=== PATIENT | female | born 1965 | race Caucasian/White ===

== ENCOUNTER 2019-12-04 10:39 | Outpatient (CLI) | payer MEDICARE, SELFPAY ==
--- NOTE | 2019-12-04 11:06 | CT_ITS ---
WS: [id number] CT CHEST WITHOUT INTRAVENOUS CONTRAST HISTORY: FOLLOW UP FOR PULMONARY NODULE TECHNIQUE: Contiguous 5 mm axial imaging performed on the thorax. Coronal and sagittal reformats are submitted. All CT scans at [facility] use at least one of these dose optimization techniq ues: automated exposure control; mA and/or kV adjustment per patient size (includes targeted exams wh ere dose is matched to clinical indication); or iterative reconstruction. CONTRAST: None DLP: 692.07 mGy.cm COMPARISON: 09/14/2017, 04/19/2009 Lungs and central airway: Stable 6.6 mm nodule with a pleural tag at the RIGHT apex. 3 mm noncalcifie d rounded nodule on image 20 degrees series 3 is stable. Fibrotic changes in the periphery of the LEF T upper lobe with bronchiectasis. There is an area of pleural thickening along the RIGHT major fissur e which is also stable. No new or suspicious pulmonary nodules. Pleura: Normal. No pleural effusion. Heart and pericardium: Normal size heart. No pericardial effusion. Mediastinum and olaf: Well-circumscribed low-attenuation mass in the anterior mediastinum measures 1. 7 cm in diameter. Very slight increase in size since 09/14/2017. Small mediastinal lymph nodes. Vessels: Mild coronary artery atherosclerosis. Aorta is normal size. Chest wall and lower neck: LEFT axillary christy dissection. Upper abdomen: Stable 12 mm cyst in the superior RIGHT lobe of the liver. Mild hyperplasia LEFT adren al gland. No nodules. Osseous structures: Mild thoracolumbar scoliosis. Dorsal column stimulator electrodes are present ove r the mid thoracic spine. CT/CT chest wo con [id number] IMPRESSION: 1. Stable pulmonary nodules and pleural thickening since 05/14/2017. 2. Coronary artery atherosclerosis. 3. Prior LEFT axillary christy dissection. 4. Stable anterior mediastinal mass since 09/14/2017.
== END 2019-12-04 10:40 | disposition home or self-care (01) ==
PROVIDERS: Family Provider Family Medicine; Visit Provider Internal Medicine Medical Oncology
DX: R91.1 Solitary pulmonary nodule (principal); I25.10 Atherosclerotic heart disease of native coronary artery without angina pectoris
CPT/HCPCS: 71250

== ENCOUNTER 2019-12-09 12:10 | Outpatient (CLI) | payer MEDICARE, SELFPAY ==
[2019-12-09 13:06] LABS: Basophils # 0.1 10^3/uL (0.0-0.1); Basophils % 0.3 %; Eosinophils % 0.2 %; Hematocrit 43.9 % (37.0-47.0); Hemoglobin 13.9 g/dL (11.5-15.3); Lymphocytes # 5.4 10^3/uL (0.8-4.8); Lymphocytes % 31.6 %; Mean Corpuscular HGB Conc 31.7 g/dL (30.0-36.0); Mean Corpuscular Hemoglobin 29.1 pg (28.0-34.0); Mean Platelet Volume 9.3 fL (7.4-10.4); Monocytes % 5.8 %; Neutrophils # 10.4 10^3/uL (1.8-7.7); Neutrophils % 61.7 %; Nucleated Red Blood Cells % 0 %; Platelet Count 317 10^3/cmm (130-400); Red Blood Count 4.77 10^6/uL (4.1-5.3); Red Cell Distribution Width 12.6 % (12.1-15.1); White Blood Count 16.9 10^3/uL (4.0-10.0)
[2019-12-09 13:39] LABS: Alanine Aminotransferase 16 U/L (0-33); Alkaline Phosphatase 77 IU/L (35-105); Anion Gap 20.2 (5-19); Aspartate Amino Transferase 23 U/L (0-32); Blood Urea Nitrogen 9 mg/dL (6-20); Calcium 10.1 mg/dL (8.5-10.5); Carbon Dioxide 27 mmol/L (22-29); Chloride 97 mmol/L (98-107); Globulin 3.7 g/dL (1.3-4.6); Glomerular Filtration Rate 127.6 mL/min (90-130); Glucose 181 mg/dL (65-115); Potassium 4.2 mmol/L (3.5-5.1); Sodium 140 mmol/L (136-145); Total Protein 7.7 g/dL (6.6-8.7)
--- NOTE | 2019-12-10 09:03 | ONC FU_ITS ---
Dr. Garner Patient Follow-Up Note Patient: Olya Mccormick Unit #: [id number]: [id number] Dicatated By: Jamil Garner M.D.Date of Visit:Dec 09, 2019 Onc Med Follow-up/Prog Note Chief Complaint: Breast cancer/metastatic squamous cell cancer. History of Present Illness: This is a 54 year-old woman with a history of grade 2 infiltrating ductal carcinoma of the left breast, stage IIA (T1c, N1, M0), ER/AL positive and HER-2/marely negative. 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 She had presented in 2005 with an abnormal mammogram which showed an isodense lesion in the left breast at 12 o'clock. Her treatment included lumpectomy and sentinel axillary lymph node biopsy followed by adjuvant chemotherapy with 3 cycles of FEC followed by 3 cycles of Taxotere. She completed chemotherapy in May of 2006. She was then given radiation to the left breast, which she completed in October 2006. She then started hormonal therapy with Arimidex, but it was stopped in October 2007 due to musculoskeletal pain and other side effects. She had a brief trial of therapy with Aromasin, which she also tolerated poorly. She then started tamoxifen in December 2008 and continued it until sometime in the summer, having completed a little more than 4 years of treatment. Thus far there has been no evidence of recurrence of her breast cancer. She had chronic pain following completion of her chemotherapy. At least some component was felt to be due to chemotherapy-induced peripheral neuropathy. She also developed significant degenerative disease of the spine, and she underwent cervical laminectomy as well as placement of a spinal cord stimulator. Her other medical illnesses include type 2 diabetes, dyslipidemia, and coronary artery disease. She has had previous angioplasty/stent placement. She has a history of irritable bowel syndrome. She underwent upper GI endoscopy in June 2011. At that time she had evidence of esophagitis, esophageal candidiasis, and gastritis. She was H. pylori positive. She did complete treatment for both the Sylvia and the H. pylori. She was then confirmed on a subsequent gastric emptying study to have gastroparesis. In January 2015 she had presented with some new pain in the right groin area and right leg. I had initially suspected that it was from the right hip joint. X-rays and subsequent bone scan, though, were unremarkable. Ultimately I did suspect that the pain was radicular, as there were significant degenerative changes in the spine noted on a previous CT abdomen/pelvis. She was referred to Dr. Maloney for further evaluation. She was not a candidate for MRI due to the presence of a TENS unit. Ultimately she did have evaluation with myelogram in April 2015. There was no severe stenosis noted. She continued with conservative management. In the meantime she had presented to Dr. Saleh with a knot in her left groin area. She had been noted on a CT abdomen/pelvis in December 2014 to have a slight increase in left inguinal lymph nodes, the largest measuring up to 17 mm. Further evaluation with ultrasound on 07/23/2015 showed further progression of the left inguinal adenopathy, measuring 2.5 x 3.0 cm. An adjacent smaller node measured 10 x 14 mm. She was referred to Dr. Fiore. She underwent left inguinal lymph node biopsy on 08/19/2015. Pathology showed 2 separate lymph nodes, the larger measuring 3.5 x 3.0 x 2.5 cm and the smaller measuring 2.4 x 2.0 x 1.3 cm. Both showed metastatic squamous cell carcinoma. I had seen her for a followup visit in August 2015. She had negative vaginal and anorectal exam at that time. In reviewing her other history, she had undergone hysterectomy and unilateral oophorectomy sometime prior to my initial visit with her, which was in April 2006. She did have a previous colonoscopy, but she didn't recall when it was done, and I could not find a record of it. In June 2013 she had been sent to [place] for removal of a skin lesion from her right cheek. At that time a lesion was also removed from the lower left leg. Pathology showed basal cell carcinoma on the right cheek and crateriform squamous cell carcinoma on the left lower leg. There was squamous cell carcinoma extending to the deep biopsy margins. She had no further treatment. She had restaging PET/CT on 09/10/2015. That study showed findings the left groin which are felt to most likely represent postbiopsy inflammatory changes. There was a tiny right upper lobe subpleural pulmonary nodule with SUV 0.7, felt to be consistent with early metastatic involvement versus granulomatous disease. Follow-up chest CT was recommended. There were no other suspicious findings. She was then seen by Dr. Hernandez for consideration of left inguinal lymph node dissection. At that time there was concern of possible right inguinal adenopathy, and he had recommended evaluation with ultrasound. That study was done here on 11/26/2015. It showed evidence of 2 lymph nodes in the right groin, the largest measuring 1.6 x 1.3 cm. The appearance was consistent with benign lymph nodes. Several adjacent lymph nodes also were present. There was no suspicious lymphadenopathy identified. At that time, she also had a contrast-enhanced head CT scan. It showed no evidence of metastatic disease to the brain. There was an indeterminate lytic lesion noted in the left frontal bone. She subsequently had a repeat bone scan, and it was unremarkable. Follow-up CT abdomen/pelvis on 03/28/2016 showed a low density region in the posterior aspect of the right lobe of the liver which was present on studies, and follow-up was recommended. The lymph nodes in the left inguinal region were no longer present. There were no other changes noted. Surveillance CT scans of the chest, abdomen, and pelvis on 09/14/2017 showed no evidence of metastatic disease. A 6 mm nodule in the right lung apex was noted to be slightly more prominent compared to prior study from 2009 and there was an additional new noncalcified pulmonary nodule in the right upper lobe laterally measuring 3.7 mm. Follow-up was recommended. A cyst in the hepatic dome was felt to be probably stable. She continued on observation/expectant management. Her repeat chest CT on 12/04/2019 showed stable nodule at the right lung apex measuring 6.6 mm and stable 3 mm rounded nodule in the right upper lobe. Fibrotic changes in the periphery of the left upper lobe and pleural thickening along the right major fissure also appeared stable. A well-circumscribed low attenuation mass in the anterior mediastinum measuring 1.7 cm was noted to have increased slightly compared to the 2017 study. A 12 mm cyst in the right lobe of the liver also appeared stable. She is seen for a followup visit. She complains that she has been feeling tired. She is still able to do light work. Her ECOG score is 1. She continues to have difficulty eating. She has postprandial vomiting almost every day. Her weight, though, is stable. She has had low-grade fever intermittently up to 101 degrees. She says she has bad hot flashes and sweating. She has had cough productive of green sputum, and she has been having pain in the left rib cage with coughing, significant enough that she thinks she may have a broken rib. Her breathing, though, has been okay. In addition to the vomiting she has been having really bad heartburn. Bowel and bladder function have been okay. She continues to have neck pain, which is chronic. She complains that her back is sore. She has neuropathy in her legs and feet. Medications: Atorvastatin Calcium 1 (20 mg) Tablet Oral at bedtime, Atorvastatin Calcium 1 Tablet (of 20 mg) Oral daily, Cetirizine HCl 1 Tablet (of 10 mg) Oral daily, Cholestyramine 1 (4 g/dose) Powder Oral b.i.d., Clobetasol Propionate 1 (0.05 %) Cream Topical b.i.d., Cyclobenzaprine HCl 1 Tablet (of 10 mg) Oral t.i.d. PRN, diphenhydrAMINE HCl 1 Capsule (of 25 mg) Oral at bedtime PRN, DULoxetine HCl 1 Capsule (of 30 mg) Capsule Delayed Release Particles Oral b.i.d., Erythromycin 5 mL (of 200-5 mg/mL) Solution q 6 hours PRN, Famotidine 1 (20 mg) Tablet Oral b.i.d., Flonase 1 spray(s) (of 50 mcg/act) Suspension Nasal b.i.d., Glimepiride 1 Tablet (of 2 mg) Oral b.i.d., glipiZIDE ER 1 Tablet (of 5 mg) Tablet SR 24 HR Oral daily, Lisinopril 1 (5 mg) Tablet Oral daily, Meclizine HCl 1 Tablet (of 25 mg) Oral t.i.d. PRN, Montelukast Sodium 1 Tablet (of 10 mg) Oral daily, Multivitamin Adult 1 Tablet Oral daily, Nitroglycerin (0.4 mg) Tablet, sublingual Sublingual Take as Directed, Pantoprazole Sodium 1 Tablet (of 40 mg) Tablet, enteric coated Oral daily, Plavix 1 Tablet (of 75 mg) Oral daily, Zofran 1 Tablet (of 4 mg) Oral q 8 hours PRN Allergies: adhesives, ASPIRIN, codeine, compazine, IV contrast, and septra. Review of Systems: Constitutional - Her energy is low and she is tired. She walks a lot and she does some light work at home. Her appetite is not good, but her weight is up slightly. She has had fever, up to about 101. She has hot flashes and night sweats. ECOG score is 1, ENMT - She has sinus congestion/drainage with a cough that produces green phlegm. No mouth sores. She has a sore throat. No difficulty swallowing, Hematologic/Lymphatic - No abnormal bruising or bleeding, Respiratory - No shortness of breath. No pleuritic pain or hemoptysis. She continues to smoke daily, Cardiovascular - No angina pain. No palpitations, Gastrointestinal - She has nausea and vomiting. She has heartburn. No diarrhea or constipation. No blood in the stool or black stools, Genitourinary (F) - No dysuria or hematuria. No urinary frequency. No urgency or incontinence, Musculoskeletal - She has pain in her ribs and back. She has neuropathy pain in her feet, Integumentary - No skin complications, Neurologic - She has headaches. She gets dizzy. She has tingling in her fingers and feet, Psychiatric - She has anxiety. She does not sleep well at night. Vital Signs: Performed on Dec 09, 2019 12:54 Height - 61.00 in Weight - 170.6 lbs (HIGH) BSA - 1.77 sq.m BMI - 32.23 (HIGH) Temperature - 98.0 F (LOW) Pulse - 95 /min Respiration - 24 /min BP - 116/77 mm(hg) O2 Sat - 97 % Pain - 6 Physical Examination: Constitutional - She does not appear acutely ill, Eyes - Sclerae nonicteric. Conjunctivae clear, ENMT - No lesions noted in the oral cavity, Hematologic/Lymphatic - No cervical, clavicular, or axillary adenopathy, Respiratory - Lungs sound clear with diminished air movement bilaterally, Cardiovascular - Heart rhythm is regular. There is a II/ systolic murmur. There is no gallop or rub noted, Abdomen - Soft. Liver and spleen are not enlarged. There is no abdominal mass or ascites noted. There is no inguinal adenopathy noted, Extremities - No edema, Neurologic - There are no other focal neurologic deficits. Lab/Imaging: Test performed on Dec 09, 2019 12:46 Sodium 140 mmol/L Potassium 4.2 mmol/L Chloride 97 mmol/L CO2 27 mmol/L Anion Gap 20.2 BUN 9 mg/dL Creatinine 0.5 mg/dL Cr Clearance (Est) 153.4800 mL/min eGFR 127.6 mL/min Glucose 181 mg/dL Calcium 10.1 mg/dL Protein, Total 7.7 g/dL Albumin 4.0 g/dL Globulin 3.7 g/dL Bilirubin, Total 1.0 mg/dL ALT (SGPT) 16 U/L AST (SGOT) 23 U/L Alkaline Phosphatase 77 IU/L WBC 16.9 10 3/uL RBC 4.77 10 6/uL HGB 13.9 g/dL HCT 43.9 % MCV 92.0 fL MCH 29.1 pg MCHC 31.7 g/dL RDW 12.6 % Platelet Count 317 10 3/cmm MPV 9.3 fL Neutrophils 10.4 10 3/uL Lymphocytes 5.4 10 3/uL Monocytes 1.0 10 3/uL Eosinophils 0.0 10 3/uL Basophils 0.1 10 3/uL Neutrophil % 61.7 % Lymphocyte % 31.6 % Monocyte % 5.8 % Eosinophil % 0.2 % Basophils % 0.3 % Impression: 1. Patient with stage IIA infiltrating ductal carcinoma of the left breast, ER/AL positive and HER-2/marely negative. Her treatment included lumpectomy/sentinel axillary lymph node biopsy followed by adjuvant chemotherapy with 3 cycles of FEC and 3 cycles of Taxotere, completed in May 2006. Radiation to the left breast was completed in October 2006. She also completed adjuvant hormonal therapy. 2. In July 2015 she was found to have metastatic squamous cell carcinoma involving left inguinal lymph nodes. This was probably metastatic squamous cell carcinoma from a primary skin cancer which had been removed from the left leg in June 2013. Restaging PET/CT in August 2015 showed no other sites of involvement. She was then referred to Dr. Hernandez for possible left inguinal node dissection. At that time there was concern of possible right inguinal lymphadenopathy, but ultrasound of that area showed benign-appearing lymph nodes, the largest measuring 1.6 x 1.3 cm. She had no further treatment. She has multiple other medical illnesses includin. Type II diabetes with neuropathy. 4. Dyslipidemia. 5. Coronary artery disease. She underwent coronary angiogram with angioplasty/stent placement to the right coronary artery in December 2011. 6. 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 7. Osteoporosis. 8. She has had recurrent postprandial vomiting. This is presumed to be due to gastroparesis. 9. She also has chronic diarrhea. During follow-up she has had multiple problems, including chronic pain and fatigue. She has neuropathy in the lower extremities. She also has gastroparesis with recurrent vomiting, and she has had chronic diarrhea. She also has had long-standing, mild leukocytosis. She was found to be negative for BCR/abl by FISH. At this point she continues to have similar complaints. Her overall clinical status appears stable, thus far with no evidence of recurrence of the breast cancer and no further progression of the squamous cell cancer. Plan: She remains on observation/expectant management for the breast cancer and the metastatic squamous cell carcinoma. I will see her again in 3 months, or sooner as needed. Signed By: Jamil Garner M.D. <<Signature on File>>
== END 2019-12-09 12:11 | disposition home or self-care (01) ==
LOC: ONCMED 12:10
PROVIDERS: Family Provider Family Medicine; PCP Family Medicine; Visit Provider Internal Medicine Medical Oncology
DX: Z08 Encounter for follow-up examination after completed treatment for malignant neoplasm (principal); Z85.3 Personal history of malignant neoplasm of breast; Z85.828 Personal history of other malignant neoplasm of skin; D72.829 Elevated white blood cell count, unspecified; G89.29 Other chronic pain; G62.0 Drug-induced polyneuropathy; T45.1X5S Adverse effect of antineoplastic and immunosuppressive drugs, sequela; E78.5 Hyperlipidemia, unspecified; I25.10 Atherosclerotic heart disease of native coronary artery without angina pectoris; K58.9 Irritable bowel syndrome, unspecified; E11.42 Type 2 diabetes mellitus with diabetic polyneuropathy; M81.0 Age-related osteoporosis without current pathological fracture; M47.819 Spondylosis without myelopathy or radiculopathy, site unspecified; R53.83 Other fatigue; Z79.02 Long term (current) use of antithrombotics/antiplatelets; Z79.84 Long term (current) use of oral hypoglycemic drugs; Z92.21 Personal history of antineoplastic chemotherapy; Z92.3 Personal history of irradiation; Z92.23 Personal history of estrogen therapy; Z95.5 Presence of coronary angioplasty implant and graft
CPT/HCPCS: 80053; 85025; G0463

== ENCOUNTER 2020-03-17 13:32 | Outpatient (CLI) | payer MEDICARE, SELFPAY ==
--- NOTE | 2020-03-21 10:40 | ONC FU_ITS ---
Dr. Garner Patient Follow-Up Note Patient: Olya Mccormikc Unit #: [id number]: [id number] Dicatated By: Jamil Garner M.D.Date of Visit:March 17, 2020 Onc Med Follow-up/Prog Note Chief Complaint: Breast cancer/metastatic squamous cell cancer. History of Present Illness: This is a 55 year-old woman with a history of grade 2 infiltrating ductal carcinoma of the left breast, stage IIA (T1c, N1, M0), ER/DC positive and HER-2/marely negative. 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 She had presented in 2005 with an abnormal mammogram which showed an isodense lesion in the left breast at 12 o'clock. Her treatment included lumpectomy and sentinel axillary lymph node biopsy followed by adjuvant chemotherapy with 3 cycles of FEC followed by 3 cycles of Taxotere. She completed chemotherapy in May of 2006. She was then given radiation to the left breast, which she completed in October 2006. She then started hormonal therapy with Arimidex, but it was stopped in October 2007 due to musculoskeletal pain and other side effects. She had a brief trial of therapy with Aromasin, which she also tolerated poorly. She then started tamoxifen in December 2008 and continued it until sometime in the summer, having completed a little more than 4 years of treatment. Thus far there has been no evidence of recurrence of her breast cancer. She had chronic pain following completion of her chemotherapy. At least some component was felt to be due to chemotherapy-induced peripheral neuropathy. She also developed significant degenerative disease of the spine, and she underwent cervical laminectomy as well as placement of a spinal cord stimulator. Her other medical illnesses include type 2 diabetes, dyslipidemia, and coronary artery disease. She has had previous angioplasty/stent placement. She has a history of irritable bowel syndrome. She underwent upper GI endoscopy in June 2011. At that time she had evidence of esophagitis, esophageal candidiasis, and gastritis. She was H. pylori positive. She did complete treatment for both the Sylvia and the H. pylori. She was then confirmed on a subsequent gastric emptying study to have gastroparesis. In January 2015 she had presented with some new pain in the right groin area and right leg. I had initially suspected that it was from the right hip joint. X-rays and subsequent bone scan, though, were unremarkable. Ultimately I did suspect that the pain was radicular, as there were significant degenerative changes in the spine noted on a previous CT abdomen/pelvis. She was referred to Dr. Maloney for further evaluation. She was not a candidate for MRI due to the presence of a TENS unit. Ultimately she did have evaluation with myelogram in April 2015. There was no severe stenosis noted. She continued with conservative management. In the meantime she had presented to Dr. Saleh with a knot in her left groin area. She had been noted on a CT abdomen/pelvis in December 2014 to have a slight increase in left inguinal lymph nodes, the largest measuring up to 17 mm. Further evaluation with ultrasound on 07/23/2015 showed further progression of the left inguinal adenopathy, measuring 2.5 x 3.0 cm. An adjacent smaller node measured 10 x 14 mm. She was referred to Dr. Fiore. She underwent left inguinal lymph node biopsy on 08/19/2015. Pathology showed 2 separate lymph nodes, the larger measuring 3.5 x 3.0 x 2.5 cm and the smaller measuring 2.4 x 2.0 x 1.3 cm. Both showed metastatic squamous cell carcinoma. I had seen her for a followup visit in August 2015. She had negative vaginal and anorectal exam at that time. In reviewing her other history, she had undergone hysterectomy and unilateral oophorectomy sometime prior to my initial visit with her, which was in April 2006. She did have a previous colonoscopy, but she didn't recall when it was done, and I could not find a record of it. In June 2013 she had been sent to [facility] for removal of a skin lesion from her right cheek. At that time a lesion was also removed from the lower left leg. Pathology showed basal cell carcinoma on the right cheek and crateriform squamous cell carcinoma on the left lower leg. There was squamous cell carcinoma extending to the deep biopsy margins. She had no further treatment. She had restaging PET/CT on 09/10/2015. That study showed findings the left groin which are felt to most likely represent postbiopsy inflammatory changes. There was a tiny right upper lobe subpleural pulmonary nodule with SUV 0.7, felt to be consistent with early metastatic involvement versus granulomatous disease. Follow-up chest CT was recommended. There were no other suspicious findings. She was then seen by Dr. Hernandez for consideration of left inguinal lymph node dissection. At that time there was concern of possible right inguinal adenopathy, and he had recommended evaluation with ultrasound. That study was done here on 11/26/2015. It showed evidence of 2 lymph nodes in the right groin, the largest measuring 1.6 x 1.3 cm. The appearance was consistent with benign lymph nodes. Several adjacent lymph nodes also were present. There was no suspicious lymphadenopathy identified. At that time, she also had a contrast-enhanced head CT scan. It showed no evidence of metastatic disease to the brain. There was an indeterminate lytic lesion noted in the left frontal bone. She subsequently had a repeat bone scan, and it was unremarkable. Follow-up CT abdomen/pelvis on 03/28/2016 showed a low density region in the posterior aspect of the right lobe of the liver which was present on studies, and follow-up was recommended. The lymph nodes in the left inguinal region were no longer present. There were no other changes noted. Surveillance CT scans of the chest, abdomen, and pelvis on 09/14/2017 showed no evidence of metastatic disease. A 6 mm nodule in the right lung apex was noted to be slightly more prominent compared to prior study from 2009 and there was an additional new noncalcified pulmonary nodule in the right upper lobe laterally measuring 3.7 mm. Follow-up was recommended. A cyst in the hepatic dome was felt to be probably stable. She continued on observation/expectant management. Her repeat chest CT on 12/04/2019 showed stable nodule at the right lung apex measuring 6.6 mm and stable 3 mm rounded nodule in the right upper lobe. Fibrotic changes in the periphery of the left upper lobe and pleural thickening along the right major fissure also appeared stable. A well-circumscribed low attenuation mass in the anterior mediastinum measuring 1.7 cm was noted to have increased slightly compared to the 2017 study. A 12 mm cyst in the right lobe of the liver also appeared stable. She is seen for a followup visit. She has not been feeling good generally. She has limited activity tolerance, but she is able to clean house and she also swims. Her ECOG score is 1. Appetite is variable. Her weight is stable. She has not had fever. She does have hot flashes and sweating. Since her last visit she has had eye surgery for glaucoma. She continues to have pain in her stomach and nausea, she says she still has vomiting just about every day. She thinks this may be related to sinus drainage. She does not complain of shortness of breath. She does have cough which is productive of a little bit of yellow sputum. She occasionally has chest pain. She is still smoking 1 pack of cigarettes daily. She has chronic diarrhea. She has no complaints. She has generalized body pain. She has neuropathy in her legs and feet. She also complains that she has headache almost every night. She describes it as a pounding headache and it is mainly in the frontal and occipital area. Medications: Atorvastatin Calcium 1 (20 mg) Tablet Oral at bedtime, Atorvastatin Calcium 1 Tablet (of 20 mg) Oral daily, Cetirizine HCl 1 Tablet (of 10 mg) Oral daily, Cholestyramine 1 (4 g/dose) Powder Oral b.i.d., Clobetasol Propionate 1 (0.05 %) Cream Topical b.i.d., Cyclobenzaprine HCl 1 Tablet (of 10 mg) Oral t.i.d. PRN, diphenhydrAMINE HCl 1 Capsule (of 25 mg) Oral at bedtime PRN, DULoxetine HCl 1 Capsule (of 30 mg) Capsule Delayed Release Particles Oral b.i.d., Erythromycin 5 mL (of 200-5 mg/mL) Solution q 6 hours PRN, Famotidine 1 (20 mg) Tablet Oral b.i.d., Flonase 1 spray(s) (of 50 mcg/act) Suspension Nasal b.i.d., Glimepiride 1 Tablet (of 2 mg) Oral b.i.d., glipiZIDE ER 1 Tablet (of 5 mg) Tablet SR 24 HR Oral daily, Meclizine HCl 1 Tablet (of 25 mg) Oral t.i.d. PRN, Montelukast Sodium 1 Tablet (of 10 mg) Oral daily, Multivitamin Adult 1 Tablet Oral daily, Nitroglycerin (0.4 mg) Tablet, sublingual Sublingual Take as Directed, oxyCODONE HCl 1 Tablet (of 30 mg) Oral q 4 hours PRN, Pantoprazole Sodium 1 Tablet (of 40 mg) Tablet, enteric coated Oral daily, Plavix 1 Tablet (of 75 mg) Oral daily, Zofran 1 Tablet (of 4 mg) Oral q 8 hours PRN Allergies: adhesives, ASPIRIN, codeine, compazine, IV contrast, and septra. Review of Systems: Constitutional - Her energy not good, but she does housework and she swims. Her appetite is variable. Her weight is stable. She has not had fever. She has hot flashes and night sweats. ECOG score is 1, Eyes - She has had eye surgery for glaucoma, ENMT - She has sinus drainage. No mouth sores. She has a sore throat. No difficulty swallowing, Hematologic/Lymphatic - No abnormal bruising or bleeding, Respiratory - No shortness of breath. She has cough productive of yellow sputum. No pleuritic pain or hemoptysis. She continues to smoke 1 pack of cigarettes daily, Cardiovascular - She occasionally has chest pain. No palpitations, Gastrointestinal - She has pain in her stomach. She has nausea and she still has vomiting about every day. She has bad heartburn. She has chronic diarrhea. No blood in the stool or black stools, Genitourinary (F) - No dysuria or hematuria. No urinary frequency. No urgency or incontinence, Musculoskeletal - She has chronic pain, Integumentary - No skin complications, Neurologic - She has headaches almost every night. She has dizziness. She has neuropathy in her legs and feet, Psychiatric - She has anxiety. She does not sleep well at night. Vital Signs: Performed on March 17, 2020 13:52 Height - 61.00 in Weight - 170.8 lbs (HIGH) BSA - 1.77 sq.m BMI - 32.27 (HIGH) Temperature - 98.3 F (LOW) Pulse - 78 /min Respiration - 26 /min BP - 133/57 mm(hg) O2 Sat - 93 % (LOW) Pain - 8 Physical Examination: Constitutional - She does not appear acutely ill, Eyes - Sclerae nonicteric. Conjunctivae clear, ENMT - No lesions noted in the oral cavity, Hematologic/Lymphatic - No cervical or clavicular adenopathy, Respiratory - Lungs sound clear with diminished air movement bilaterally, Cardiovascular - Heart rhythm is regular. There is a II/ systolic murmur. There is no gallop or rub noted, Breasts - The right breast shows no mass. There is induration in the left breast, but with no palpable mass. There is no axillary adenopathy, Abdomen - Mildly distended. Liver and spleen are not enlarged. There is no abdominal mass or ascites noted. There is no inguinal adenopathy noted, Extremities - No edema, Neurologic - There are no other focal neurologic deficits. Lab/Imaging: Test performed on Dec 09, 2019 12:46 Sodium 140 mmol/L Potassium 4.2 mmol/L Chloride 97 mmol/L CO2 27 mmol/L Anion Gap 20.2 BUN 9 mg/dL Creatinine 0.5 mg/dL Cr Clearance (Est) 153.4800 mL/min eGFR 127.6 mL/min Glucose 181 mg/dL Calcium 10.1 mg/dL Protein, Total 7.7 g/dL Albumin 4.0 g/dL Globulin 3.7 g/dL Bilirubin, Total 1.0 mg/dL ALT (SGPT) 16 U/L AST (SGOT) 23 U/L Alkaline Phosphatase 77 IU/L WBC 16.9 10 3/uL RBC 4.77 10 6/uL HGB 13.9 g/dL HCT 43.9 % MCV 92.0 fL MCH 29.1 pg MCHC 31.7 g/dL RDW 12.6 % Platelet Count 317 10 3/cmm MPV 9.3 fL Neutrophils 10.4 10 3/uL Lymphocytes 5.4 10 3/uL Monocytes 1.0 10 3/uL Eosinophils 0.0 10 3/uL Basophils 0.1 10 3/uL Neutrophil % 61.7 % Lymphocyte % 31.6 % Monocyte % 5.8 % Eosinophil % 0.2 % Basophils % 0.3 % Impression: 1. Patient with stage IIA infiltrating ductal carcinoma of the left breast, ER/DC positive and HER-2/marely negative. Her treatment included lumpectomy/sentinel axillary lymph node biopsy followed by adjuvant chemotherapy with 3 cycles of FEC and 3 cycles of Taxotere, completed in May 2006. Radiation to the left breast was completed in October 2006. She also completed adjuvant hormonal therapy. 2. In July 2015 she was found to have metastatic squamous cell carcinoma involving left inguinal lymph nodes. This was probably metastatic squamous cell carcinoma from a primary skin cancer which had been removed from the left leg in June 2013. Restaging PET/CT in August 2015 showed no other sites of involvement. She was then referred to Dr. Hernandez for possible left inguinal node dissection. At that time there was concern of possible right inguinal lymphadenopathy, but ultrasound of that area showed benign-appearing lymph nodes, the largest measuring 1.6 x 1.3 cm. She had no further treatment. She has multiple other medical illnesses includin. Type II diabetes with neuropathy. 4. Dyslipidemia. 5. Coronary artery disease. She underwent coronary angiogram with angioplasty/stent placement to the right coronary artery in December 2011. 6. 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 7. Osteoporosis. 8. She has had recurrent postprandial vomiting. This is presumed to be due to gastroparesis. 9. She also has chronic diarrhea. During follow-up she has had multiple problems, including chronic pain and fatigue. She has neuropathy in the lower extremities. She also has gastroparesis with recurrent vomiting, and she has had chronic diarrhea. She also has had long-standing, mild leukocytosis. She was found to be negative for BCR/abl by FISH. She has continued to have multiple complaints including fatigue, generalized pain, and neuropathy in the lower extremities. She also has ongoing GI symptoms, which are presumably due to the gastroparesis. Her overall clinical status, though, appears stable. Thus far there has been no evidence of recurrence of the breast cancer and no further progression of the squamous cell cancer. Plan: She remains on observation/expectant management for the breast cancer and for the metastatic squamous cell carcinoma. I will see her again in 3 months. In the meantime, with her blood pressure relatively low, she will stop the lisinopril. In addition, I will have her try increasing the duloxetine dosage to 60 mg daily. Her other medications remain the same. Signed By: Jamil Garner M.D. <<Signature on File>>
== END 2020-03-17 13:33 | disposition home or self-care (01) ==
LOC: ONCMED 13:36
PROVIDERS: Visit Provider Internal Medicine Medical Oncology
DX: Z08 Encounter for follow-up examination after completed treatment for malignant neoplasm (principal); Z85.3 Personal history of malignant neoplasm of breast; K59.00 Constipation, unspecified; E11.40 Type 2 diabetes mellitus with diabetic neuropathy, unspecified; I10 Essential (primary) hypertension; M19.90 Unspecified osteoarthritis, unspecified site; M81.0 Age-related osteoporosis without current pathological fracture; Z79.891 Long term (current) use of opiate analgesic; Z79.4 Long term (current) use of insulin
CPT/HCPCS: 99214

== ENCOUNTER → 2020-03-19 11:23 | Outpatient (BNVA) | payer MEDICARE, SELFPAY | PROVIDERS: Visit Provider Family Medicine | DX: E78.5 Hyperlipidemia, unspecified (principal); E11.9 Type 2 diabetes mellitus without complications; J43.1 Panlobular emphysema | CPT/HCPCS: 80061; 83036 ==

== ENCOUNTER → 2020-08-24 11:46 | Outpatient (BNVA) | payer MEDICARE, SELFPAY | PROVIDERS: PCP Family Medicine; Visit Provider Family Medicine | DX: E11.69 Type 2 diabetes mellitus with other specified complication (principal); Z79.4 Long term (current) use of insulin; J43.1 Panlobular emphysema; B00.9 Herpesviral infection, unspecified | CPT/HCPCS: 80053; 80061; 82043; 83036 ==

== ENCOUNTER 2020-09-28 13:13 | Outpatient (CLI) | payer MEDICARE, SELFPAY ==
--- NOTE | 2020-10-02 10:57 | ONC FU_ITS ---
Dr. Garner Patient Follow-Up Note Patient: Olya Mccormick Unit #: [id number]: [id number] Dicatated By: Jamil Garner M.D.Date of Visit:Sep 28, 2020 Onc Med Follow-up/Prog Note Chief Complaint: Breast cancer/metastatic squamous cell cancer. History of Present Illness: This is a 55 year-old woman with a history of grade 2 infiltrating ductal carcinoma of the left breast, stage IIA (T1c, N1, M0), ER/MN positive and HER-2/marely negative. 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 She had presented in 2005 with an abnormal mammogram which showed an isodense lesion in the left breast at 12 o'clock. Her treatment included lumpectomy and sentinel axillary lymph node biopsy followed by adjuvant chemotherapy with 3 cycles of FEC followed by 3 cycles of Taxotere. She completed chemotherapy in May of 2006. She was then given radiation to the left breast, which she completed in October 2006. She then started hormonal therapy with Arimidex, but it was stopped in October 2007 due to musculoskeletal pain and other side effects. She had a brief trial of therapy with Aromasin, which she also tolerated poorly. She then started tamoxifen in December 2008 and continued it until sometime in the summer, having completed a little more than 4 years of treatment. Thus far there has been no evidence of recurrence of her breast cancer. She had chronic pain following completion of her chemotherapy. At least some component was felt to be due to chemotherapy-induced peripheral neuropathy. She also developed significant degenerative disease of the spine, and she underwent cervical laminectomy as well as placement of a spinal cord stimulator. Her other medical illnesses include type 2 diabetes, dyslipidemia, and coronary artery disease. She has had previous angioplasty/stent placement. She has a history of irritable bowel syndrome. She underwent upper GI endoscopy in June 2011. At that time she had evidence of esophagitis, esophageal candidiasis, and gastritis. She was H. pylori positive. She did complete treatment for both the Sylvia and the H. pylori. She was then confirmed on a subsequent gastric emptying study to have gastroparesis. In January 2015 she had presented with some new pain in the right groin area and right leg. I had initially suspected that it was from the right hip joint. X-rays and subsequent bone scan, though, were unremarkable. Ultimately I did suspect that the pain was radicular, as there were significant degenerative changes in the spine noted on a previous CT abdomen/pelvis. She was referred to Dr. Maloney for further evaluation. She was not a candidate for MRI due to the presence of a TENS unit. Ultimately she did have evaluation with myelogram in April 2015. There was no severe stenosis noted. She continued with conservative management. In the meantime she had presented to Dr. Saleh with a knot in her left groin area. She had been noted on a CT abdomen/pelvis in December 2014 to have a slight increase in left inguinal lymph nodes, the largest measuring up to 17 mm. Further evaluation with ultrasound on 07/23/2015 showed further progression of the left inguinal adenopathy, measuring 2.5 x 3.0 cm. An adjacent smaller node measured 10 x 14 mm. She was referred to Dr. Fiore. She underwent left inguinal lymph node biopsy on 08/19/2015. Pathology showed 2 separate lymph nodes, the larger measuring 3.5 x 3.0 x 2.5 cm and the smaller measuring 2.4 x 2.0 x 1.3 cm. Both showed metastatic squamous cell carcinoma. I had seen her for a followup visit in August 2015. She had negative vaginal and anorectal exam at that time. In reviewing her other history, she had undergone hysterectomy and unilateral oophorectomy sometime prior to my initial visit with her, which was in April 2006. She did have a previous colonoscopy, but she didn't recall when it was done, and I could not find a record of it. In June 2013 she had been sent to [facility] for removal of a skin lesion from her right cheek. At that time a lesion was also removed from the lower left leg. Pathology showed basal cell carcinoma on the right cheek and crateriform squamous cell carcinoma on the left lower leg. There was squamous cell carcinoma extending to the deep biopsy margins. She had no further treatment. She had restaging PET/CT on 09/10/2015. That study showed findings the left groin which are felt to most likely represent postbiopsy inflammatory changes. There was a tiny right upper lobe subpleural pulmonary nodule with SUV 0.7, felt to be consistent with early metastatic involvement versus granulomatous disease. Follow-up chest CT was recommended. There were no other suspicious findings. She was then seen by Dr. Hernandez for consideration of left inguinal lymph node dissection. At that time there was concern of possible right inguinal adenopathy, and he had recommended evaluation with ultrasound. That study was done here on 11/26/2015. It showed evidence of 2 lymph nodes in the right groin, the largest measuring 1.6 x 1.3 cm. The appearance was consistent with benign lymph nodes. Several adjacent lymph nodes also were present. There was no suspicious lymphadenopathy identified. At that time, she also had a contrast-enhanced head CT scan. It showed no evidence of metastatic disease to the brain. There was an indeterminate lytic lesion noted in the left frontal bone. She subsequently had a repeat bone scan, and it was unremarkable. Follow-up CT abdomen/pelvis on 03/28/2016 showed a low density region in the posterior aspect of the right lobe of the liver which was present on studies, and follow-up was recommended. The lymph nodes in the left inguinal region were no longer present. There were no other changes noted. Surveillance CT scans of the chest, abdomen, and pelvis on 09/14/2017 showed no evidence of metastatic disease. A 6 mm nodule in the right lung apex was noted to be slightly more prominent compared to prior study from 2009 and there was an additional new noncalcified pulmonary nodule in the right upper lobe laterally measuring 3.7 mm. Follow-up was recommended. A cyst in the hepatic dome was felt to be probably stable. Her repeat chest CT on 12/04/2019 showed stable nodule at the right lung apex measuring 6.6 mm and stable 3 mm rounded nodule in the right upper lobe. Fibrotic changes in the periphery of the left upper lobe and pleural thickening along the right major fissure also appeared stable. A well-circumscribed low attenuation mass in the anterior mediastinum measuring 1.7 cm was noted to have increased slightly compared to the 2017 study. A 12 mm cyst in the right lobe of the liver also appeared stable. She continued observation/expectant management. She is seen for a followup visit. She says she is doing fine. She still has limited activity, but she is able to do light work. Her ECOG score is 1. Her appetite comes and goes. She has gained weight. She has not had fever. She still has hot flashes and night sweating. She has sinus drainage and she sometimes has cough. She does not complain of shortness of breath or chest pain. Lately she has had just a little bit of nausea. She does complain of having heartburn and acid reflux all the time. She has loose stools. She has urinary frequency and urgency and she has mild stress incontinence. She has constant pain, most significantly in her fingers and feet. She also has numbness/tingling in her hands and feet. Medications: Atorvastatin Calcium 1 (20 mg) Tablet Oral at bedtime, Atorvastatin Calcium 1 Tablet (of 20 mg) Oral daily, Cetirizine HCl 1 Tablet (of 10 mg) Oral daily, Cholestyramine 1 (4 g/dose) Powder Oral b.i.d., Clobetasol Propionate 1 (0.05 %) Cream Topical b.i.d., Cyclobenzaprine HCl 1 Tablet (of 10 mg) Oral t.i.d. PRN, diphenhydrAMINE HCl 1 Capsule (of 25 mg) Oral at bedtime PRN, DULoxetine HCl 1 Capsule (of 30 mg) Capsule Delayed Release Particles Oral b.i.d., Erythromycin 5 mL (of 200-5 mg/mL) Solution q 6 hours PRN, Famotidine 1 (20 mg) Tablet Oral b.i.d., Flonase 1 spray(s) (of 50 mcg/act) Suspension Nasal b.i.d., Glimepiride 1 Tablet (of 2 mg) Oral b.i.d., glipiZIDE ER 1 Tablet (of 5 mg) Tablet SR 24 HR Oral daily, Meclizine HCl 1 Tablet (of 25 mg) Oral t.i.d. PRN, Montelukast Sodium 1 Tablet (of 10 mg) Oral daily, Multivitamin Adult 1 Tablet Oral daily, Nitroglycerin (0.4 mg) Tablet, sublingual Sublingual Take as Directed, oxyCODONE HCl 1 Tablet (of 30 mg) Oral q 4 hours PRN, Pantoprazole Sodium 1 Tablet (of 40 mg) Tablet, enteric coated Oral daily, Plavix 1 Tablet (of 75 mg) Oral daily, Zofran 1 Tablet (of 4 mg) Oral q 8 hours PRN Allergies: adhesives, ASPIRIN, codeine, compazine, IV contrast, and septra. Review of Systems: Constitutional - She says she is doing fine. She does have limited activity, but she is able to do light work. Her appetite comes and goes. She has gained weight. She has not had fever. She still has hot flashes and night sweating. ECOG score is 1, ENMT - She has sinus drainage. No mouth sores. She has a little bit of sore throat. No difficulty swallowing, Hematologic/Lymphatic - No abnormal bruising or bleeding, Respiratory - No shortness of breath. She sometimes has cough. No pleuritic pain or hemoptysis, Cardiovascular - No angina pain. No palpitations, Gastrointestinal - She has just a little bit of nausea. She complained that she has heartburn all the time. She has loose stools. No blood in the stool or black stools, Genitourinary (F) - No dysuria or hematuria. She has urinary frequency and urgency. She has mild stress incontinence, Musculoskeletal - She has chronic pain. The worst is in her hands and feet, Integumentary - No skin rash, Neurologic - She has headaches and she has dizziness. She has numbness/tingling in her hands and feet, Psychiatric - No anxiety or depression. No insomnia. Vital Signs: Performed on Sep 28, 2020 15:04 Height - 61.00 in Weight - 178.6 lbs (HIGH) BSA - 1.80 sq.m BMI - 33.75 (HIGH) Temperature - 99.3 F (HIGH) Pulse - 82 /min Respiration - 22 /min BP - 111/71 mm(hg) O2 Sat - 97 % Pain - 0 Physical Examination: Constitutional - She looks pretty good generally, Eyes - Sclerae nonicteric. Conjunctivae clear, ENMT - No lesions noted in the oral cavity, Hematologic/Lymphatic - No cervical or clavicular adenopathy, Respiratory - Lungs sound clear with diminished air movement bilaterally, Cardiovascular - Heart rhythm is regular. There is no murmur, gallop, or rub noted, Abdomen - Soft. Liver and spleen are not enlarged. There is no abdominal mass or ascites noted. There is no inguinal adenopathy noted, Extremities - No edema, Neurologic - No focal neurologic deficits noted. Impression: 1. Patient with stage IIA infiltrating ductal carcinoma of the left breast, ER/MN positive and HER-2/marely negative. Her treatment included lumpectomy/sentinel axillary lymph node biopsy followed by adjuvant chemotherapy with 3 cycles of FEC and 3 cycles of Taxotere, completed in May 2006. Radiation to the left breast was completed in October 2006. She also completed adjuvant hormonal therapy. 2. In July 2015 she was found to have metastatic squamous cell carcinoma involving left inguinal lymph nodes. This was probably metastatic squamous cell carcinoma from a primary skin cancer which had been removed from the left leg in June 2013. Restaging PET/CT in August 2015 showed no other sites of involvement. She was then referred to Dr. Hernandez for possible left inguinal node dissection. At that time there was concern of possible right inguinal lymphadenopathy, but ultrasound of that area showed benign-appearing lymph nodes, the largest measuring 1.6 x 1.3 cm. She had no further treatment. She has multiple other medical illnesses includin. Type II diabetes with neuropathy. 4. Dyslipidemia. 5. Coronary artery disease. She underwent coronary angiogram with angioplasty/stent placement to the right coronary artery in December 2011. 6. 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 7. Osteoporosis. 8. She has had recurrent postprandial vomiting. This is presumed to be due to gastroparesis. 9. She also has chronic diarrhea. During follow-up she has had multiple chronic complaints including generalized pain and fatigue. She has neuropathy in the lower extremities. She also has gastroparesis with recurrent vomiting, and she has had chronic diarrhea. She has had long-standing, mild leukocytosis. She was tested and found to be negative for BCR/abl by FISH. Her overall clinical status at this point appears stable. Thus far there has been no evidence of recurrence of the breast cancer and no further recurrence/progression of the squamous cell skin cancer. Plan: She remains on observation/expectant management for the breast cancer and for the metastatic squamous cell carcinoma. I will see her again in 3 months. Signed By: Jamil Garner M.D. <<Signature on File>>
== END 2020-09-28 13:14 | disposition home or self-care (01) ==
LOC: ONCMED 13:17
PROVIDERS: PCP Family Medicine; Visit Provider Internal Medicine Medical Oncology
DX: Z08 Encounter for follow-up examination after completed treatment for malignant neoplasm (principal); Z85.3 Personal history of malignant neoplasm of breast; E11.42 Type 2 diabetes mellitus with diabetic polyneuropathy; E78.5 Hyperlipidemia, unspecified; I25.10 Atherosclerotic heart disease of native coronary artery without angina pectoris; M47.9 Spondylosis, unspecified; M81.0 Age-related osteoporosis without current pathological fracture; R11.10 Vomiting, unspecified; K52.9 Noninfective gastroenteritis and colitis, unspecified; Z95.5 Presence of coronary angioplasty implant and graft; Z95.1 Presence of aortocoronary bypass graft; Z85.828 Personal history of other malignant neoplasm of skin; Z92.23 Personal history of estrogen therapy; Z92.21 Personal history of antineoplastic chemotherapy; Z92.3 Personal history of irradiation; Z79.84 Long term (current) use of oral hypoglycemic drugs
CPT/HCPCS: G0463

== ENCOUNTER 2020-11-04 12:54 | Outpatient (CLI) | payer MEDICARE, SELFPAY ==
--- NOTE | 2020-11-04 13:02 | MM_ITS ---
WS: [id number] Bilateral diagnostic digital mammogram, 11/04/2020 Clinical Data: HX OF BREAST CA Comparison: 07/07/2019, 07/02/2018, 06/26/2017, 04/11/2017, 06/22/2016, 03/15/2015, 03/09/2014, 03/03/2013, 05/15, 02/09/2011, 05/05/2010, 04/25/2010, 01/28/2009, 04/08/2008. Findings: The breast parenchymal pattern shows fibroglandular tissue. The left breast is smaller because of rad iation therapy with skin thickening. No spiculated masses or clustered calcifications are seen in eit her breast. MM/[id number] Impression: 1. Negative right breast unchanged. 2. Negative left breast with post therapeutic changes the same. 3. Recommend bilateral yearly mammograms. BIRADS: 2-Benign FOLLOW UP: 1 Year Follow-up The [facility] checker was used.
== END 2020-11-04 12:55 | disposition home or self-care (01) ==
LOC: ONCMED 12:57
PROVIDERS: PCP Family Medicine; Visit Provider Internal Medicine Medical Oncology
DX: Z85.3 Personal history of malignant neoplasm of breast (principal); Z92.3 Personal history of irradiation
CPT/HCPCS: 77066

== ENCOUNTER → 2020-11-17 13:34 | Outpatient (BNVA) | payer MEDICARE, SELFPAY | PROVIDERS: PCP Family Medicine; Visit Provider Family Medicine | DX: E11.9 Type 2 diabetes mellitus without complications (principal); Z79.4 Long term (current) use of insulin; M31.6 Other giant cell arteritis; G44.209 Tension-type headache, unspecified, not intractable | CPT/HCPCS: 80053; 83036; 85651 ==

== ENCOUNTER 2020-12-28 11:45 | Outpatient (CLI) | payer MEDICARE, SELFPAY ==
[2020-12-28 12:37] LABS: Basophils # 0.1 10^3/uL (0.0-0.1); Basophils % 0.5 %; Eosinophils # 0.1 10^3/uL (0.0-0.8); Eosinophils % 0.3 %; Hematocrit 46.3 % (37.0-47.0); Hemoglobin 15.2 g/dL (11.5-15.3); Lymphocytes # 3.9 10^3/uL (0.8-4.8); Lymphocytes % 24.7 %; Mean Corpuscular HGB Conc 32.8 g/dL (30.0-36.0); Mean Corpuscular Hemoglobin 29.2 pg (28.0-34.0); Mean Platelet Volume 9.1 fL (7.4-10.4); Monocytes % 6.2 %; Neutrophils # 10.68 10^3/uL (1.8-7.7); Neutrophils % 67.9 %; Nucleated Red Blood Cells % 0 %; Platelet Count 393 10^3/cmm (130-400); White Blood Count 15.7 10^3/uL (4.0-10.0)
[2020-12-28 13:01] LABS: Alanine Aminotransferase 13 U/L (0-33); Albumin Level 4.2 g/dL (3.5-5.2); Alkaline Phosphatase 80 IU/L (35-105); Anion Gap 16.9 (5-19); Aspartate Amino Transferase 14 U/L (0-32); Blood Urea Nitrogen 7 mg/dL (6-20); Calcium 9.4 mg/dL (8.5-10.5); Carbon Dioxide 23 mmol/L (22-29); Chloride 101 mmol/L (98-107); Globulin 3.3 g/dL (1.3-4.6); Glomerular Filtration Rate 127.2 mL/min (90-130); Glucose 166 mg/dL (65-115); Osmolality Calculated 286 mOsm/kg (285-295); Potassium 3.9 mmol/L (3.5-5.1); Sodium 137 mmol/L (136-145); Total Bilirubin 0.6 mg/dL (0.15-1.2); Total Protein 7.5 g/dL (6.6-8.7)
--- NOTE | 2020-12-30 07:29 | ONC FU_ITS ---
Dr. Garner Patient Follow-Up Note Patient: Olya Mccormick Unit #: [id number]: [id number] Dicatated By: Jamil Garner M.D.Date of Visit:Dec 28, 2020 Onc Med Follow-up/Prog Note Chief Complaint: Breast cancer/metastatic squamous cell cancer. History of Present Illness: This is a 55 year-old woman with a history of grade 2 infiltrating ductal carcinoma of the left breast, stage IA (T1c, pN1a, M0), ER/SD positive and HER-2/marely negative. 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 She had presented in 2005 with an abnormal mammogram which showed an isodense lesion in the left breast at 12 o'clock. Her treatment included lumpectomy and sentinel axillary lymph node biopsy followed by adjuvant chemotherapy with 3 cycles of FEC followed by 3 cycles of Taxotere. She completed chemotherapy in May of 2006. She was then given radiation to the left breast, which she completed in October 2006. She then started hormonal therapy with Arimidex, but it was stopped in October 2007 due to musculoskeletal pain and other side effects. She had a brief trial of therapy with Aromasin, which she also tolerated poorly. She then started tamoxifen in December 2008 and continued it until sometime in the summer, having completed a little more than 4 years of treatment. Thus far there has been no evidence of recurrence of her breast cancer. She had chronic pain following completion of her chemotherapy. At least some component was felt to be due to chemotherapy-induced peripheral neuropathy. She also developed significant degenerative disease of the spine, and she underwent cervical laminectomy as well as placement of a spinal cord stimulator. Her other medical illnesses include type 2 diabetes, dyslipidemia, and coronary artery disease. She has had previous angioplasty/stent placement. She has a history of irritable bowel syndrome. She underwent upper GI endoscopy in June 2011. At that time she had evidence of esophagitis, esophageal candidiasis, and gastritis. She was H. pylori positive. She did complete treatment for both the Sylvia and the H. pylori. She was then confirmed on a subsequent gastric emptying study to have gastroparesis. In January 2015 she had presented with some new pain in the right groin area and right leg. I had initially suspected that it was from the right hip joint. X-rays and subsequent bone scan, though, were unremarkable. Ultimately I did suspect that the pain was radicular, as there were significant degenerative changes in the spine noted on a previous CT abdomen/pelvis. She was referred to Dr. Maloney for further evaluation. She was not a candidate for MRI due to the presence of a TENS unit. Ultimately she did have evaluation with myelogram in April 2015. There was no severe stenosis noted. She continued with conservative management. In the meantime she had presented to Dr. Saleh with a knot in her left groin area. She had been noted on a CT abdomen/pelvis in December 2014 to have a slight increase in left inguinal lymph nodes, the largest measuring up to 17 mm. Further evaluation with ultrasound on 07/23/2015 showed further progression of the left inguinal adenopathy, measuring 2.5 x 3.0 cm. An adjacent smaller node measured 10 x 14 mm. She was referred to Dr. Fiore. She underwent left inguinal lymph node biopsy on 08/19/2015. Pathology showed 2 separate lymph nodes, the larger measuring 3.5 x 3.0 x 2.5 cm and the smaller measuring 2.4 x 2.0 x 1.3 cm. Both showed metastatic squamous cell carcinoma. I had seen her for a followup visit in August 2015. She had negative vaginal and anorectal exam at that time. In reviewing her other history, she had undergone hysterectomy and unilateral oophorectomy sometime prior to my initial visit with her, which was in April 2006. She did have a previous colonoscopy, but she didn't recall when it was done, and I could not find a record of it. In June 2013 she had been sent to [place] for removal of a skin lesion from her right cheek. At that time a lesion was also removed from the lower left leg. Pathology showed basal cell carcinoma on the right cheek and crateriform squamous cell carcinoma on the left lower leg. There was squamous cell carcinoma extending to the deep biopsy margins. She had no further treatment. She had restaging PET/CT on 09/10/2015. That study showed findings the left groin which are felt to most likely represent postbiopsy inflammatory changes. There was a tiny right upper lobe subpleural pulmonary nodule with SUV 0.7, felt to be consistent with early metastatic involvement versus granulomatous disease. Follow-up chest CT was recommended. There were no other suspicious findings. She was then seen by Dr. Hernandez for consideration of left inguinal lymph node dissection. At that time there was concern of possible right inguinal adenopathy, and he had recommended evaluation with ultrasound. That study was done here on 11/26/2015. It showed evidence of 2 lymph nodes in the right groin, the largest measuring 1.6 x 1.3 cm. The appearance was consistent with benign lymph nodes. Several adjacent lymph nodes also were present. There was no suspicious lymphadenopathy identified. At that time, she also had a contrast-enhanced head CT scan. It showed no evidence of metastatic disease to the brain. There was an indeterminate lytic lesion noted in the left frontal bone. She subsequently had a repeat bone scan, and it was unremarkable. Follow-up CT abdomen/pelvis on 03/28/2016 showed a low density region in the posterior aspect of the right lobe of the liver which was present on studies, and follow-up was recommended. The lymph nodes in the left inguinal region were no longer present. There were no other changes noted. Surveillance CT scans of the chest, abdomen, and pelvis on 09/14/2017 showed no evidence of metastatic disease. A 6 mm nodule in the right lung apex was noted to be slightly more prominent compared to prior study from 2009 and there was an additional new noncalcified pulmonary nodule in the right upper lobe laterally measuring 3.7 mm. Follow-up was recommended. A cyst in the hepatic dome was felt to be probably stable. Her repeat chest CT on 12/04/2019 showed stable nodule at the right lung apex measuring 6.6 mm and stable 3 mm rounded nodule in the right upper lobe. Fibrotic changes in the periphery of the left upper lobe and pleural thickening along the right major fissure also appeared stable. A well-circumscribed low attenuation mass in the anterior mediastinum measuring 1.7 cm was noted to have increased slightly compared to the 2017 study. A 12 mm cyst in the right lobe of the liver also appeared stable. She continued observation/expectant management. She is seen for a followup visit. She has not been feeling good generally. Activity has been very limited. ECOG score is 2. She says her appetite has gone downhill. Her weight is down just a couple of pounds. She has not had fever or night sweats. She still has some hot flashes. She recently has had sore throat. She has just occasional cough. She does not complain of shortness of breath she is still smoking 1/2 pack of cigarettes daily. She sometimes has chest pain. She also continues to have occasional episodes of nausea/vomiting. She has been having some abdominal pain. Her bowels fluctuate between diarrhea and constipation. She has frequent urination, which is chronic. She has chronic pain in her hands and feet and recently she has had a painful knot in her left groin. She reports having real bad headaches. She has associated tearing. She complains that she has been dizzy and lightheaded. She has numbness/tingling in her hands and feet. Medications: Atorvastatin Calcium 1 (20 mg) Tablet Oral at bedtime, Cetirizine HCl 1 Tablet (of 10 mg) Oral daily, Cholestyramine 1 (4 g/dose) Powder Oral b.i.d., Clobetasol Propionate 1 (0.05 %) Cream Topical b.i.d., Cyclobenzaprine HCl 1 Tablet (of 10 mg) Oral t.i.d. PRN, diphenhydrAMINE HCl 1 Capsule (of 25 mg) Oral at bedtime PRN, DULoxetine HCl 1 Capsule (of 30 mg) Capsule Delayed Release Particles Oral b.i.d., Erythromycin 5 mL (of 200-5 mg/mL) Solution q 6 hours PRN, Famotidine 1 (20 mg) Tablet Oral b.i.d., Flonase 1 spray(s) (of 50 mcg/act) Suspension Nasal b.i.d., Glimepiride 1 Tablet (of 2 mg) Oral b.i.d., glipiZIDE ER 1 Tablet (of 5 mg) Tablet SR 24 HR Oral daily, Meclizine HCl 1 Tablet (of 25 mg) Oral t.i.d. PRN, Montelukast Sodium 1 Tablet (of 10 mg) Oral daily, Multivitamin Adult 1 Tablet Oral daily, Nitroglycerin (0.4 mg) Tablet, sublingual Sublingual Take as Directed, oxyCODONE HCl 1 Tablet (of 30 mg) Oral q 4 hours PRN, Pantoprazole Sodium 1 Tablet (of 40 mg) Tablet, enteric coated Oral daily, Plavix 1 Tablet (of 75 mg) Oral daily, Zofran 1 Tablet (of 4 mg) Oral q 8 hours PRN Allergies: adhesives, ASPIRIN, codeine, compazine, IV contrast, and septra. Vital Signs: Performed on Dec 28, 2020 14:43 Height - 61.00 in Weight - 176.4 lbs (LOW) BSA - 1.79 sq.m BMI - 33.33 (HIGH) Temperature - 98.5 F Pulse - 92 /min Respiration - 18 /min BP - 121/79 mm(hg) O2 Sat - 97 % Pain - 8 Physical Examination: Constitutional - She looks pretty good generally, Eyes - Sclerae nonicteric. Conjunctivae clear, ENMT - No lesions noted in the oral cavity, Hematologic/Lymphatic - No cervical or clavicular adenopathy, Respiratory - Lungs sound clear with diminished air movement bilaterally, Cardiovascular - Heart rhythm is regular. There is no murmur, gallop, or rub noted, Breasts - The left breast remains chronically indurated. There are no breast masses noted. There is no axillary adenopathy, Abdomen - Moderately distended but soft. Liver and spleen are not enlarged. There is no abdominal mass or ascites noted. There is a small nodule palpable in the left groin. It measures a centimeter or less in diameter, Extremities - No edema, Neurologic - No focal neurologic deficits noted. Lab/Imaging: Test performed on Dec 28, 2020 12:26 Sodium 137 mmol/L Potassium 3.9 mmol/L Chloride 101 mmol/L CO2 23 mmol/L Anion Gap 16.9 BUN 7 mg/dL Creatinine 0.5 mg/dL Cr Clearance (Est) 156.81 mL/min eGFR 127.2 mL/min Glucose 166 mg/dL Osmolality - Calculated 286 mOsm/kg Calcium 9.4 mg/dL Protein, Total 7.5 g/dL Albumin 4.2 g/dL Globulin 3.3 g/dL Bilirubin, Total 0.6 mg/dL ALT (SGPT) 13 U/L AST (SGOT) 14 U/L Alkaline Phosphatase 80 IU/L WBC 15.7 10 3/uL RBC 5.20 10 6/uL HGB 15.2 g/dL HCT 46.3 % MCV 89.0 fL MCH 29.2 pg MCHC 32.8 g/dL RDW 13.0 % Platelet Count 393 10 3/cmm MPV 9.1 fL Neutrophils 10.68 10 3/uL Lymphocytes 3.9 10 3/uL Monocytes 1.0 10 3/uL Eosinophils 0.1 10 3/uL Basophils 0.1 10 3/uL Neutrophil % 67.9 % Lymphocyte % 24.7 % Monocyte % 6.2 % Eosinophil % 0.3 % Basophils % 0.5 % NRBC % 0 % Problem List: 1. Grade 2 infiltrating ductal carcinoma of the left breast, stage IA (T1c, pN1a, M0), ER/SD positive and HER-2/marely negative. Her treatment included lumpectomy/sentinel axillary lymph node biopsy followed by adjuvant chemotherapy with 3 cycles of FEC and 3 cycles of Taxotere, completed in May 2006. Radiation to the left breast was completed in October 2006. She also completed adjuvant hormonal therapy. 2. In July 2015 she was found to have metastatic squamous cell carcinoma involving left inguinal lymph nodes. This was probably metastatic squamous cell carcinoma from a primary skin cancer which had been removed from the left leg in June 2013. Restaging PET/CT in August 2015 showed no other sites of involvement. She was then referred to Dr. Hernandez for possible left inguinal node dissection. At that time there was concern of possible right inguinal lymphadenopathy, but ultrasound of that area showed benign-appearing lymph nodes, the largest measuring 1.6 x 1.3 cm. She had no further treatment. 3. Peripheral neuropathy. 4. Type II diabetes. 5. Dyslipidemia. 6. Coronary artery disease. She underwent coronary angiogram with angioplasty/stent placement to the right coronary artery in December 2011. 7. 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 8. Osteoporosis. 9. She has had recurrent postprandial vomiting. This is presumed to be due to gastroparesis. 10. She also has chronic diarrhea. Problems Addressed with this Encounter and Plan: 1. Patient with grade 2 infiltrating ductal carcinoma of the left breast, stage IA (T1c, pN1a, M0), ER/SD positive and HER-2/marely negative. Her treatment included lumpectomy/sentinel axillary lymph node biopsy followed by adjuvant chemotherapy with 3 cycles of FEC and 3 cycles of Taxotere, completed in May 2006. Radiation to the left breast was completed in October 2006. She then began adjuvant hormonal therapy with anastrozole. She had poor tolerance for aromatase inhibitors and beginning in December 2008 her treatment was transitioned to tamoxifen, which she continued for an additional 4 years of treatment. During follow-up she has had ongoing problems with neuropathy from her chemotherapy, but there has been no evidence of recurrence of the breast cancer. She remains on observation/expectant management for the breast cancer. I will see her again in 3 months. 2. In July 2015 she was found to have metastatic squamous cell carcinoma involving left inguinal lymph nodes. This was probably metastatic from a primary skin cancer which had been removed from the left leg in June 2013. Restaging PET/CT in August 2015 showed no other sites of involvement. She was then referred to Dr. Hernandez for possible left inguinal node dissection. At that time there was concern of possible right inguinal lymphadenopathy, but ultrasound of that area showed benign-appearing lymph nodes, the largest measuring 1.6 x 1.3 cm. She had no further treatment. She has since then been followed expectantly. She comes in now with pain in her left groin and a palpable nodule in the left inguinal area. She will be scheduled for restaging CT of the abdomen/pelvis. She will have further evaluation as indicated. 3. She has chronic pain which is multifactorial, including degenerative disease of the spine and painful neuropathy. She continues symptomatic management. Signed By: Jamil Garner M.D. <<Signature on File>>
== END 2020-12-28 11:46 | disposition home or self-care (01) ==
PROVIDERS: PCP Family Medicine; Visit Provider Internal Medicine Medical Oncology
DX: Z08 Encounter for follow-up examination after completed treatment for malignant neoplasm (principal); Z85.3 Personal history of malignant neoplasm of breast; Z85.828 Personal history of other malignant neoplasm of skin; R19.09 Other intra-abdominal and pelvic swelling, mass and lump; R10.32 Left lower quadrant pain; M47.9 Spondylosis, unspecified; G62.0 Drug-induced polyneuropathy; T45.1X5D Adverse effect of antineoplastic and immunosuppressive drugs, subsequent encounter; Z92.21 Personal history of antineoplastic chemotherapy; Z92.3 Personal history of irradiation; Z92.23 Personal history of estrogen therapy
CPT/HCPCS: 36415; 80053; 85025; 99214

== ENCOUNTER 2021-01-13 11:57 | Outpatient (CLI) | payer MEDICARE, SELFPAY ==
--- NOTE | 2021-01-13 12:06 | CT_ITS ---
WS: [id number] CT ABDOMEN PELVIS TECHNIQUE: Noncontrast CT of the abdomen and pelvis with coronal and sagittal reformatted images. CLINICAL INFORMATION: LEFT GROIN KNOT, BREAST CANCER COMPARISON: CT August 2017 DLP: 1505.[address] scans at [facility] use at least one of these dose optimization techniques: automat ed exposure control; mA and/or kV adjustment per patient size (includes targeted exams where dose is matched to clinical indication); or iterative reconstruction. FINDINGS: No evidence of pathologic mass or lesion in the left inguinal canal or left groin. A few normal sized lymph nodes. No inguinal lymphadenopathy. Noncontrast liver is normal. Hepatomegaly with enlargement of the right hepatic lobe. Stable small he patic cyst in the dome the liver measuring 15 mm. Normal GE junction. Lung bases are well aerated. Do rsal column stimulator. Noncontrast spleen is normal. Fatty atrophy of the pancreas. Splenic artery c alcification. Adrenal glands are normal. No hydronephrosis in either kidney. No obstructing renal or ureteral calculi. Mild aortic calcification. Normal caliber abdominal aorta. No abdominal or pelvic lymphadenopathy. No rmal sigmoid colon. No evidence of high-grade small or large bowel obstruction. Tiny fat-containing u mbilical hernia. No free fluid in the abdomen or pelvis. Disc space narrowing worse L4-L5 and L5-S1. Small disc osteophyte protrusion L4-5 with mild central canal stenosis. CT/CT abdomen pelvis wo con [id number] IMPRESSION: 1. No evidence of left inguinal mass or pathologic lymphadenopathy. A few norm al sized lymph nodes in the left groin. 2. No adenopathy in the abdomen or pelvis. 3. Hepatomegaly with stable right hepatic cyst. 4. Normal caliber abdominal aorta. 5. Dorsal column stimulator. 6. Small disc osteophyte protrusion L4-5 with mild central canal stenosis.
[2021-01-13] MEDS: iohexol 300 mg/mL 50 mL Btl PO (13:37)
== END 2021-01-13 11:58 | disposition home or self-care (01) ==
PROVIDERS: PCP Family Medicine; Visit Provider Internal Medicine Medical Oncology
DX: R19.04 Left lower quadrant abdominal swelling, mass and lump (principal); C50.812 Malignant neoplasm of overlapping sites of left female breast; M25.78 Osteophyte, vertebrae; M48.061 Spinal stenosis, lumbar region without neurogenic claudication; R16.0 Hepatomegaly, not elsewhere classified; K76.89 Other specified diseases of liver
CPT/HCPCS: 74176

== ENCOUNTER → 2021-01-19 15:59 | Outpatient (BNVA) | payer MEDICARE, SELFPAY | PROVIDERS: PCP Family Medicine; Visit Provider Thoracic Surgery (Cardiothoracic Vascular Surgery) | DX: Z20.828 Contact with and (suspected) exposure to other viral communicable diseases (principal); M31.6 Other giant cell arteritis | CPT/HCPCS: 87635 ==

== ENCOUNTER 2021-01-24 05:50 | Day surgery (SDC) | payer MEDICARE, SELFPAY ==
[2021-01-21 12:25] LABS: Basophils # 0.1 10^3/uL (0.0-0.1); Basophils % 0.4 %; Eosinophils # 0.1 10^3/uL (0.0-0.8); Eosinophils % 0.5 %; Hematocrit 46.5 % (37.0-47.0); Hemoglobin 15.2 g/dL (11.5-15.3); Lymphocytes # 4.5 10^3/uL (0.8-4.8); Lymphocytes % 25.9 %; Mean Corpuscular HGB Conc 32.7 g/dL (30.0-36.0); Mean Corpuscular Hemoglobin 29.3 pg (28.0-34.0); Mean Corpuscular Volume 89.6 fL (81-99); Mean Platelet Volume 9.1 fL (7.4-10.4); Monocytes % 5.9 %; Neutrophils # 11.74 10^3/uL (1.8-7.7); Neutrophils % 66.8 %; Nucleated Red Blood Cells % 0 %; Platelet Count 392 10^3/cmm (130-400); Red Blood Count 5.19 10^6/uL (4.1-5.3); Red Cell Distribution Width 13.1 % (12.1-15.1); White Blood Count 17.6 10^3/uL (4.0-10.0)
[2021-01-21 12:34] VITALS: BMI 32.3
[2021-01-21 13:08] LABS: Anion Gap 15.7 (5-19); Blood Urea Nitrogen 8 mg/dL (6-20); Carbon Dioxide 27 mmol/L (22-29); Chloride 99 mmol/L (98-107); Glucose 170 mg/dL (65-115); Osmolality Calculated 288 mOsm/kg (285-295); Potassium 3.7 mmol/L (3.5-5.1); Sodium 138 mmol/L (136-145)
[2021-01-24] VITALS (7 sets, daily range): BP systolic 115–154; BP diastolic 67–92; PULSE 78–88; RESP 16–18; TEMP 36.1–36.8; O2SAT 94–98
--- NOTE | 2021-01-24 06:25 | PM.HP ---
Providers/Chief Complaint Primary Care Provider: Violet Falcon DO Chief Complaint: temporal artery biopsy History of Present Illness Olya Mccormick is a 55 year old female whom I originally saw in consultation back on December [address] Falcon to consider temporal artery biopsy for possible giant cell arteritis. Patient is a history of headaches initially beginning the right temporal region and ultimately involving vision of the right eye. She has somewhat similar though less intense symptoms on the left side as well. She has a history of glaucoma and she is on no particular medications. She is follow-up by an acls specialist in [place]. She does have photos sensitivity. Prior history of coronary artery disease includes RCA stenting. 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 She is undergone chemotherapy and radiotherapy for her breast lesions and is followed carefully by Dr. Garner with no evidence for recurrence. She is followed by Dr. Mills from our heart care services. At the time of her original clinic visit back on December 24, I performed hand-held Doppler interrogation identified there is signal of the right temporal region without localized tenderness or exacerbation of symptoms. Review of Systems Const: Denies: fever(s), chills, change in appetite, change in weight, fatigue or night sweats Eyes: Denies: change in vision or blurry vision ENMT: Denies: odynophagia or hoarseness Card: Reports: palpitations, swelling of feet/ankles, lightheadedness and dyspnea on exertion; Denies: chest pain, irregular heart rhythm or edema Resp: Reports: non-productive cough; Denies: dyspnea or productive cough GI: Reports: nausea, vomiting and heartburn; Denies: abdominal pain, dysphagia or change in bowel habits : Denies: dysuria, urinary frequency, urinary urgency or urinary hesitancy Musc: Reports: neck pain, back pain, extremity pain, joint swelling and joint stiffness; Denies: extremity swelling Skin/Breast: Denies: rash Neuro: Reports: headache(s); Denies: numbness in extremities, weakness in extremities or sensory changes Psych: Denies: anxiety, depression or change in appetite Endo: Denies: polyuria, polydipsia or cold intolerance Dwayne/Lymph: Denies: easy bruising, easy bleeding, petechiae or enlarged lymph nodes Medications/Allergies Home Medications Medication Instructions Recorded Confirmed Last Taken Type cetirizine 10 mg tablet 10 mg PO DAILY 12/29/19 01/21/21 Unknown History docusate sodium 100 mg capsule 100 mg PO DAILY 12/29/19 01/21/21 Unknown History dronabinol 5 mg capsule 5 mg PO BID 12/29/19 01/21/21 Unknown History meclizine 12.5 mg tablet 12.5 mg PO BID PRN 12/29/19 01/21/21 Unknown History nitroglycerin 400 mcg/spray 1 spray SUBLINGUAL Q5M PRN 12/29/19 01/21/21 Unknown History translingual oxycodone 30 mg tablet 15 mg PO Q4H PRN tab 12/29/19 01/21/21 Unknown History pantoprazole 40 mg tablet,delayed 40 mg PO DAILY 12/29/19 01/21/21 Unknown History release blood sugar diagnostic #100 each 03/19/20 01/21/21 Unknown Rx blood-glucose meter #1 each 03/19/20 01/21/21 Unknown Rx cholestyramine-aspartame 4 gram 4 gm PO BID 03/19/20 01/21/21 Unknown History oral powder clobetasol 0.05 % topical cream 1 applic TOPICAL BID 03/19/20 01/21/21 Unknown History cyclobenzaprine 10 mg tablet 10 mg PO TID PRN 03/19/20 01/21/21 Unknown History famotidine 20 mg tablet 20 mg PO BID 03/19/20 01/21/21 Unknown History glimepiride 2 mg tablet 2 mg PO DAILY 03/19/20 01/21/21 Unknown History montelukast 10 mg tablet 10 mg PO DAILY 03/19/20 01/21/21 Unknown History metoprolol tartrate 25 mg tablet 12.5 mg PO BID #90 tab 05/17/20 01/21/21 Unknown Rx pen needle, diabetic 32 gauge x #100 each 08/19/20 01/21/21 Unknown Rx albuterol sulfate 90 mcg/actuation 2 puff INHALATION Q6H PRN #8.5 gm 08/24/20 01/21/21 Unknown Rx aerosol inhaler budesonide-formoterol HFA 160 2 puff INHALATION Q12H #10.2 gm 08/24/20 01/21/21 Unknown Rx mcg-4.5 mcg/actuation aerosol inhaler nystatin 100,000 unit/gram topical 1 applic TOPICAL TID #60 gm 08/24/20 01/21/21 Unknown Rx powder valacyclovir 1 gram tablet 1,000 mg PO TID #21 tab 08/24/20 01/21/21 Unknown Rx clopidogrel 75 mg tablet 75 mg PO DAILY #90 tab 09/06/20 01/21/21 Unknown Rx duloxetine 30 mg capsule,delayed 30 mg PO BID #20 cap 11/05/20 01/21/21 Unknown Rx release empagliflozin 10 mg tablet 10 mg PO DAILY #30 tab 11/17/20 01/21/21 Unknown Rx ibuprofen 600 mg tablet 600 mg PO BID PRN #30 tab 11/17/20 01/21/21 Unknown Rx insulin glargine 100 unit/mL (3 15 unit SUBCUT DAILY #15 ml 11/17/20 01/21/21 Unknown Rx mL) subcutaneous pen atorvastatin 40 mg PO DAILY 01/21/21 01/21/21 Unknown History fluticasone propionate 50 1 spray INTRANASAL BID #16 gm 01/21/21 Unknown Rx mcg/actuation nasal spray,suspension Allergies Allergy/AdvReac Type Severity Reaction Status Date / Time adhesive tape Allergy Intermediate ALGY-Hives Verified 01/21/21 12:19 morphine Allergy Intermediate unknown Verified 01/21/21 12:19 aspirin Allergy Mild ALGY-Hives Verified 01/21/21 12:19 ciprofloxacin [From Cipro] Allergy Unknown Verified 12/24/20 11:12 dapagliflozin [From Farxiga] Allergy unk Verified 12/24/20 11:12 iodine Allergy unknown Verified 12/24/20 11:12 metformin Allergy Unknown Verified 12/24/20 11:12 prochlorperazine Allergy unknown Verified 11/26/20 09:09 [From Compazine] Sulfa (Sulfonamide Allergy unknown Verified 11/26/20 09:09 Antibiotics) PFSH Acute PFSH: Medical History ASHD (arteriosclerotic heart disease) Breast cancer COPD (chronic obstructive pulmonary disease) Diabetes Diabetic gastroparesis Dyslipidemia Glaucoma HTN (hypertension) Myocardial infarction Obesity Tobacco abuse Type 2 diabetes mellitus, with long-term current use of insulin Surgical History H/O neck surgery History of mastectomy, subtotal Previous back surgery S/P cholecystectomy S/P hysterectomy S/P PTCA (percutaneous transluminal coronary angioplasty) Status post insertion of spinal cord stimulator Family History Other CAD (coronary artery disease) Hypertension Social History Smoking and tobacco status: current every day smoker cigarettes Packs smoked per day: 0.50 Alcohol intake: never Vitals/I&O/Wt Last Vital Signs Temp 97 F L 01/24/21 06:04 Pulse 84 01/24/21 06:04 Resp 18 01/24/21 06:04 BP 116/67 01/24/21 06:04 Pulse Ox 98 01/24/21 06:04 Physical Exam Const: COMMON NORMALS: patient oriented x3 and alert ORIENTATION/CONSCIOUSNESS: Yes oriented to person, Yes oriented to place and Yes oriented to time HENMT: COMMON NORMALS: normocephalic and atraumatic HEAD & SCALP: normal to inspection and normocephalic; no cranial bruits, no scalp tenderness and no Temporal artery tenderness present (Easily palpable temporal artery pulse) Neck/C-Spine: COMMON NORMALS: full ROM, supple, no JVD and No carotid bruits GENERAL: Yes trachea midline CERVICAL SPINE: Yes cervical ROM normal Chest: COMMONS NORMALS: normal inspection of the chest and normal palpation of entire chest wall Resp: COMMON NORMALS: normal respiratory effort, No use of accessory muscles, clear to auscultation bilaterally and percussion normal EFFORT & INSPECTION: Yes able to speak in complete sentences and Yes symmetric chest movement AUSCULTATION: clear to auscultation bilaterally PERCUSSION: percussion normal Cardio: COMMON NORMALS: no JVD, regular rate, regular rhythm, S1 normal heart sound present, S2 normal heart sound present, No gallops present (Cardio), No murmurs present (Cardio), No rub (Cardio) and Peripheral pulses 2+ throughout JUGULAR VENOUS DISTENTION: no JVD RATE: regular rate RHYTHM: regular rhythm HEART SOUNDS: S1 normal heart sound present and S2 normal heart sound present PERIPHERAL PULSES: radial pulses present positive bilateral 2+ Neuro: COMMON NORMALS: patient oriented x3, no focal motor deficits and no sensory deficits noted SENSORIUM/ORIENTATION: Yes alert, Yes oriented to person, Yes oriented to place and Yes oriented to time GAIT: Yes Normal gait present Skin: NARRATIVE SKIN EXAM: Actinic changes to solar exposed areas. Data : 01/21/21 12:12 01/21/21 12:12 A&P Assessment and plan (1) Giant cell arteritis syndrome: Will plan for temporal artery biopsy as part of continued evaluation for possible giant cell arteritis. Rationale for the procedure was carefully discussed. Details reviewed. I did discuss I would need to remove some hair from her right temporal region to allow for adequate biopsy length. Risk of this procedure including bleeding, infection, pain, inability to obtain diagnosis, and need for further procedures were frankly discussed. Appropriate consents have been reviewed and signed. Status: Acute Attestations Medical Necessity Statement*: 5-year-old female with recurrent temporal headaches with concerns for giant cell arteritis. Time Spent in Patient Care: Greater than 35 minutes Coding Level of Care Code Acute Staff Cytotechnologist for Jackie Mera Diagnoses Giant cell arteritis syndrome M31.6
--- NOTE | 2021-01-24 06:30 | ANES.PREANE2 ---
Pre-Anesthetic Assessment Pre-Anesthetic Assessment: Height/Weight: Height 1.55 m Weight 77.564 kg Temp Pulse Resp BP Pulse Ox 97 F L 84 18 116/67 98 01/24/21 06:04 01/24/21 06:04 01/24/21 06:04 01/24/21 06:04 01/24/21 06:04 Preop Diagnosis: Temporal artery biopsy Proposed Procedure: Operation Date: 01/24/21 07:00 Proposed Procedures p Temporal Artery Biopsy(Right) - Fernie Webster MD Familial anesthetic complications: none Last intake: > 8 HRS Social: Social History: No alcohol and No tobacco Exam: Pre-Anes Outpt Exam: alert, oriented x 3, clear to auscultation bilaterally and regular rate & rhythm Airway: MP: 3 Dentition: Full Pulmonary: Pulmonary: Asthma and COPD CV/HEM: CV/HEM: CAD (STENTS), HTN and LA Metabolic: Metabolic: DM Anesthetic Plan: ASA status: 3 Anesthesia: General Risk of > 500 ml blood loss (7ml/kg in children): No PFSH Anesthesia PFSH: Medical History ASHD (arteriosclerotic heart disease) Breast cancer COPD (chronic obstructive pulmonary disease) Diabetes Diabetic gastroparesis Dyslipidemia Glaucoma HTN (hypertension) Myocardial infarction Obesity Tobacco abuse Type 2 diabetes mellitus, with long-term current use of insulin Surgical History H/O neck surgery History of mastectomy, subtotal Previous back surgery S/P cholecystectomy S/P hysterectomy S/P PTCA (percutaneous transluminal coronary angioplasty) Status post insertion of spinal cord stimulator Family History Other CAD (coronary artery disease) Hypertension Social History Smoking and tobacco status: current every day smoker cigarettes Packs smoked per day: 0.50 Alcohol intake: never Data Anesthesia CBC & Chem 7: 01/21/21 12:12 01/21/21 12:12 Cardiac Studies: No Data to Display
[2021-01-24 06:45] LABS: Glucose Point of Care 122 mg/dL (70-110)
[2021-01-24] MEDS: sodium chloride 0.9% 1,000 ML 30 ML IV (07:02)
[2021-01-24] MEDS: lidocaine 1% INJ 20 mL INJECTION (07:39)
--- NOTE | 2021-01-24 09:08 | P.OP_ITS ---
Operative Report Date of procedure: January 24, 2021 Pre-op Diagnosis: Temporal artery biopsy Post-op diagnosis: same Procedure Done: Right temporal artery biopsy Specimens removed/disposition: Sections from right temporal artery Anesthesia: MAC and Local Complications: None Findings: Temporal artery had extensive branching network requiring peripheral dissection Condition: stable Disposition: same day Brief History: 55-year-old female with frequent recurrence of right-sided headaches associated with occasional right eye photophobia. Concern for giant cell arteritis has been entertained. Biopsy was requested. Details of risk procedure were discussed. Proper consents have been reviewed and signed. Procedure: Ms. Mccormick was taken to the operating room theater Position the OR table. Her originally established IV was felt to be an adequate therefore this was changed from the left hand to the right hand. Once confirmed appropriate patency, she underwent IV conscious sedation with anesthesia monitoring. Her entire right temporal region was sterilely prepped and draped after small area of hair have been removed. Hand-held Doppler was utilized to identify the temporal artery highest signal though this was somewhat diffuse. Dissection was then carried out after opening with a #15 scalpel blade. After extending down to the subtendinous layer, indeed, we found that the temporal artery essentially was a network of branching vessels. We attempted to collect as much into 1 specimen as possible and then secured the specimen which ends with 3-0 silk ligature. I did find slightly more prominent signal rather ~low lateral to the right eye. Counterincision was made over this region down to a more prominent branch which was then dissected free, isolated proximally distally and then collected as a specimen as well. Wounds were irrigated. Hemostasis confirmed. Deep layer was closed with 3-0 Vicryl suture. Skin was reapproximated in a subcuticular manner with 4-0 Monocryl suture. Sterile dressings were applied. She tolerated procedure well. Was awakened from conscious sedation and taken to outpatient surgery in stable condition. We did adult school counselor her family both before, during, and after surgery.
--- NOTE | 2021-01-24 09:30 | SUR.PHASEI ---
192 PT AWAKE ALERT TALKATIVE PT TO OPS HANDOFF AT BEDSIDE RT FOREHEAD INCISION SITE D/I DERMABOND D/I
[2021-01-24] MEDS: cetylpyridinium Lozenge 1 EACH MUCOUS MEM (09:58)
[2021-01-24] MEDS: oxyCODONE IR 30 mg Tablet PO (09:58)
[2021-01-24] MEDS: ondansetron 2 mg/ML SDV 2 mL 4 MG IVP (10:10)
--- NOTE | 2021-01-24 14:46 | ANE.PACU2 ---
Inpatient post-anesthesia follow up: Airway intact: Yes Vital signs: Temperature 98.2 F Pulse Rate 80 Respiratory Rate 18 Blood Pressure 115/68 Pulse Oximetry 94 Oxygen Delivery Me thod Room Air Oxygen Flow Rate 8 Fraction of Inspir ed Oxygen Hydration adequate: Yes Nausea and vomiting: No Pain level: 2 Mental status: Baseline
== END 2021-01-24 10:30 | disposition home or self-care (01) ==
PROVIDERS: PCP Family Medicine; Visit Provider Thoracic Surgery (Cardiothoracic Vascular Surgery)
PROC: (CPT 37609; principal; 2021-01-24 07:00)
DX: M31.6 Other giant cell arteritis (principal); J44.9 Chronic obstructive pulmonary disease, unspecified; I25.10 Atherosclerotic heart disease of native coronary artery without angina pectoris; Z95.5 Presence of coronary angioplasty implant and graft; I10 Essential (primary) hypertension; I25.2 Old myocardial infarction; E11.9 Type 2 diabetes mellitus without complications; Z85.3 Personal history of malignant neoplasm of breast; E78.5 Hyperlipidemia, unspecified; F17.210 Nicotine dependence, cigarettes, uncomplicated
CPT/HCPCS: 37609; 36416; 80048; 82962; 85025; 96374; J0690; J2250; J2405; J2704; J3010; J7030

== ENCOUNTER → 2021-01-31 14:24 | Outpatient (BNVA) | payer MEDICARE, SELFPAY | PROVIDERS: PCP Family Medicine; Visit Provider Internal Medicine Rheumatology | DX: M31.6 Other giant cell arteritis (principal); Z79.899 Other long term (current) drug therapy; Z11.59 Encounter for screening for other viral diseases; Z11.1 Encounter for screening for respiratory tuberculosis; M19.90 Unspecified osteoarthritis, unspecified site; E11.8 Type 2 diabetes mellitus with unspecified complications; Z79.4 Long term (current) use of insulin; F17.210 Nicotine dependence, cigarettes, uncomplicated | CPT/HCPCS: 99205 ==

== ENCOUNTER 2021-02-22 12:34 | Outpatient (CLI) | payer MEDICARE, SELFPAY ==
--- NOTE | 2021-02-22 12:45 | US_ITS ---
WS: [id number] ULTRASOUND SOFT TISSUES RIGHT shoulder HISTORY: M25.511 - Pain in right shoulder COMPARISON: None available. TECHNIQUE: 2-D and color Doppler imaging is submitted. Mild distortion of the soft tissues in the area of palpable abnormality over the anterior RIGHT shoul tami. Cannot exclude a complex mass arising from the AC joint or glenohumeral joint. Complex cysts can be associated with AC joint arthritis or glenohumeral joint arthritis. No definite lipoma. US/US soft tissue/extremity [id number] IMPRESSION: 1. No definite soft tissue mass identified. There is some mild distortion of s oft tissues extending towards the shoulder. Consider additional evaluation by Jasper CANCINO, noncontrast, if symptoms persist. 2. No cystic collection.
== END 2021-02-22 12:35 ==
LOC: US 12:37
PROVIDERS: PCP Family Medicine; Visit Provider Internal Medicine Rheumatology
DX: M25.511 Pain in right shoulder (principal)
CPT/HCPCS: 76882

== ENCOUNTER 2021-02-25 12:11 | Inpatient (IN) | payer MEDICARE, SELFPAY ==
[2021-02-25] VITALS (7 sets, daily range): BP systolic 113–156; BP diastolic 65–84; PULSE 94–126; RESP 16–18; TEMP 36.9–37.2; O2SAT 95–100; BMI 31.8
--- NOTE | 2021-02-25 12:37 | XR_ITS ---
WS: [id number] Exam: XR chest 1V portable [id number] Date/Time of Exam: 02/25/2021 12:38 PM Reason For Exam: cough/dyspnea Comparison 02/28/2016. The lungs are fully expanded. No infiltrates identified. Normal cardiomediastinal structures. Neurost imulator electrodes are seen in the thoracic spinal canal. Signs of previous left axillary node disse ction. Plate and screw fixation of the lower C-spine. XR/XR chest 1V portable [id number] IMPRESSION: 1. No acute cardiopulmonary finding.
--- NOTE | 2021-02-25 12:37 | CT_ITS ---
WS: [id number] CT CHEST, ABDOMEN AND PELVIS WITHOUT CONTRAST. HISTORY: chest pain/dyspnea TECHNIQUE: Contiguous 5 mm axial imaging performed through the chest, abdomen and pelvis without IV c ontrast, oral contrast has not been provided. Coronal and sagittal reformats chest. Coronal and sagit jag reformats through the abdomen and pelvis. All CT scans at [facility] use at least one of these dose optimization techniques: automated exposure control; mA and/or kV adjustment per patie nt size (includes targeted exams where dose is matched to clinical indication); or iterative reconstr uction. CONTRAST: None DLP: 1266.8 mGy.cm COMPARISON: 01/13/2021 and 12/04/[address]: Stable anterior mediastinal mass 17 mm. 6 mm pulmonary nodule at the RIGHT apex is stable. Additional stable interstitial thickening and micronodules throughout both lungs. No pneumothorax or pneumonia. Heart size is normal mild coronary artery atherosclerosis. No adenopathy. Normal size aort a and pulmonary artery. Small hiatal hernia. Abdomen CT: Normal size liver. 15 mm cyst at the superior RIGHT lobe of the liver. Changes of mild he patic steatosis. Prior cholecystectomy. Normal spleen. Mild pancreatic atrophy. Normal adrenal glands . [place] kidneys. No obstruction or perinephric inflammation. Mild atherosclerosis aorta. No ascites or adenopathy. No GI tract obstruction. No evidence for appendicitis. There are a few scattered sigmoid diverticula without acute diverticulitis. Pelvic CT: No adenopathy or free fluid. Normal urinary bladder. Dorsal column stimulator electrodes over the lower thoracic spine. Degenerative disc disease and vacu um disc phenomenon at L4-5 and L5-S1. CT/CT chest abd pel wo con IMPRESSION: 1. No acute chest, abdominal or pelvic abnormalities are identified. 2. Stable anterior mediastinal mass and RIGHT upper lobe nodule. 3. Prior cholecystectomy. 4. No ascites or free air in the abdomen or pelvis. 5. Normal appendix.
--- NOTE | 2021-02-25 12:37 | CT_ITS ---
WS: [id number] CT HEAD NONCONTRAST HISTORY: altered/hallucinating TECHNIQUE: Contiguous axial imaging performed through the brain in 2.5 mm imaging. Bone and soft tiss ue windows. Sagittal and coronal reformats reviewed. All CT scans at [facility] use at ast one of these dose optimization techniques: automated exposure control; mA and/or kV adjustment pe r patient size (includes targeted exams where dose is matched to clinical indication); or iterative r econstruction. DLP: 729.5 mGy.cm COMPARISON: 11/26/2015 No acute intracranial hemorrhage, midline shift or mass effect. Moderate chronic microvascular ischemic type changes in the white matter. Tiny lacunar infarct in the anterior limb LEFT internal capsule. Ventricles: Normal size with no hydrocephalus. Paranasal sinuses: As visualized are clear. Mastoid air cells: Well pneumatized. Calvarium and scalp: Skull is intact with no soft tissue edema or swelling. CT/CT head wo con* [id number] IMPRESSION: 1. No acute intracranial hemorrhage or edema. 2. Moderate chronic microvascular ischemic type changes. No acute change since 2015.
--- NOTE | 2021-02-25 12:41 | ECG_ITS ---
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 Measurements Intervals [place] Rate: 118 P: 56 [place]: 135 QRS: 20 QRSD: 85 T: 17 QT: 340 QTc: 478 Interpretive Statements SINUS TACHYCARDIA POSSIBLE LEFT ATRIAL ENLARGEMENT [-0.1mV P WAVE IN V1/V2] SEPTAL MYOCARDIAL INFARCTION , PROBABLY OLD [40+ ms Q WAVE IN V1/V2] Compared to ECG 05/29/2018 08:12:33 Myocardial infarct finding now present Sinus rhythm no longer present T-wave abnormality no longer present Electronically Signed On 02-25-2021 19:14:03 CDT by Shaquille Dunn M.D. [email or web address].[email or web address]/store/[id number]
--- NOTE | 2021-02-25 12:50 | PC.NURSE ---
In addition to assessment comment note, pt c/o gross hematuria and dysuria.
[2021-02-25 13:42] LABS: Alanine Aminotransferase 33 U/L (0-33); Albumin Level 4.9 g/dL (3.5-5.2); Alkaline Phosphatase 65 IU/L (35-105); Blood Urea Nitrogen 14 mg/dL (6-20); Calcium 9.8 mg/dL (8.5-10.5); Carbon Dioxide 29 mmol/L (22-29); Chloride 97 mmol/L (98-107); Glomerular Filtration Rate 127.2 mL/min (90-130); Glucose 188 mg/dL (65-115); Osmolality Calculated 297 mOsm/kg (285-295); Sodium 141 mmol/L (136-145); Total Protein 7.9 g/dL (6.6-8.7)
[2021-02-25 13:46] LABS: Alcohol Level < 10 mg/dL (0-10)
[2021-02-25 13:47] LABS: Anion Gap 18.9 (5-19); Aspartate Amino Transferase 20 U/L (0-32); Potassium 3.9 mmol/L (3.5-5.1)
[2021-02-25] MEDS: sodium chloride 0.9% 1,000 ML 999 ML IV (14:01)
[2021-02-25 14:08] LABS: Troponin(5th) Baseline 34 ng/L (0-10)
[2021-02-25 14:13] LABS: Lactate (Lactic Acid level) 2.8 mmol/L (0.5-2.2)
--- NOTE | 2021-02-25 14:28 | PC.PHAR ---
PT WAS VERY AGITATED BUT HER SURVEY STATISTICIAN STEPPED IN TO CONFIRM MEDICATIONS. I CALLED ALL THE PHARMACIES SHE HAD LISTED, BUT [facility]ITTLE HAD BEEN FILLED IN THE LAST FEW MONTHS. ALL 4 PHARMACIES STATES THERE WAS NOTHING ON HOLD FOR THE PATIENT.
--- NOTE | 2021-02-25 14:41 | ECG_ITS ---
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 Measurements Intervals [place] Rate: 102 P: 71 [place]: 135 QRS: 60 QRSD: 89 T: 27 QT: 338 QTc: 441 Interpretive Statements SINUS TACHYCARDIA SEPTAL MYOCARDIAL INFARCTION [40+ ms Q WAVE IN V1/V2], OF INDETERMINATE AGE Compared to ECG 02/25/2021 13:37:56 No significant changes Electronically Signed On 02-25-2021 19:16:19 CDT by Shaquille Dunn M.D. [email or web address]/store/[id number]
[2021-02-25] MEDS: diphenhydrAMINE 50 mg/mL SDV 1mL IM (14:44)
[2021-02-25] MEDS: LORazepam 2 mg/mL INJ 1 mL 1 MG IVP (15:26)
[2021-02-25 15:31] LABS: Basophils # 0.1 10^3/uL (0.0-0.1); Basophils % 0.2 %; Eosinophils % 0.1 %; Hematocrit 45.5 % (37.0-47.0); Hemoglobin 14.8 g/dL (11.5-15.3); Lymphocytes # 6.3 10^3/uL (0.8-4.8); Lymphocytes % 21.8 %; Mean Corpuscular HGB Conc 32.5 g/dL (30.0-36.0); Mean Corpuscular Hemoglobin 29.2 pg (28.0-34.0); Mean Corpuscular Volume 89.7 fL (81-99); Mean Platelet Volume 9.4 fL (7.4-10.4); Monocytes # 1.8 10^3/uL (0.2-0.9); Monocytes % 6.3 %; Neutrophils % 70.9 %; Nucleated Red Blood Cells % 0 %; Platelet Count 294 10^3/cmm (130-400); Red Blood Count 5.07 10^6/uL (4.1-5.3); Red Cell Distribution Width 13.7 % (12.1-15.1)
[2021-02-25 16:19] LABS: D Dimer <= 0.27 ug/mIFEU (0-0.59)
[2021-02-25] MEDS: cefepime 2,000 MG in sodium chloride 0.9% (plus) 50 ML 100 MG IV (16:24)
[2021-02-25] MEDS: lidocaine 2% viscous 15 mL UDC 30 ML TOPICAL (16:24)
--- NOTE | 2021-02-25 16:29 | PC.NURSE ---
Delays in vitals measurements related to patient previously having erratic behavior and refusing to let this RN take vital signs. Pt now is resting quietly, awakening only for patient care activities. She is now compliant with care and care activities and appears calm and in no distress. Pt and family updated on plan of care, no other immediate needs identified, will continue to monitor.
[2021-02-25 16:41] LABS: Lactate (Lactic Acid level) 2.3 mmol/L (0.5-2.2); Troponin 5 2HR 30.48 ng/L (0-10)
[2021-02-25 16:54] LABS: Troponin 5 2HR Delta -3.52 ABS# (0-10)
--- NOTE | 2021-02-25 17:35 | W.ED.AMS ---
HPI - Altered Mental Status General: Chief Complaint: Altered Mental Status Stated Complaint: COMBATIVE BEHAVIOR Time Seen by Provider: 02/25/21 12:28 History of Present Illness: HPI narrative: The patient is a 55-year-old female with past medical history of temporal arteritis and started on prednisone a couple weeks ago. She is brought to the ER for agitation and hallucinations and paranoia. She says she feels like people are out to get her and the police are following her to arrest her. She complains of a headache, cough, abdominal pain and she says since she woke up from the anesthesia couple weeks ago she has had thrush in her mouth which is severe and causing her significant pain. Heart rate 130 on arrival and she is agitated. MD complaint: confusion Severity: severe Associated symptoms: Reports no associated symptoms Review of Systems General: Reports: 10 or more systems reviewed and unremarkable except in HPI and below Const: Reports: fatigue Eyes: Denies: change in vision, blurry vision or eye redness ENMT: Reports: other (Thrush); Denies: throat pain, swelling of lips/tongue, ear or mastoid pain or nasal congestion Card: Denies: chest pain, palpitations, irregular heart rhythm, edema, dyspnea on exertion or orthopnea Resp: Reports: non-productive cough; Denies: dyspnea or productive cough GI: Reports: abdominal pain; Denies: diarrhea or GI cramping : Denies: flank pain, difficulty voiding, urinary frequency or urinary urgency Musc: Denies: neck pain, back pain, extremity pain, joint pain, joint redness, limited range of motion or muscle weakness Skin/Breast: Denies: rash, pruritus, erythema, skin pain or skin tenderness Neuro: Denies: headache(s), numbness in extremities, weakness in extremities, sensory changes, difficulty walking, dizziness, confusion or Slurred speech present Endo: Denies: polyuria All/Imm: Denies: urticaria, throat swelling or tongue swelling PFSH ED PFSH: Medical History ASHD (arteriosclerotic heart disease) Breast cancer COPD (chronic obstructive pulmonary disease) Diabetes Diabetic gastroparesis Dyslipidemia Glaucoma High risk medication use HTN (hypertension) Immunization counseling Inflammatory arthritis Myocardial infarction Need for pneumocystis prophylaxis Obesity Tobacco abuse Type 2 diabetes mellitus, with long-term current use of insulin Surgical History H/O neck surgery History of mastectomy, subtotal Previous back surgery S/P cholecystectomy S/P hysterectomy S/P PTCA (percutaneous transluminal coronary angioplasty) Status post insertion of spinal cord stimulator Family History Other CAD (coronary artery disease) Cancer Chronic kidney disease (CKD) Diabetes Family history of premature coronary artery disease Hyperlipidemia Hypertension Lung disease Lupus Rheumatoid arthritis Stroke Social History Smoking and tobacco status: current every day smoker cigarettes Packs smoked per day: 0.50 Alcohol intake: never History of recent travel: No (01/31/2021) Physical Exam Const: COMMON NORMALS: patient oriented x3 and alert GENERAL APPEARANCE: anxious, combative and disheveled NUTRITIONAL APPEARANCE: obese ORIENTATION/CONSCIOUSNESS: Yes oriented to person, Yes oriented to place and Yes oriented to time HENMT: COMMON NORMALS: normocephalic, external ears normal and Normal external nose present HEAD & SCALP: normal to inspection and normocephalic NOSE: Normal external nose present EXTERNAL EAR: Yes external ears normal MOUTH: Normal oral and palatal mucosa present THROAT: posterior oropharynx normal Eye: COMMON NORMALS: Equal, round and reactive pupils present and EOMs intact bilaterally GENERAL EYE: appearance normal, both eyes and all related structures PUPIL: Yes Equal, round and reactive pupils present Neck/C-Spine: COMMON NORMALS: full ROM, no lymphadenopathy, no meningeal signs and no JVD GENERAL: Yes normal visual inspection Lymph: LYMPHATIC: no lymphadenopathy noted Chest: COMMONS NORMALS: normal inspection of the chest and normal palpation of entire chest wall Resp: COMMON NORMALS: normal respiratory effort, No retractions, No use of accessory muscles, clear to auscultation bilaterally and percussion normal EFFORT & INSPECTION: Yes able to speak in complete sentences AUSCULTATION: clear to auscultation bilaterally PERCUSSION: percussion normal Cardio: COMMON NORMALS: no JVD, regular rate, regular rhythm, S1 normal heart sound present, S2 normal heart sound present and Peripheral pulses 2+ throughout RATE: regular rate RHYTHM: regular rhythm HEART SOUNDS: S1 normal heart sound present and S2 normal heart sound present PERIPHERAL PULSES: Peripheral pulses 2+ throughout GI: COMMON NORMALS: Normal to inspection, nondistended, normoactive bowel sounds present, Soft to palpation, non-tender and no masses INSPECTION: Yes normal to inspection PALPATION: Yes Soft to palpation : COMMON NORMALS: Yes no CVA tenderness BLADDER/KIDNEY EXAM: Yes no CVA tenderness Back/Pelvis: COMMON NORMALS: no CVA tenderness, thoracic and lumbar spine normal to inspection, no thoracic nor lumbar tenderness and thoraco-lumbar ROM normal Extremity: COMMON NORMALS: normal to inspection, full ROM, capillary refill normal, no joint enlargement and no pedal edema GENERAL: Yes normal exam except as noted Neuro: COMMON NORMALS: patient oriented x3, CN's II-XII intact bilaterally, moves all extremities, no focal motor deficits, no sensory deficits noted and gait normal SENSORIUM/ORIENTATION: Yes alert, Yes oriented to person, Yes oriented to place and Yes oriented to time MENINGEAL SIGNS: Yes no meningeal signs Psych: COMMON NORMALS: speech normal APPEARANCE: Yes unkempt and Yes disheveled ATTITUDE: Yes paranoid and Yes agitated ACTIVITY/MOTOR BEHAVIOR: Yes fidgeting and Yes restless SPEECH: Yes normal speech MOOD & AFFECT: Yes depressed mood, Yes anxious, Yes Labile affect present and Yes hostile affect THOUGHT PROCESS: confused THOUGHT CONTENT: No Suicidality present and No Homicidality present ATTENTION/CONCENTRATION: Yes concentration grossly intact and Yes concentration grossly impaired Skin: COMMON NORMALS: no rashes or lesions noted NARRATIVE SKIN EXAM: Thrush to tongue, and gums. Crusting and pain to angles of mouth likely thrush infection as well. GENERAL SKIN EXAM: no rashes or lesions noted Course Vital Signs: Vital signs: Vital Signs Temperature 98.7 F 02/25/21 12:20 Pulse Rate 94 02/25/21 17:44 Respiratory Rate 16 02/25/21 16:27 Blood Pressure 113/74 02/25/21 17:44 Pulse Oximetry 100 02/25/21 17:44 MDM - Altered Mental Status MDM Narrative: Medical decision making narrative: This patient's initial presentation was a little confusing however she does have an obvious thrush infection in her mouth. She was started on steroids 3 or 4 weeks ago and has a severely elevated white count, elevated lactic acid, tachycardia. She is septic possibly from that infection. She is also a diabetic and on steroid for her temporal arteritis which possibly could be immunosuppressant as well. Discussed with Dr. Biswas and started cefepime and will admit her for further treatment. Lab Data: Labs: Lab Results 02/25/21 02/25/21 02/25/21 Range/Units 13:15 13:15 13:15 WBC Cancelled Corrected WBC Cancelled RBC Cancelled Hgb Cancelled Hct Cancelled MCV Cancelled MCH Cancelled MCHC Cancelled RDW Cancelled Plt Count Cancelled MPV Cancelled Gran % Cancelled Neut % (Auto) Cancelled Lymph % (Auto) Cancelled Andrews % (Auto) Cancelled Eos % (Auto) Cancelled Baso % (Auto) Cancelled Neut # (Auto) Cancelled Lymph # (Auto) Cancelled Andrews # (Auto) Cancelled Eos # (Auto) Cancelled Baso # (Auto) Cancelled Absolute Gran (aut o) Cancelled Nucleated RBC % (a uto) Cancelled Nucleated RBCs # Cancelled D-Dimer (0-0.59) ug/mIFE U Sodium 141 (136-145) mmol/L Potassium 3.9 (3.5-5.1) mmol/L Chloride 97 L (98-107) mmol/L Carbon Dioxide 29 (22-29) mmol/L Anion Gap 18.9 (5-19) BUN 14 (6-20) mg/dL Creatinine 0.5 (0.5-0.9) mg/dL GFR Calculation 127.2 (90-130) mL/min Glucose 188 H (65-115) mg/dL Calculated Osmolal ity 297 H (285-295) mOsm/k g Lactate (0.5-2.2) mmol/L Calcium 9.8 (8.5-10.5) mg/dL Total Bilirubin 2.0 H (0.15-1.2) mg/dL AST 20 (0-32) U/L ALT 33 (0-33) U/L Alkaline Phosphata se 65 (35-105) IU/L Troponin T Baselin e 34 H (0-10) ng/L Troponin T 120 Min [place] (0-10) ng/L Delta Troponin T (0-10) ABS# Total Protein 7.9 (6.6-8.7) g/dL Albumin 4.9 (3.5-5.2) g/dL Globulin 3.0 (1.3-4.6) g/dL Ethyl Alcohol < 10 (0-10) mg/dL 02/25/21 02/25/21 02/25/21 Range/Units 13:50 15:20 15:55 WBC 29.0 H Corrected WBC RBC 5.07 Hgb 14.8 Hct 45.5 MCV 89.7 MCH 29.2 MCHC 32.5 RDW 13.7 Plt Count 294 MPV 9.4 Gran % Neut % (Auto) 70.9 Lymph % (Auto) 21.8 Andrews % (Auto) 6.3 Eos % (Auto) 0.1 Baso % (Auto) 0.2 Neut # (Auto) 20.60 H Lymph # (Auto) 6.3 H Andrews # (Auto) 1.8 H Eos # (Auto) 0.0 Baso # (Auto) 0.1 Absolute Gran (aut o) Nucleated RBC % (a uto) 0 Nucleated RBCs # 0.0 D-Dimer <= 0.27 (0-0.59) ug/mIFE U Sodium (136-145) mmol/L Potassium (3.5-5.1) mmol/L Chloride (98-107) mmol/L Carbon Dioxide (22-29) mmol/L Anion Gap (5-19) BUN (6-20) mg/dL Creatinine (0.5-0.9) mg/dL GFR Calculation (90-130) mL/min Glucose (65-115) mg/dL Calculated Osmolal ity (285-295) mOsm/k g Lactate 2.8 H (0.5-2.2) mmol/L Calcium (8.5-10.5) mg/dL Total Bilirubin (0.15-1.2) mg/dL AST (0-32) U/L ALT (0-33) U/L Alkaline Phosphata se (35-105) IU/L Troponin T Baselin e (0-10) ng/L Troponin T 120 Min [place] (0-10) ng/L Delta Troponin T (0-10) ABS# Total Protein (6.6-8.7) g/dL Albumin (3.5-5.2) g/dL Globulin (1.3-4.6) g/dL Ethyl Alcohol (0-10) mg/dL 02/25/21 02/25/21 Range/Units 15:55 15:55 WBC Corrected WBC RBC Hgb Hct MCV MCH MCHC RDW Plt Count MPV Gran % Neut % (Auto) Lymph % (Auto) Andrews % (Auto) Eos % (Auto) Baso % (Auto) Neut # (Auto) Lymph # (Auto) Andrews # (Auto) Eos # (Auto) Baso # (Auto) Absolute Gran (aut o) Nucleated RBC % (a uto) Nucleated RBCs # D-Dimer (0-0.59) ug/mIFE U Sodium (136-145) mmol/L Potassium (3.5-5.1) mmol/L Chloride (98-107) mmol/L Carbon Dioxide (22-29) mmol/L Anion Gap (5-19) BUN (6-20) mg/dL Creatinine (0.5-0.9) mg/dL GFR Calculation (90-130) mL/min Glucose (65-115) mg/dL Calculated Osmolal ity (285-295) mOsm/k g Lactate 2.3 H (0.5-2.2) mmol/L Calcium (8.5-10.5) mg/dL Total Bilirubin (0.15-1.2) mg/dL AST (0-32) U/L ALT (0-33) U/L Alkaline Phosphata se (35-105) IU/L Troponin T Baselin e (0-10) ng/L Troponin T 120 Min [place] 30.48 H (0-10) ng/L Delta Troponin T -3.52 L (0-10) ABS# Total Protein (6.6-8.7) g/dL Albumin (3.5-5.2) g/dL Globulin (1.3-4.6) g/dL Ethyl Alcohol (0-10) mg/dL Discharge Plan Discharge Patient Disposition: Admitted As Inpatient Admit Provider: Marium Biswas Clinical Impression: Candidiasis of mouth, Sepsis Condition: Stable Coding Level of Care Code ED Cavalry Scout for g Fwd Exam Comprehensive
--- NOTE | 2021-02-25 19:42 | PM.HP ---
Providers/Chief Complaint Admitting Physician: Marium Biswas MD Primary Care Provider: Violet Falcon DO Chief Complaint: COMBATIVE BEHAVIOR History of Present Illness Olya Mccormick is a 55 year old female recently diagnosed with GCA on treatment with Prednisone 60 mg a day since 1 month and recently also started on Actemra, brought to the ER with c/o new onset behavior disturbances. This started yesterday. History is obtained by talking to the patient's son. He reports that yesterday evening patient started having bizarre thoughts, making paranoid statements such as the police is coming after her for a murder that she read about in a paper recently, stating that she is being assaulted when there was no one in the house, talking about people in her life from 20 years ago as if they are still around etc. throughout this time, and being redirected she did acknowledge the correct person date and time, however went back to delusional and paranoid statements. Her son was concerned and brought her to the ER due to acute psychosis. Upon presentation she was found to have an elevated white blood cell count of 29, grossly dehydrated, chapped lips, oral thrush +. Ativan needed to be given as patient was agitated upon admission. CT chest abdomen and pelvis did not identify any gross source of infection. CT head without any acute intracranial events. Review of systems Per son negative for fever, diarrhea, abdominal pain, cough, chest pain, headache. Review positive for poor p.o. intake, nausea, odynophagia, recent outbreak of cold sores over the lips. Also positive for frequency of micturition. Review of Systems General: Reports: ROS unobtainable due to medical condition Medications/Allergies Home Medications Medication Instructions Recorded Confirmed Last Taken Type cetirizine 10 mg tablet 10 mg PO DAILY 12/29/19 02/25/21 02/24/21 History docusate sodium 100 mg capsule 100 mg PO DAILY 12/29/19 02/25/21 01/23/21 History dronabinol 5 mg capsule 5 mg PO BID 12/29/19 02/25/21 01/23/21 History meclizine 12.5 mg tablet 12.5 mg PO BID PRN 12/29/19 02/25/21 01/23/21 History nitroglycerin 400 mcg/spray 1 spray SUBLINGUAL Q5M PRN 12/29/19 02/25/21 Unknown History translingual oxycodone 30 mg tablet 15 mg PO Q4H PRN tab 12/29/19 02/25/21 02/24/21 History blood sugar diagnostic #100 each 03/19/20 02/25/21 Unknown Rx blood-glucose meter #1 each 03/19/20 02/25/21 Unknown Rx cholestyramine-aspartame 4 gram 4 gm PO BID 03/19/20 02/25/21 01/23/21 History oral powder clobetasol 0.05 % topical cream 1 applic TOPICAL BID 03/19/20 02/25/21 Unknown History cyclobenzaprine 10 mg tablet 10 mg PO TID PRN 03/19/20 02/25/21 01/23/21 History famotidine 20 mg tablet 20 mg PO BID 03/19/20 02/25/21 02/24/21 History glimepiride 2 mg tablet 2 mg PO DAILY 03/19/20 02/25/21 02/24/21 History montelukast 10 mg tablet 10 mg PO DAILY 03/19/20 02/25/21 02/24/21 History metoprolol tartrate 25 mg tablet 12.5 mg PO BID #90 tab 05/17/20 02/25/21 02/24/21 Rx pen needle, diabetic 32 gauge x #100 each 08/19/20 02/25/21 Unknown Rx albuterol sulfate 90 mcg/actuation 2 puff INHALATION Q6H PRN #8.5 gm 08/24/20 02/25/21 02/24/21 Rx aerosol inhaler nystatin 100,000 unit/gram topical 1 applic TOPICAL TID #60 gm 08/24/20 02/25/21 01/23/21 Rx powder valacyclovir 1 gram tablet 1,000 mg PO TID #21 tab 08/24/20 02/25/21 Unknown Rx clopidogrel 75 mg tablet 75 mg PO DAILY #90 tab 09/06/20 02/25/21 02/24/21 Rx empagliflozin 10 mg tablet 10 mg PO DAILY #30 tab 11/17/20 02/25/21 02/24/21 Rx ibuprofen 600 mg tablet 600 mg PO BID PRN #30 tab 11/17/20 02/25/21 01/22/21 Rx fluticasone propionate 50 1 spray INTRANASAL BID #16 gm 01/21/21 02/25/21 02/24/21 Rx mcg/actuation nasal spray,suspension duloxetine [Cymbalta] 30 mg PO BID 01/24/21 02/25/21 02/24/21 History atovaquone 750 mg/5 mL oral 1,500 mg PO DAILY #210 ml 01/31/21 02/25/21 Unknown Rx suspension pantoprazole 40 mg tablet,delayed 40 mg PO DAILY #30 tab 01/31/21 02/25/21 02/24/21 Rx release tocilizumab 162 mg/0.9 mL 162 mg SUBCUT .Q7days #4 ml 01/31/21 02/25/21 02/18/21 Rx subcutaneous syringe prednisone 20 mg tablet 60 mg PO DAILY #90 tab 02/01/21 02/25/21 02/24/21 Rx atorvastatin 40 mg tablet 40 mg PO DAILY #30 tab 02/08/21 02/25/21 02/24/21 Rx Lantus Solostar U-100 Insulin 14 unit SUBCUT DAILY 02/25/21 02/25/21 02/24/21 History 14 UNITS Allergies Allergy/AdvReac Type Severity Reaction Status Date / Time adhesive tape Allergy Intermediate ALGY-Hives Verified 02/10/21 11:31 morphine Allergy Intermediate unknown Verified 02/10/21 11:31 aspirin Allergy Mild ALGY-Hives Verified 02/10/21 11:31 ciprofloxacin [From Cipro] Allergy Unknown Verified 02/10/21 11:31 dapagliflozin [From Farxiga] Allergy unk Verified 02/10/21 11:31 iodine Allergy unknown Verified 02/10/21 11:31 metformin Allergy Unknown Verified 02/10/21 11:31 prochlorperazine Allergy unknown Verified 01/31/21 15:01 [From Compazine] Sulfa (Sulfonamide Allergy unknown Verified 01/31/21 15:01 Antibiotics) PFSH Acute PFSH: Medical History ASHD (arteriosclerotic heart disease) Breast cancer COPD (chronic obstructive pulmonary disease) Diabetes Diabetic gastroparesis Dyslipidemia Glaucoma High risk medication use HTN (hypertension) Immunization counseling Inflammatory arthritis Myocardial infarction Need for pneumocystis prophylaxis Obesity Tobacco abuse Type 2 diabetes mellitus, with long-term current use of insulin Surgical History H/O neck surgery History of mastectomy, subtotal Previous back surgery S/P cholecystectomy S/P hysterectomy S/P PTCA (percutaneous transluminal coronary angioplasty) Status post insertion of spinal cord stimulator Family History Other CAD (coronary artery disease) Cancer Chronic kidney disease (CKD) Diabetes Family history of premature coronary artery disease Hyperlipidemia Hypertension Lung disease Lupus Rheumatoid arthritis Stroke Social History Smoking and tobacco status: current every day smoker cigarettes Packs smoked per day: 0.50 Alcohol intake: never History of recent travel: No (01/31/2021) Vitals/I&O/Wt Last Vital Signs Temp 99.0 F 02/25/21 19:08 Pulse 98 02/25/21 19:08 Resp 18 02/25/21 19:08 BP 132/84 02/25/21 19:08 Pulse Ox 97 02/25/21 19:08 02/25/21 02/25/21 02/25/21 06:59 14:59 22:59 Intake Total 1050 / 1050 Balance 1050 / 1050 Weight last 48 hrs Weight 81.647 kg Physical Exam Narrative: EXAM NARRATIVE: General: lethargic, ill appearing, somolent but wakes up to calling name, answers yes or no, oriented x 3 , dehydrated grossly , cushingoid HEENT: PERRLA, pupils bilaterally equal and reactive, pallors not present, conjunctiva red, dry scaly lips with crusting on top Chest: Normal vesicular breath sounds, no added sounds, equal good air entry bilaterally CVS: S1-S2 regular, no murmurs, no tachycardia, no gallops, no rubs Abdomen: Soft, nontender, no organomegaly, bowel sounds present Neuro: No focal motor deficits grossly, no facial deformity, AO x3, power 5/5 in all limbs Extremities: no cyanosis, clubbing, edema Data : 02/26/21 06:20 02/26/21 06:20 A&P Assessment and plan (1) Sepsis: Meet sepsis criteria by way of leukocytosis up to 29, tachycardia up to heart rate of 126, elevated lactate Possible sources of infection include meningoencephalitis, possibly bacterial versus viral etiology. 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 It seems this was prescribed in July 2020, unlikely that she would be on such high dose of Valtrex for over 6 months. Unable to get lumbar puncture today as fluoroscopic LP not available, critical care physicians not available this weekend. Will aim for lumbar puncture on Sunday. In the interim start empiric antibiotic coverage with cefepime, vancomycin and add antiviral coverage with acyclovir 10 mg/kg IV every 8 hours. Check serum cryptococcal antigen Alternate explanation for diffuse oropharyngeal involvement, possibly esophageal involvement given his odynophagia, altered mental status may be CMV reactivation in the presence of high-dose steroid. Check CMV PCR from the blood. Once able to obtain lumbar puncture, will obtain cell count, bacterial and fungal cultures, cryptococcal antigen and viral panel including HSV 1 and 2 PCR. Hold Actemra for now, will discuss with rheumatology regarding dosage of steroids that need to be resumed. Continue her home prophylaxis for PJP with atovaquone. check blood cx, UA , urine cx IVF @ 75cc/hr Status: Acute Qualifiers: Sepsis type: sepsis due to unspecified organism Sepsis acute organ dysfunction status: unspecified Qualified Code(s): A41.9 - Sepsis, unspecified organism (2) High risk medication use: High dose steroids an actemra use Status: Acute (3) Oropharyngeal candidiasis: Possibly also esophageal candidiasis given odynophagia Fluconazole 200mg iv daily Status: Acute (4) Delirium due to another medical condition, acute, hyperactive: likely as result of sepsis vs steroid induced psychosis Monitor for imprvement over the next 24-48 hrs with initiation of abx and antivirals will need to resume steroids to avoid acute adrenal insufficiency Status: Acute Additional A&P Information # Diabetes mellitus : insulin sliding scale # metaststaic squamous cell ca: not known to be currently active, follow up with oncology as outapatient # Lung mass, stable since 2019 # Giant cell aretritis: Follows with rheumatology. On high dose steroids and Tocilizumab DVT ppx: lovenox Full code Attestations Medical Necessity Statement*: >2midnight admission for evaluation and management of sepsis, IV abx and antivirals, IV fluids, high risk medication management Coding Level of Care Code Acute Data Warehouse Developer for g Fwd Diagnoses Sepsis A41.9 Sepsis type: sepsis due to unspecified organism Sepsis acute organ dysfunction status: unspecified High risk medication use Z79.899 Oropharyngeal candidiasis B37.0 Delirium due to another medical condition, acute, hyperactive F05
--- NOTE | 2021-02-25 20:28 | PC.PHAR ---
Vancomycin is dosed at 1500mg IVPB every 12 hours to produce a predicted trough level of 14.05 (population based pharmacokinetic analysis). A trough level has been ordered from the lab to be obtained before the fourth dose to confirm and adjust if needed.
[2021-02-25 20:50] LABS: Add Urine Microscopic? NO; Charge for UA Resulting for Rev
[2021-02-25 20:52] LABS: Glucose Point of Care 124 mg/dL (70-110)
[2021-02-25 20:53] LABS: Bilirubin Urine Neg (Negative); Blood Urine Neg (Negative); Glucose Urine UA 4+ (Normal); Ketones Urine 1+ (Negative); Leukocyte Esterase Urine Negative (Negative); Nitrate Urine Negative (Negative); Protein Urine Neg (Negative); Urine Appearance Clear (CLEAR); Urine Color Yellow (Yellow); Urobilinogen Urine Norm (Negative); pH Urine 5 (5-7)
[2021-02-25] MEDS: sodium chloride 0.9% 1,000 ML 75 ML IV (21:09)
[2021-02-25] MEDS: vancomycin 1,500 MG/300 ML PIGGYBACK 150 MG IV (21:19)
[2021-02-25] MEDS: fluconazole premix 200 MG/100 ML PREMIX 100 MG IV (23:23)
[2021-02-25] MEDS: acyclovir 800 MG in sodium chloride 0.9% (100 ml) 100 ML 120 MG IV (23:23)
[2021-02-26] VITALS (10 sets, daily range): BP systolic 108–138; BP diastolic 70–91; PULSE 81–110; RESP 17–19; TEMP 36.1–37.1; O2SAT 89–100
--- NOTE | 2021-02-26 01:51 | XRR_ITS ---
PROCEDURE INFORMATION: Exam: XR Chest Exam date and time: 02/26/2021 1:54 AM Age: 55 years old Clinical indication: Shortness of breath; Prior surgery; Surgery type: Stimulator. Cervical fusion. ; Patient HX: Decreased lung sounds. History of breast cancer. ; Additional info: Worsening lung sounds TECHNIQUE: Imaging protocol: XR of the chest. Views: 1 view. COMPARISON: CT chest abd pel wo con 02/25/2021 2:42 PM FINDINGS: Lungs: Unremarkable. No consolidation. Pleural spaces: Unremarkable. No pleural effusion. No pneumothorax. Heart/Mediastinum: Unremarkable. No cardiomegaly. Bones/joints: Unremarkable. XR/XR chest 1V portable [id number] IMPRESSION: No acute findings.
--- NOTE | 2021-02-26 01:55 | PC.NURSE ---
Patient change of status Patient oxygen saturations dropped to 89%. RT placed patient on 2L NC with sats at 94%. This nurses assessed patient finding lungs to sound wet with crackles. Physician notified with new orders to stop fluids and Portable Chest XR STAT.
[2021-02-26] MEDS: cefepime 2,000 MG in sodium chloride 0.9% (plus) 50 ML 100 MG IV ×2 (05:10→20:31)
[2021-02-26 06:31] LABS: Glucose Point of Care 82 mg/dL (70-110)
[2021-02-26 06:32] LABS: Basophils # 0.1 10^3/uL (0.0-0.1); Basophils % 0.2 %; Eosinophils # 0.1 10^3/uL (0.0-0.8); Eosinophils % 0.6 %; Hematocrit 42.5 % (37.0-47.0); Hemoglobin 13.4 g/dL (11.5-15.3); Lymphocytes # 6.4 10^3/uL (0.8-4.8); Lymphocytes % 29.5 %; Mean Corpuscular HGB Conc 31.5 g/dL (30.0-36.0); Mean Corpuscular Hemoglobin 29.6 pg (28.0-34.0); Mean Corpuscular Volume 93.8 fL (81-99); Mean Platelet Volume 10.4 fL (7.4-10.4); Monocytes # 1.2 10^3/uL (0.2-0.9); Monocytes % 5.4 %; Neutrophils % 63.8 %; Nucleated Red Blood Cells % 0 %; Platelet Count 183 10^3/cmm (130-400); Red Blood Count 4.53 10^6/uL (4.1-5.3); Red Cell Distribution Width 13.9 % (12.1-15.1); White Blood Count 21.8 10^3/uL (4.0-10.0)
[2021-02-26] MEDS: acyclovir 800 MG in sodium chloride 0.9% (100 ml) 100 ML 120 MG IV ×2 (06:39→18:25)
[2021-02-26 06:49] LABS: Alanine Aminotransferase 31 U/L (0-33); Albumin Level 3.5 g/dL (3.5-5.2); Alkaline Phosphatase 49 IU/L (35-105); Aspartate Amino Transferase 25 U/L (0-32); Blood Urea Nitrogen 9 mg/dL (6-20); Calcium 7.9 mg/dL (8.5-10.5); Carbon Dioxide 26 mmol/L (22-29); Chloride 105 mmol/L (98-107); Globulin 2.4 g/dL (1.3-4.6); Glomerular Filtration Rate 127.2 mL/min (90-130); Glucose 85 mg/dL (65-115); Lactate (Lactic Acid level) 0.6 mmol/L (0.5-2.2); Osmolality Calculated 288 mOsm/kg (285-295); Sodium 140 mmol/L (136-145); Total Protein 5.9 g/dL (6.6-8.7)
[2021-02-26 06:54] LABS: Anion Gap 12.7 (5-19); Potassium 3.7 mmol/L (3.5-5.1)
[2021-02-26 07:24] LABS: Procalcitonin 0.04 ng/mL (0-0.5)
[2021-02-26] MEDS: dronabinol 2.5 mg Capsule 5 MG PO ×2 (10:08→17:27)
[2021-02-26] MEDS: duloxetine 30 mg Capsule PO ×2 (10:09→17:28)
[2021-02-26] MEDS: atorvastatin 40 mg Tablet PO (10:09)
[2021-02-26] MEDS: pantoprazole DR 40 mg Tablet PO (10:09)
[2021-02-26] MEDS: metoprolol tartrate 25 mg Tablet 12.5 MG PO ×2 (10:09→17:28)
[2021-02-26] MEDS: docusate sodium 100 mg Capsule PO (10:09)
[2021-02-26] MEDS: vancomycin 1,500 MG/300 ML PIGGYBACK 150 MG IV ×2 (10:10→21:55)
[2021-02-26 11:01] LABS: Glucose Point of Care 125 mg/dL (70-110)
[2021-02-26] MEDS: lanolin oint 7 gm 1 APPLIC TOPICAL (12:49)
--- NOTE | 2021-02-26 15:24 | P.PN_ITS ---
Subjective Subjective: Interval history: Patient with significant improvement today. Alert awake oriented, no further episodes of hallucinations or paranoia.ambulating in the room without assistance. Lactate has normalized, white blood cell count trending down to 21. Medications: Reviewed: Yes Vitals/I&O/Wt Last Vital Signs Temp 98.7 F 02/26/21 11:21 Pulse 93 02/26/21 11:21 Resp 18 02/26/21 11:21 BP 108/70 02/26/21 11:21 Pulse Ox 97 02/26/21 11:21 02/26/21 02/26/21 02/26/21 06:59 14:59 22:59 Intake Total 566 / 1616 2015 Output Total 750 / 750 500 / 500 Balance -184 / 866 1516 / 1516 Weight last 48 hrs Weight 81.647 kg Physical Exam Narrative: EXAM NARRATIVE: General: awake, alert and oriented x 3 , no acute distress, hydration much better. HEENT: PERRLA, pupils bilaterally equal and reactive, pallors not present, conjunctiva red, dry scaly lips with crusting on top. Chest: Normal vesicular breath sounds, no added sounds, equal good air entry bilaterally CVS: S1-S2 regular, no murmurs, no tachycardia, no gallops, no rubs Abdomen: Soft, nontender, no organomegaly, bowel sounds present Neuro: No focal motor deficits grossly, no facial deformity, AO x3, power 5/5 in all limbs Extremities: no cyanosis, clubbing, edema Urinary Catheter Management^: Ponce: Cath Placed During This Visit: yes Reason for Continuing Indwelling Catheter: Other Urinary Catheter Date of Insertion: 02/25/21 Urinary Catheter Time of Insertion: 18:30 Data : 02/26/21 06:20 02/26/21 06:20 Micro: Microbiology 02/25/21 23:58 Blood Culture - Preliminary Blood SPECIMEN COLLECTED 02/25/21 23:52 Blood Culture - Preliminary Blood SPECIMEN COLLECTED A&P Assessment and plan (1) Sepsis: Present on admission, now improving Possible sources of infection include meningoencephalitis, possibly bacterial versus viral etiology. Given quick recovery, less likely to be bacterial mening itis. Cannot exclude viral encephalitis at this time. 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 Continue empiric antibiotic coverage with cefepime, vancomycin and acyclovir 10 mg/kg IV every 8 hours until cx data available for at least 48 hrs Check serum cryptococcal antigen Alternate explanation for diffuse oropharyngeal involvement, possibly esophageal involvement given his odynophagia, altered mental status may be CMV reactivation in the presence of high-dose steroid. Check CMV PCR from the blood. Once able to obtain lumbar puncture, will obtain cell count, bacterial and fungal cultures, cryptococcal antigen and viral panel including HSV 1 and 2 PCR. Hold Actemra for now, resume streoids at 55mg daily, discussed with her outpatient copy operator, start taper in 5 mg increments until steroids can be brought down to 40mg per day. Continue her home prophylaxis for PJP, however reports nausea and vomiting with atovaquone due to unpalatibility. Confirmed with patient;s son and her mother that patient does NOT have a known allergy to Bactrim. It was listed as a possible allergy as patients' mother is suspected to be allergic to it. Patient has herself taken few doses of bactrim in the past without adverse santi ctions. Change PJP ppx to Bactrim DS three times a week. Latter regimen may be better for patient compliance. pending blood cx UA negative IVF reduce to 50 cc/hr, continued to maintain hydration given high dose acyclovir Status: Acute Qualifiers: Sepsis acute organ dysfunction status: unspecified Sepsis type: sepsis due to unspecified organism Qualified Code(s): A41.9 - Sepsis, unspecified organism (2) High risk medication use: High dose steroids an actemra use Status: Acute (3) Oropharyngeal candidiasis: Possibly also esophageal candidiasis given odynophagia Fluconazole 200mg iv daily Status: Acute (4) Delirium due to another medical condition, acute, hyperactive: likely as result of sepsis vs steroid induced psychosis Given quick recovery, lower suspicion for steroid psychosis as steroids interrupted only for ~ 24 hrs Monitor for imprvement over the next 24-48 hrs with initiation of abx and antivirals Resumed steroids with Prednisone 55mg po daily Status: Acute Additional A&P Information # Diabetes mellitus : insulin sliding scale # metaststaic squamous cell ca: not known to be currently active, follow up with oncology as outapatient # Lung mass, stable since 2019 # Giant cell aretritis: Follows with rheumatology. On high dose steroids and Tocilizumab DVT ppx: lovenox Full code Attestations Medical Necessity Statement*: ongoing need for iv abx, iv fluids, high risk medication management Coding Level of Care Code Acute Background Check Coordinator for [employer] Fwd Diagnoses Sepsis A41.9 Sepsis acute organ dysfunction status: unspecified Sepsis type: sepsis due to unspecified organism High risk medication use Z79.899 Oropharyngeal candidiasis B37.0 Delirium due to another medical condition, acute, hyperactive F05
[2021-02-26 17:04] LABS: Glucose Point of Care 154 mg/dL (70-110)
[2021-02-26 20:12] LABS: SARS Covid-2 Antigen Negative (Negative)
[2021-02-26 20:31] LABS: Glucose Point of Care 215 mg/dL (70-110)
[2021-02-26 21:54] LABS: Glucose Urine UA 4+ (Normal); Protein Urine Neg (Negative); Specific Gravity, Urine 1.005 (1.005-1.030); Urine Appearance Clear (CLEAR); Urine Color Straw (Yellow); pH Urine 5 (5-7)
[2021-02-26 21:55] LABS: Add Urine Microscopic? YES; Bilirubin Urine Neg (Negative); Blood Urine 2+ (Negative); Ketones Urine Negative (Negative); Leukocyte Esterase Urine Negative (Negative); Nitrate Urine Negative (Negative); Urobilinogen Urine Norm (Negative)
[2021-02-26 22:00] LABS: Add Urine Culture? No; Amphetamines Screen Urine Negative (Negative); Bacteria Urine TRACE /hpf; Barbiturates Screen Urine Negative (Negative); Benzodiazepines Screen Urine Negative (Negative); Cocaine Screen Urine Negative (Negative); Opiate Screen Urine Negative (Negative); PCP Screen Urine Negative (Negative); RBC Urine 0-4 /hpf (0-2); Squamous Epithelial Cell Urine 0-4 /hpf (0-5); THC Screen Urine Positive (Negative); WBC Urine 0-4 /hpf (0-5)
[2021-02-27] VITALS (7 sets, daily range): BP systolic 121–152; BP diastolic 72–91; PULSE 70–102; RESP 16–18; TEMP 36.1–37; O2SAT 94–99
[2021-02-27] MEDS: fluconazole premix 200 MG/100 ML PREMIX 100 MG IV (00:29)
[2021-02-27] MEDS: acyclovir 800 MG in sodium chloride 0.9% (100 ml) 100 ML 120 MG IV ×3 (02:43→17:57)
[2021-02-27 06:09] LABS: Glucose Point of Care 230 mg/dL (70-110)
[2021-02-27 06:18] LABS: Basophils % 0.2 %; Hematocrit 48.8 % (37.0-47.0); Hemoglobin 14.6 g/dL (11.5-15.3); Lymphocytes # 1.6 10^3/uL (0.8-4.8); Lymphocytes % 7.7 %; Mean Corpuscular HGB Conc 29.9 g/dL (30.0-36.0); Mean Corpuscular Hemoglobin 28.7 pg (28.0-34.0); Mean Corpuscular Volume 96.1 fL (81-99); Monocytes # 0.7 10^3/uL (0.2-0.9); Monocytes % 3.3 %; Neutrophils % 88.3 %; Nucleated Red Blood Cells % 0 %; Platelet Count 220 10^3/cmm (130-400); Red Blood Count 5.08 10^6/uL (4.1-5.3); Red Cell Distribution Width 13.5 % (12.1-15.1); White Blood Count 20.6 10^3/uL (4.0-10.0)
--- NOTE | 2021-02-27 08:04 | PC.NURSE ---
Patient sitting up for breakfast, denies pain or needs, reports feeling I am a lot better. patient does report 2 BM last night and starting to have softer BM formation, discussed plan of care, verbalized understanding, patient awake alert and oriented.
[2021-02-27] MEDS: metoprolol tartrate 25 mg Tablet 12.5 MG PO ×2 (09:15→17:09)
[2021-02-27] MEDS: pantoprazole DR 40 mg Tablet PO (09:15)
[2021-02-27] MEDS: duloxetine 30 mg Capsule PO ×2 (09:15→17:09)
[2021-02-27] MEDS: atorvastatin 40 mg Tablet PO (09:16)
[2021-02-27] MEDS: docusate sodium 100 mg Capsule PO (09:16)
[2021-02-27] MEDS: cefepime 2,000 MG in sodium chloride 0.9% (plus) 50 ML 100 MG IV (09:17)
[2021-02-27] MEDS: sodium chloride 0.9% 1,000 ML 50 ML IV (09:17)
[2021-02-27] MEDS: dronabinol 2.5 mg Capsule 5 MG PO ×2 (09:54→17:10)
[2021-02-27] MEDS: vancomycin 1,500 MG/300 ML PIGGYBACK 150 MG IV (10:02)
--- NOTE | 2021-02-27 10:02 | PC.NURSE ---
Patients IV antibiotics are behind schedule due to attempting to get blood draw for vanc trough, unsuccessful Dr. Biswas notified and pharmacy, new orders received to continue IV vanc dose as scheduled, retimed vanc trough.
[2021-02-27 11:29] LABS: Glucose Point of Care 276 mg/dL (70-110)
[2021-02-27 17:10] LABS: Glucose Point of Care 293 mg/dL (70-110)
--- NOTE | 2021-02-27 18:55 | PM.PN ---
Subjective Subjective: Interval history: feels improving today, mental status remains stable after restarting high dose steroids, no current signs of psychosis, cx remains negative so far, afberile and hemodynamically stable Medications: Reviewed: Yes Vitals/I&O/Wt Last Vital Signs Temp 98.6 F 02/27/21 16:00 Pulse 96 02/27/21 16:00 Resp 18 02/27/21 16:00 BP 150/91 02/27/21 16:00 Pulse Ox 99 02/27/21 16:00 02/27/21 02/27/21 02/27/21 06:59 14:59 22:59 Intake Total 516 / 3198 1182.667 / 1182.667 240 / 1422.667 Output Total 1800 / 4150 1400 / 1400 600 / 2000 Balance -1284 / -952 -217.333 / -217.333 -360 / -577.333 Physical Exam Narrative: EXAM NARRATIVE: General: awake, alert and oriented x 3 , no acute distress, hydration much better. HEENT: PERRLA, pupils bilaterally equal and reactive, pallors not present, conjunctiva red, dry scaly lips with crusting on top. Chest: Normal vesicular breath sounds, no added sounds, equal good air entry bilaterally CVS: S1-S2 regular, no murmurs, no tachycardia, no gallops, no rubs Abdomen: Soft, nontender, no organomegaly, bowel sounds present Neuro: No focal motor deficits grossly, no facial deformity, AO x3, power 5/5 in all limbs Extremities: no cyanosis, clubbing, edema Urinary Catheter Management^: Ponce: Cath Placed During This Visit: yes, but has since been removed by the nurse Reason for Continuing Indwelling Catheter: Decision to DC Catheter Urinary Catheter Date of Insertion: 02/25/21 Urinary Catheter Time of Insertion: 18:30 Date Urinary Catheter Removed: 02/27/21 Time Urinary Catheter Discontinued: 10:53 Data : 02/27/21 05:35 02/26/21 06:20 Micro: Microbiology 02/26/21 19:39 MRSA Culture - Final Nose 02/25/21 23:52 Blood Culture - Preliminary Blood 02/25/21 23:58 Blood Culture - Preliminary Blood NEGATIVE TO DATE A&P Assessment and plan (1) Sepsis: Present on admission, now improving Possible sources of infection include meningoencephalitis, possibly bacterial versus viral etiology. Given quick recovery, less likely to be bacterial meningitis. Cannot exclude viral encephalitis at this time. 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 Continue acyclovir 10 mg/kg IV every 8 hours, renal function stable Narrow abx coverage- D/c vancomycin, d/c cefepime, change to ceftraixone 1g iv q12h Change iv to po fluconazole 200mg po daily Pending serum cryptococcal antigen Alternate explanation for diffuse oropharyngeal involvement, possibly esophageal involvement given his odynophagia, altered mental status may be CMV reactivation in the presence of high-dose steroid. Pending CMV PCR from the blood. Once able to obtain lumbar puncture, will obtain cell count, bacterial and fungal cultures, cryptococcal antigen and viral panel including HSV 1 and 2 PCR. Hold Actemra for now, resumed streoids at 55mg daily, discussed with her outpatient steam fitter supervisor, start taper in 5 mg increments every 3 days until steroids can be brought down to 40mg per day. blood cx negative thus far UA negative D/c IV hydration now that taking adequate po intake Status: Acute Qualifiers: Sepsis acute organ dysfunction status: unspecified Sepsis type: sepsis due to unspecified organism Qualified Code(s): A41.9 - Sepsis, unspecified organism (2) High risk medication use: High dose steroids an actemra use Status: Acute (3) Oropharyngeal candidiasis: Possibly also esophageal candidiasis given odynophagia Fluconazole 200mg po daily Status: Acute (4) Delirium due to another medical condition, acute, hyperactive: likely as result of sepsis vs steroid induced psychosis Given quick recovery, lower suspicion for steroid psychosis as steroids interrupted only for ~ 24 hrs Resumed steroids with Prednisone 55mg po daily, tolerating thus far Status: Acute Additional A&P Information # Diabetes mellitus : insulin sliding scale # metaststaic squamous cell ca: not known to be currently active, follow up with oncology as outpatient # Lung mass, stable since 2019 # Giant cell aretritis: Follows with rheumatology. On high dose steroids and Tocilizumab DVT ppx: lovenox Full code Attestations Medical Necessity Statement*: ongoing need for iv antivirals, monitor closely while narrowing antibiotics for empiric coverage, planned lumbar puncture Coding Level of Care Code Acute Customer Support Assistant for [facility] Diagnoses Sepsis A41.9 Sepsis acute organ dysfunction status: unspecified Sepsis type: sepsis due to unspecified organism High risk medication use Z79.899 Oropharyngeal candidiasis B37.0 Delirium due to another medical condition, acute, hyperactive F05
[2021-02-27] MEDS: cefTRIAXone 1,000 MG in sodium chloride 0.9% (plus) 50 ML 100 MG IV (19:36)
[2021-02-27 21:00] LABS: Vancomycin Trough 16.5 ug/mL (10-15)
[2021-02-27 21:06] LABS: Glucose Point of Care 303 mg/dL (70-110)
[2021-02-28] VITALS: BP 154/85; PULSE 79; RESP 20; TEMP 36.8; O2SAT 100
[2021-02-28] MEDS: acyclovir 800 MG in sodium chloride 0.9% (100 ml) 100 ML 120 MG IV ×3 (01:24→17:42)
[2021-02-28 03:37] VITALS: BP 128/71; PULSE 79; RESP 22; TEMP 36.3; O2SAT 97
[2021-02-28] MEDS: cefTRIAXone 1,000 MG in sodium chloride 0.9% (plus) 50 ML 100 MG IV ×2 (06:03→18:17)
[2021-02-28 07:06] LABS: Glucose Point of Care 183 mg/dL (70-110)
[2021-02-28 07:15] VITALS: BP 135/80; PULSE 79; RESP 18; TEMP 36.8; O2SAT 98
[2021-02-28 07:28] LABS: Alanine Aminotransferase 23 U/L (0-33); Albumin Level 3.9 g/dL (3.5-5.2); Alkaline Phosphatase 51 IU/L (35-105); Anion Gap 14.4 (5-19); Aspartate Amino Transferase 12 U/L (0-32); Blood Urea Nitrogen 13 mg/dL (6-20); Calcium 8.8 mg/dL (8.5-10.5); Carbon Dioxide 24 mmol/L (22-29); Chloride 103 mmol/L (98-107); Globulin 2.3 g/dL (1.3-4.6); Glomerular Filtration Rate 127.2 mL/min (90-130); Glucose 202 mg/dL (65-115); Osmolality Calculated 292 mOsm/kg (285-295); Potassium 3.4 mmol/L (3.5-5.1); Sodium 138 mmol/L (136-145); Total Bilirubin 0.6 mg/dL (0.15-1.2); Total Protein 6.2 g/dL (6.6-8.7)
[2021-02-28 07:32] LABS: Estmated Average Glucose 192; Hemoglobin A1C 8.3 % (4.0-6.0)
[2021-02-28 07:47] LABS: HIV 1 & 2 Antibody Non-Reactive (Non-Reactiv); HIV 1 & 2 Antigen Non-Reactive (Non-Reactiv)
--- NOTE | 2021-02-28 08:00 | FL_ITS ---
WS: [id number] LUMBAR PUNCTURE CLINICAL INFORMATION: altered mental status COMPARISON: None. TECHNIQUE: Informed consent: The procedure and its potential risk and complications were discussed with the eduardo ent. Verbal and written consent was obtained. Timeout: A timeout was performed to confirm correct patient, procedure, and site. Patient was prepped and draped in the usual sterile fashion. Lidocaine 1% was used for local anesthes ia. Utilizing fluoroscopic guidance, a 3.5 inch 22-gauge spinal needle was advanced into the subarach noid space at L3-L4 via right oblique sublaminar approach. Free flow of clear CSF was obtained. 10 cc of CSF was collected and sent to the lab for further analysis. FLUOROSCOPIC TIME: 0.5 minutes. FL/FL guided lumbarpunc dx* [id number] IMPRESSION: Fluoroscopically guided lumbar puncture. No immediate complications
[2021-02-28 08:06] LABS: Hepatitis A Antibody IgM Non-Reactive (Nonreactive); Hepatitis B Core AB, Total Non-Reactive (Nonreactive); Hepatitis B Surface AB 3.5 (11.5-1000); Hepatitis B Surface Antigen Non-Reactive (Nonreactive); Hepatitis C Virus Antibody Non-Reactive (Nonreactive)
[2021-02-28] MEDS: pantoprazole DR 40 mg Tablet PO (09:01)
[2021-02-28] MEDS: docusate sodium 100 mg Capsule PO (09:01)
[2021-02-28] MEDS: atorvastatin 40 mg Tablet PO (09:01)
[2021-02-28] MEDS: metoprolol tartrate 25 mg Tablet 12.5 MG PO ×2 (09:02→17:40)
[2021-02-28] MEDS: duloxetine 30 mg Capsule PO ×2 (09:02→17:42)
--- NOTE | 2021-02-28 09:47 | PC.NURSE ---
patient said her mother is her guardian. grant writer called patient's mother Savana Mccormick and got consent for ultrasound guided lumbar puncture. vd phone consent with JESSICA Rucker and myself.
--- NOTE | 2021-02-28 10:24 | PC.NURSE ---
patient's son Roldan called and repairer typewriter gave update on patient. patient's son said patient's mother Maria Antonia is patient's legal guardian.
[2021-02-28] MEDS: dronabinol 2.5 mg Capsule 5 MG PO ×2 (10:31→17:40)
[2021-02-28] MEDS: fluconazole 100 mg Tablet 200 MG PO (10:31)
[2021-02-28 11:24] LABS: Glucose Point of Care 285 mg/dL (70-110)
[2021-02-28 11:38] LABS: INR 0.91 (0.8-1.2)
[2021-02-28 12:00] VITALS: BP 118/68; PULSE 85; RESP 18; TEMP 36.4; O2SAT 96
[2021-02-28 15:56] LABS: CSF Mononuclear # 0.001 10^3/uL (50-90); Mononuclear WBC CSF % 100 % (50-90); Polynuclear WBC CSF % 0 % (0-10); Red Blood Cell CSF 0 10^3/uL (0-0); White Blood Cell CSF 1 /uL (0-5)
--- NOTE | 2021-02-28 16:04 | P.PN_ITS ---
Subjective Subjective: Interval history: Afebrile, hemodynamically stable, no new complaints, plan for LP today Medications: Reviewed: Yes Vitals/I&O/Wt Last Vital Signs Temp 97.6 F 02/28/21 12:00 Pulse 85 02/28/21 12:00 Resp 18 02/28/21 12:00 BP 118/68 02/28/21 12:00 Pulse Ox 96 02/28/21 12:00 02/28/21 02/28/21 02/28/21 06:59 14:59 22:59 Intake Total 1000 / 2588.667 646 / 646 116 / 762 Output Total 3000 / 5600 Balance -2000 / -3011.333 646 / 646 116 / 762 Physical Exam Narrative: EXAM NARRATIVE: General: awake, alert and oriented x 3 , no acute distress, hydration much better. HEENT: PERRLA, pupils bilaterally equal and reactive, pallors not present, conjunctiva red, dry scaly lips with crusting on top. Chest: Normal vesicular breath sounds, no added sounds, equal good air entry bilaterally CVS: S1-S2 regular, no murmurs, no tachycardia, no gallops, no rubs Abdomen: Soft, nontender, no organomegaly, bowel sounds present Neuro: No focal motor deficits grossly, no facial deformity, AO x3, power 5/5 in all limbs Extremities: no cyanosis, clubbing, edema Urinary Catheter Management^: Ponce: Cath Placed During This Visit: yes, but has since been removed by the nurse Reason for Continuing Indwelling Catheter: Decision to DC Catheter Urinary Catheter Date of Insertion: 02/25/21 Urinary Catheter Time of Insertion: 18:30 Date Urinary Catheter Removed: 02/27/21 Time Urinary Catheter Discontinued: 10:53 Data : 02/27/21 05:35 02/28/21 06:51 Micro: Microbiology 02/25/21 23:52 Blood Culture - Preliminary Blood Staphylococcus sp coag neg 02/26/21 19:39 MRSA Culture - Final Nose A&P Assessment and plan (1) Sepsis: Present on admission, now resolved Possible sources of infection include meningoencephalitis, possibly bacterial versus viral etiology. Given quick recovery, less likely to be bacterial meningitis. Cannot exclude viral encephalitis at this time. 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 Continue acyclovir 10 mg/kg IV every 8 hours, renal function stable Stable with narrowing abx spectrum yesterday Continue po fluconazole 200mg po daily Pending serum cryptococcal antigen Alternate explanation for diffuse oropharyngeal involvement, possibly esophageal involvement given his odynophagia, altered mental status may be CMV reactivation in the presence of high-dose steroid. Pending CMV PCR from the blood. From lumbar puncture, will obtain cell count, bacterial and fungal cultures, cryptococcal antigen and viral panel including HSV 1 and 2 PCR. Hold Actemra for now, resumed streoids at 55mg daily, discussed with her outpatient bilingual spanish inbound sales, start taper in 5 mg increments every 3 days until s teroids can be brought down to 40mg per day. blood cx negative thus far UA negative Status: Acute Qualifiers: Sepsis acute organ dysfunction status: unspecified Sepsis type: sepsis due to unspecified organism Qualified Code(s): A41.9 - Sepsis, unspecified organism (2) High risk medication use: High dose steroids an actemra use Status: Acute (3) Oropharyngeal candidiasis: Possibly also esophageal candidiasis given odynophagia Fluconazole 200mg po daily Status: Acute (4) Delirium due to another medical condition, acute, hyperactive: likely as result of sepsis vs steroid induced psychosis Given quick recovery, lower suspicion for steroid psychosis as steroids interrupted only for ~ 24 hrs Resumed steroids with Prednisone 55mg po daily, tolerating thus far Status: Acute Additional A&P Information # Diabetes mellitus : insulin sliding scale # metaststaic squamous cell ca: not known to be currently active, follow up with oncology as outpatient # Lung mass, stable since 2019 # Giant cell aretritis: Follows with rheumatology. On high dose steroids and Tocilizumab DVT ppx: lovenox Full code Attestations Medical Necessity Statement*: Lumbar puncture today Coding Level of Care Code Acute Adjunct Instructor for [facility] Fwd Diagnoses Sepsis A41.9 Sepsis acute organ dysfunction status: unspecified Sepsis type: sepsis due to unspecified organism High risk medication use Z79.899 Oropharyngeal candidiasis B37.0 Delirium due to another medical condition, acute, hyperactive F05
[2021-02-28] MEDS: oxyCODONE IR 30 mg Tablet 15 MG PO (16:28)
[2021-02-28] MEDS: sulfamethoxazole-trimeth DS 160-800 mg Tablet 1 TAB PO (16:28)
--- NOTE | 2021-02-28 16:53 | PC.SOCIAL ---
*IMM UPDATE* Gave patient IMM update, provided copy of page 2 of IMM. Called pt's mother and gave verbal IMM update. Initialed, dated, timed and placed in chart.
[2021-02-28 17:49] LABS: Glucose Point of Care 269 mg/dL (70-110)
[2021-02-28 19:01] LABS: Appearance CSF CLEAR (CLEAR)
[2021-02-28 19:02] LABS: Color CSF COLORLESS (COLORLESS)
--- NOTE | 2021-02-28 19:10 | PC.RESP ---
SMOKING CESSATION AND PULMONARY REHAB INFORMATION SENT TO PATIENT.
[2021-02-28 19:58] VITALS: BP 117/69; PULSE 87; RESP 17; TEMP 36.4; O2SAT 94
[2021-02-28 20:24] VITALS: PULSE 92; RESP 15; O2SAT 96
[2021-02-28 20:28] LABS: Glucose Point of Care 306 mg/dL (70-110)
[2021-03-01] VITALS: BP 126/82; PULSE 71; RESP 16; TEMP 36.6; O2SAT 94
[2021-03-01] MEDS: acyclovir 800 MG in sodium chloride 0.9% (100 ml) 100 ML 120 MG IV ×2 (02:39→10:07)
[2021-03-01 04:00] VITALS: BP 137/80; PULSE 76; RESP 16; TEMP 36.5; O2SAT 97
[2021-03-01] MEDS: cefTRIAXone 1,000 MG in sodium chloride 0.9% (plus) 50 ML 100 MG IV (06:11)
[2021-03-01 06:33] LABS: Glucose Point of Care 160 mg/dL (70-110)
[2021-03-01 08:00] VITALS: BP 121/71; PULSE 83; RESP 18; TEMP 36.4; O2SAT 98
[2021-03-01 08:32] VITALS: PULSE 83; RESP 18; O2SAT 98
[2021-03-01] MEDS: dronabinol 2.5 mg Capsule 5 MG PO (09:23)
[2021-03-01] MEDS: docusate sodium 100 mg Capsule PO (09:23)
[2021-03-01] MEDS: predniSONE 10 MG, predniSONE 40 MG 50 MG PO (09:23)
[2021-03-01] MEDS: fluconazole 100 mg Tablet 200 MG PO (09:23)
[2021-03-01] MEDS: atorvastatin 40 mg Tablet PO (09:23)
[2021-03-01] MEDS: pantoprazole DR 40 mg Tablet PO (09:23)
[2021-03-01] MEDS: duloxetine 30 mg Capsule PO (09:23)
[2021-03-01] MEDS: metoprolol tartrate 25 mg Tablet 12.5 MG PO (09:24)
[2021-03-01 12:00] VITALS: BP 133/76; PULSE 80; RESP 18; TEMP 36.9; O2SAT 98
[2021-03-01 12:21] LABS: Glucose Point of Care 346 mg/dL (70-110)
[2021-03-01 13:40] LABS: Basophils # 0.1 10^3/uL (0.0-0.1); Basophils % 0.3 %; Eosinophils % 0.2 %; Hematocrit 40.8 % (37.0-47.0); Hemoglobin 13.3 g/dL (11.5-15.3); Lymphocytes # 4.6 10^3/uL (0.8-4.8); Lymphocytes % 23.1 %; Mean Corpuscular HGB Conc 32.6 g/dL (30.0-36.0); Mean Corpuscular Hemoglobin 29.2 pg (28.0-34.0); Mean Corpuscular Volume 89.5 fL (81-99); Mean Platelet Volume 10.3 fL (7.4-10.4); Monocytes # 1.3 10^3/uL (0.2-0.9); Monocytes % 6.4 %; Neutrophils # 13.97 10^3/uL (1.8-7.7); Neutrophils % 69.5 %; Nucleated Red Blood Cells % 0 %; Platelet Count 274 10^3/cmm (130-400); Red Blood Count 4.56 10^6/uL (4.1-5.3); Red Cell Distribution Width 13.2 % (12.1-15.1); White Blood Count 20.1 10^3/uL (4.0-10.0)
--- NOTE | 2021-03-01 13:45 | PC.NURSE ---
called employee pharmacy for meds to beds.
[2021-03-01 13:48] LABS: CMV DNA By PCR <200 IU/mL; CMV DNA, QN PCR <2.30 Log IU/mL; SOURCE WHOLE BLOOD
--- NOTE | 2021-03-01 14:11 | PC.NURSE ---
patient given discharge instructions and verbalized understanding of instructions. patient waiting on meds to beds.
--- NOTE | 2021-03-01 15:10 | PC.NURSE ---
patient ambulated to private vehicle with staff at side. patient's meds delivered to patient.
[2021-03-01 15:11] VITALS: BP 133/76; PULSE 80; RESP 18; TEMP 36.9; O2SAT 98
--- NOTE | 2021-03-01 17:10 | P.DS_ITS ---
Discharge Providers Date of Admission: 02/25/21 16:03 Date of Discharge: March 01, 2021 Attending Provider at Admission: Marium Biswas MD Attending Provider at Discharge: Marium Biswas MD Primary Care Provider: Violet Falcon DO Diagnoses at Discharge Discharge Diagnosis (1) Sepsis: Status: Acute Qualifiers: Sepsis acute organ dysfunction status: unspecified Sepsis type: sepsis due to unspecified organism Qualified Code(s): A41.9 - Sepsis, unspecified or ganism (2) High risk medication use: Status: Acute (3) Oropharyngeal candidiasis: Status: Acute (4) Delirium due to another medical condition, acute, hyperactive: Status: Acute Reason for Visit Reason for Visit: COMBATIVE BEHAVIOR Hospital Course Hospital Course Olya Mccormick is a 55 year old female recently diagnosed with GCA on treatment with Prednisone 60 mg a day since 1 month and recently also started on Actemra, brought to the ER with c/o new onset behavior disturbances starting one day prior to admission. patient started having bizarre thoughts, making paranoid statements such as the police is coming after her for a murder that she read about in a paper recently, stating that she is being assaulted when there was no one in the house, talking about people in her life from 20 years ago as if they are still around etc. Upon presentation she was found to have an elevated white blood cell count of 29, grossly dehydrated, chapped lips, oral thrush +. She was admitted in view of sepsis and acute delirium. Hospital course as below: (1) Sepsis: Met sepsis criteria by way of leukocytosis up to 29, tachycardia up to heart rate of 126, elevated lactate No clear source of bacterial infection identified on w/up, blood culture 1 out of 4 coag negative staph, likely to be a contaminant, UA not consistent with UTI , CT of the abdomen pelvis did not identify any overt source of infection, chest x-ray without any consolidative process. Possible sources of infection include meningoencephalitis, possibly. viral et iology. Given quick recovery, less likely to be bacterial meningitis. 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 She underwent lumbar puncture on February 28, 2021 once fluoroscopic procedure was able to be performed. Cell count, protein and glucose are consistent with bacterial infection. Gram stain without any organisms, culture remains pending at time of discharge, thus far no growth to date. Of note lumbar puncture was performed after 3 days on antibiotics. HSV PCR and VZV PCR remains pending at the time of discharge. She received empiric antibiotic course initially with cefepime vancomycin and acyclovir, this was narrowed down to ceftriaxone and acyclovir changed to Valtrex 1 g 3 times daily at the time of discharge, letter to be continued for 7 days. It may be discontinued sooner if HSV and VZV PCR returned negative sooner than 7 days. CSF cryptococcal antigen negative. Alternate explanation for diffuse oropharyngeal involvement, possibly esophageal involvement given odynophagia, altered mental status may be CMV reactivation in the presence of high-dose steroid. Pending CMV PCR from the blood. However lower suspicion for this given quick recovery in about 24 hours. (2) High risk medication use: High dose steroids an actemra use Patient reported on palatability with atovaquone, not able to take PCP prophylaxis effectively. Nature of allergies confirmed with patient and her mother. Patient is not known to be allergic to Bactrim, this has been removed from her allergy list. Patient started on Bactrim DS prophylaxis 3 times a week (3) Oropharyngeal candidiasis: Possibly also esophageal candidiasis given odynophagia Received Fluconazole 200mg iv daily--> changed to fluconazole 200mg daily for another 5 days (4) Delirium due to another medical condition, acute, hyperactive: likely as result of sepsis initially also concern for steroid induced psychosis, however given impprvement with minimal time interruption of steroids, this seems less likely. Prednisone resumed streoids at 55mg daily, discussed with her outpatient billet bed operator, start taper in 5 mg increments every 3 days until steroids can be brought down to 40mg per day. 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 On high dose steroids and Tocilizumab Physical Exam Narrative: EXAM NARRATIVE: GEN: Awake, alert and oriented, no acute distress CVS: S1S2 N RS: CTA B/L Abd: Soft, nt/nd , bs+ FINISHER CARD TENDER: no focal neuro deficits Urinary Catheter Management^: [place]: Cath Placed During This Visit: yes, but has since been removed by the nurse Reason for Continuing Indwelling Catheter: Decision to DC Catheter Urinary Catheter Date of Insertion: 02/25/21 Urinary Catheter Time of Insertion: 18:30 Date Urinary Catheter Removed: 02/27/21 Time Urinary Catheter Discontinued: 10:53 Discharge Data Data Completed and Pending: Completed Studies During Hospitalization Category Date Time Status CT chest abd pel wo con Urgent Cat Scan 02/25/21 12:[address] head wo con* 7 0450 Urgent Cat Scan 02/25/21 12:37 Completed FL guided lumbarp [facility] dx* [id number] Rout ine Exams 02/28/21 08:00 Completed XR chest 1V desiree ble [id number] Stat Exams 02/26/21 01:51 Completed XR chest 1V desiree ble [id number] Urgent Exams 02/25/21 12:37 Completed Pending at discharge Category Date Time Status Blood Culture Sta t Lab 02/25/21 23:58 Results Herpes Simplex Vi maliha DNA Routine Lab 02/27/21 19:10 Received Miscellaneous Shelley t Routine Lab 02/28/21 14:28 Received Labs from last 24 hours 03/01/21 03/01/21 02/28/21 12:11 06:26 20:17 WBC RBC Hgb Hct MCV MCH MCHC RDW Plt Count MPV Neut % (Auto) Lymph % (Auto) [place] % (Auto) Eos % (Auto) Baso % (Auto) Neut # (Auto) Lymph # (Auto) [place] # (Auto) Eos # (Auto) Baso # (Auto) Nucleated RBC % (a uto) Nucleated RBCs # POC Glucose 346 H 160 H 306 H CSF Appearance CSF Color CSF WBC CSF RBC CSF Mononuclear # Auto CSF Mononuclear WB Cs % CSF Polynuclear WB Cs # CSF Polynuclear WB Cs % CMV Culture Source CMV DNA Quant PCR CMV Qnt PCR Interp 02/28/21 02/28/21 02/28/21 17:48 14:28 06:51 WBC 20.1 H RBC 4.56 Hgb 13.3 Hct 40.8 MCV 89.5 MCH 29.2 MCHC 32.6 RDW 13.2 Plt Count 274 MPV 10.3 Neut % (Auto) 69.5 Lymph % (Auto) 23.1 [place] % (Auto) 6.4 Eos % (Auto) 0.2 Baso % (Auto) 0.3 Neut # (Auto) 13.97 H Lymph # (Auto) 4.6 [place] # (Auto) 1.3 H Eos # (Auto) 0.0 Baso # (Auto) 0.1 Nucleated RBC % (a uto) 0 Nucleated RBCs # 0.0 POC Glucose 269 H CSF Appearance Clear CSF Color Colorless CSF WBC 1 CSF RBC 0 CSF Mononuclear # Auto 0.001 L CSF Mononuclear WB Cs % 100 H CSF Polynuclear WB Cs # 0.000 CSF Polynuclear WB Cs % 0 CMV Culture Source CMV DNA Quant PCR CMV Qnt PCR Interp 02/26/21 06:20 WBC RBC Hgb Hct MCV MCH MCHC RDW Plt Count MPV Neut % (Auto) Lymph % (Auto) [place] % (Auto) Eos % (Auto) Baso % (Auto) Neut # (Auto) Lymph # (Auto) [place] # (Auto) Eos # (Auto) Baso # (Auto) Nucleated RBC % (a uto) Nucleated RBCs # POC Glucose CSF Appearance CSF Color CSF WBC CSF RBC CSF Mononuclear # Auto CSF Mononuclear WB Cs % CSF Polynuclear WB Cs # CSF Polynuclear WB Cs % CMV Culture Source Whole blood CMV DNA Quant PCR <200 CMV Qnt PCR Interp <2.30 Vitals: Last Vital Signs Temp 98.4 F 03/01/21 15:11 Pulse 80 03/01/21 15:11 Resp 18 03/01/21 15:11 BP 133/76 03/01/21 15:11 Pulse Ox 98 03/01/21 15:11 Discharge Plan Discharge Patient Disposition: Home Condition: Stable Prescriptions: New sulfamethoxazole-trimethoprim 800-160 mg Tablet 1 tab PO MOWEFR 30 Days Qty: 13 RF: 3 fluconazole 100 mg Tablet 200 mg PO DAILY 5 Days Qty: 5 RF: 0 Continued docusate sodium [Colace] 100 mg capsule 100 mg PO DAILY RF: 0 meclizine 12.5 mg tablet 12.5 mg PO BID PRN (Reason: dizziness) RF: 0 cetirizine 10 mg tablet 10 mg PO DAILY RF: 0 nitroglycerin 400 mcg/spray spray,non-aerosol 1 spray SUBLINGUAL Q5M PRN (Reason: Chest Pain) RF: 0 dronabinol 5 mg capsule 5 mg PO BID RF: 0 oxycodone 30 mg tablet 15 mg PO Q4H PRN (Reason: Pain) RF: 0 Cholestyramine Light 4 gram powder 4 gm PO BID RF: 0 clobetasol 0.05 % cream 1 applic TOPICAL BID RF: 0 cyclobenzaprine 10 mg tablet 10 mg PO TID PRN (Reason: Spasms) RF: 0 famotidine 20 mg tablet 20 mg PO BID RF: 0 glimepiride 2 mg tablet 2 mg PO DAILY RF: 0 montelukast [Singulair] 10 mg tablet 10 mg PO DAILY RF: 0 (DME) blood-glucose meter [Accu-Chek Pretty Plus Meter] Misc See Rx Instructions .ROUTE .MEDSUPPLY Qty: 1 RF: 0 (DME) blood sugar diagnostic [Accu-Chek Pretty Plus test strp] Strip See Rx Instructions .ROUTE .MEDSUPPLY Qty: 100 RF: 0 Jardiance 10 mg tablet 10 mg PO DAILY Qty: 30 RF: 5 ibuprofen 600 mg tablet 600 mg PO BID PRN (Reason: pain) Qty: 30 RF: 0 Actemra 162 mg/0.9 mL syringe 162 mg SUBCUT .Q7days Qty: 4 RF: 3 pantoprazole [Protonix] 40 mg tablet,delayed release (DR/EC) 40 mg PO DAILY Qty: 30 RF: 3 albuterol sulfate [ProAir HFA] 90 mcg/actuation HFA aerosol inhaler 2 puff INHALATION Q6H PRN (Reason: shortness of breath or wheezing) Qty: 8.5 RF: 5 nystatin 100,000 unit/gram powder 1 applic TOPICAL TID Qty: 60 RF: 0 metoprolol tartrate 25 mg tablet 12.5 mg PO BID Qty: 90 RF: 3 (DME) pen needle, diabetic [1st Tier Unifine Pentips] 32 gauge x 5/32 needle See Rx Instructions .ROUTE .MEDSUPPLY Qty: 100 RF: 2 clopidogrel 75 mg tablet 75 mg PO DAILY Qty: 90 RF: 3 fluticasone propionate [Allergy Relief (fluticasone)] 50 mcg/actuation spray,suspension 1 spray INTRANASAL BID Qty: 16 RF: 2 atorvastatin 40 mg tablet 40 mg PO DAILY Qty: 30 RF: 2 duloxetine [Cymbalta] 30 mg capsule,delayed release(DR/EC) 30 mg PO BID RF: 0 Lantus Solostar U-100 Insulin 100 unit/mL (3 mL) insulin pen 14 unit SUBCUT DAILY RF: 0 Valtrex 1 gram tablet 1,000 mg PO TID 7 Days Qty: 21 RF: 0 Changed prednisone 20 mg tablet 50 mg PO DAILY Qty: 90 RF: 2 Discontinued atovaquone 750 mg/5 mL suspension 1,500 mg PO DAILY Qty: 210 RF: 5 Discharge Orders: Discharge Order (Routine); Ordered 03/01/21 Ordered By: Marium Biswas Referrals: Violet Falcon DO [Primary Care Provider] - 03/11/21 2:15 pm Discharge Diet: Advance as tolerated Discharge Activity: Resume usual activity Patient Instructions: Sulfamethoxazole/Trimethoprim (By mouth), Fluconazole (By mouth), Acute Delirium (DC), Opioid Safety, Thrush - Adult Discharge Attestations Time Spent in Discharge Care*: greater than 30 min Specific Discharge Activities: educating patient, educating and/or supporting family/caregiver, discussing with pcp/other providers, documenting/other paperwork and evaluating patient/reviewing data Status at Discharge: Cognitive status at discharge: cognitively intact , Behavioral status at discharge: cooperative , Functional status at discharge: independent ambulation Overall status at discharge: patient is back to baseline Quality Metrics Clinical Quality Measures During this hospital stay, did patient experience: None Coding Level of Care Code Acute Chg FW DC note Diagnoses Sepsis A41.9 Sepsis acute organ dysfunction status: unspecified Sepsis type: sepsis due to unspecified organism High risk medication use Z79.899 Oropharyngeal candidiasis B37.0 Delirium due to another medical condition, acute, hyperactive F05
[2021-03-01 18:06] LABS: Glucose CSF 158 mg/dL (40-70); Total Protein CSF 75 mg/dL (15-45)
[2021-03-04 08:28] LABS: HSV 1 DNA NOT DETECTED; HSV 2 DNA NOT DETECTED; HSV Source CEREBROSPINAL FLUID
== END 2021-03-01 15:11 | disposition home or self-care (01) | DRG 872 ==
LOC: ER 13:00 → MEDSURG 16:46
PROVIDERS: Admitting Provider Student in an Organized Health Care Education/Training Program; Emergency Provider Family Medicine; PCP Family Medicine; Visit Provider Student in an Organized Health Care Education/Training Program
DX: A41.9 Sepsis, unspecified organism (principal); B37.0 Candidal stomatitis; F05 Delirium due to known physiological condition; A86 Unspecified viral encephalitis; E87.2 Acidosis; M31.6 Other giant cell arteritis; Z79.52 Long term (current) use of systemic steroids; I25.10 Atherosclerotic heart disease of native coronary artery without angina pectoris; Z98.61 Coronary angioplasty status; Z85.3 Personal history of malignant neoplasm of breast; J44.9 Chronic obstructive pulmonary disease, unspecified; E11.9 Type 2 diabetes mellitus without complications; E78.5 Hyperlipidemia, unspecified; H40.9 Unspecified glaucoma; I10 Essential (primary) hypertension; I25.2 Old myocardial infarction; E66.9 Obesity, unspecified; Z68.31 Body mass index [BMI] 31.0-31.9, adult; F17.210 Nicotine dependence, cigarettes, uncomplicated; Z90.10 Acquired absence of unspecified breast and nipple; Z96.82 Presence of neurostimulator; E86.0 Dehydration; R91.8 Other nonspecific abnormal finding of lung field; Z79.4 Long term (current) use of insulin; Z79.891 Long term (current) use of opiate analgesic
CPT/HCPCS: 36415; 36416; 51702; 62328; 70450; 71045; 71250; 74176; 76882; 80053; 80202; 80306; 80307; 80500; 81001; 81003; 82945; 82962; 83036; 83605; 84145; 84157; 84484; 85025; 85378; 85610; 86705; 86706; 86709; 86803; 87040; 87070; 87075; 87205; 87327; 87340; 87426; 87496; 87530; 87641; 87798; 87806; 89050; 93005; 94640; 96365; 96372; 96375; 99285; J0133; J0692; J0696; J1200; J1450; J1815; J2060; J3370; J7030; J7512; J7611; Q0167

== ENCOUNTER 2021-04-11 11:27 | Outpatient (CLI) | payer MEDICARE, SELFPAY ==
[2021-04-11 12:01] LABS: Basophils # 0.1 10^3/uL (0.0-0.1); Basophils % 0.6 %; Eosinophils # 0.1 10^3/uL (0.0-0.8); Eosinophils % 0.9 %; Hematocrit 46.7 % (37.0-47.0); Hemoglobin 15.3 g/dL (11.5-15.3); Lymphocytes # 4.8 10^3/uL (0.8-4.8); Lymphocytes % 30.5 %; Mean Corpuscular HGB Conc 32.8 g/dL (30.0-36.0); Mean Corpuscular Hemoglobin 29.9 pg (28.0-34.0); Mean Corpuscular Volume 91.4 fL (81-99); Monocytes # 0.9 10^3/uL (0.2-0.9); Monocytes % 5.4 %; Neutrophils # 9.84 10^3/uL (1.8-7.7); Neutrophils % 62.2 %; Nucleated Red Blood Cells % 0 %; Platelet Count 385 10^3/cmm (130-400); Red Blood Count 5.11 10^6/uL (4.1-5.3); Red Cell Distribution Width 15.2 % (12.1-15.1); White Blood Count 15.8 10^3/uL (4.0-10.0)
[2021-04-11 12:32] LABS: Alanine Aminotransferase 23 U/L (0-33); Albumin Level 4.3 g/dL (3.5-5.2); Alkaline Phosphatase 71 IU/L (35-105); Anion Gap 16.5 (5-19); Aspartate Amino Transferase 23 U/L (0-32); Blood Urea Nitrogen 8 mg/dL (6-20); Carbon Dioxide 26 mmol/L (22-29); Chloride 101 mmol/L (98-107); Globulin 2.4 g/dL (1.3-4.6); Glomerular Filtration Rate 102.7 mL/min (90-130); Glucose 179 mg/dL (65-115); Osmolality Calculated 293 mOsm/kg (285-295); Potassium 3.5 mmol/L (3.5-5.1); Sodium 140 mmol/L (136-145); Total Bilirubin 0.7 mg/dL (0.15-1.2); Total Protein 6.7 g/dL (6.6-8.7)
--- NOTE | 2021-04-12 20:09 | ONC FU_ITS ---
Dr. Garner Patient Follow-Up Note Patient: Olya Mccormick Unit #: [id number]: 1965 Dicatated By: Jamil Garner M.D.Date of Visit:Apr 11, 2021 Onc Med Follow-up/Prog Note Chief Complaint: Breast cancer/metastatic squamous cell cancer. History of Present Illness: This is a 56 year-old woman with a history of grade 2 infiltrating ductal carcinoma of the left breast, stage IA (T1c, pN1a, M0), ER/NH positive and HER-2/marely negative. 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 She had presented in 2005 with an abnormal mammogram which showed an isodense lesion in the left breast at 12 o'clock. Her treatment included lumpectomy and sentinel axillary lymph node biopsy followed by adjuvant chemotherapy with 3 cycles of FEC followed by 3 cycles of Taxotere. She completed chemotherapy in May of 2006. She was then given radiation to the left breast, which she completed in October 2006. She then started hormonal therapy with Arimidex, but it was stopped in October 2007 due to musculoskeletal pain and other side effects. She had a brief trial of therapy with Aromasin, which she also tolerated poorly. She then started tamoxifen in December 2008 and continued it until sometime in the summer, having completed a little more than 4 years of treatment. She was then followed expectantly for the breast cancer. In January 2015 she had presented with some new pain in the right groin area and right leg. I had initially suspected that it was from the right hip joint. X-rays and subsequent bone scan, though, were unremarkable. Ultimately I did suspect that the pain was radicular, as there were significant degenerative changes in the spine noted on a previous CT abdomen/pelvis. She was referred to Dr. Maloney for further evaluation. She was not a candidate for MRI due to the presence of a TENS unit. Ultimately she did have evaluation with myelogram in April 2015. There was no severe stenosis noted. She continued with conservative management. In the meantime she had presented to Dr. Saleh with a knot in her left groin area. She had been noted on a CT abdomen/pelvis in December 2014 to have a slight increase in left inguinal lymph nodes, the largest measuring up to 17 mm. Further evaluation with ultrasound on 07/23/2015 showed further progression of the left inguinal adenopathy, measuring 2.5 x 3.0 cm. An adjacent smaller node measured 10 x 14 mm. She was referred to Dr. Fiore. She underwent left inguinal lymph node biopsy on 08/19/2015. Pathology showed 2 separate lymph nodes, the larger measuring 3.5 x 3.0 x 2.5 cm and the smaller measuring 2.4 x 2.0 x 1.3 cm. Both showed metastatic squamous cell carcinoma. I had seen her for a followup visit in August 2015. She had negative vaginal and anorectal exam at that time. In reviewing her other history, she had undergone hysterectomy and unilateral oophorectomy sometime prior to my initial visit with her, which was in April 2006. She did have a previous colonoscopy, but she didn't recall when it was done, and I could not find a record of it. In June 2013 she had been sent to [facility] for removal of a skin lesion from her right cheek. At that time a lesion was also removed from the lower left leg. Pathology showed basal cell carcinoma on the right cheek and crateriform squamous cell carcinoma on the left lower leg. There was squamous cell carcinoma extending to the deep biopsy margins. She had no further treatment. She had restaging PET/CT on 09/10/2015. That study showed findings the left groin which are felt to most likely represent postbiopsy inflammatory changes. There was a tiny right upper lobe subpleural pulmonary nodule with SUV 0.7, felt to be consistent with early metastatic involvement versus granulomatous disease. Follow-up chest CT was recommended. There were no other suspicious findings. She was then seen by Dr. Hernandez for consideration of left inguinal lymph node dissection. At that time there was concern of possible right inguinal adenopathy, and he had recommended evaluation with ultrasound. That study was done here on 11/26/2015. It showed evidence of 2 lymph nodes in the right groin, the largest measuring 1.6 x 1.3 cm. The appearance was consistent with benign lymph nodes. Several adjacent lymph nodes also were present. There was no suspicious lymphadenopathy identified. At that time, she also had a contrast-enhanced head CT scan. It showed no evidence of metastatic disease to the brain. There was an indeterminate lytic lesion noted in the left frontal bone. She subsequently had a repeat bone scan, and it was unremarkable. Follow-up CT abdomen/pelvis on 03/28/2016 showed a low density region in the posterior aspect of the right lobe of the liver which was present on studies, and follow-up was recommended. The lymph nodes in the left inguinal region were no longer present. There were no other changes noted. Surveillance CT scans of the chest, abdomen, and pelvis on 09/14/2017 showed no evidence of metastatic disease. A 6 mm nodule in the right lung apex was noted to be slightly more prominent compared to prior study from 2008 and there was an additional new noncalcified pulmonary nodule in the right upper lobe laterally measuring 3.7 mm. Follow-up was recommended. A cyst in the hepatic dome was felt to be probably stable. Her repeat chest CT on 12/04/2019 showed stable nodule at the right lung apex measuring 6.6 mm and stable 3 mm rounded nodule in the right upper lobe. Fibrotic changes in the periphery of the left upper lobe and pleural thickening along the right major fissure also appeared stable. A well-circumscribed low attenuation mass in the anterior mediastinum measuring 1.7 cm was noted to have increased slightly compared to the 2017 study. A 12 mm cyst in the right lobe of the liver also appeared stable. She continued observation/expectant management. Her other medical illnesses include type 2 diabetes, dyslipidemia, and coronary artery disease. She has had previous angioplasty/stent placement. She has a history of irritable bowel syndrome. She underwent upper GI endoscopy in June 2011. At that time she had evidence of esophagitis, esophageal candidiasis, and gastritis. She was H. pylori positive. She completed treatment for both the Sylvia and the H. pylori. She was then confirmed on a subsequent gastric emptying study to have gastroparesis. She developed chronic pain following completion of her chemotherapy. At least some component was felt to be due to chemotherapy-induced peripheral neuropathy. She also developed significant degenerative disease of the spine, and she underwent cervical laminectomy as well as placement of a spinal cord stimulator. She smokes 1/2 pack of cigarettes daily. INTERIM HISTORY: At her follow-up visit in December 2020 she had developed a small nodule in the left groin. Restaging CT of the abdomen/pelvis on 01/13/2021 showed no evidence of left inguinal mass or pathologic lymphadenopathy. She is seen for a followup visit. She has not been feeling very good. She complains of having hot flashes and headaches and she says she gets sick a lot. She has limited activity, but she is doing housework. ECOG score is 1. Appetite is variable. She is smoking marijuana to help with that. She has not had fever or night sweats. She has sinus drainage and cough and she also complains of sore throat and hoarseness. She does not complain of shortness of breath. She sometimes has pain on the left side of her chest. She is nauseated quite a bit, sometimes with vomiting and she also complains that she has bad gas. She is still prone to having diarrhea, but she sometimes has constipation. She has frequent urination. She has chronic pain, particularly in her neck and in both legs. She has numbness/tingling in her hands and feet. Medications: Atorvastatin Calcium 1 (20 mg) Tablet Oral at bedtime, Cetirizine HCl 1 Tablet (of 10 mg) Oral daily, Cholestyramine 1 (4 g/dose) Powder Oral b.i.d., Clobetasol Propionate 1 (0.05 %) Cream Topical b.i.d., Cyclobenzaprine HCl 1 Tablet (of 10 mg) Oral t.i.d. PRN, diphenhydrAMINE HCl 1 Capsule (of 25 mg) Oral at bedtime PRN, DULoxetine HCl 1 Capsule (of 30 mg) Capsule Delayed Release Particles Oral b.i.d., Erythromycin 5 mL (of 200-5 mg/mL) Solution q 6 hours PRN, Famotidine 1 (20 mg) Tablet Oral b.i.d., Flonase 1 spray(s) (of 50 mcg/act) Suspension Nasal b.i.d., Glimepiride 1 Tablet (of 2 mg) Oral b.i.d., glipiZIDE ER 1 Tablet (of 5 mg) Tablet SR 24 HR Oral daily, Meclizine HCl 1 Tablet (of 25 mg) Oral t.i.d. PRN, Montelukast Sodium 1 Tablet (of 10 mg) Oral daily, Multivitamin Adult 1 Tablet Oral daily, Nitroglycerin (0.4 mg) Tablet, sublingual Sublingual Take as Directed, oxyCODONE HCl 1 Tablet (of 30 mg) Oral q 4 hours PRN, Pantoprazole Sodium 1 Tablet (of 40 mg) Tablet, enteric coated Oral daily, Plavix 1 Tablet (of 75 mg) Oral daily, Zofran 1 Tablet (of 4 mg) Oral q 8 hours PRN Allergies: adhesives, ASPIRIN, codeine, compazine, IV contrast, and septra. Vital Signs: Performed on Apr 11, 2021 13:32 Height - 61.00 in Weight - 161.6 lbs (LOW) BSA - 1.73 sq.m BMI - 30.53 (HIGH) Temperature - 97.4 F (LOW) Pulse - 98 /min Respiration - 18 /min BP - 99/66 mm(hg) O2 Sat - 94 % (LOW) Pain - 9 Fatigue - 7 Physical Examination: Constitutional - She looks pretty good generally, Eyes - Sclerae nonicteric. Conjunctivae clear, ENMT - No lesions noted in the oral cavity, Hematologic/Lymphatic - No cervical or clavicular adenopathy, Respiratory - Lungs show diminished air movement and slightly coarse breath sounds bilaterally, Cardiovascular - Heart rhythm is regular. There is no murmur, gallop, or rub noted, Abdomen - Moderately distended. Liver and spleen are not enlarged. There is no abdominal mass or ascites noted and there is no inguinal adenopathy, Extremities - No edema, Neurologic - No focal neurologic deficits noted. Lab/Imaging: Test performed on Apr 11, 2021 11:45 Sodium 140 mmol/L Potassium 3.5 mmol/L Chloride 101 mmol/L CO2 26 mmol/L Anion Gap 16.5 BUN 8 mg/dL Creatinine 0.6 mg/dL Cr Clearance (Est) 118.27 mL/min eGFR 102.7 mL/min Glucose 179 mg/dL Osmolality - Calculated 293 mOsm/kg Calcium 9.0 mg/dL Protein, Total 6.7 g/dL Albumin 4.3 g/dL Globulin 2.4 g/dL Bilirubin, Total 0.7 mg/dL ALT (SGPT) 23 U/L AST (SGOT) 23 U/L Alkaline Phosphatase 71 IU/L WBC 15.8 10 3/uL RBC 5.11 10 6/uL HGB 15.3 g/dL HCT 46.7 % MCV 91.4 fL MCH 29.9 pg MCHC 32.8 g/dL RDW 15.2 % Platelet Count 385 10 3/cmm MPV 9.0 fL Neutrophils 9.84 10 3/uL Lymphocytes 4.8 10 3/uL Monocytes 0.9 10 3/uL Eosinophils 0.1 10 3/uL Basophils 0.1 10 3/uL Neutrophil % 62.2 % Lymphocyte % 30.5 % Monocyte % 5.4 % Eosinophil % 0.9 % Basophils % 0.6 % NRBC % 0 % Problem List: 1. Grade 2 infiltrating ductal carcinoma of the left breast, stage IA (T1c, pN1a, M0), ER/NH positive and HER-2/marely negative. Her treatment included lumpectomy/sentinel axillary lymph node biopsy followed by adjuvant chemotherapy with 3 cycles of FEC and 3 cycles of Taxotere, completed in May 2006. Radiation to the left breast was completed in October 2006. She also completed adjuvant hormonal therapy. 2. In July 2015 she was found to have metastatic squamous cell carcinoma involving left inguinal lymph nodes. This was probably metastatic squamous cell carcinoma from a primary skin cancer which had been removed from the left leg in June 2013. Restaging PET/CT in August 2015 showed no other sites of involvement. She was then referred to Dr. Hernandez for possible left inguinal node dissection. At that time there was concern of possible right inguinal lymphadenopathy, but ultrasound of that area showed benign-appearing lymph nodes, the largest measuring 1.6 x 1.3 cm. She had no further treatment. 3. Peripheral neuropathy. 4. Type II diabetes. 5. Dyslipidemia. 6. Coronary artery disease. She underwent coronary angiogram with angioplasty/stent placement to the right coronary artery in December 2011. 7. 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 8. Osteoporosis. 9. She has had recurrent postprandial vomiting. This is presumed to be due to gastroparesis. 10. She also has chronic diarrhea. Problems Addressed with this Encounter and Plan: 1. Patient with grade 2 infiltrating ductal carcinoma of the left breast, stage IA (T1c, pN1a, M0), ER/NH positive and HER-2/marely negative. Her treatment included lumpectomy/sentinel axillary lymph node biopsy followed by adjuvant chemotherapy with 3 cycles of FEC and 3 cycles of Taxotere, completed in May 2006. Radiation to the left breast was completed in October 2006. She then began adjuvant hormonal therapy with anastrozole. She had poor tolerance for aromatase inhibitors and beginning in December 2008 her treatment was transitioned to tamoxifen, which she continued for an additional 4 years of treatment. During follow-up she has had ongoing problems with neuropathy from her chemotherapy, but there has been no evidence of recurrence of the breast cancer. She remains on observation/expectant management for the breast cancer. I will see her again in 3 months. 2. In July 2015 she was found to have metastatic squamous cell carcinoma involving left inguinal lymph nodes. This was probably metastatic from a primary skin cancer which had been removed from the left leg in June 2013. Restaging PET/CT in August 2015 showed no other sites of involvement. She was then referred to Dr. Hernandez for possible left inguinal node dissection. At that time there was concern of possible right inguinal lymphadenopathy, but ultrasound of that area showed benign-appearing lymph nodes, the largest measuring 1.6 x 1.3 cm. She had no further treatment. She was then followed expectantly. At her follow-up visit in December 2020 she had a small palpable nodule in the left groin. Restaging CT of the abdomen/pelvis on 01/13/2021 showed no evidence of left inguinal mass or lymphadenopathy. She continued expectant management. 3. She has chronic pain which is multifactorial, including degenerative disease of the spine and painful neuropathy. She continues symptomatic management. Signed By: Jamil Garner M.D. <<Signature on File>>
== END 2021-04-11 11:28 | disposition home or self-care (01) ==
LOC: ONCMED 11:28
PROVIDERS: PCP Family Medicine; Visit Provider Internal Medicine Medical Oncology
DX: Z08 Encounter for follow-up examination after completed treatment for malignant neoplasm (principal); Z85.828 Personal history of other malignant neoplasm of skin; Z85.3 Personal history of malignant neoplasm of breast; Z17.0 Estrogen receptor positive status [ER+]; E11.42 Type 2 diabetes mellitus with diabetic polyneuropathy; E78.5 Hyperlipidemia, unspecified; I25.10 Atherosclerotic heart disease of native coronary artery without angina pectoris; Z95.5 Presence of coronary angioplasty implant and graft; M47.9 Spondylosis, unspecified; M19.90 Unspecified osteoarthritis, unspecified site; G89.29 Other chronic pain; K52.9 Noninfective gastroenteritis and colitis, unspecified; Z92.21 Personal history of antineoplastic chemotherapy; Z92.3 Personal history of irradiation; Z79.899 Other long term (current) drug therapy
CPT/HCPCS: 36415; 80053; 85025; 99214

== ENCOUNTER → 2021-04-12 14:48 | Outpatient (BNVA) | payer MEDICARE, SELFPAY | PROVIDERS: PCP Family Medicine; Visit Provider Internal Medicine Rheumatology | DX: M31.6 Other giant cell arteritis (principal); Z79.899 Other long term (current) drug therapy; M19.90 Unspecified osteoarthritis, unspecified site; F17.210 Nicotine dependence, cigarettes, uncomplicated | CPT/HCPCS: 99214 ==

== ENCOUNTER 2021-05-04 13:17 | Outpatient (CLI) | payer MEDICARE, SELFPAY ==
--- NOTE | 2021-05-04 13:32 | CT_ITS ---
WS: [id number] NONCONTRAST CT RIGHT SHOULDER TECHNIQUE: Noncontrast CT right shoulder with coronal and sagittal reformatted images. CLINICAL INFORMATION: R93.89 - Abnormal findings on diagnostic imaging of other... COMPARISON: CT chest abdomen pelvis February 25, 2021 DLP: 493.[address] scans at [facility] use at least one of these dose optimization techniques: automat ed exposure control; mA and/or kV adjustment per patient size (includes targeted exams where dose is matched to clinical indication); or iterative reconstruction. FINDINGS: Moderate degenerative arthritis at the AC joint. Narrowing of the subacromial space. Moderate degener ative arthritis at the glenohumeral joint with a small amount of subchondral cystic change involving the glenoid. Prominent subchondral cystic change involving the humeral head. No acute fractures. Norm al visualized scapula. Chronic thinning of the distal supraspinatus. Postoperative changes cervical fusion partially visuali zed in the lower cervical spine. Noncalcified spiculated nodule in the right upper lobe measuring 7.7 mm. Additional noncalcified nodu les in the right lower lobe measuring 4.3 mm. These are stable since the recent chest CT. CT/CT shoulder RT wo con* [id number] IMPRESSION: 1. 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 2. Narrowing glenohumeral joint with subchondral cystic change involving the g lenoid and humeral head. No acute fractures. 3. Normal visualized scapula. 4. Chronic thinning of the supraspinatus distally. 5. Partially visualized spiculated nodule in the right upper lobe measuring 7. 7 mm. Additional noncalcified nodule right upper lobe measuring 4.3 mm. Right l elkin is partially visualized. This is stable since the recent chest CT February 25, 2021
== END 2021-05-04 13:18 | disposition home or self-care (01) ==
PROVIDERS: PCP Family Medicine; Visit Provider Internal Medicine Rheumatology
DX: M19.90 Unspecified osteoarthritis, unspecified site (principal); R93.89 Abnormal findings on diagnostic imaging of other specified body structures
CPT/HCPCS: 73200

== ENCOUNTER → 2021-06-01 13:41 | Outpatient (BNVA) | payer MEDICARE, SELFPAY | PROVIDERS: PCP Family Medicine; Visit Provider Nurse Practitioner Family | DX: Z20.822 Contact with and (suspected) exposure to COVID-19 (principal); J06.9 Acute upper respiratory infection, unspecified | CPT/HCPCS: 87635 ==

== ENCOUNTER → 2021-06-23 16:02 | Outpatient (BNVA) | payer MEDICARE, SELFPAY | PROVIDERS: PCP Family Medicine; Visit Provider Family Medicine | DX: E11.9 Type 2 diabetes mellitus without complications (principal); M31.6 Other giant cell arteritis; G44.209 Tension-type headache, unspecified, not intractable; E11.69 Type 2 diabetes mellitus with other specified complication; J43.1 Panlobular emphysema; R10.13 Epigastric pain; Z12.11 Encounter for screening for malignant neoplasm of colon; Z86.010 Personal history of colon polyps; Z79.4 Long term (current) use of insulin | CPT/HCPCS: 82043 ==

== ENCOUNTER 2021-06-24 14:27 | Outpatient (CLI) | payer MEDICARE, SELFPAY ==
[2021-06-24 15:25] LABS: Alanine Aminotransferase 20 U/L (0-33); Albumin Level 4.1 g/dL (3.5-5.2); Alkaline Phosphatase 73 IU/L (35-105); Anion Gap 14.6 (5-19); Aspartate Amino Transferase 17 U/L (0-32); Blood Urea Nitrogen 10 mg/dL (6-20); Calcium 9.1 mg/dL (8.5-10.5); Carbon Dioxide 28 mmol/L (22-29); Chloride 100 mmol/L (98-107); Globulin 2.7 g/dL (1.3-4.6); Glomerular Filtration Rate 163.9 mL/min (90-130); Glucose 130 mg/dL (65-115); Osmolality Calculated 289 mOsm/kg (285-295); Potassium 3.6 mmol/L (3.5-5.1); Sodium 139 mmol/L (136-145); Total Bilirubin 0.9 mg/dL (0.15-1.2); Total Protein 6.8 g/dL (6.6-8.7)
[2021-06-24 15:27] LABS: Estmated Average Glucose 160; Hemoglobin A1C 7.2 % (4.0-6.0)
== END 2021-06-24 14:28 | disposition home or self-care (01) ==
LOC: LAB 14:35
PROVIDERS: PCP Family Medicine; Visit Provider Family Medicine
DX: E11.69 Type 2 diabetes mellitus with other specified complication (principal); Z79.4 Long term (current) use of insulin
CPT/HCPCS: 36415; 80053; 83036

== ENCOUNTER → 2021-07-06 10:03 | Outpatient (BNVA) | payer MEDICARE, SELFPAY | PROVIDERS: PCP Family Medicine; Visit Provider Nurse Practitioner Family | DX: Z20.822 Contact with and (suspected) exposure to COVID-19 (principal); J43.1 Panlobular emphysema | CPT/HCPCS: 87635 ==

== ENCOUNTER 2021-07-11 20:27 | Emergency (ER) | payer MEDICARE, SELFPAY ==
[2021-07-11 20:36] VITALS: BP 125/75; PULSE 108; RESP 16; TEMP 36.8; O2SAT 94
[2021-07-11 22:53] VITALS: BP 104/69; PULSE 83; RESP 18; O2SAT 96
--- NOTE | 2021-07-11 23:57 | W.ED.COVID ---
HPI - COVID General: Chief Complaint: COVID symptoms Stated Complaint: Possible Covid Time Seen by Provider: 07/11/21 23:53 History of Present Illness: HPI Narrative: Ms. Mccormick is a 56-year-old lady with complex past medical history including hypertension, hyperlipidemia, diabetes, COPD, tobaccoism, history of asthma, and a diagnosis of Covid who presents emergency department due to worsening Covid symptoms. Symptom onset was subacute approximately 2 days ago. She endorses nausea, vomiting, generalized malaise, subjective fevers chills, cough, aches, pains. Overall the intensity of symptoms is moderate to severe. The course is worsening. Her symptoms are worse with exertion but do not go with rest. She has tried lmoe-ozs-qrhossu medications at home medications without significant relief. No other specific exacerbating or alleviating factors reported. COVID Results: SARS-CoV-2 Antigen (Rapid) Negative (Negative) 02/26/21 19:39 02/26/21 SARS-CoV-2 RNA (RT-PCR) Detected (NOT DETECTED) A 07/06/21 10:03 07/06/21 Nasal/Oral Coronavirus 2019 PCR Not detected 06/01/21 13:41 06/01/21 Review of Systems General: Reports: 10 or more systems reviewed and unremarkable except in HPI and below Narrative: CONSTITUTIONAL: See HPI EYES - denies pain, denies loss of vision NOSE -positive for congestion or rhinorrhea. THROAT - denies difficulty swallowing. CARDIOVASCULAR - denies chest pain and palpitations RESPIRATORY -see HPI GASTROINTESTINAL -see HPI GENITOURINARY - denies dysuria or urinary frequency MUSCULOSKELETAL- denies deformity or pain SKIN - denies rashes or new changed skin lesions NEUROLOGIC - denies focal weakness or sensory changes HEMATOLOGIC/LYMPHATIC - denies easy bruising or lymphadenopathy. [facility] ED PFSH: Medical History (Updated 07/12/21 @ 04:43 by Oc Rowley MD) ASHD (arteriosclerotic heart disease) Breast cancer COPD (chronic obstructive pulmonary disease) Diabetes Diabetic gastroparesis Dyslipidemia Giant cell arteritis Glaucoma HTN (hypertension) Inflammatory arthritis Myocardial infarction Oropharyngeal candidiasis Type 2 diabetes mellitus, with long-term current use of insulin Surgical History H/O neck surgery History of mastectomy, subtotal Previous back surgery S/P cholecystectomy S/P hysterectomy S/P PTCA (percutaneous transluminal coronary angioplasty) Status post insertion of spinal cord stimulator Family History Other CAD (coronary artery disease) Cancer Chronic kidney disease (CKD) Diabetes Family history of premature coronary artery disease Hyperlipidemia Hypertension Lung disease Lupus Rheumatoid arthritis Stroke Social History Alcohol intake: never History of recent travel: No (01/31/2021) Physical Exam Narrative: EXAM NARRATIVE: GENERAL/CONSTITUTIONAL -chronically ill-appearing. Mild increased work of breathing with supplemental oxygen in place at baseline liters per minute Eyes - PERRL, no conjunctival injection ENMT - Atraumatic external nose and ears. Moist mucous membranes NECK - supple. trachea midline CARDIOVASCULAR - regular rate and rhythm. Peripheral pulses 2+ and equal RESPIRATORY -diminished to auscultation bilaterally. No significant retractions or accessory muscle use. ABDOMEN/GI - Nontender, Nondistended. No tenderness to percussion or evidence of peritonitis MSK - Extremities without obvious deformity or tenderness to palpation SKIN - Warm, Dry NEURO - alert and appropriately oriented. strength and sensation intact. Moves all extremities equally. PSYCH - Appropriate mood and affect Course ED course: - Patient was seen and evaluated by me at bedside - Patient placed on cardiac monitors, IV access obtained - Initial evaluation notable for chronically ill appearance, no acute distress. -Symptom treatment ordered - Labs notable for mild leukocytosis, mild dehydration. Delta troponin negative. Procalcitonin negative. - Imaging notable for no lobar consolidation - Upon serial reexamination after treatment the patient was mildly improved - Based on patient history, evaluation, labs, and imaging as interpreted the most likely cause of the patient's condition is related to COVID-19 - The results of ED evaluation were discussed with the patient. Based on complex history including chronic hypoxic respiratory failure as well as overall clinical appearance I recommended admission which after discussion of risks and benefits the patient declined. I discussed followup plan, and return precautions. The patient verbalized understanding and felt safe for discharge. - Patient discharged in satisfactory condition. Vital Signs: Vital signs: Vital Signs Temperature 98.3 F 07/11/21 20:36 Pulse Rate 95 07/12/21 05:14 Respiratory Rate 21 H 07/12/21 05:14 Blood Pressure 102/73 07/12/21 05:14 Pulse Oximetry 93 07/12/21 05:14 [facility] Medical Records: Attestation: I reviewed the patient's medical records. Lab Data: Attestation: I reviewed the patient's lab results. Labs: Lab Results 07/12/21 07/12/21 07/12/21 Range/Units 02:15 02:15 02:15 WBC 12.9 H (4.0-10.0) 10^3/ uL RBC 5.07 (4.1-5.3) 10^6/u L Hgb 15.4 H (11.5-15.3) g/dL Hct 45.9 (37.0-47.0) % MCV 90.5 (81-99) fl MCH 30.4 (28.0-34.0) pg MCHC 33.6 (30.0-36.0) g/dL RDW 13.7 (12.1-15.1) % Plt Count 253 (130-400) 10^3/c mm MPV 9.2 (7.4-10.4) fL Neut % (Auto) 44.8 % Lymph % (Auto) 45.6 % Gilchrist % (Auto) 8.2 % Eos % (Auto) 0.7 % Baso % (Auto) 0.3 % Neut # (Auto) 5.77 (1.8-7.7) 10^3/u L Lymph # (Auto) 5.9 H (0.8-4.8) 10^3/u L Gilchrist # (Auto) 1.1 H (0.2-0.9) 10^3/u L Eos # (Auto) 0.1 (0.0-0.8) 10^3/u L Baso # (Auto) 0.0 (0.0-0.1) 10^3/u L Nucleated RBC % (a uto) 0 % Nucleated RBCs # 0.0 /100WBC Sodium 134 L (136-145) mmol/L Potassium 3.8 (3.5-5.1) mmol/L Chloride 95 L (98-107) mmol/L Carbon Dioxide 23 (22-29) mmol/L Anion Gap 19.8 H (5-19) BUN 11 (6-20) mg/dL Creatinine 0.4 L (0.5-0.9) mg/dL GFR Calculation 163.9 H (90-130) mL/min Glucose 118 H (65-115) mg/dL Calculated Osmolal ity 278 L (285-295) mOsm/k g Lactic Acid 1.7 (0.5-2.2) mmol/L Calcium 9.1 (8.5-10.5) mg/dL Total Bilirubin 1.5 H (0.15-1.2) mg/dL AST 26 (0-32) U/L ALT 25 (0-33) U/L Alkaline Phosphata se 72 (35-105) IU/L Troponin T Baselin e (0-10) ng/L Troponin T 120 Min [place] (0-10) ng/L Delta Troponin T (0-10) ABS# C-Reactive Protein 0.9 (0.0-4.9) mg/L NT-Pro-B Natriuret Pep 87 (0-125) pg/mL Total Protein 6.5 L (6.6-8.7) g/dL Albumin 4.4 (3.5-5.2) g/dL Globulin 2.1 (1.3-4.6) g/dL Procalcitonin 0.03 (0-0.5) ng/mL 07/12/21 07/12/21 Range/Units 02:15 04:06 WBC (4.0-10.0) 10^3/ uL RBC (4.1-5.3) 10^6/u L Hgb (11.5-15.3) g/dL Hct (37.0-47.0) % MCV (81-99) fl MCH (28.0-34.0) pg MCHC (30.0-36.0) g/dL RDW (12.1-15.1) % Plt Count (130-400) 10^3/c mm MPV (7.4-10.4) fL Neut % (Auto) % Lymph % (Auto) % Gilchrist % (Auto) % Eos % (Auto) % Baso % (Auto) % Neut # (Auto) (1.8-7.7) 10^3/u L Lymph # (Auto) (0.8-4.8) 10^3/u L Gilchrist # (Auto) (0.2-0.9) 10^3/u L Eos # (Auto) (0.0-0.8) 10^3/u L Baso # (Auto) (0.0-0.1) 10^3/u L Nucleated RBC % (a uto) % Nucleated RBCs # /100WBC Sodium (136-145) mmol/L Potassium (3.5-5.1) mmol/L Chloride (98-107) mmol/L Carbon Dioxide (22-29) mmol/L Anion Gap (5-19) BUN (6-20) mg/dL Creatinine (0.5-0.9) mg/dL GFR Calculation (90-130) mL/min Glucose (65-115) mg/dL Calculated Osmolal ity (285-295) mOsm/k g Lactic Acid (0.5-2.2) mmol/L Calcium (8.5-10.5) mg/dL Total Bilirubin (0.15-1.2) mg/dL AST (0-32) U/L ALT (0-33) U/L Alkaline Phosphata se (35-105) IU/L Troponin T Baselin e 12 H (0-10) ng/L Troponin T 120 Min [place] 11.19 H (0-10) ng/L Delta Troponin T -0.81 L (0-10) ABS# C-Reactive Protein (0.0-4.9) mg/L NT-Pro-B Natriuret Pep (0-125) pg/mL Total Protein (6.6-8.7) g/dL Albumin (3.5-5.2) g/dL Globulin (1.3-4.6) g/dL Procalcitonin (0-0.5) ng/mL EKG Data: EKG 1: Attestation: I personally reviewed and interpreted this EKG as follows: EKG interpretation date: 07/12/21 EKG interpretation time: 00:57 Interpretation: Twelve-lead EKG shows regular sinus rhythm at a rate of 90. DE interval 131, QRS duration 94, QTc 414. Normal axis. Interpretation: Sinus rhythm, nonspecific ST segment abnormalities. COVID Results: SARS-CoV-2 Antigen (Rapid) Negative (Negative) 02/26/21 19:39 02/26/21 SARS-CoV-2 RNA (RT-PCR) Detected (NOT DETECTED) A 07/06/21 10:03 07/06/21 Nasal/Oral Coronavirus 2019 PCR Not detected 06/01/21 13:41 06/01/21 Discharge Plan Discharge Patient Disposition: Home Clinical Impression: COVID-19 Condition: Stable Prescriptions: New Zofran 4 mg tablet 4 mg PO TID PRN (Reason: nausea and vomiting) Qty: 14 RF: 0 No Action docusate sodium [Colace] 100 mg capsule 100 mg PO DAILY RF: 0 meclizine 12.5 mg tablet 12.5 mg PO BID PRN (Reason: dizziness) RF: 0 cetirizine 10 mg tablet 10 mg PO DAILY RF: 0 nitroglycerin 400 mcg/spray spray,non-aerosol 1 spray SUBLINGUAL Q5M PRN (Reason: Chest Pain) RF: 0 dronabinol 5 mg capsule 5 mg PO BID RF: 0 oxycodone 30 mg tablet 15 mg PO Q4H PRN (Reason: Pain) RF: 0 Cholestyramine Light 4 gram powder 4 gm PO BID RF: 0 clobetasol 0.05 % cream 1 applic TOPICAL BID RF: 0 cyclobenzaprine 10 mg tablet 10 mg PO TID PRN (Reason: Spasms) RF: 0 famotidine 20 mg tablet 20 mg PO BID RF: 0 glimepiride 2 mg tablet 2 mg PO DAILY RF: 0 montelukast [Singulair] 10 mg tablet 10 mg PO DAILY RF: 0 (DME) blood-glucose meter [Accu-Chek Pretty Plus Meter] Misc See Rx Instructions .ROUTE .MEDSUPPLY Qty: 1 RF: 0 (DME) blood sugar diagnostic [Accu-Chek Pretty Plus test strp] Strip See Rx Instructions .ROUTE .MEDSUPPLY Qty: 100 RF: 0 ibuprofen 600 mg tablet 600 mg PO BID PRN (Reason: pain) Qty: 30 RF: 0 atovaquone 750 mg/5 mL suspension 1,500 mg PO DAILY Qty: 210 RF: 5 methotrexate sodium 2.5 mg tablet 15 mg PO .Q7days Qty: 90 RF: 0 folic acid 1 mg tablet 1 mg PO DAILY Qty: 90 RF: 3 pantoprazole [Protonix] 40 mg tablet,delayed release (DR/EC) 40 mg PO DAILY Qty: 90 RF: 1 prednisone 20 mg tablet 40 mg PO DAILY RF: 0 nystatin 100,000 unit/gram powder 1 applic TOPICAL TID Qty: 60 RF: 0 budesonide-formoterol [Symbicort] 160-4.5 mcg/actuation HFA aerosol inhaler 2 puff INHALATION Q12H Qty: 10.2 RF: 5 albuterol sulfate [ProAir HFA] 90 mcg/actuation HFA aerosol inhaler 2 puff INHALATION Q6H PRN (Reason: shortness of breath or wheezing) Qty: 8.5 RF: 5 (DME) pen needle, diabetic [1st Tier Unifine Pentips] 32 gauge x 5/32 needle See Rx Instructions .ROUTE .MEDSUPPLY Qty: 100 RF: 2 clopidogrel 75 mg tablet 75 mg PO DAILY Qty: 90 RF: 3 atorvastatin 40 mg tablet 40 mg PO DAILY Qty: 30 RF: 2 fluticasone propionate [Allergy Relief (fluticasone)] 50 mcg/actuation spray,suspension 1 spray INTRANASAL BID Qty: 16 RF: 2 metoprolol tartrate 25 mg tablet 12.5 mg PO BID Qty: 90 RF: 3 Actemra 162 mg/0.9 mL syringe 162 mg SUBCUT .Q7days Qty: 4 RF: 3 Jardiance 10 mg tablet 10 mg PO DAILY 90 Days Qty: 90 RF: 1 doxycycline hyclate 100 mg tablet 100 mg PO BID Qty: 20 RF: 0 duloxetine [Cymbalta] 30 mg capsule,delayed release(DR/EC) 30 mg PO BID RF: 0 Lantus Solostar U-100 Insulin 100 unit/mL (3 mL) insulin pen 14 unit SUBCUT DAILY RF: 0 Valtrex 1 gram tablet 1,000 mg PO TID 7 Days Qty: 21 RF: 0 Discharge Orders: Discharge ED (Routine); Ordered 07/12/21 Ordered By: Oc Rowley Other Ambulatory Orders: Request for MCA (Routine) Timeframe: 1 Day Facility: [facility] - Location: Outpatient Surgical Services Ordered By: Oc Rowley Referrals: Violet Falcon DO [Primary Care Provider] - Discharge Diet: Usual diet Discharge Activity: Resume usual activity Patient Instructions: Viral Pneumonia (ED), Dyspnea (ED), Acute Cough (ED) Activity Restrictions/Additional Instructions: Thank you for visiting the emergency department. You were seen and evaluated for symptoms which are likely related to COVID-19. Please ensure that you are staying hydrated. You may use [id number] medications for your symptoms however please do not exceed the daily recommended dosages and please keep in mind that many namebrand medications contain the same active ingredients. Please follow-up with your primary care provider. Please return to the emergency department for anything that you are concerned about and feel needs emergency department evaluation. Coding Level of Care Code ED Merchandise Presentation Manager for Jackie Mera
--- NOTE | 2021-07-12 00:07 | XRR_ITS ---
PROCEDURE INFORMATION: Exam: XR Chest Exam date and time: 07/12/2021 12:07 AM Age: 56 years old Clinical indication: Cough and shortness of breath; Prior surgery; Surgery type: Left mastectomy; Patient HX: HX of breast cancer; Additional info: Covid TECHNIQUE: Imaging protocol: XR of the chest. Views: 1 view. COMPARISON: CR XR chest 1V portable [id number] 02/26/2021 1:58 AM FINDINGS: Tubes, catheters and devices: Spinal stimulator. Lungs: Emphysematous changes. Pleural spaces: Unremarkable. No pleural effusion. No pneumothorax. Heart/Mediastinum: Unremarkable. No cardiomegaly. Bones/joints: Unremarkable. XR/XR chest 1V portable [id number] IMPRESSION: 1. Negative for airspace infiltrate 2. Spinal stimulator. 3. Emphysematous changes.
--- NOTE | 2021-07-12 00:08 | ECG_ITS ---
[facility] Test Date: 2021-07-12 Pat Name: Oyla Mccormick Department: Room: Gender: Female Heel Seat Laster: : 1965 Requested By: Oc Rowley Order Number: [id number] Jelly MD: German Kent M.D. Measurements Intervals [place] Rate: 90 P: 77 AR: 131 QRS: 54 QRSD: 94 T: 59 QT: 338 QTc: 414 Interpretive Statements SINUS RHYTHM POSSIBLE LEFT ATRIAL ENLARGEMENT [-0.1mV P-WAVE IN V1/V2] SEPTAL MYOCARDIAL INFARCTION , OF INDETERMINATE AGE [40+ ms Q WAVE IN V1/V2] Compared to ECG 02/25/2021 16:58:27 Sinus tachycardia no longer present Myocardial infarct finding still present Electronically Signed On 07-12-2021 23:10:42 CDT by German Kent M.D. [id number]
[2021-07-12] MEDS: albuterol 8 gm MDI 4 PUFF INHALATION (00:30)
[2021-07-12 00:31] VITALS: PULSE 90; RESP 20; O2SAT 98
[2021-07-12] MEDS: acetaminophen 325 mg Tablet 650 MG PO (01:00)
[2021-07-12 01:01] VITALS: BP 137/80; PULSE 100; RESP 20; O2SAT 95
[2021-07-12 01:06] VITALS: O2SAT 94
[2021-07-12 02:23] VITALS: BP 140/79; O2SAT 93
[2021-07-12 02:25] LABS: Basophils % 0.3 %; Eosinophils # 0.1 10^3/uL (0.0-0.8); Eosinophils % 0.7 %; Hematocrit 45.9 % (37.0-47.0); Hemoglobin 15.4 g/dL (11.5-15.3); Lymphocytes # 5.9 10^3/uL (0.8-4.8); Lymphocytes % 45.6 %; Mean Corpuscular HGB Conc 33.6 g/dL (30.0-36.0); Mean Corpuscular Hemoglobin 30.4 pg (28.0-34.0); Mean Corpuscular Volume 90.5 fl (81-99); Mean Platelet Volume 9.2 fL (7.4-10.4); Monocytes # 1.1 10^3/uL (0.2-0.9); Monocytes % 8.2 %; Neutrophils # 5.77 10^3/uL (1.8-7.7); Neutrophils % 44.8 %; Nucleated Red Blood Cells % 0 %; Platelet Count 253 10^3/cmm (130-400); Red Blood Count 5.07 10^6/uL (4.1-5.3); Red Cell Distribution Width 13.7 % (12.1-15.1); White Blood Count 12.9 10^3/uL (4.0-10.0)
[2021-07-12] MEDS: ondansetron 2 mg/ML SDV 2 mL 4 MG IV (02:27)
[2021-07-12] MEDS: sodium chloride 0.9% 500 ML 999 ML IV (02:27)
[2021-07-12 02:47] LABS: Lactic Sepsis W/Reflex 1.7 mmol/L (0.5-2.2)
[2021-07-12 02:50] LABS: Troponin(5th) Baseline 12 ng/L (0-10)
[2021-07-12 02:57] LABS: NT Pro B Type Natriuretic Pept 87 pg/mL (0-125); Procalcitonin 0.03 ng/mL (0-0.5)
[2021-07-12 03:09] LABS: Alanine Aminotransferase 25 U/L (0-33); Albumin Level 4.4 g/dL (3.5-5.2); Alkaline Phosphatase 72 IU/L (35-105); Aspartate Amino Transferase 26 U/L (0-32); Blood Urea Nitrogen 11 mg/dL (6-20); C Reactive Protein 0.9 mg/L (0.0-4.9); Calcium 9.1 mg/dL (8.5-10.5); Carbon Dioxide 23 mmol/L (22-29); Chloride 95 mmol/L (98-107); Globulin 2.1 g/dL (1.3-4.6); Glomerular Filtration Rate 163.9 mL/min (90-130); Glucose 118 mg/dL (65-115); Osmolality Calculated 278 mOsm/kg (285-295); Sodium 134 mmol/L (136-145); Total Bilirubin 1.5 mg/dL (0.15-1.2); Total Protein 6.5 g/dL (6.6-8.7)
[2021-07-12 03:16] LABS: Anion Gap 19.8 (5-19); Potassium 3.8 mmol/L (3.5-5.1)
[2021-07-12 04:32] LABS: Troponin 5 2HR 11.19 ng/L (0-10)
[2021-07-12 04:43] LABS: Troponin 5 2HR Delta -0.81 ABS# (0-10)
[2021-07-12 05:14] VITALS: BP 102/73; PULSE 95; RESP 21; O2SAT 93
== END 2021-07-12 05:10 | disposition home or self-care (01) ==
PROVIDERS: Emergency Provider Emergency Medicine; PCP Family Medicine
DX: U07.1 COVID-19 (principal); Z79.02 Long term (current) use of antithrombotics/antiplatelets; Z79.4 Long term (current) use of insulin; Z85.3 Personal history of malignant neoplasm of breast; J44.9 Chronic obstructive pulmonary disease, unspecified; E11.9 Type 2 diabetes mellitus without complications; E78.5 Hyperlipidemia, unspecified; I10 Essential (primary) hypertension; I25.2 Old myocardial infarction
CPT/HCPCS: 36415; 71045; 80053; 83605; 83880; 84145; 84484; 85025; 86140; 93005; 94640; 96374; 99284; J2405; J3535; J7040

== ENCOUNTER → 2021-08-09 14:34 | Outpatient (BNVA) | payer MEDICARE, SELFPAY | PROVIDERS: PCP Family Medicine; Visit Provider Surgery | DX: Z01.812 Encounter for preprocedural laboratory examination (principal); Z20.822 Contact with and (suspected) exposure to COVID-19 | CPT/HCPCS: 87635 ==

== ENCOUNTER 2021-08-12 07:57 | Day surgery (SDC) | payer MEDICARE, SELFPAY ==
[2021-08-08 15:32] VITALS: BMI 30.2
--- NOTE | 2021-08-12 08:13 | ANES.PREANE2 ---
Pre-Anesthetic Assessment Pre-Anesthetic Assessment: Height/Weight: Height 1.55 m Weight 72.575 kg Preop Diagnosis: panendoscopy Proposed Procedure: Operation Date: 08/12/21 09:00 Proposed Procedures p EGD/colon 01176 85772 R10.13(Not Applicable) - Vern Parks MD s Colonoscopy(Not Applicable) - Vern Parks MD Familial anesthetic complications: NOne Was Beta Duncan taken within 24 hours: Yes Was Clonidine taken within 24 hours: N/A Last intake: > 8 hrs Social: Social History: Tobacco and No alcohol Exam: Pre-Anes Outpt Exam: alert, oriented x 3, clear to auscultation bilaterally and regular rate & rhythm Airway: Cervical ROM: WNL MP: 2 Dentition: False Pulmonary: Pulmonary: COPD CV/HEM: CV/HEM: CAD (Stent > 1 year ago), HTN and PA Comments: 2019 LEXISCAN IMPRESSIONS Myocardial perfusion imaging is normal and low probability for obstructive coronary disease. EKG segment will be documented separately. CONCLUSION: 1. Unremarkable Lexiscan infusion. 2. Nuclear imaging to follow. GI: GI: GERD Comments: DM gastroparesis - feels stomach is empty at the moment Metabolic: Metabolic: DM and Hyperlipidemia Neuropsych: Comments: giant cell arteritis - does affect vision, on steroids Anesthetic Plan: ASA status: 4 Anesthesia: MAC Risk of > 500 ml blood loss (7ml/kg in children): No PFSH Anesthesia PFSH: Medical History ASHD (arteriosclerotic heart disease) Breast cancer COPD (chronic obstructive pulmonary disease) Diabetes Diabetic gastroparesis Dyslipidemia Giant cell arteritis Glaucoma HTN (hypertension) Inflammatory arthritis Myocardial infarction Oropharyngeal candidiasis Type 2 diabetes mellitus, with long-term current use of insulin Surgical History H/O neck surgery History of mastectomy, subtotal Previous back surgery S/P cholecystectomy S/P hysterectomy S/P PTCA (percutaneous transluminal coronary angioplasty) Status post insertion of spinal cord stimulator Family History Other CAD (coronary artery disease) Cancer Chronic kidney disease (CKD) Diabetes Family history of premature coronary artery disease Hyperlipidemia Hypertension Lung disease Lupus Rheumatoid arthritis Stroke Social History Smoking and tobacco status: current every day smoker cigarettes Packs smoked per day: 0.5 Years cigarettes smoked: 42 Alcohol intake: never History of recent travel: No (01/31/2021) Data Anesthesia Cardiac Studies: No Data to Display
[2021-08-12 08:42] VITALS: BP 102/78; PULSE 97; RESP 18; TEMP 36.1; O2SAT 97
[2021-08-12 09:02] LABS: Glucose Point of Care 118 mg/dL (70-110)
[2021-08-12] MEDS: sodium chloride 0.9% 1,000 ML 30 ML IV (09:50)
--- NOTE | 2021-08-12 10:36 | P.HP_ITS ---
Same Day Surgery H&P Indication for Procedure/HPI DATE OF PROCEDURE: August 12, 2021 CHIEF COMPLAINT/INDICATIONFOR SURGICAL PROCEDURE: Panendoscopy PREOP DIAGNOSIS: panendoscopy PLANNED PROCEDRUE: Operation Date: 08/12/21 09:00 Proposed Procedures p EGD/colon 08963 [id number] R10.13(Not Applicable) - Vern Parks MD s Colonoscopy(Not Applicable) - Vern Parks MD Medications/Allergies* Home Medications Medication Instructions Recorded Confirmed Type cetirizine 10 mg tablet 10 mg PO DAILY 12/29/19 08/11/21 History docusate sodium 100 mg capsule 100 mg PO DAILY 12/29/19 08/11/21 History dronabinol 5 mg capsule 5 mg PO BID 12/29/19 08/11/21 History meclizine 12.5 mg tablet 12.5 mg PO BID PRN 12/29/19 08/11/21 History nitroglycerin 400 mcg/spray 1 spray SUBLINGUAL Q5M PRN 12/29/19 08/11/21 History translingual oxycodone 30 mg tablet 15 mg PO Q4H PRN tab 12/29/19 08/11/21 History cholestyramine-aspartame 4 gram 4 gm PO BID 03/19/20 08/11/21 History oral powder clobetasol 0.05 % topical cream 1 applic TOPICAL BID 03/19/20 08/11/21 History cyclobenzaprine 10 mg tablet 10 mg PO TID PRN 03/19/20 08/11/21 History famotidine 20 mg tablet 20 mg PO BID 03/19/20 08/11/21 History glimepiride 2 mg tablet 2 mg PO DAILY 03/19/20 08/11/21 History montelukast 10 mg tablet 10 mg PO DAILY 03/19/20 08/11/21 History duloxetine [Cymbalta] 30 mg PO BID 01/24/21 08/11/21 History Lantus Solostar U-100 Insulin 14 unit SUBCUT DAILY 02/25/21 08/11/21 History prednisone 20 mg tablet 40 mg PO DAILY tab 03/18/21 08/11/21 History atovaquone [Mepron] 1,500 mg PO DAILY 08/08/21 08/11/21 History Allergies/Adverse Reactions Allergy/AdvReac Type Severity Reaction Status Date / Time adhesive tape Allergy Intermediate ALGY-Hives Verified 08/11/21 11:14 morphine Allergy Intermediate unknown Verified 08/11/21 11:14 aspirin Allergy Mild ALGY-Hives Verified 08/11/21 11:14 ciprofloxacin [From Cipro] Allergy Unknown Verified 08/11/21 11:14 dapagliflozin [From Farxiga] Allergy unk Verified 08/11/21 11:14 iodine Allergy unknown Verified 08/11/21 11:14 metformin Allergy Unknown Verified 08/11/21 11:14 prochlorperazine Allergy unknown Verified 08/11/21 11:14 [From Compazine] codeine AdvReac Mild UNKNOWN Verified 08/11/21 11:14 Opioids - Morphine Analogues AdvReac Mild UNKNOWN Verified 08/11/21 11:14 Penicillins AdvReac Mild UNKNOWN Verified 08/11/21 11:14 Phenothiazines AdvReac Mild UNKNOWN Verified 08/11/21 11:14 salicylates AdvReac Mild UNKNOWN Verified 08/11/21 11:14 Sulfa (Sulfonamide AdvReac Mild UNKNOWN Verified 08/11/21 11:14 Antibiotics) Current Medications: Generic Name Dose Route Start Last Admin Trade Name Freq PRN Reason Stop Dose Admin Sodium Chloride 1,000 mls @ 30 mls/hr 08/12/21 08:15 08/12/21 09:50 Sodium Chloride 0.9% IV 08/13/21 08:14 30 mls/hr .Q24H EVY Administration Pertinent History/Comorbid Conditions* Medical History (Updated 07/12/21 @ 04:43 by Oc Rowley MD) ASHD (arteriosclerotic heart disease) Breast cancer COPD (chronic obstructive pulmonary disease) Diabetes Diabetic gastroparesis Dyslipidemia Giant cell arteritis Glaucoma HTN (hypertension) Inflammatory arthritis Myocardial infarction Oropharyngeal candidiasis Type 2 diabetes mellitus, with long-term current use of insulin Surgical History (Updated 03/19/20 @ 11:09 by Violet Falcon DO) H/O neck surgery History of mastectomy, subtotal Previous back surgery S/P cholecystectomy S/P hysterectomy S/P PTCA (percutaneous transluminal coronary angioplasty) Status post insertion of spinal cord stimulator Family History (Updated 01/31/21 @ 15:04 by Tracy Ovalle LPN) Rheumatoid arthritis Diabetes Lupus CAD (coronary artery disease) Hyperlipidemia Chronic kidney disease (CKD) Family history of premature coronary artery disease Lung disease Cancer Hypertension Stroke Social History Smoking and tobacco status: current every day smoker cigarettes Packs smoked per day: 0.5 Years cigarettes smoked: 42 Alcohol intake: never History of recent travel: No (01/31/2021) Pertinent Exam Findings alert, oriented x 3 and regular rate & rhythm Recommendations Surgery/Procedure today Coding Level of Care Code Acute Leader Writer for Jackie Mera
[2021-08-12 11:00] VITALS: BP 109/62; PULSE 90; RESP 16; TEMP 36.4; O2SAT 94
[2021-08-12 11:15] VITALS: BP 111/66; PULSE 80; RESP 14; TEMP 36.3; O2SAT 97
--- NOTE | 2021-08-12 14:26 | ANE.PACU2 ---
Inpatient post-anesthesia follow up: Airway intact: Yes Vital signs: Temperature 97.3 F Pulse Rate 80 Respiratory Rate 14 Blood Pressure 111/66 Pulse Oximetry 97 Oxygen Delivery Me thod Room Air Oxygen Flow Rate 2 Fraction of Inspir ed Oxygen Hydration adequate: Yes Nausea and vomiting: No Pain level: 2 Mental status: Baseline
== END 2021-08-12 11:45 | disposition home or self-care (01) ==
PROVIDERS: PCP Family Medicine; Visit Provider Surgery
PROC: 0DJ08ZZ Inspection of Upper Intestinal Tract, Via Natural or Artificial Opening Endoscopic (ICD-10-PCS; CPT 43235; principal; 2021-08-12 09:00)
PROC: 0DJD8ZZ Inspection of Lower Intestinal Tract, Via Natural or Artificial Opening Endoscopic (ICD-10-PCS; CPT 45378; 2021-08-12 09:00)
DX: Z12.11 Encounter for screening for malignant neoplasm of colon (principal); Z86.010 Personal history of colon polyps; R10.13 Epigastric pain; D12.4 Benign neoplasm of descending colon; D12.5 Benign neoplasm of sigmoid colon; K29.50 Unspecified chronic gastritis without bleeding; J44.9 Chronic obstructive pulmonary disease, unspecified; I25.10 Atherosclerotic heart disease of native coronary artery without angina pectoris; Z95.5 Presence of coronary angioplasty implant and graft; I10 Essential (primary) hypertension; I25.2 Old myocardial infarction; E11.9 Type 2 diabetes mellitus without complications; E78.5 Hyperlipidemia, unspecified; Z85.3 Personal history of malignant neoplasm of breast; Z79.4 Long term (current) use of insulin; F17.210 Nicotine dependence, cigarettes, uncomplicated
CPT/HCPCS: 36416; 43239; 45385; 82962; 88305; 96360; 96361; J2704; J7030

== ENCOUNTER → 2021-08-17 10:12 | Outpatient (BNVA) | payer MEDICARE, SELFPAY | PROVIDERS: PCP Family Medicine; Visit Provider Internal Medicine Rheumatology | DX: M31.6 Other giant cell arteritis (principal); M25.50 Pain in unspecified joint; Z79.899 Other long term (current) drug therapy; Z79.52 Long term (current) use of systemic steroids; Z71.89 Other specified counseling; F17.210 Nicotine dependence, cigarettes, uncomplicated | CPT/HCPCS: 99214 ==

== ENCOUNTER 2021-09-12 12:44 | Outpatient (CLI) | payer MEDICARE, SELFPAY ==
--- NOTE | 2021-09-12 13:00 | CT_ITS ---
WS: [id number] Exam: CT chest wo con [id number] Date/Time of Exam: 09/12/2021 1:02 PM Reason For Exam: Lung Nodule DLP: 1022.[address] scans at [facility] use at least one of these dose optimization techniques: automated e xposure control; mA and/or kV adjustment per patient size (includes targeted exams where dose is matc hed to clinical indication); or iterative reconstruction. Comparison 02/25/2021. The chest is evaluated in the axial plane with sagittal and coronal reformatted images. Stable-appearing 6 mm nodular density seen in the apex of the right lung. No new nodules are identifi ed. Stable appearing area of fibrosis and honeycombing in the left upper lobe. 17 mm anterior mediast inal soft tissue mass is unchanged in appearance. The thoracic aorta is normal in caliber. The airway is patent. Coronary artery calcifications noted. No pleural or pericardial effusion. No mediastinal or hilar lymphadenopathy. No destructive bone lesions. No chest wall defects. Neurostimulator leads a re seen in the lower thoracic spinal canal. 14 mm cyst in the dome of the right hepatic lobe. Hardwar e in the lower cervical spine. CT/CT chest wo con [id number] IMPRESSION: 1. Stable-appearing 6 mm spiculated nodule in the right upper lobe. Stable 17 m m soft tissue lesion in the anterior mediastinum. No new pulmonary nodule or me diastinal mass identified. 2. Chronic pulmonary parenchymal changes in the left upper lobe.
== END 2021-09-12 12:45 | disposition home or self-care (01) ==
PROVIDERS: PCP Family Medicine; Visit Provider Internal Medicine Pulmonary Disease
DX: R91.1 Solitary pulmonary nodule (principal)
CPT/HCPCS: 71250

== ENCOUNTER → 2021-09-19 15:12 | Outpatient (BNVA) | payer MEDICARE, SELFPAY | PROVIDERS: PCP Family Medicine; Visit Provider Family Medicine | DX: E11.69 Type 2 diabetes mellitus with other specified complication (principal); Z79.4 Long term (current) use of insulin | CPT/HCPCS: 80053; 83036 ==

== ENCOUNTER 2021-10-17 12:06 | Outpatient (CLI) | payer MEDICARE, SELFPAY ==
[2021-10-17 13:03] LABS: Basophils # 0.1 10^3/uL (0.0-0.1); Basophils % 0.7 %; Eosinophils # 0.1 10^3/uL (0.0-0.8); Eosinophils % 0.7 %; Hematocrit 43.4 % (37.0-47.0); Hemoglobin 14.8 g/dL (11.5-15.3); Lymphocytes # 5.7 10^3/uL (0.8-4.8); Mean Corpuscular HGB Conc 34.1 g/dL (30.0-36.0); Mean Corpuscular Volume 93.7 fl (81-99); Mean Platelet Volume 10.1 fL (7.4-10.4); Monocytes # 1.2 10^3/uL (0.2-0.9); Monocytes % 7.6 %; Neutrophils # 8.18 10^3/uL (1.8-7.7); Neutrophils % 53.2 %; Nucleated Red Blood Cells % 0 %; Platelet Count 194 10^3/cmm (130-400); Red Blood Count 4.63 10^6/uL (4.1-5.3); Red Cell Distribution Width 14.2 % (12.1-15.1); White Blood Count 15.3 10^3/uL (4.0-10.0)
[2021-10-17 16:12] LABS: Alanine Aminotransferase 41 U/L (0-33); Albumin Level 4.4 g/dL (3.5-5.2); Alkaline Phosphatase 54 IU/L (35-105); Anion Gap 19.6 (5-19); Aspartate Amino Transferase 30 U/L (0-32); Blood Urea Nitrogen 8 mg/dL (6-20); Calcium 8.7 mg/dL (8.5-10.5); Carbon Dioxide 22 mmol/L (22-29); Chloride 102 mmol/L (98-107); Globulin 2.2 g/dL (1.3-4.6); Glomerular Filtration Rate 126.7 mL/min (90-130); Glucose 182 mg/dL (65-115); Osmolality Calculated 293 mOsm/kg (285-295); Potassium 3.6 mmol/L (3.5-5.1); Sodium 140 mmol/L (136-145); Total Protein 6.6 g/dL (6.6-8.7)
--- NOTE | 2021-10-18 07:07 | ONC FU_ITS ---
Dr. Garner Patient Follow-Up Note Patient: Olya Mccormick Unit #: [id number]: 1965 Dicatated By: Jamil Garner M.D.Date of Visit:Oct 17, 2021 Onc Med Follow-up/Prog Note Chief Complaint: Breast cancer/metastatic squamous cell cancer. History of Present Illness: This is a 56 year-old woman with a history of grade 2 infiltrating ductal carcinoma of the left breast, stage IA (T1c, pN1a, M0), ER/RI positive and HER-2/marely negative. 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 She had presented in 2005 with an abnormal mammogram which showed an isodense lesion in the left breast at 12 o'clock. Her treatment included lumpectomy and sentinel axillary lymph node biopsy followed by adjuvant chemotherapy with 3 cycles of FEC followed by 3 cycles of Taxotere. She completed chemotherapy in May of 2006. She was then given radiation to the left breast, which she completed in October 2006. She then started hormonal therapy with Arimidex, but it was stopped in October 2007 due to musculoskeletal pain and other side effects. She had a brief trial of therapy with Aromasin, which she also tolerated poorly. She then started tamoxifen in December 2008 and continued it until sometime in the summer, having completed a little more than 4 years of treatment. She was then followed expectantly for the breast cancer. In January 2015 she had presented with some new pain in the right groin area and right leg. I had initially suspected that it was from the right hip joint. X-rays and subsequent bone scan, though, were unremarkable. Ultimately I did suspect that the pain was radicular, as there were significant degenerative changes in the spine noted on a previous CT abdomen/pelvis. She was referred to Dr. Maloney for further evaluation. She was not a candidate for MRI due to the presence of a TENS unit. Ultimately she did have evaluation with myelogram in April 2015. There was no severe stenosis noted. She continued with conservative management. In the meantime she had presented to Dr. Saleh with a knot in her left groin area. She had been noted on a CT abdomen/pelvis in December 2014 to have a slight increase in left inguinal lymph nodes, the largest measuring up to 17 mm. Further evaluation with ultrasound on 07/23/2015 showed further progression of the left inguinal adenopathy, measuring 2.5 x 3.0 cm. An adjacent smaller node measured 10 x 14 mm. She was referred to Dr. Fiore. She underwent left inguinal lymph node biopsy on 08/19/2015. Pathology showed 2 separate lymph nodes, the larger measuring 3.5 x 3.0 x 2.5 cm and the smaller measuring 2.4 x 2.0 x 1.3 cm. Both showed metastatic squamous cell carcinoma. I had seen her for a followup visit in August 2015. She had negative vaginal and anorectal exam at that time. In reviewing her other history, she had undergone hysterectomy and unilateral oophorectomy sometime prior to my initial visit with her, which was in April 2006. She did have a previous colonoscopy, but she didn't recall when it was done, and I could not find a record of it. In June 2013 she had been sent to [place] for removal of a skin lesion from her right cheek. At that time a lesion was also removed from the lower left leg. Pathology showed basal cell carcinoma on the right cheek and crateriform squamous cell carcinoma on the left lower leg. There was squamous cell carcinoma extending to the deep biopsy margins. She had no further treatment. She had restaging PET/CT on 09/10/2015. That study showed findings the left groin which are felt to most likely represent postbiopsy inflammatory changes. There was a tiny right upper lobe subpleural pulmonary nodule with SUV 0.7, felt to be consistent with early metastatic involvement versus granulomatous disease. Follow-up chest CT was recommended. There were no other suspicious findings. She was then seen by Dr. Hernandez for consideration of left inguinal lymph node dissection. At that time there was concern of possible right inguinal adenopathy, and he had recommended evaluation with ultrasound. That study was done here on 11/26/2015. It showed evidence of 2 lymph nodes in the right groin, the largest measuring 1.6 x 1.3 cm. The appearance was consistent with benign lymph nodes. Several adjacent lymph nodes also were present. There was no suspicious lymphadenopathy identified. At that time, she also had a contrast-enhanced head CT scan. It showed no evidence of metastatic disease to the brain. There was an indeterminate lytic lesion noted in the left frontal bone. She subsequently had a repeat bone scan, and it was unremarkable. Follow-up CT abdomen/pelvis on 03/28/2016 showed a low density region in the posterior aspect of the right lobe of the liver which was present on studies, and follow-up was recommended. The lymph nodes in the left inguinal region were no longer present. There were no other changes noted. Surveillance CT scans of the chest, abdomen, and pelvis on 09/14/2017 showed no evidence of metastatic disease. A 6 mm nodule in the right lung apex was noted to be slightly more prominent compared to prior study from 2008 and there was an additional new noncalcified pulmonary nodule in the right upper lobe laterally measuring 3.7 mm. Follow-up was recommended. A cyst in the hepatic dome was felt to be probably stable. Her repeat chest CT on 12/04/2019 showed stable nodule at the right lung apex measuring 6.6 mm and stable 3 mm rounded nodule in the right upper lobe. Fibrotic changes in the periphery of the left upper lobe and pleural thickening along the right major fissure also appeared stable. A well-circumscribed low attenuation mass in the anterior mediastinum measuring 1.7 cm was noted to have increased slightly compared to the 2017 study. A 12 mm cyst in the right lobe of the liver also appeared stable. She continued observation/expectant management. Her other medical illnesses include type 2 diabetes, dyslipidemia, and coronary artery disease. She has had previous angioplasty/stent placement. She has a history of irritable bowel syndrome. She underwent upper GI endoscopy in June 2011. At that time she had evidence of esophagitis, esophageal candidiasis, and gastritis. She was H. pylori positive. She completed treatment for both the Sylvia and the H. pylori. She was then confirmed on a subsequent gastric emptying study to have gastroparesis. She developed chronic pain following completion of her chemotherapy. At least some component was felt to be due to chemotherapy-induced peripheral neuropathy. She also developed significant degenerative disease of the spine, and she underwent cervical laminectomy as well as placement of a spinal cord stimulator. She smokes 1/2 pack of cigarettes daily. INTERIM HISTORY: At her follow-up visit in December 2020 she had developed a small nodule in the left groin. Restaging CT of the abdomen/pelvis on 01/13/2021 showed no evidence of left inguinal mass or pathologic lymphadenopathy. CT of the right shoulder on 05/04/2021 showed moderate degenerative arthritis involving the AC joint and glenohumeral joint. There was narrowing of the glenohumeral joint with subchondral cystic change involving the glenoid and humeral head. There was no evidence of metastatic disease. A partially visualized spiculated pulmonary nodule was noted in the right upper lobe measuring 7.[address] on 09/12/2021 showed a stable appearing 6 mm nodule in the right upper lobe. A 17 mm soft tissue lesion in the anterior mediastinum also appeared stable. There were chronic pulmonary parenchymal changes noted in the left upper lobe. She is seen for a follow-up visit. She has been feeling okay. She says her energy is fine, she does have limited activity. She is able to do light work. ECOG score is 1. She has not had fever. She still has hot flashes and sweating. Her main complaint is that her hands and feet hurt, and she says her feet are especially bad. She has sinus drainage and she has been having persistent cough for the past month or so. She has on breathing treatments for it, though she says her breathing actually is okay. She has not been having chest pain. She is scheduled to have a stress test in October. She continues to have nausea associated with her gastroparesis. She has vomiting every morning and sometimes also at bedtime. She has acid reflux. Bowel and bladder function have been okay. She also has pain in her knees and legs. She has been having headaches and dizziness. She has numbness/tingling in her hands and feet. Medications: Atorvastatin Calcium 1 (20 mg) Tablet Oral at bedtime, Cetirizine HCl 1 Tablet (of 10 mg) Oral daily, Cholestyramine 1 (4 g/dose) Powder Oral b.i.d., Clobetasol Propionate 1 (0.05 %) Cream Topical b.i.d., Cyclobenzaprine HCl 1 Tablet (of 10 mg) Oral t.i.d. PRN, diphenhydrAMINE HCl 1 Capsule (of 25 mg) Oral at bedtime PRN, DULoxetine HCl 1 Capsule (of 30 mg) Capsule Delayed Release Particles Oral b.i.d., Erythromycin 5 mL (of 200-5 mg/mL) Solution q 6 hours PRN, Famotidine 1 (20 mg) Tablet Oral b.i.d., Flonase 1 spray(s) (of 50 mcg/act) Suspension Nasal b.i.d., Glimepiride 1 Tablet (of 2 mg) Oral b.i.d., glipiZIDE ER 1 Tablet (of 5 mg) Tablet SR 24 HR Oral daily, Meclizine HCl 1 Tablet (of 25 mg) Oral t.i.d. PRN, Montelukast Sodium 1 Tablet (of 10 mg) Oral daily, Multivitamin Adult 1 Tablet Oral daily, Nitroglycerin (0.4 mg) Tablet, sublingual Sublingual Take as Directed, oxyCODONE HCl 1 Tablet (of 30 mg) Oral q 4 hours PRN, Pantoprazole Sodium 1 Tablet (of 40 mg) Tablet, enteric coated Oral daily, Plavix 1 Tablet (of 75 mg) Oral daily, Zofran 1 Tablet (of 4 mg) Oral q 8 hours PRN Allergies: adhesives, ASPIRIN, codeine, compazine, IV contrast, and septra. Vital Signs: Performed on Oct 17, 2021 15:56 Height - 61.00 in Weight - 171 lbs (HIGH) BSA - 1.77 sq.m BMI - 32.31 (HIGH) Temperature - 97.2 F (LOW) Pulse - 94 /min Respiration - 20 /min BP - 143/87 mm(hg) (HIGH) O2 Sat - 95 % (LOW) Pain - 3 Fatigue - 1 Performed on Oct 17, 2021 15:49 Height - 61.00 in Physical Examination: Constitutional - She looks pretty good generally, Eyes - Sclerae nonicteric. Conjunctivae clear, ENMT - No lesions noted in the oral cavity, Hematologic/Lymphatic - No cervical or clavicular adenopathy, Respiratory - Lungs sound clear with diminished air movement bilaterally, Cardiovascular - Heart rhythm is regular. There is no murmur, gallop, or rub noted, Abdomen - Moderately distended. Liver and spleen are not enlarged. There is no abdominal mass or ascites noted and there is no inguinal adenopathy, Extremities - There is a soft nodule palpable on the anterior aspect of the upper right arm, very near the shoulder. It is movable and it measures about 3 cm. It appears to be most consistent with lipoma. There is no lower extremity edema. Dorsalis pedis pulses are palpable bilaterally, Integumentary - There are toenail changes which appear consistent with onychomycosis, Neurologic - No focal neurologic deficits noted. Lab/Imaging: Test performed on Oct 17, 2021 15:15 Sodium 140 mmol/L Potassium 3.6 mmol/L Chloride 102 mmol/L CO2 22 mmol/L Anion Gap 19.6 BUN 8 mg/dL Creatinine 0.5 mg/dL Cr Clearance (Est) 150.1800 mL/min eGFR 126.7 mL/min Glucose 182 mg/dL Osmolality - Calculated 293 mOsm/kg Calcium 8.7 mg/dL Protein, Total 6.6 g/dL Albumin 4.4 g/dL Globulin 2.2 g/dL Bilirubin, Total 1.0 mg/dL ALT (SGPT) 41 U/L AST (SGOT) 30 U/L Alkaline Phosphatase 54 IU/L Test performed on Oct 17, 2021 12:50 WBC 15.3 10 3/uL RBC 4.63 10 6/uL HGB 14.8 g/dL HCT 43.4 % MCV 93.7 fl MCH 32.0 pg MCHC 34.1 g/dL RDW 14.2 % Platelet Count 194 10 3/cmm MPV 10.1 fL Neutrophils 8.18 10 3/uL Lymphocytes 5.7 10 3/uL Monocytes 1.2 10 3/uL Eosinophils 0.1 10 3/uL Basophils 0.1 10 3/uL Neutrophil % 53.2 % Lymphocyte % 37.0 % Monocyte % 7.6 % Eosinophil % 0.7 % Basophils % 0.7 % NRBC % 0 % Problem List: 1. Grade 2 infiltrating ductal carcinoma of the left breast, stage IA (T1c, pN1a, M0), ER/RI positive and HER-2/marely negative. 2. In July 2015 she was found to have metastatic squamous cell carcinoma involving left inguinal lymph nodes. This was probably metastatic squamous cell carcinoma from a primary skin cancer which had been removed from the left leg in June 2013. 3. Peripheral neuropathy. 4. Type II diabetes. 5. Dyslipidemia. 6. Coronary artery disease. She underwent coronary angiogram with angioplasty/stent placement to the right coronary artery in December 2011. 7. 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 8. Osteoporosis. 9. She has had recurrent postprandial vomiting. This is presumed to be due to gastroparesis. 10. She also has had chronic diarrhea. Problems Addressed with this Encounter and Plan: 1. Patient with grade 2 infiltrating ductal carcinoma of the left breast, stage IA (T1c, pN1a, M0), ER/RI positive and HER-2/marely negative. Her treatment included lumpectomy/sentinel axillary lymph node biopsy followed by adjuvant chemotherapy with 3 cycles of FEC and 3 cycles of Taxotere, completed in May 2006. Radiation to the left breast was completed in October 2006. She then began adjuvant hormonal therapy with anastrozole. She had poor tolerance for aromatase inhibitors and beginning in December 2008 her treatment was transitioned to tamoxifen, which she continued for an additional 4 years of treatment. During follow-up she has had ongoing problems with neuropathy from her chemotherapy, but there has been no evidence of recurrence of the breast cancer. She remains on observation/expectant management for the breast cancer. I will see her again in 6 months. 2. In July 2015 she was found to have metastatic squamous cell carcinoma involving left inguinal lymph nodes. This was probably metastatic from a primary skin cancer which had been removed from the left leg in June 2013. Restaging PET/CT in August 2015 showed no other sites of involvement. She was then referred to Dr. Hernandez for possible left inguinal node dissection. At that time there was concern of possible right inguinal lymphadenopathy, but ultrasound of that area showed benign-appearing lymph nodes, the largest measuring 1.6 x 1.3 cm. She had no further treatment. She was then followed expectantly. At her follow-up visit in December 2020 she had a small palpable nodule in the left groin. Restaging CT of the abdomen/pelvis on 01/13/2021 showed no evidence of left inguinal mass or lymphadenopathy. She continues expectant management. 3. She has chronic pain which is multifactorial, including degenerative disease of the spine and painful neuropathy. She continues symptomatic management. 4. She has neuropathy pain in her feet and she also has developed nail changes. Some of those may also be chemotherapy related, but she also appears to have onychomycosis. She is wanting to see a director clinical operations. Signed By: Jamil Garner M.D. <<Signature on File>>
== END 2021-10-17 12:07 | disposition home or self-care (01) ==
LOC: ONCMED 12:09
PROVIDERS: PCP Family Medicine; Visit Provider Internal Medicine Medical Oncology
DX: Z08 Encounter for follow-up examination after completed treatment for malignant neoplasm (principal); Z85.3 Personal history of malignant neoplasm of breast; Z85.89 Personal history of malignant neoplasm of other organs and systems; E11.42 Type 2 diabetes mellitus with diabetic polyneuropathy; E78.5 Hyperlipidemia, unspecified; E11.59 Type 2 diabetes mellitus with other circulatory complications; I25.10 Atherosclerotic heart disease of native coronary artery without angina pectoris; Z95.5 Presence of coronary angioplasty implant and graft; G31.89 Other specified degenerative diseases of nervous system; G89.29 Other chronic pain; M81.0 Age-related osteoporosis without current pathological fracture; R11.10 Vomiting, unspecified; K52.9 Noninfective gastroenteritis and colitis, unspecified; Z92.21 Personal history of antineoplastic chemotherapy; Z79.899 Other long term (current) drug therapy
CPT/HCPCS: 36415; 80053; 85025; 99214

== ENCOUNTER → 2021-10-24 12:50 | Outpatient (BNVA) | payer MEDICARE, SELFPAY | PROVIDERS: PCP Family Medicine; Visit Provider Internal Medicine Pulmonary Disease | DX: Z01.812 Encounter for preprocedural laboratory examination (principal); Z20.822 Contact with and (suspected) exposure to COVID-19 | CPT/HCPCS: 87635 ==

== ENCOUNTER 2021-10-26 12:26 | Outpatient (CLI) | payer MEDICARE, SELFPAY ==
--- NOTE | 2021-10-26 13:32 | PFTS_ITS ---
Date of Study:10/26/21 Date of Dictation: MECHANICS: Forced vital capacity (FVC) is normal. Forced expiratory volume in one second (FEV1) is mildly reduced. FEV1/FVC is normal. FLOW VOLUME LOOP: Normal. LUNG VOLUMES: Not measured DIFFUSING CAPACITY FOR CARBON MONOXIDE: Mildly reduced. INTERPRETATION: The postbronchodilator spirometry is consistent with minimal restriction. There is no significant postbronchodilator response. Lung volumes are not measured. Gas exchange (DLCO) is mildly reduced. MTDD
== END 2021-10-26 12:27 | disposition home or self-care (01) ==
LOC: RT 12:27
PROVIDERS: PCP Family Medicine; Visit Provider Internal Medicine Pulmonary Disease
DX: J43.1 Panlobular emphysema (principal)
CPT/HCPCS: 94060; 94618; 94729; J7611

== ENCOUNTER 2021-11-01 06:55 | Outpatient (CLI) | payer MEDICARE, SELFPAY ==
[2021-11-01 07:18] VITALS: BMI 29.2
--- NOTE | 2021-11-01 07:18 | ECG_ITS ---
[facility] Test Date: 2021-11-01 Pat Name: Olya Mccormick Department: Room: Gender: Female Mirror Painter: Jade Ramirez : 1965 Requested By: Ivelisse Mills Order Number: [id number] Jelly MD: Ivelisse Mills M.D. Interpretive Statements NAME OF STUDY: LEXISCAN SESTAMIBI STRESS TEST INDICATION: Chest Pain; Shortness of Breath; Coronary Artery Disease PROCEDURE: At the baseline, the blood pressure was 116/78 mmHg, oxygen saturation 97% with a heart rate of 77 bpm. The electrocardiogram showed sinus rhythm, normal axis with possible old oseptal infarct. The Lexiscan was infused over a period of 20 seconds. A total of 0.4 milligrams of Lexiscan was infused. The stress phase was continued for a total of 5 minutes. Heart rate at the end of the stress phase was 89 bpm, oxygen saturation 98% with a blood pressure of 124/75 mmHg. The EKG at the peak infusion revealed sinus rhythm with no significant ST-T wave changes. The study was terminated due to protocol completion. Sestamibi was injected 20 seconds after the Lexiscan infusion. Blood pressure at the end of the recovery phase was 112/73 mmHg, oxygen saturation 94% with a heart rate of 85 beats per minute. CONCLUSION: 1. No significant EKG changes with the LexiScan infusion 2. No LexiScan induced chest pain or cardiac arrhythmia. 3. Normal blood pressure and heart rate response. 4. Sestamibi/sestamibi perfusion scan pending; see separate report. SEND RESULTS TO LEXIS ARRIAGA Electronically Signed On 11-07-2021 16:53:43 PILLOWCASE TURNER by Ivelisse Mills M.D. [email or web address]
--- NOTE | 2021-11-01 07:19 | NMCV_ITS ---
NM jimmy perf SPECT r/s* [id number] Olya Mccormick Age: 56 Gender: F : 1965 Exam Date: 11/01/2021 07:19 Ordering Phys: Ivelisse Mills MD ([email or web address]) Technologist: TANNER Martin Exam Location: [facility] Indications: CHEST PAIN STRESS TEST Please see separate stress test report in [facility] for full findings IMAGE PROTOCOL Rest/Stress 1 Lexiscan Day Radiopharmaceutical Dose (mCi) Administration Site Administered by Rest: Tc-99m 10.9 IV TANNER Martin Sestamibi Stress:Tc-99m 32.9 IV TANNER Martin Sestamibi Rest: 01-Nov-2021 60 Discovery 630 Stress: 01-Nov-2021 30 Discovery 630 0.4mg Lexiscan. Images obtained in supine and prone position. SPECT RESULTS Technical Quality: Excellent Raw Data Analysis: Normal Image Corrections: No attenuation or motion correction applied Summed Stress Score: 6 Summed Rest Score: 4 Summed Difference Score: 4 PERFUSION FINDINGS Small sized perfusion abnormality of mild severity of mid anteroseptal to apical septal, apical anterior, apical inferior and apical luna on rest images with reversibility noted in apical inferior, mid inferolateral, apical lateral and apical luna on stress images. There is improved tracer uptake in the mid anteroseptal and apical septal luna on prone stress images. FUNCTIONAL RESULTS (calculated via Gated SPECT) Stress Image LV EF (%): 71 Stress EDV (mL):86 TID: 1 Stress ESV (mL):25 FUNCTIONAL FINDINGS: The left ventricle is normal in size. Transient Ischemia Dilatation of 1. There is normal left ventricular systolic function. The left ventricular ejection fraction is normal with a value of 71%. There is normal left ventricular wall thickening. Normal end-diastolic and end-systolic volumes. IMPRESSIONS 1. Small sized partially reversible perfusion abnormality of mild severity of mid to apical inferior, mid inferolateral, apical lateral and apical luna. This may represent small area of ischemia in left anterior descending/right coronary artery territory. 2. Breast attenuation artifact noted in anteroseptal luna. 3. Overall left ventricular systolic function is normal without regional wall motion abnormalities. 4. The left ventricular ejection fraction is normal with a value of 71%. 5. EKG portion of the study will be reported separately. Ivelisse Mills MD (Electronically Signed) Final Date: 07 November 2021 18:12 S
[2021-11-01] MEDS: regadenoson 0.4 Mg/5 ml Syringe IVP (08:49)
[2021-11-01 08:59] VITALS: BP 112/73; PULSE 85
== END 2021-11-01 06:56 | disposition home or self-care (01) ==
LOC: RAD 06:59 → CDL 07:37
PROVIDERS: PCP Family Medicine; Visit Provider Internal Medicine Cardiovascular Disease
DX: R07.9 Chest pain, unspecified (principal); R06.09 Other forms of dyspnea; I25.10 Atherosclerotic heart disease of native coronary artery without angina pectoris; R06.02 Shortness of breath
CPT/HCPCS: 78452; 93017; A9500; J2785

== ENCOUNTER 2021-11-21 13:39 | Outpatient (CLI) | payer MEDICARE, SELFPAY ==
--- NOTE | 2021-11-21 13:51 | MM_ITS ---
WS: [id number] BILATERAL DIGITAL DIAGNOSTIC MAMMOGRAM MAMMOGRAPHY WITH CAD CLINICAL INFORMATION: SCREENING. Left breast soreness. COMPARISON: November 04, 2020 TECHNIQUE: Bilateral CC, MLO, and ML views. FINDINGS: Scattered fibroglandular densities bilaterally. Punctate and lucent centered calcifications. Dystroph ic calcifications left breast. Parenchymal volume loss left breast is unchanged since November 04. Post treatment-related changes left breast appear unchanged. Left breast skin thickening is stable . No suspicious focal mass, asymmetry, calcifications, or architectural distortion. No evidence of geri gnancy. MM/[place] [id number] IMPRESSION: BI-RADS: 2-Benign FOLLOW UP: 1 Year Follow-up Recommend return to annual diagnostic mammography.
== END 2021-11-21 13:40 | disposition home or self-care (01) ==
LOC: RADSHAW 13:46
PROVIDERS: PCP Family Medicine; Visit Provider Internal Medicine Medical Oncology
DX: N64.4 Mastodynia (principal); R92.1 Mammographic calcification found on diagnostic imaging of breast
CPT/HCPCS: 77066

== ENCOUNTER 2022-01-31 13:50 | Outpatient (CLI) | payer MEDICARE, SELFPAY ==
[2022-01-31 14:30] LABS: Basophils # 0.1 10^3/uL (0.0-0.1); Basophils % 0.4 %; Eosinophils # 0.1 10^3/uL (0.0-0.8); Eosinophils % 0.5 %; Hematocrit 46.3 % (37.0-47.0); Hemoglobin 15.7 g/dL (11.5-15.3); Lymphocytes # 3.6 10^3/uL (0.8-4.8); Mean Corpuscular HGB Conc 33.9 g/dL (30.0-36.0); Mean Corpuscular Hemoglobin 32.2 pg (28.0-34.0); Mean Corpuscular Volume 95.1 fl (81-99); Mean Platelet Volume 9.7 fL (7.4-10.4); Monocytes # 0.6 10^3/uL (0.2-0.9); Monocytes % 4.4 %; Neutrophils # 9.85 10^3/uL (1.8-7.7); Neutrophils % 69.2 %; Nucleated Red Blood Cells % 0 %; Platelet Count 250 10^3/cmm (130-400); Red Blood Count 4.87 10^6/uL (4.1-5.3); Red Cell Distribution Width 13.5 % (12.1-15.1); White Blood Count 14.2 10^3/uL (4.0-10.0)
[2022-01-31 14:54] LABS: Albumin Level 4.3 g/dL (3.5-5.2); Alkaline Phosphatase 67 IU/L (35-105); Glomerular Filtration Rate 102.7 mL/min (90-130); Total Bilirubin 0.8 mg/dL (0.15-1.2); Total Protein 7.3 g/dL (6.6-8.7)
[2022-01-31 15:16] LABS: Alanine Aminotransferase 51 U/L (0-33); Aspartate Amino Transferase 45 U/L (0-32)
== END 2022-01-31 13:51 | disposition home or self-care (01) ==
LOC: LAB 13:53
PROVIDERS: PCP Family Medicine; Visit Provider Internal Medicine Rheumatology
DX: M31.6 Other giant cell arteritis (principal); Z79.899 Other long term (current) drug therapy
CPT/HCPCS: 36415; 80076; 82565; 85025; 86140

== ENCOUNTER → 2022-02-06 14:53 | Outpatient (BNVA) | payer MEDICARE, SELFPAY | PROVIDERS: PCP Family Medicine; Visit Provider Family Medicine | DX: E11.69 Type 2 diabetes mellitus with other specified complication (principal); Z79.4 Long term (current) use of insulin | CPT/HCPCS: 80053; 80061; 83036; 83721 ==

== ENCOUNTER → 2022-02-20 12:26 | Outpatient (BNVA) | payer MEDICARE, SELFPAY | PROVIDERS: PCP Family Medicine; Visit Provider Surgery | DX: Z20.822 Contact with and (suspected) exposure to COVID-19 (principal) | CPT/HCPCS: 87635 ==

== ENCOUNTER 2022-02-22 06:06 | Day surgery (SDC) | payer MEDICARE, SELFPAY ==
[2022-02-20 13:17] VITALS: BMI 30.5
[2022-02-22 06:36] VITALS: BP 142/99; PULSE 89; RESP 18; TEMP 36.8; O2SAT 97
[2022-02-22] MEDS: sodium chloride 0.9% 1,000 ML 30 ML IV (06:45)
--- NOTE | 2022-02-22 07:23 | ANES.PREANE2 ---
Pre-Anesthetic Assessment Height/Weight: Height 1.57 m Weight 75.75 kg Temp Pulse Resp BP Pulse Ox 98.3 F 89 18 142/99 97 02/22/22 06:36 02/22/22 06:36 02/22/22 06:36 02/22/22 06:36 02/22/22 06:36 Preop Diagnosis: diagnostic Operation Date: 02/22/22 07:30 Proposed Procedures p Colonoscopy 15800/z86.010(Not Applicable) - Vern Parks MD Was Beta Duncan taken within 24 hours: Yes Was Clonidine taken within 24 hours: N/A Last intake: Intake Last Liquid Date 02/21/22 Last Liquid Time 20:00 Last Solid Date 02/20/22 Last Solid Time 00:00 Social Alcohol and Tobacco TCH pack(s) per day Exam alert, oriented x 3, clear to auscultation bilaterally and regular rate & rhythm Airway Submandibular: within normal limits Cervical ROM: within normal limits Mallampati: Class II Dentition: false History/ROS No significant history except as noted and No significant complaints Pulmonary Chronic Obstructive Pulmonary Disease, Cough, Exertional Dyspnea, Othopnea and Shortness of Breath CV/HEM Coronary Artery Disease, Hypertension, Myocardial Infarction and Peripheral Vascular Disease None reported Hepatic None reported GI Gastroesophageal Reflux Disease Metabolic Diabetes Mellitus and Thyroid Disease Musc/skel Lower Back Pain Neuropsych Anxiety Anesthetic Plan ASA status: 4 Anesthesia: MAC Risk of > 500 ml blood loss (7ml/kg in children): No Medications/Allergies Home Medications Medication Instructions Recorded Confirmed Last Taken Type cetirizine 10 mg tablet 10 mg PO DAILY 12/29/19 02/22/22 02/20/22 History docusate sodium 100 mg capsule 100 mg PO DAILY 12/29/19 02/22/22 02/21/22 History (Colace) dronabinol 5 mg capsule (Marinol) 5 mg PO BID 12/29/19 02/22/22 02/21/22 History meclizine 12.5 mg tablet 12.5 mg PO BID PRN 12/29/19 02/22/22 02/21/22 History nitroglycerin 400 mcg/spray 1 spray SUBLINGUAL Q5M PRN 12/29/19 02/22/22 Unknown History translingual oxycodone 30 mg tablet 15 mg PO Q4H PRN tab 12/29/19 02/22/2202/21/22 History blood sugar diagnostic (Accu-Chek #100 each 03/19/20 02/22/22 02/21/22 Rx Pretty Plus test strp) blood-glucose meter (Accu-Chek #1 each 03/19/20 02/22/22 02/21/22 Rx Pretty Plus Meter) cholestyramine-aspartame 4 gram 4 gm PO BID 03/19/20 02/22/22 02/21/22 History oral powder (Cholestyramine Light) clobetasol 0.05 % topical cream 1 applic TOPICAL BID 03/19/20 02/22/22 02/21/22 History (Temovate) cyclobenzaprine 10 mg tablet 10 mg PO TID PRN 03/19/20 02/22/22 02/21/22 History famotidine 20 mg tablet 20 mg PO BID 03/19/20 02/22/22 02/21/22 History glimepiride 2 mg tablet (Amaryl) 2 mg PO DAILY 03/19/20 02/22/22 02/21/22 History montelukast 10 mg tablet 10 mg PO DAILY 03/19/20 02/22/22 02/21/22 History (Singulair) pen needle, diabetic 32 gauge x #100 each 08/19/20 02/20/22 Unknown Rx (1st Tier Unifine Pentips) nystatin 100,000 unit/gram topical 1 applic TOPICAL TID #60 gm 08/24/20 02/22/22 02/21/22 Rx powder ibuprofen 600 mg tablet 600 mg PO BID PRN #30 tab 11/17/20 02/22/22 02/21/22 Rx duloxetine 30 mg capsule,delayed 30 mg PO BID 01/24/21 02/22/22 02/21/22 History release (Cymbalta) folic acid 1 mg tablet 1 mg PO DAILY #90 tab 04/12/21 02/22/22 02/21/22 Rx fluticasone propionate 50 1 spray INTRANASAL BID #16 gm 05/09/21 02/22/22 02/21/22 Rx mcg/actuation nasal spray,suspension (Allergy Relief (fluticasone)) metoprolol tartrate 25 mg tablet 12.5 mg PO BID #90 tab 05/30/21 02/22/2222 Rx albuterol sulfate 90 mcg/actuation 2 puff INHALATION Q6H PRN #8.5 gm 06/23/21 02/22/22 02/21/22 Rx aerosol inhaler (ProAir HFA) budesonide-formoterol HFA 160 2 puff INHALATION Q12H #10.2 gm 06/23/21 02/22/22 02/21/22 Rx mcg-4.5 mcg/actuation aerosol inhaler (Symbicort) ondansetron HCl 4 mg tablet 4 mg PO TID PRN #14 tab 07/12/21 02/22/22 02/21/22 Rx (Zofran) pantoprazole 40 mg tablet,delayed 40 mg PO BID #28 tab 08/12/21 02/22/22 02/21/22 Rx release (Protonix) atovaquone 750 mg/5 mL oral 1,500 mg (10 mL) PO DAILY #210 ml 08/22/21 02/22/22 02/21/22 Rx suspension (Mepron) methotrexate sodium 2.5 mg tablet 25 mg PO .Q7days #50 tab 08/22/21 02/22/22 02/21/22 Rx prednisone 10 mg tablet See Rx Instructions PO DAILY #90 08/22/21 02/22/22 02/21/22 Rx tab clopidogrel 75 mg tablet 75 mg PO DAILY #90 tab 08/25/21 02/20/22 02/17/22 Rx guaifenesin 1,200 mg tablet, 1,200 mg PO BID #20 tab 09/19/21 02/22/22 02/21/22 Rx extended release 12 hr (Mucinex) insulin glargine 100 unit/mL (3 15 unit (0.15 mL) SUBCUT DAILY 90 12/21/21 02/22/22 02/21/22 Rx mL) subcutaneous pen (Lan Days #13.5 ml Solostar U-100 Insulin) empagliflozin 10 mg tablet 10 mg PO DAILY 90 Days #90 tab 12/29/21 02/22/22 02/21/22 Rx (Jardiance) pregabalin 75 mg capsule (Lyrica) 75 mg PO BID #60 cap 12/29/21 02/20/22 Unknown Rx lactulose 10 gram/15 mL oral 10 g (15 mL) PO BID #473 ml 01/03/22 02/22/22 02/21/22 Rx solution peg 3350-electrolytes 236 240 ml PO Q10M #4000 ml 01/03/22 02/22/22 02/21/22 Rx gram-22.74 gram-6.74 gram-5.86 gram solution (Golytely) atorvastatin 40 mg tablet See Rx Instructions .ROUTE 01/20/22 02/22/22 02/21/22 Rx .COMPLEX #90 tab tocilizumab 162 mg/0.9 mL 162 mg (0.9 mL) SUBCUT Q7D #4 ml 02/01/22 02/20/22 Unknown Rx subcutaneous pen injector (Actemra ACTPen) flash glucose scanning reader #1 ea 02/06/22 02/22/22 02/21/22 Rx (FreeStyle Dawson 14 Day [place]) flash glucose sensor (FreeStyle #2 ea 02/06/22 02/20/22 Unknown Rx Dawson 14 Day Sensor) Allergies Allergy/AdvReac Type Severity Reaction Status Date / Time adhesive tape Allergy Intermediate ALGY-Hives Verified 02/06/22 14:19 morphine Allergy Intermediate unknown Verified 02/06/22 14:19 aspirin Allergy Mild ALGY-Hives Verified 02/06/22 14:19 ciprofloxacin [From Cipro] Allergy Unknown Verified 02/06/22 14:19 dapagliflozin [From Farxiga] Allergy unk Verified 02/06/22 14:19 iodine Allergy unknown Verified 02/06/22 14:19 metformin Allergy Unknown Verified 02/06/22 14:19 prochlorperazine Allergy unknown Verified 02/06/22 14:19 [From Compazine] codeine AdvReac Mild UNKNOWN Verified 02/06/22 14:19 Opioids - Morphine Analogues AdvReac Mild UNKNOWN Verified 02/06/22 14:19 Penicillins AdvReac Mild UNKNOWN Verified 02/06/22 14:19 Phenothiazines AdvReac Mild UNKNOWN Verified 02/06/22 14:19 salicylates AdvReac Mild UNKNOWN Verified 02/06/22 14:19 Sulfa (Sulfonamide AdvReac Mild UNKNOWN Verified 02/06/22 14:19 Antibiotics) Current Medications Generic Name Dose Route Start Last Admin Trade Name Freq PRN Reason Stop Dose Admin Sodium Chloride 1,000 mls @ 30 mls/hr 02/22/22 06:30 02/22/22 06:45 Sodium Chloride 0.9% IV 02/23/22 06:29 30 mls/hr .Q24H EVY Administration PFSH Anesthesia Medical History ASHD (arteriosclerotic heart disease) Breast cancer COPD (chronic obstructive pulmonary disease) Diabetes Diabetic gastroparesis Dyslipidemia Giant cell arteritis Glaucoma HTN (hypertension) Inflammatory arthritis Myocardial infarction Oropharyngeal candidiasis Type 2 diabetes mellitus, with long-term current use of insulin Surgical History H/O esophagogastroduodenoscopy (08/12/21) bile reflux H/O neck surgery History of mastectomy, subtotal Previous back surgery S/P cholecystectomy S/P hysterectomy S/P PTCA (percutaneous transluminal coronary angioplasty) Status post colonoscopy (08/12/21) polyps Status post insertion of spinal cord stimulator Family History Other CAD (coronary artery disease) Cancer Chronic kidney disease (CKD) Diabetes Family history of premature coronary artery disease Hyperlipidemia Hypertension Lung disease Lupus Rheumatoid arthritis Stroke Social History Smoking and tobacco status: current every day smoker cigarettes Packs smoked per day: 0.5 Years cigarettes smoked: 42 Alcohol intake: never History of recent travel: No (01/31/2021) Data Anesthesia Cardiac Studies: Sestamibi Stress Test (Cardiology) 11/01/21
--- NOTE | 2022-02-22 07:28 | W.PM.OPSFHP ---
Same Day Surgery H&P Indication for Procedure/HPI DATE OF PROCEDURE: February 22, 2022 CHIEF COMPLAINT/INDICATIONFOR SURGICAL PROCEDURE: colonoscopy PREOP DIAGNOSIS: diagnostic PLANNED PROCEDURE: Operation Date: 02/22/22 07:30 Proposed Procedures p Colonoscopy 70460/z86.010(Not Applicable) - Vern Parks MD Medications/Allergies* Home Medications Medication Instructions Recorded Confirmed Type cetirizine 10 mg tablet 10 mg PO DAILY 12/29/19 02/22/22 History docusate sodium 100 mg capsule 100 mg PO DAILY 12/29/19 02/22/22 History (Colace) dronabinol 5 mg capsule (Marinol) 5 mg PO BID 12/29/19 02/22/22 History meclizine 12.5 mg tablet 12.5 mg PO BID PRN 12/29/19 02/22/22 History nitroglycerin 400 mcg/spray 1 spray SUBLINGUAL Q5M PRN 12/29/19 02/22/22 History translingual oxycodone 30 mg tablet 15 mg PO Q4H PRN tab 12/29/19 02/22/22 History cholestyramine-aspartame 4 gram 4 gm PO BID 03/19/20 02/22/22 History oral powder (Cholestyramine Light) clobetasol 0.05 % topical cream 1 applic TOPICAL BID 03/19/20 02/22/22 History (Temovate) cyclobenzaprine 10 mg tablet 10 mg PO TID PRN 03/19/20 02/22/22 History famotidine 20 mg tablet 20 mg PO BID 03/19/20 02/22/22 History glimepiride 2 mg tablet (Amaryl) 2 mg PO DAILY 03/19/20 02/22/22 History montelukast 10 mg tablet 10 mg PO DAILY 03/19/20 02/22/22 History (Singulair) duloxetine 30 mg capsule,delayed 30 mg PO BID 01/24/21 02/22/22 History release (Cymbalta) Allergies/Adverse Reactions Allergy/AdvReac Type Severity Reaction Status Date / Time adhesive tape Allergy Intermediate ALGY-Hives Verified 02/06/22 14:19 morphine Allergy Intermediate unknown Verified 02/06/22 14:19 aspirin Allergy Mild ALGY-Hives Verified 02/06/22 14:19 ciprofloxacin [From Cipro] Allergy Unknown Verified 02/06/22 14:19 dapagliflozin [From Farxiga] Allergy unk Verified 02/06/22 14:19 iodine Allergy unknown Verified 02/06/22 14:19 metformin Allergy Unknown Verified 02/06/22 14:19 prochlorperazine Allergy unknown Verified 02/06/22 14:19 [From Compazine] codeine AdvReac Mild UNKNOWN Verified 02/06/22 14:19 Opioids - Morphine Analogues AdvReac Mild UNKNOWN Verified 02/06/22 14:19 Penicillins AdvReac Mild UNKNOWN Verified 02/06/22 14:19 Phenothiazines AdvReac Mild UNKNOWN Verified 02/06/22 14:19 salicylates AdvReac Mild UNKNOWN Verified 02/06/22 14:19 Sulfa (Sulfonamide AdvReac Mild UNKNOWN Verified 02/06/22 14:19 Antibiotics) Current Medications: Generic Name Dose Route Start Last Admin Trade Name Freq PRN Reason Stop Dose Admin Sodium Chloride 1,000 mls @ 30 mls/hr 02/22/22 06:30 02/22/22 06:45 Sodium Chloride 0.9% IV 02/23/22 06:29 30 mls/hr .Q24H EVY Administration Pertinent History/Comorbid Conditions* Medical History (Updated 02/06/22 @ 14:55 by Violet Falcon DO) ASHD (arteriosclerotic heart disease) Breast cancer COPD (chronic obstructive pulmonary disease) Diabetes Diabetic gastroparesis Dyslipidemia Giant cell arteritis Glaucoma HTN (hypertension) Inflammatory arthritis Myocardial infarction Oropharyngeal candidiasis Type 2 diabetes mellitus, with long-term current use of insulin Surgical History (Updated 08/12/21 @ 11:04 by Vern Parks MD) H/O esophagogastroduodenoscopy (08/12/21) bile reflux H/O neck surgery History of mastectomy, subtotal Previous back surgery S/P cholecystectomy S/P hysterectomy S/P PTCA (percutaneous transluminal coronary angioplasty) Status post colonoscopy (08/12/21) polyps Status post insertion of spinal cord stimulator Family History (Updated 01/31/21 @ 15:04 by Tracy Ovalle LPN) Rheumatoid arthritis Diabetes Lupus CAD (coronary artery disease) Hyperlipidemia Chronic kidney disease (CKD) Family history of premature coronary artery disease Lung disease Cancer Hypertension Stroke Social History Smoking and tobacco status: current every day smoker cigarettes Packs smoked per day: 0.5 Years cigarettes smoked: 42 Alcohol intake: never History of recent travel: No (01/31/2021) Pertinent Exam Findings alert, oriented x 3 and regular rate & rhythm Recommendations Surgery/Procedure today Coding Level of Care Code Acute Web Publisher for Jackie Mera
[2022-02-22 08:01] VITALS: BP 162/62; PULSE 82; RESP 18; TEMP 36.6; O2SAT 91
[2022-02-22 08:20] VITALS: BP 159/82; PULSE 82; RESP 18; TEMP 36.3; O2SAT 93
--- NOTE | 2022-02-22 13:06 | ANE.PACU2 ---
Inpatient post-anesthesia follow up: Airway intact: Yes Vital signs: Temperature 97.4 F Pulse Rate 82 Respiratory Rate 18 Blood Pressure 159/82 Pulse Oximetry 93 Oxygen Delivery Me thod Room Air Oxygen Flow Rate 2 Fraction of Inspir ed Oxygen Hydration adequate: Yes Nausea and vomiting: No Pain level: 2 Mental status: Baseline
== END 2022-02-22 08:29 | disposition home or self-care (01) ==
PROVIDERS: PCP Family Medicine; Visit Provider Surgery
PROC: 0DJD8ZZ Inspection of Lower Intestinal Tract, Via Natural or Artificial Opening Endoscopic (ICD-10-PCS; CPT 45378; principal; 2022-02-22 07:30)
DX: Z12.11 Encounter for screening for malignant neoplasm of colon (principal); Z86.010 Personal history of colon polyps; K57.30 Diverticulosis of large intestine without perforation or abscess without bleeding; D12.4 Benign neoplasm of descending colon; K64.8 Other hemorrhoids; J44.9 Chronic obstructive pulmonary disease, unspecified; I25.10 Atherosclerotic heart disease of native coronary artery without angina pectoris; I10 Essential (primary) hypertension; I25.2 Old myocardial infarction; I73.9 Peripheral vascular disease, unspecified; K21.9 Gastro-esophageal reflux disease without esophagitis; E11.9 Type 2 diabetes mellitus without complications; Z85.3 Personal history of malignant neoplasm of breast; E78.5 Hyperlipidemia, unspecified; F17.210 Nicotine dependence, cigarettes, uncomplicated
CPT/HCPCS: 45385; 88305; J2704; J7030

== ENCOUNTER → 2022-03-13 12:46 | Outpatient (BNVA) | payer MEDICARE, SELFPAY | PROVIDERS: PCP Family Medicine; Visit Provider Surgery | DX: Z09 Encounter for follow-up examination after completed treatment for conditions other than malignant neoplasm (principal) | CPT/HCPCS: 99212 ==

== ENCOUNTER → 2022-04-11 10:17 | Outpatient (BNVA) | payer MEDICARE, SELFPAY | PROVIDERS: PCP Family Medicine; Visit Provider Internal Medicine Rheumatology | DX: M31.6 Other giant cell arteritis (principal); Z79.899 Other long term (current) drug therapy; M15.9 Polyosteoarthritis, unspecified; Z71.89 Other specified counseling | CPT/HCPCS: 99214 ==

== ENCOUNTER 2022-05-09 15:07 | Outpatient (CLI) | payer MEDICARE, SELFPAY ==
--- NOTE | 2022-05-09 15:19 | XR_ITS ---
WS: [id number] Cervical spine, 3 views, 05/09/2022 Clinical Data: acute on chronic neck pain Comparison: Cervical spine, 09/16/2008. Findings: No compression fractures are seen. There is degenerative disc narrowing at C5-C6. There are anterior disc fusion at C6-C7. There is a large anterior inferior spur of C5. There is no prevertebr al soft tissue swelling. The odontoid is unremarkable. The soft tissues of the neck and the lung apic es are normal. XR/XR cervical spine 3V* [id number] Impression: 1. Degenerative disc narrowing at C5-C6. 2. Anterior cervical disc fusion C6-C7 with an anterior inferior osteophyte at C5
== END 2022-05-09 15:08 | disposition home or self-care (01) ==
LOC: RAD 15:10
PROVIDERS: PCP Family Medicine; Visit Provider Family Medicine
DX: M50.020 Cervical disc disorder with myelopathy, mid-cervical region, unspecified level (principal); M47.892 Other spondylosis, cervical region; Z98.1 Arthrodesis status
CPT/HCPCS: 72040

== ENCOUNTER → 2022-06-01 14:56 | Outpatient (BNVA) | payer MEDICARE, SELFPAY | PROVIDERS: PCP Family Medicine; Visit Provider Orthopaedic Surgery | DX: M50.020 Cervical disc disorder with myelopathy, mid-cervical region, unspecified level (principal); Z98.1 Arthrodesis status; M47.812 Spondylosis without myelopathy or radiculopathy, cervical region | CPT/HCPCS: 72050; 99204 ==

== ENCOUNTER → 2022-06-02 15:28 | Outpatient (BNVA) | payer MEDICARE, SELFPAY | PROVIDERS: PCP Family Medicine; Visit Provider Family Medicine | DX: N39.0 Urinary tract infection, site not specified (principal) | CPT/HCPCS: 81000; 87086 ==

== ENCOUNTER 2022-06-13 14:02 | Oncology outpatient (recurring) (ONCR) | payer MEDICARE, SELFPAY ==
[2022-06-13 15:12] VITALS: BP 110/65; PULSE 81; RESP 18; TEMP 36.1; O2SAT 95
[2022-06-13] MEDS: sodium chloride 0.9% 250 ML 50 ML IV (15:23)
[2022-06-13] MEDS: acetaminophen 325 mg Tablet 650 MG PO (15:25)
[2022-06-13] MEDS: diphenhydrAMINE 50 mg/mL SDV 1mL 25 MG IVP (15:26)
[2022-06-13] MEDS: [UNRECOGNIZED DRUG - OTHER] IV (15:32)
[2022-06-13] MEDS: TOCILIZUMAB IV (15:32)
[2022-06-13 16:54] VITALS: BP 136/84; PULSE 79; RESP 18; TEMP 36.7; O2SAT 95
== END 2022-06-28 23:59 | disposition home or self-care (01) ==
PROVIDERS: PCP Family Medicine; Visit Provider Internal Medicine Rheumatology
DX: M31.6 Other giant cell arteritis (principal)
CPT/HCPCS: 96365; 96375; J1200; J2920; J3262; J7050

== ENCOUNTER 2022-06-29 12:19 | Oncology outpatient (recurring) (ONCR) | payer MEDICARE, SELFPAY ==
[2022-06-29 12:57] LABS: Basophils # 0.1 10^3/uL (0.0-0.1); Basophils % 0.5 %; Eosinophils # 0.1 10^3/uL (0.0-0.8); Eosinophils % 0.9 %; Hematocrit 45.9 % (37.0-47.0); Hemoglobin 15.1 g/dL (11.5-15.3); Lymphocytes # 4.4 10^3/uL (0.8-4.8); Lymphocytes % 43.5 %; Mean Corpuscular HGB Conc 32.9 g/dL (30.0-36.0); Mean Corpuscular Hemoglobin 30.8 pg (28.0-34.0); Mean Corpuscular Volume 93.5 fl (81-99); Mean Platelet Volume 9.4 fL (7.4-10.4); Monocytes % 9.9 %; Neutrophils # 4.56 10^3/uL (1.8-7.7); Neutrophils % 44.9 %; Nucleated Red Blood Cells % 0 %; Platelet Count 230 10^3/cmm (130-400); Red Blood Count 4.91 10^6/uL (4.1-5.3); Red Cell Distribution Width 12.7 % (12.1-15.1); White Blood Count 10.1 10^3/uL (4.0-10.0)
[2022-06-29 13:18] LABS: Alanine Aminotransferase 64 U/L (0-33); Albumin Level 4.2 g/dL (3.5-5.2); Alkaline Phosphatase 58 U/L (35-105); Anion Gap 15.2 (5-19); Aspartate Amino Transferase 47 U/L (0-32); Blood Urea Nitrogen 8 mg/dL (6-20); Calcium 9.5 mg/dL (8.5-10.5); Carbon Dioxide 25 mmol/L (22-29); Chloride 101 mmol/L (98-107); Globulin 2.2 g/dL (1.3-4.6); Glomerular Filtration Rate 102.3 mL/min (90-130); Glucose 141 mg/dL (65-115); Osmolality Calculated 287 mOsm/kg (285-295); Potassium 3.2 mmol/L (3.5-5.1); Sodium 138 mmol/L (136-145); Total Bilirubin 0.7 mg/dL (0.15-1.2); Total Protein 6.4 g/dL (6.6-8.7)
== END 2022-07-28 23:59 | disposition home or self-care (01) ==
PROVIDERS: PCP Family Medicine; Visit Provider Internal Medicine Medical Oncology
DX: Z08 Encounter for follow-up examination after completed treatment for malignant neoplasm (principal); Z85.3 Personal history of malignant neoplasm of breast; G62.0 Drug-induced polyneuropathy; T45.1X5D Adverse effect of antineoplastic and immunosuppressive drugs, subsequent encounter; G89.29 Other chronic pain; F17.210 Nicotine dependence, cigarettes, uncomplicated; Z85.828 Personal history of other malignant neoplasm of skin; G31.89 Other specified degenerative diseases of nervous system; Z92.21 Personal history of antineoplastic chemotherapy; Z92.3 Personal history of irradiation
CPT/HCPCS: 80053; 85025; 99214

== ENCOUNTER 2022-07-13 09:51 | Outpatient (CLI) | payer MEDICARE, SELFPAY ==
[2022-07-13 09:58] VITALS: BP 132/77; PULSE 99; RESP 18; TEMP 36.4; O2SAT 93
[2022-07-13] MEDS: sodium chloride 0.9% 250 ML 50 ML IV (10:38)
[2022-07-13] MEDS: acetaminophen 325 mg Tablet 650 MG PO (10:39)
[2022-07-13] MEDS: diphenhydrAMINE 50 mg/mL SDV 1mL 25 MG IVP (10:40)
[2022-07-13 12:41] VITALS: BP 132/77; PULSE 103; RESP 18; TEMP 36.7; O2SAT 92
== END 2022-07-13 09:52 | disposition home or self-care (01) ==
PROVIDERS: PCP Family Medicine; Visit Provider Internal Medicine Rheumatology
DX: M31.6 Other giant cell arteritis (principal)
CPT/HCPCS: 96365; 96375; J1200; J2920; J3262; J7050

== ENCOUNTER → 2022-08-07 15:22 | Outpatient (BNVA) | payer MEDICARE, SELFPAY | PROVIDERS: PCP Family Medicine; Visit Provider Family Medicine | DX: E11.69 Type 2 diabetes mellitus with other specified complication (principal); Z79.4 Long term (current) use of insulin; Z23 Encounter for immunization | CPT/HCPCS: 80048; 82043; 83036 ==

== ENCOUNTER → 2022-08-08 13:32 | Outpatient (BNVA) | payer MEDICARE, SELFPAY | PROVIDERS: PCP Family Medicine; Visit Provider Internal Medicine Rheumatology | DX: M31.6 Other giant cell arteritis (principal); Z79.899 Other long term (current) drug therapy; Z71.85 Encounter for immunization safety counseling; M25.50 Pain in unspecified joint; R74.01 Elevation of levels of liver transaminase levels; M50.30 Other cervical disc degeneration, unspecified cervical region; M79.89 Other specified soft tissue disorders; M25.511 Pain in right shoulder; M47.22 Other spondylosis with radiculopathy, cervical region | CPT/HCPCS: 99203; 99214 ==

== ENCOUNTER → 2022-08-09 08:43 | Outpatient (BNVA) | payer MEDICARE, SELFPAY | PROVIDERS: PCP Family Medicine; Visit Provider Podiatrist Foot & Ankle Surgery | DX: I73.9 Peripheral vascular disease, unspecified (principal); B35.1 Tinea unguium; G62.9 Polyneuropathy, unspecified; L84 Corns and callosities; M20.41 Other hammer toe(s) (acquired), right foot; M20.42 Other hammer toe(s) (acquired), left foot | CPT/HCPCS: 11056; 11721; 99204 ==

== ENCOUNTER 2022-08-10 11:32 | Outpatient (CLI) | payer MEDICARE, SELFPAY ==
[2022-08-10 11:43] VITALS: BP 132/84; PULSE 83; RESP 18; TEMP 35.9; O2SAT 96
[2022-08-10 12:37] LABS: Basophils # 0.1 10^3/uL (0.0-0.1); Basophils % 0.6 %; Eosinophils # 0.2 10^3/uL (0.0-0.8); Hematocrit 43.8 % (37.0-47.0); Hemoglobin 14.6 g/dL (11.5-15.3); Lymphocytes # 6.5 10^3/uL (0.8-4.8); Lymphocytes % 37.8 %; Mean Corpuscular HGB Conc 33.3 g/dL (30.0-36.0); Mean Corpuscular Hemoglobin 30.7 pg (28.0-34.0); Mean Corpuscular Volume 92.2 fl (81-99); Mean Platelet Volume 9.7 fL (7.4-10.4); Monocytes # 1.3 10^3/uL (0.2-0.9); Monocytes % 7.3 %; Neutrophils # 9.08 10^3/uL (1.8-7.7); Neutrophils % 52.5 %; Nucleated Red Blood Cells % 0 %; Platelet Count 273 10^3/cmm (130-400); Red Blood Count 4.75 10^6/uL (4.1-5.3); White Blood Count 17.3 10^3/uL (4.0-10.0)
[2022-08-10 12:39] LABS: Erythrocyte Sedimentation Rate 1 mm/hr (0-15)
[2022-08-10 12:59] LABS: Alkaline Phosphatase 54 U/L (35-105); Globulin 2.4 g/dL (1.3-4.6); Glomerular Filtration Rate 126.3 mL/min (90-130); Total Bilirubin 0.9 mg/dL (0.15-1.2)
[2022-08-10 13:14] LABS: Alanine Aminotransferase 39 U/L (0-33); Aspartate Amino Transferase 34 U/L (0-32); Total Protein 6.4 g/dL (6.6-8.7)
[2022-08-10] MEDS: sodium chloride 0.9% 250 ML 50 ML IV (13:29)
[2022-08-10] MEDS: acetaminophen 325 mg Tablet 650 MG PO (13:29)
[2022-08-10] MEDS: diphenhydrAMINE 50 mg/mL SDV 1mL 25 MG IVP (13:30)
[2022-08-10] MEDS: TOCILIZUMAB IV (13:39)
[2022-08-10] MEDS: [UNRECOGNIZED DRUG - OTHER] IV (13:39)
[2022-08-10 14:37] VITALS: BP 134/83; PULSE 80; RESP 18; TEMP 36.3; O2SAT 96
== END 2022-08-10 11:33 | disposition home or self-care (01) ==
PROVIDERS: PCP Family Medicine; Visit Provider Internal Medicine Rheumatology
DX: M31.6 Other giant cell arteritis (principal)
CPT/HCPCS: 80076; 82565; 85025; 85651; 96365; 96375; J1030; J1200; J2920; J3262; J7050

== ENCOUNTER → 2022-08-10 14:51 | Outpatient (BNVA) | payer MEDICARE, SELFPAY | PROVIDERS: PCP Family Medicine; Visit Provider Internal Medicine Rheumatology | DX: M25.511 Pain in right shoulder (principal); Z71.89 Other specified counseling; M19.90 Unspecified osteoarthritis, unspecified site | CPT/HCPCS: 20610 ==

== ENCOUNTER 2022-09-04 16:00 | Outpatient (CLI) | payer MEDICARE, SELFPAY ==
--- NOTE | 2022-09-04 16:19 | XRR_ITS ---
PROCEDURE INFORMATION: Exam: XR Right Wrist Exam date and time: 09/04/2022 4:19 PM Age: 57 years old Clinical indication: Pain and injury or trauma; Fall; Blunt trauma (contusions or hematomas); Right; Injury date: 09/02/22; Injury details: PT fell 2 days ago, pain RT wrist, and lt upper ribs; Additional info: Acute right wrist pain TECHNIQUE: Imaging protocol: Radiologic exam of the Right wrist. Views: 3 or more views. COMPARISON: CR XR wrist RT 2V [id number] 05/09/2019 10:16 PM FINDINGS: Bones/joints: There is no evidence of recent fracture or dislocation. There is chronic deformity of the distal right radius which could be due to prior trauma or congenital variation. There are advanced degenerative changes at the base of thumb which have progressed from the previous exam. Soft tissues: Normal. XR/XR wrist RT min 3V* [id number] IMPRESSION: Degenerative changes. No acute fracture.
--- NOTE | 2022-09-04 16:19 | XRR_ITS ---
PROCEDURE INFORMATION: Exam: XR Left Ribs Exam date and time: 09/04/2022 4:19 PM Age: 57 years old Clinical indication: Pain and injury or trauma; Fall; Rib area, left side; Blunt trauma; Chest wall pain; Injury date: 09/02/22; Prior surgery; Surgery type: Lumpectomy, hystero; Patient HX: PT fell 2 days ago, pain RT wrist, and lt upper ribs; Additional info: Rib pain on left TECHNIQUE: Imaging protocol: Radiologic exam of the Left ribs. Views: 2 views. COMPARISON: CT chest wo con [id number] 09/12/2021 1:08 PM FINDINGS: Bones/joints: No displaced rib fracture. Soft tissues: Multiple surgical clips are seen in the left breast.. There is a neurostimulator device with electrodes in the lower thoracic region. XR/XR ribs LT 2V* [id number] IMPRESSION: No acute findings.
== END 2022-09-04 16:01 | disposition home or self-care (01) ==
PROVIDERS: PCP Family Medicine; Visit Provider Family Medicine
DX: R07.81 Pleurodynia (principal); M25.531 Pain in right wrist
CPT/HCPCS: 71100; 73110

== ENCOUNTER 2022-09-07 10:44 | Outpatient (CLI) | payer MEDICARE, SELFPAY ==
[2022-09-07 10:57] VITALS: BP 121/80; PULSE 99; RESP 18; TEMP 36.4; O2SAT 97
[2022-09-07] MEDS: sodium chloride 0.9% 250 ML 50 ML IV (12:54)
[2022-09-07] MEDS: acetaminophen 325 mg Tablet 650 MG PO (12:54)
[2022-09-07] MEDS: diphenhydrAMINE 50 mg/mL SDV 1mL 25 MG IVP (12:56)
[2022-09-07] MEDS: [UNRECOGNIZED DRUG - OTHER] IV (13:03)
[2022-09-07] MEDS: TOCILIZUMAB IV (13:03)
[2022-09-07 14:06] VITALS: BP 122/77; PULSE 82; RESP 18; TEMP 36.7; O2SAT 95
--- NOTE | 2022-09-07 15:10 | PC.NURSE ---
Pt to infusion suite for Actemra infusion. Extreme difficulty obtaining IV access. Pt's infusion of Actemra started at 13:03. Pt complained of pain in the forearm and some swelling at approximately 13:36, and upon assessing her IV, it was determined that infiltration was occuring. Infusion stopped, Pharamacist and Physician contacted. Aspiration of medicine attempted, and warm compress applied after discontinuation of IV. Pt will contact Physician's office within the next few days to schedule a desiree cath consult. Pt was retained for approximately 30 minutes for observation. dh
== END 2022-09-07 10:45 | disposition home or self-care (01) ==
PROVIDERS: PCP Family Medicine; Referring Provider Internal Medicine Rheumatology; Visit Provider Family Medicine
DX: M31.6 Other giant cell arteritis (principal)
CPT/HCPCS: 96365; 96375; J1200; J2920; J3262; J7050

== ENCOUNTER 2022-09-27 10:18 | Day surgery (SDC) | payer MEDICARE, SELFPAY ==
[2022-09-27] VITALS (8 sets, daily range): BP systolic 101–126; BP diastolic 71–90; PULSE 87–93; RESP 18; TEMP 36.2–36.4; O2SAT 91–97
--- NOTE | 2022-09-27 10:30 | SC_ITS ---
WS: [id number] C-arm FL for CVA [id number] REASON FOR EXAM: Powerport Placement FINDINGS: Chemotherapy infusion port over the right chest with transvenous right internal jugular vein catheter . Catheter tip is in the distal superior vena cava. SC/C-arm FL for CVA [id number] IMPRESSION: Chemotherapy port and catheter placement as above.
[2022-09-27 11:12] LABS: Glucose Point of Care 187 mg/dL (70-110)
[2022-09-27] MEDS: sodium chloride 0.9% 1,000 ML 30 ML IV (11:17)
--- NOTE | 2022-09-27 11:42 | W.PM.OPSUD ---
Surgery/Procedure H&P Update DATE OF PROCEDURE: September 27, 2022 DATE H&P PERFORMED: 09/14/22 H&P UPDATE INFORMATION: I have reviewed H&P completed within last 30 days, I have examined patient prior to procedure and No changes to prior documentation PREOP DIAGNOSIS: Difficult IV access PRIMARY INDICATION FOR PROCEDURE: The same PLANNED PROCEDURE: Operation Date: 09/27/22 12:00 Proposed Procedures p [id number] Port placement M31.6(Not Applicable) - Julian Madsen MD
--- NOTE | 2022-09-27 12:49 | P.ANESASSM_ITS ---
Pre-Anesthetic Assessment Height/Weight: Height 1.57 m Weight 81.647 kg Temp Pulse Resp BP Pulse Ox O2 Del Method 97.2 F L 90 18 123/71 96 09/27/22 10:48 09/27/22 10:48 09/27/22 10:48 09/27/22 10:48 09/27/22 10:48 09/27/22 10:48 Preop Diagnosis: Difficult IV access Operation Date: 09/27/22 12:00 Proposed Procedures p [id number] Port placement M31.6(Not Applicable) - Julian Madsen MD Familial anesthetic complications: None Was Beta Duncan taken within 24 hours: N/A Was Clonidine taken within 24 hours: N/A Last intake: Intake Last Liquid Date 09/26/22 Last Liquid Time 20:30 Last Solid Date 09/26/22 Last Solid Time 20:30 Social Alcohol and Tobacco Exam alert, oriented x 3, clear to auscultation bilaterally and regular rate & rhythm Airway Mallampati: Class II Dentition: false Pulmonary Chronic Obstructive Pulmonary Disease, Cough, Exertional Dyspnea, Othopnea and Shortness of Breath CV/HEM Coronary Artery Disease, Hypertension and Myocardial Infarction (X3) GI Gastroesophageal Reflux Disease Metabolic Diabetes Mellitus and Thyroid Disease Neuropsych Anxiety Anesthetic Plan ASA status: 4 Anesthesia: MAC Risk of > 500 ml blood loss (7ml/kg in children): No Medications/Allergies Home Medications Medication Instructions Recorded Confirmed Last Taken Type docusate sodium 100 mg capsule 100 mg PO DAILY 12/29/19 09/27/22 09/25/22 History (Colace) dronabinol 5 mg capsule (Marinol) 5 mg PO BID 12/29/19 09/27/22 09/26/22 History meclizine 12.5 mg tablet 12.5 mg PO BID PRN dizziness 12/29/19 09/27/22 09/26/22 History nitroglycerin 400 mcg/spray 1 spray sublingual Q5M PRN Chest 12/29/19 09/26/22 Unknown History translingual Pain blood sugar diagnostic (Accu-Chek #100 ea 03/19/20 09/14/22 02/21/22 Rx Pretty Plus test strips) blood-glucose meter (Accu-Chek #1 ea 03/19/20 09/14/22 02/21/22 Rx Pretty Plus Meter) cholestyramine-aspartame 4 gram 4 gm PO BID 03/19/20 09/27/22 09/26/22 History oral powder (Cholestyramine Light) clobetasol 0.05 % topical cream 1 applic topical BID 03/19/20 09/27/22 09/26/22 History (Temovate) cyclobenzaprine 10 mg tablet 10 mg PO TID PRN Spasms 03/19/20 09/27/22 09/25/22 History montelukast 10 mg tablet 10 mg PO DAILY 03/19/20 09/26/22 02/21/22 History (Singulair) pen needle, diabetic 32 gauge x #100 ea 08/19/20 09/14/22 Unknown Rx (1st Tier Unifine Pentips) nystatin 100,000 unit/gram topical 1 applic topical TID #60 grams 08/24/20 09/26/22 02/21/22 Rx powder duloxetine 30 mg capsule,delayed 30 mg PO BID 01/24/21 09/27/22 09/26/22 History release (Cymbalta) fluticasone propionate 50 1 spray intranasal BID #16 grams 05/09/21 09/26/22 09/23/22 Rx mcg/actuation nasal spray,suspension (Allergy Relief (fluticasone)) guaifenesin 1,200 mg tablet, 1,200 mg PO BID #20 tabs 09/19/21 09/27/22 02/21/22 Rx extended release 12 hr (Mucinex) flash glucose scanning reader #1 ea 02/06/22 09/14/22 02/21/22 Rx (FreeStyle Dawson 14 Day [place]) flash glucose sensor (FreeStyle #2 ea 02/06/22 09/14/22 Unknown Rx Dawson 14 Day Sensor kit) glimepiride 4 mg tablet 4 mg PO DAILY #90 tabs 03/17/22 09/26/22 09/26/22 Rx folic acid 1 mg tablet 1 mg PO DAILY #90 tabs 04/11/22 09/26/22 09/26/22 Rx cetirizine 10 mg tablet 10 mg PO DAILY #30 tabs 04/14/22 09/27/22 09/26/22 Rx ibuprofen 600 mg tablet 600 mg PO BID PRN pain #30 tabs 0609/27/22 09/25/22 Rx tocilizumab 162 mg/0.9 mL 162 mg (0.9 mL) SUBCUT Q7D #4 mL 06/02/22 09/26/22 Unknown Rx subcutaneous pen injector (Actemra ACTPen) doxycycline hyclate 100 mg capsule 100 mg PO BID 10 days #20 caps 07/24/22 09/27/22 09/25/22 Rx ondansetron 8 mg disintegrating 8 mg PO DAILY PRN nausea and 07/24/22 09/27/22 09/26/22 Rx tablet vomiting 5 days #14 tabs albuterol sulfate 90 mcg/actuation 2 puff inhalation Q6H PRN 08/07/22 09/27/22 09/26/22 Rx aerosol inhaler (ProAir HFA) shortness of breath or wheezing #8.5 grams atorvastatin 40 mg tablet See Rx Instructions .Route 08/07/22 09/27/22 09/26/22 Rx .COMPLEX #90 tabs budesonide-formoterol HFA 160 2 puff inhalation Q12H #10.2 grams 08/07/22 09/27/22 09/26/22 Rx mcg-4.5 mcg/actuation aerosol inhaler (Symbicort) diabetic shoes #1 ea 08/09/22 09/14/22 Unknown Rx famotidine 20 mg tablet 20 mg PO BID #60 tabs 08/31/22 09/26/22 09/25/22 Rx clopidogrel 75 mg tablet 75 mg PO DAILY #90 tabs 09/05/22 09/27/22 09/25/22 Rx oxycodone 30 mg tablet 30 mg PO Q4H PRN Pain 30 days #150 09/06/22 09/26/22 09/25/22 Rx tabs empagliflozin 25 mg tablet 25 mg PO DAILY 09/26/22 09/26/22 09/26/22 History (Jardiance) insulin glargine 100 unit/mL (3 15 unit SUBCUT DAILY 09/26/22 09/26/22 09/25/22 History mL) subcutaneous pen (Lantus Solostar U-100 Insulin) pregabalin 75 mg capsule (Lyrica) 75 mg PO DAILY 09/26/22 09/27/22 09/26/22 History Allergies Allergy/AdvReac Type Severity Reaction Status Date / Time adhesive tape Allergy Intermediate ALGY-Hives Verified 09/14/22 16:28 morphine Allergy Intermediate unknown Verified 09/14/22 16:28 aspirin Allergy Mild ALGY-Hives Verified 09/14/22 16:28 ciprofloxacin [From Cipro] Allergy Unknown Verified 09/14/22 16:28 dapagliflozin [From Farxiga] Allergy unk Verified 09/14/22 16:28 iodine Allergy unknown Verified 09/14/22 16:28 metformin Allergy Unknown Verified 09/14/22 16:28 prochlorperazine Allergy unknown Verified 09/14/22 16:28 [From Compazine] codeine AdvReac Mild UNKNOWN Verified 09/14/22 16:28 Opioids - Morphine Analogues AdvReac Mild UNKNOWN Verified 09/14/22 16:28 Penicillins AdvReac Mild UNKNOWN Verified 09/14/22 16:28 Phenothiazines AdvReac Mild UNKNOWN Verified 09/14/22 16:28 salicylates AdvReac Mild UNKNOWN Verified 09/14/22 16:28 Sulfa (Sulfonamide AdvReac Mild UNKNOWN Verified 09/14/22 16:28 Antibiotics) Current Medications Generic Name Dose Route Start Last Admin Trade Name Freq PRN Reason Stop Dose Admin Sodium Chloride 1,000 mls @ 30 mls/hr 09/27/22 10:30 09/27/22 11:17 Sodium Chloride 0.9% IV 09/28/22 10:29 30 mls/hr .Q24H EVY Administration PFSH Anesthesia Medical History ASHD (arteriosclerotic heart disease) Breast cancer COPD (chronic obstructive pulmonary disease) Diabetic gastroparesis Dyslipidemia GERD (gastroesophageal reflux disease) Giant cell arteritis Glaucoma History of nonmelanoma skin cancer 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 HTN (hypertension) Immunization counseling Inflammatory arthritis Myocardial infarction Oropharyngeal candidiasis Type 2 diabetes mellitus, with long-term current use of insulin Surgical History H/O esophagogastroduodenoscopy (08/12/21) bile reflux H/O neck surgery Cervical laminectomy and placement of a spinal cord stimulator History of lumpectomy of left breast (2005) Left breast lumpectomy with axillary sentinel lymph node biopsy History of lymph node biopsy (08/19/15) Excisional biopsy of left inguinal lymph node Previous back surgery Lumbar laminectomy S/P cholecystectomy S/P hysterectomy S/P PTCA (percutaneous transluminal coronary angioplasty) Status post colonoscopy (08/12/21) polyps Status post colonoscopy with polypectomy (02/22/22) Family History Other CAD (coronary artery disease) Cancer Chronic kidney disease (CKD) Diabetes Family history of premature coronary artery disease Hyperlipidemia Hypertension Lung disease Lupus Rheumatoid arthritis Stroke Social History Smoking and tobacco status: never smoked Alcohol intake: never History of recent travel: No (01/31/2021) Data Anesthesia Cardiac Studies: Sestamibi Stress Test (Cardiology) 11/01
[2022-09-27] MEDS: clindamycin 600 MG/50 ML PREMIX 100 MG IV (12:52)
[2022-09-27] MEDS: lidocaine 1% INJ 20 mL XX (13:33)
[2022-09-27] MEDS: heparin, porcine 1,000 unit/mL INJ 10 mL 9000 UNIT INJECTION (13:34)
--- NOTE | 2022-09-27 13:37 | P.OP_ITS ---
Operative Report Date of procedure: September 27, 2022 Pre-op diagnosis: Preop Diagnosis Difficult IV access Post-op diagnosis: The same Procedure done: 1. Placement of PowerPort catheter right internal jugular vein 2. Fluoroscopic guidance and interpretation for placement of catheter 3. 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 Saunders) Estimated blood loss (mL): 5 Procedure: Patient was identified in the holding area and taken to the operative room and placed in supine position IV propofol was given by the anesthesia provider ,both arms were tucked,Time-out was done verifying the patient's name/date of /planned procedure and destination after the procedure, all were in agreement. SCDs confirmed to be functioning, preoperative antibiotics administered per protocol, and beta carina protocol was confirmed, appropriate positioning of the patient was done by me. Medications were reviewed to assess for anticoagulant usage. Risks and benefits and prevention of central line associated blood stream infection (CLABSI) were discussed with the patient/CPOA, and a consent was obtained. Monitors were in place and monitored throughout the procedure. All necessary supplies were available prior to start. Hand hygiene was completed prior to starting. Maximum barrier technique was utilized including a sterile gown, sterile gloves with a hat and mask. Site was was prepped with [chlorhexidine] and a full body drape was placed. 5 mL of 2% lidocaine was injected into the skin with a 25 gauge needle. Prep& drape was done under the usual sterile technique, lidocaine 2% was injected at the site of the stick, started by right Internal Juglar vein stick that retrieved venous blood was obtained from the first stick under ultrasound guidance and there was no evidence of intraluminal thrombosis, interpretation was done by me through the whole entire procedure, a guidewire was then threaded and under the guidance of fluoroscopy position was confirmed to be in the IVC and my interpretation, there was no PVC changes, at that point the guidewire was secured to the drapes with a hemostat and the needle was taken out. Attention was then deviated towards creation of a pocket for the port were lidocaine 2% was injected using an 15 blade knife skin incision was created at the right upper Chest ,dissection using the Bovie to create a pocket for the PowerPort to be accommodated, hemostasis was secured, after the port being appropriately flushed it was inserted into the pocket and a tunneler was used to accommodate the catheter of the PowerPort to be delivered through the incision first created at the site of the stick,and then I was able to retrieve the catheter at the index site of the stick. At that point under fluoroscopy an estimated length was measured for the catheter and was cut at the designed level, followed by that a dilator with the sheath introduced onto the guidewire the dilator and the wire were retrieved and the catheter of the port was introduced via the sheath where it was peeled off and the catheter maintained to be in the SVC that was confirmed with fluoroscopy, and the fluoroscopy interpretation was done by me throughout the entire procedure. Multiple flushes of the port was done by diluted heparin and I was able to retrieve without difficulty venous blood as well as appropriate flushing was achieved. The port was kept in its pocket. 3-0 Vicryl deep subdermal interrupted sutures, skin was then closed by 4-0 Monocryl as subcuticular closure.The port was appropriately flushed with heparin and venous blood was withdrawn without difficulty The stick site was closed by 4-0 Monocryl and Dermabond was used followed by dressing. Patient tolerated the procedure well was taken to the recovery area Count was correct at the end of the procedure I was present for the whole entire procedure
--- NOTE | 2022-09-27 13:41 | XRR_ITS ---
PROCEDURE INFORMATION: Exam: XR Chest Exam date and time: 09/27/2022 1:56 PM Age: 57 years old Clinical indication: Device placement; Other: Internal jugular vein powerport placement; Prior surgery; Surgery date: Post-operative (0-2 days); Additional info: That is post right internal jugular vein powerport placement TECHNIQUE: Imaging protocol: Radiologic exam of the chest. Views: 1 view. Other technique: Frontal portable upright view of the chest. COMPARISON: CT chest con [id number] 09/12/2021 1:08 PM FINDINGS: Tubes, catheters and devices: The right internal jugular venous portacatheter tip is in the brachiocephalic vein. EKG leads are present overlying the chest. Lower thoracic intraspinal neural stimulator leads. Lungs: The lungs are clear bilaterally. The pulmonary vasculature is normal. Pleural spaces: No pleural effusion. No pneumothorax. Heart/Mediastinum: The heart is normal in size and contour. Mediastinum: Stable. Bones/joints: Lower cervical spinal anterior fixation hardware. Stable. Soft tissues: Left chest wall surgical clips. XR/XR chest 1V portable [id number] IMPRESSION: 1. No acute cardiopulmonary abnormality identified. 2. Central venous catheter placement as above. No evidence of complication.
[2022-09-27] MEDS: oxyCODONE IR 30 mg Tablet PO (14:58)
--- NOTE | 2022-09-27 15:01 | ANE.PACU2 ---
Inpatient post-anesthesia follow up: Airway intact: Yes Vital signs: Temperature 97.4 F Pulse Rate 90 Respiratory Rate 18 Blood Pressure 111/76 Pulse Oximetry 92 Oxygen Delivery Me thod Room Air Oxygen Flow Rate Fraction of Inspir ed Oxygen Hydration adequate: Yes Nausea and vomiting: No Pain level: 1 Mental status: Baseline
== END 2022-09-27 15:00 | disposition home or self-care (01) ==
PROVIDERS: PCP Family Medicine; Visit Provider Surgery
PROC: (CPT 36561; principal; 2022-09-27 12:00)
DX: Z45.2 Encounter for adjustment and management of vascular access device (principal); J44.9 Chronic obstructive pulmonary disease, unspecified; I25.10 Atherosclerotic heart disease of native coronary artery without angina pectoris; I10 Essential (primary) hypertension; I25.2 Old myocardial infarction; K21.9 Gastro-esophageal reflux disease without esophagitis; E11.9 Type 2 diabetes mellitus without complications; F41.9 Anxiety disorder, unspecified; Z79.4 Long term (current) use of insulin; E78.5 Hyperlipidemia, unspecified
CPT/HCPCS: 36561; 36416; 71045; 76000; 77001; 82962; C1713; C1788; J1644; J2704; J3010; J3490; J7030

== ENCOUNTER → 2022-10-05 14:09 | Outpatient (BNVA) | payer MEDICARE, SELFPAY | PROVIDERS: PCP Family Medicine; Visit Provider Surgery | DX: Z09 Encounter for follow-up examination after completed treatment for conditions other than malignant neoplasm (principal) | CPT/HCPCS: 99024 ==

== ENCOUNTER → 2022-10-09 09:38 | Outpatient (BNVA) | payer MEDICARE, SELFPAY | PROVIDERS: PCP Family Medicine; Visit Provider Podiatrist Foot & Ankle Surgery | DX: E11.8 Type 2 diabetes mellitus with unspecified complications (principal); B35.1 Tinea unguium; G62.9 Polyneuropathy, unspecified; I73.9 Peripheral vascular disease, unspecified; L84 Corns and callosities; M20.41 Other hammer toe(s) (acquired), right foot; M20.42 Other hammer toe(s) (acquired), left foot; Z79.4 Long term (current) use of insulin | CPT/HCPCS: 11056; 11721 ==

== ENCOUNTER 2022-10-16 10:42 | Outpatient (CLI) | payer MEDICARE, SELFPAY ==
[2022-10-16 11:07] VITALS: BP 105/76; PULSE 95; RESP 18; TEMP 36.4; O2SAT 95
[2022-10-16 11:17] LABS: Basophils # 0.1 10^3/uL (0.0-0.1); Basophils % 0.5 %; Eosinophils # 0.2 10^3/uL (0.0-0.8); Eosinophils % 1.5 %; Hematocrit 43.1 % (37.0-47.0); Hemoglobin 14.3 g/dL (11.5-15.3); Lymphocytes # 4.8 10^3/uL (0.8-4.8); Lymphocytes % 32.7 %; Mean Corpuscular HGB Conc 33.2 g/dL (30.0-36.0); Mean Corpuscular Hemoglobin 30.8 pg (28.0-34.0); Mean Corpuscular Volume 92.9 fl (81-99); Mean Platelet Volume 9.5 fL (7.4-10.4); Monocytes # 1.2 10^3/uL (0.2-0.9); Monocytes % 7.8 %; Nucleated Red Blood Cells % 0 %; Platelet Count 348 10^3/cmm (130-400); Red Blood Count 4.64 10^6/uL (4.1-5.3); Red Cell Distribution Width 13.3 % (12.1-15.1); White Blood Count 14.7 10^3/uL (4.0-10.0)
[2022-10-16 11:18] LABS: Erythrocyte Sedimentation Rate 23 mm/hr (0-15)
[2022-10-16] MEDS: sodium chloride 0.9% 250 ML 50 ML IV (11:43)
[2022-10-16] MEDS: acetaminophen 325 mg Tablet 650 MG PO (11:43)
[2022-10-16] MEDS: diphenhydrAMINE 50 mg/mL SDV 1mL 25 MG IVP (11:44)
[2022-10-16 13:03] VITALS: BP 125/78; PULSE 75; RESP 18; TEMP 36.4; O2SAT 94
[2022-10-16 14:28] LABS: Alanine Aminotransferase 32 U/L (0-33); Albumin Level 3.7 g/dL (3.5-5.2); Alkaline Phosphatase 85 U/L (35-105); Aspartate Amino Transferase 31 U/L (0-32); Globulin 3.1 g/dL (1.3-4.6); Glomerular Filtration Rate 102.3 mL/min (90-130); Total Bilirubin 0.4 mg/dL (0.15-1.2); Total Protein 6.8 g/dL (6.6-8.7)
== END 2022-10-16 10:43 | disposition home or self-care (01) ==
LOC: ONCMED 10:43
PROVIDERS: PCP Family Medicine; Visit Provider Internal Medicine Rheumatology
DX: M31.6 Other giant cell arteritis (principal)
CPT/HCPCS: 80076; 82565; 85025; 85651; 96365; 96375; J1200; J2920; J3262; J7050

== ENCOUNTER 2022-11-06 14:39 | Outpatient (CLI) | payer MEDICARE, SELFPAY ==
--- NOTE | 2022-11-06 15:00 | US_ITS ---
WS: [id number] US soft tissue/extremity 11423 REASON FOR EXAM: soft tissue mass FINDINGS: 3.1 x 0.9 cm ill-defined echogenic mass within the central portion of the muscle. Low attenuations along the margins of the echogenicity. No identifiable blood flow. US/US soft tissue/extremity [id number] IMPRESSION: Findings most compatible with resolving musculotendinous hemorrhage. Follow-up clinical evaluation or follow-up ultrasound to confirm resolving/resolution.
== END 2022-11-06 14:40 | disposition home or self-care (01) ==
PROVIDERS: PCP Family Medicine; Visit Provider Physician Assistant
DX: M79.89 Other specified soft tissue disorders (principal); M25.511 Pain in right shoulder
CPT/HCPCS: 76882

== ENCOUNTER 2022-11-13 10:47 | Outpatient (CLI) | payer MEDICARE, SELFPAY ==
[2022-11-13 10:55] VITALS: BP 118/75; PULSE 86; RESP 18; TEMP 36.3; O2SAT 97
[2022-11-13] MEDS: sodium chloride 0.9% 250 ML 50 ML IV (11:29)
[2022-11-13] MEDS: acetaminophen 325 mg Tablet 650 MG PO (11:30)
[2022-11-13] MEDS: diphenhydrAMINE 50 mg/mL SDV 1mL 25 MG IVP (11:31)
[2022-11-13 12:47] VITALS: BP 137/83; PULSE 84; RESP 18; TEMP 36.8; O2SAT 93
== END 2022-11-13 10:48 | disposition home or self-care (01) ==
LOC: ONCMED 10:47
PROVIDERS: PCP Family Medicine; Visit Provider Internal Medicine Rheumatology
DX: M31.6 Other giant cell arteritis (principal)
CPT/HCPCS: 96365; 96375; J1200; J2920; J3262; J7050

== ENCOUNTER → 2022-11-20 13:08 | Outpatient (BNVA) | payer MEDICARE, SELFPAY | PROVIDERS: PCP Family Medicine; Visit Provider Internal Medicine Rheumatology | DX: M31.6 Other giant cell arteritis (principal); Z79.899 Other long term (current) drug therapy; Z45.2 Encounter for adjustment and management of vascular access device; R51.9 Headache, unspecified; Z71.85 Encounter for immunization safety counseling; Z71.89 Other specified counseling | CPT/HCPCS: 99214 ==

== ENCOUNTER → 2022-11-21 12:19 | Outpatient (BNVA) | payer MEDICARE, SELFPAY | PROVIDERS: PCP Family Medicine; Visit Provider Internal Medicine Rheumatology | DX: M31.6 Other giant cell arteritis (principal); Z79.899 Other long term (current) drug therapy | CPT/HCPCS: 80076; 82565; 85025; 85651; 86140 ==

== ENCOUNTER 2022-12-02 18:02 | Emergency (ER) | payer MEDICARE, SELFPAY ==
[2022-12-02 18:08] VITALS: BP 137/83; PULSE 91; RESP 17; TEMP 36.6; O2SAT 95; BMI 32.5
--- NOTE | 2022-12-02 18:25 | ED_ITS ---
HPI - Extremity Problem General: Chief complaint: Extremity Problem,Nontraumatic Stated complaint: right foot toe is black Time Seen by Provider: 12/02/22 18:16 Source: patient and family History of Present Illness: 87-year-old female with history of smoking and diabetes. She presents with discoloration to the dorsum of her right foot. She says it started over her fifth toe and then has moved medially. It is tender to touch. The foot is not cold. She has some sensation. She was concerned because of her history that it might be a blood clot . She has no history of trauma although she notes that she may have injured it while she was sleeping. MD Complaint: extremity pain and other Onset (ago): hour(s) Pain Consistency: constant Location: right and other (Forefoot) Quality: aching Radiation: none Exacerbating factors: weight bearing Associated symptoms: Reports rash; Deny arthralgias, chest pain, fever(s) or short of breath Review of Systems Const: Denies: fever(s) Card: Denies: chest pain Resp: Reports: dyspnea (Chronic) GI: Denies: vomiting Skin/Breast: Reports: rash PFSH ED PFSH: Medical History ASHD (arteriosclerotic heart disease) Breast cancer COPD (chronic obstructive pulmonary disease) Diabetic gastroparesis Dyslipidemia GERD (gastroesophageal reflux disease) Giant cell arteritis Glaucoma History of nonmelanoma skin cancer 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 HTN (hypertension) Immunization counseling Inflammatory arthritis Myocardial infarction Oropharyngeal candidiasis Type 2 diabetes mellitus, with long-term current use of insulin Surgical History H/O esophagogastroduodenoscopy (08/12/21) bile reflux H/O neck surgery Cervical laminectomy and placement of a spinal cord stimulator History of lumpectomy of left breast (2005) Left breast lumpectomy with axillary sentinel lymph node biopsy History of lymph node biopsy (08/19/15) Excisional biopsy of left inguinal lymph node Previous back surgery Lumbar laminectomy S/P cholecystectomy S/P hysterectomy S/P PTCA (percutaneous transluminal coronary angioplasty) Status post colonoscopy (08/12/21) polyps Status post colonoscopy with polypectomy (02/22/22) Family History Other CAD (coronary artery disease) Cancer Chronic kidney disease (CKD) Diabetes Family history of premature coronary artery disease Hyperlipidemia Hypertension Lung disease Lupus Rheumatoid arthritis Stroke Social History Smoking and tobacco status: never smoked Alcohol intake: never History of recent travel: No (01/31/2021) Physical Exam Const: COMMON NORMALS: no acute distress HENMT: COMMON NORMALS: normocephalic, atraumatic and Normal external nose present HEAD & SCALP: normocephalic and atraumatic NOSE: Normal external nose present Eye: COMMON NORMALS: Equal, round and reactive pupils present and EOMs intact bilaterally PUPIL: Yes Equal, round and reactive pupils present Neck/C-Spine: GENERAL: Yes trachea midline Chest: CHEST: Yes Symmetrical chest wall rise Resp: COMMON NORMALS: normal respiratory effort and No use of accessory muscles AUSCULTATION: wheezes Cardio: COMMON NORMALS: regular rate and regular rhythm RATE: regular rate RHYTHM: regular rhythm Extremity: NARRATIVE EXTREMITY EXAM: Examination of the right foot reveals ecchymosis over the dorsum of the right third fourth and fifth MTPs. No deformity. No significant redness. No warmth, nor coolness. Pulses are 3+ to the dorsalis pedis 1+ the posterior tibialis. There is no skin loss or ulceration. Sensation is intact Neuro: KAY COMA SCALE: document GCS findings Kay coma scale eye opening: Spontaneous Kay coma scale verbal response: Orientated Kay coma scale motor response: Obey commands Kay coma scale total score: 15 Course Vital Signs: Vital signs: Vital Signs Temperature 97.8 F 12/02/22 18:08 Pulse Rate 91 12/02/22 18:08 Respiratory Rate 17 12/02/22 18:08 Blood Pressure 137/83 12/02/22 18:08 Pulse Oximetry 95 12/02/22 18:08 Oxygen Delivery Me thod 12/02/22 18:08 MDM - Extremity (Nontraumatic) Medical Decision Making 57-year-old female with a nondisplaced fracture of the proximal phalanx of the right fifth toe is seen on the oblique view on her x-ray. She has great pulses to the foot. White count is 17, but the patient has a history of high white counts given prednisone therapy. Her glucose is 218. ESR is only 1. She will be discharged with a postop shoe and asked to follow-up. Lab Data 12/02/22 18:49 12/02/22 18:49 Radiology Impressions Foot X-Ray 12/02/22 18:26 IMPRESSION: Nondisplaced fracture of the proximal phalanx of the right 5th toe, as seen on the oblique view best. Laboratory Results WBC 16.9 10^3/uL (4.0-10.0) H 12/02/22 18:49 RBC 5.07 10^6/uL (4.1-5.3) 12/02/22 18:49 Hgb 15.3 g/dL (11.5-15.3) 12/02/22 18:49 Hct 47.1 % (37.0-47.0) H 12/02/22 18:49 MCV 92.9 fl (81-99) 12/02/22 18:49 MCH 30.2 pg (28.0-34.0) 12/02/22 18:49 MCHC 32.5 g/dL (30.0-36.0) 12/02/22 18:49 RDW 12.6 % (12.1-15.1) 12/02/22 18:49 Plt Count 251 10^3/cmm (130-400) 12/02/22 18:49 MPV 9.6 fL (7.4-10.4) 12/02/22 18:49 Neut % (Auto) 78.8 % 12/02/22 18:49 Lymph % (Auto) 16.8 % 12/02/22 18:49 Stone % (Auto) 3.2 % 12/02/22 18:49 Eos % (Auto) 0.1 % 12/02/22 18:49 Baso % (Auto) 0.4 % 12/02/22 18:49 Neut # (Auto) 13.33 10^3/uL (1.8-7.7) H 12/02/22 18:49 Lymph # (Auto) 2.8 10^3/uL (0.8-4.8) 12/02/22 18:49 Stone # (Auto) 0.5 10^3/uL (0.2-0.9) 12/02/22 18:49 Eos # (Auto) 0.0 10^3/uL (0.0-0.8) 12/02/22 18:49 Baso # (Auto) 0.1 10^3/uL (0.0-0.1) 12/02/22 18:49 Nucleated RBC % (auto) 0 % 12/02/22 18:49 Nucleated RBCs # 0.0 /100WBC 12/02/22 18:49 ESR 1 mm/hr (0-15) 12/02/22 18:49 Sodium 140 mmol/L (136-145) 12/02/22 18:49 Potassium 3.8 mmol/L (3.5-5.1) 12/02/22 18:49 Chloride 99 mmol/L (98-107) 12/02/22 18:49 Carbon Dioxide 27 mmol/L (22-29) 12/02/22 18:49 Anion Gap 17.8 (5-19) 12/02/22 18:49 BUN 12 mg/dL (6-20) 12/02/22 18:49 Creatinine 0.7 mg/dL (0.5-0.9) 12/02/22 18:49 GFR Calculation 85.6 mL/min (90-130) L 12/02/22 18:49 Glucose 218 mg/dL (65-115) H 12/02/22 18:49 Calculated Osmolality 296 mOsm/kg (285-295) H 12/02/22 18:49 Calcium 9.6 mg/dL (8.5-10.5) 12/02/22 18:49 Total Bilirubin 0.8 mg/dL (0.15-1.2) 12/02/22 18:49 AST 26 U/L (0-32) 12/02/22 18:49 ALT 36 U/L (0-33) H 12/02/22 18:49 Alkaline Phosphatase 62 U/L (35-105) 12/02/22 18:49 C-Reactive Protein 3.0 mg/L (0.0-4.9) 12/02/22 18:49 Total Protein 6.5 g/dL (6.6-8.7) L 12/02/22 18:49 Albumin 4.4 g/dL (3.5-5.2) 12/02/22 18:49 Globulin 2.1 g/dL (1.3-4.6) 12/02/22 18:49 Discharge Plan Discharge Patient Disposition: Home Clinical Impression: Fracture of phalanx of right foot, closed Condition: Stable Prescriptions: No Action docusate sodium [Colace] 100 mg capsule 100 mg PO DAILY meclizine 12.5 mg tablet 12.5 mg PO BID PRN (Reason: dizziness) nitroglycerin 400 mcg/spray spray,non-aerosol 1 spray SUBLINGUAL Q5M PRN (Reason: Chest Pain) dronabinol [Marinol] 5 mg capsule 5 mg PO BID Cholestyramine Light 4 gram powder 4 gm PO BID Rx Instructions: administer w/meal; avoid other meds within 1hr before or 4-6hr after dose clobetasol [Temovate] 0.05 % cream 1 applic TOPICAL BID cyclobenzaprine 10 mg tablet 10 mg PO TID PRN (Reason: Spasms) montelukast [Singulair] 10 mg tablet 10 mg PO DAILY (DME) blood-glucose meter [Accu-Chek Pretty Plus Meter] Misc See Rx Instructions .ROUTE .MEDSUPPLY Qty: 1 0RF Rx Instructions: once daily (DME) blood sugar diagnostic [Accu-Chek Pretty Plus test strp] Strip See Rx Instructions .ROUTE .MEDSUPPLY Qty: 100 0RF Rx Instructions: test once daily nystatin 100,000 unit/gram powder 1 applic TOPICAL TID Qty: 60 0RF albuterol sulfate [ProAir HFA] 90 mcg/actuation HFA aerosol inhaler 2 puff INHALATION Q6H PRN (Reason: shortness of breath or wheezing) Qty: 8.5 5RF budesonide-formoterol [Symbicort] 160-4.5 mcg/actuation HFA aerosol inhaler 2 puff INHALATION Q12H Qty: 10.2 5RF Mucinex 1,200 mg tablet extended release 12hr 1,200 mg PO BID Qty: 20 0RF (DME) FreeStyle Dawson 14 Day Sensor Kit See Rx Instructions .Route Qty: 2 11RF Rx Instructions: As directed (DME) FreeStyle Dawson 14 Day [place] Misc See Rx Instructions .Route Qty: 1 0RF Rx Instructions: As directed folic acid 1 mg tablet 1 mg PO DAILY Qty: 90 3RF ibuprofen 600 mg tablet 600 mg PO BID PRN (Reason: pain) Qty: 30 0RF Hold Instructions: Resume on 09/30/22. Rx Instructions: Take with food cetirizine 10 mg tablet 10 mg PO DAILY Qty: 30 0RF doxycycline hyclate 100 mg capsule 100 mg PO BID 10 Days Qty: 20 0RF ondansetron 8 mg tablet,disintegrating 8 mg PO DAILY PRN (Reason: nausea and vomiting) 5 Days Qty: 14 0RF (DME) diabetic shoes See Rx Instructions .Route .MEDSUPPLY Qty: 1 0RF Rx Instructions: As directed pregabalin [Lyrica] 75 mg capsule 75 mg PO DAILY Qty: 60 3RF prednisone 10 mg tablet 10 mg PO DAILY Qty: 90 1RF (DME) pen needle, diabetic [1st Tier Unifine Pentips] 32 gauge x 5/32 needle See Rx Instructions .ROUTE .MEDSUPPLY Qty: 100 2RF Rx Instructions: one daily fluticasone propionate [Allergy Relief (fluticasone)] 50 mcg/actuation spray,suspension 1 spray INTRANASAL BID Qty: 16 2RF glimepiride 4 mg tablet 4 mg PO DAILY Qty: 90 3RF atorvastatin 40 mg tablet See Rx Instructions .ROUTE .COMPLEX Qty: 90 1RF Dose Instruction: TAKE ONE TABLET BY MOUTH EVERY DAY Rx Instructions: TAKE ONE TABLET BY MOUTH EVERY DAY clopidogrel 75 mg tablet 75 mg PO DAILY Qty: 90 1RF Hold Instructions: Resume on 09/29/22. famotidine 20 mg tablet See Rx Instructions .ROUTE .COMPLEX Qty: 60 2RF Dose Instruction: TAKE ONE TABLET BY MOUTH TWICE DAILY Rx Instructions: TAKE ONE TABLET BY MOUTH TWICE DAILY oxycodone 30 mg tablet 30 mg PO Q4H PRN (Reason: Pain) 30 Days Qty: 150 0RF duloxetine [Cymbalta] 30 mg capsule,delayed release(DR/EC) 30 mg PO BID Lantus Solostar U-100 Insulin 100 unit/mL (3 mL) insulin pen 15 unit SUBCUT DAILY Rx Instructions: inject 15 units SUBCUTANEOUSLY DAILY Jardiance 25 mg tablet 25 mg PO DAILY Discharge Orders: Discharge ED (Routine); Ordered 12/02/22 Ordered By: Aubrey Delaney Referrals: Violet Falcon DO [Primary Care Provider] - 4-7 days Patient Instructions: Toe Fracture (ED), Opioid Safety, Pain Management Activity Restrictions/Additional Instructions: Limit weightbearing with crutches until cleared by your doctor. Call your doctor next week for a follow-up appointment. X-ray will need to be followed for healing. Return for problems. 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
--- NOTE | 2022-12-02 18:26 | USR_ITS ---
PROCEDURE INFORMATION: Exam: US Duplex Right Lower Extremity Arteries Or Arterial Bypass Grafts Exam date and time: 12/02/2022 7:12 PM Age: 57 years old Clinical indication: Pain; Other: Discoloration; Foot; Right; Additional info: Right foot discoloration and pain TECHNIQUE: Imaging protocol: Right Real-time duplex scan of the arteries or arterial bypass grafts of the right lower extremity with 2-D kowalski scale, color Doppler flow and spectral waveform analysis. Images documented and saved. COMPARISON: US soft tissue/extremity [id number] 11/06/2022 3:06 PM FINDINGS: Right distal iliac and common femoral artery: No occlusion or significant stenosis. Normal waveform. No pseudoaneurysm in the inguinal region. Right superficial femoral artery: No occlusion or significant stenosis. Normal waveform. Right popliteal artery: No occlusion or significant stenosis. Normal waveform. Right calf/foot arteries: Biphasic arterial waveforms noted predominantly, with monophasic arterial waveform of the dorsalis pedis artery. Mild systolic velocity elevation noted distal posterior tibial and dorsalis pedis arteries which could indicate mild stenosis. Dorsalis pedis artery is patent. Soft tissues: No hematoma or collection. Scattered plaque identified. US/[place] [id number] IMPRESSION: 1. Biphasic arterial waveforms [id number] predominantly, along with monophasic arterial waveform within the dorsalis pedis artery, indicating component of small-vessel runoff disease of the right leg. Associated mild systolic velocity elevation within the distal posterior tibial and dorsalis pedis arteries suggesting mild stenosis. No occlusion. 2. No significant runoff disease at or above the knee, without significant stenosis or occlusion and without abnormal waveforms.
--- NOTE | 2022-12-02 18:26 | XRR_ITS ---
PROCEDURE INFORMATION: Exam: XR Right Foot Exam date and time: 12/02/2022 6:36 PM Age: 57 years old Clinical indication: Pain; Foot; Right; Additional info: Right foot pain and bruising over mtps TECHNIQUE: Imaging protocol: Radiologic exam of the Right foot. Views: 3 or more views. COMPARISON: No relevant prior studies available. FINDINGS: Bones/joints: A nondisplaced acute appearing fracture is seen involving the proximal to mid aspect of the proximal phalanx of the right 5th toe. This is best seen on the oblique view. No other fracture is seen. No bony erosion or destruction. Minimal posterior calcaneal spur enthesophyte noted on the lateral view. Soft tissues: AP and oblique views demonstrate small chronic appearing calcification adjacent to the distal aspect of the proximal phalanx of the 3rd through the 5th toes. XR/XR foot RT min 3V* [id number] IMPRESSION: Nondisplaced fracture of the proximal phalanx of the right 5th toe, as seen on the oblique view best.
[2022-12-02 19:01] LABS: Basophils # 0.1 10^3/uL (0.0-0.1); Basophils % 0.4 %; Eosinophils % 0.1 %; Hematocrit 47.1 % (37.0-47.0); Hemoglobin 15.3 g/dL (11.5-15.3); Lymphocytes # 2.8 10^3/uL (0.8-4.8); Lymphocytes % 16.8 %; Mean Corpuscular HGB Conc 32.5 g/dL (30.0-36.0); Mean Corpuscular Hemoglobin 30.2 pg (28.0-34.0); Mean Corpuscular Volume 92.9 fl (81-99); Mean Platelet Volume 9.6 fL (7.4-10.4); Monocytes # 0.5 10^3/uL (0.2-0.9); Monocytes % 3.2 %; Neutrophils # 13.33 10^3/uL (1.8-7.7); Neutrophils % 78.8 %; Nucleated Red Blood Cells % 0 %; Platelet Count 251 10^3/cmm (130-400); Red Blood Count 5.07 10^6/uL (4.1-5.3); Red Cell Distribution Width 12.6 % (12.1-15.1); White Blood Count 16.9 10^3/uL (4.0-10.0)
[2022-12-02 19:14] LABS: Erythrocyte Sedimentation Rate 1 mm/hr (0-15)
[2022-12-02 19:24] LABS: Alanine Aminotransferase 36 U/L (0-33); Albumin Level 4.4 g/dL (3.5-5.2); Alkaline Phosphatase 62 U/L (35-105); Anion Gap 17.8 (5-19); Aspartate Amino Transferase 26 U/L (0-32); Blood Urea Nitrogen 12 mg/dL (6-20); Calcium 9.6 mg/dL (8.5-10.5); Carbon Dioxide 27 mmol/L (22-29); Chloride 99 mmol/L (98-107); Globulin 2.1 g/dL (1.3-4.6); Glomerular Filtration Rate 85.6 mL/min (90-130); Glucose 218 mg/dL (65-115); Osmolality Calculated 296 mOsm/kg (285-295); Potassium 3.8 mmol/L (3.5-5.1); Sodium 140 mmol/L (136-145); Total Bilirubin 0.8 mg/dL (0.15-1.2); Total Protein 6.5 g/dL (6.6-8.7)
[2022-12-02 20:09] VITALS: BP 131/78; PULSE 88; RESP 18; O2SAT 96
== END 2022-12-02 20:10 | disposition home or self-care (01) ==
PROVIDERS: Emergency Provider Emergency Medicine; PCP Family Medicine
DX: S92.514A Nondisplaced fracture of proximal phalanx of right lesser toe(s), initial encounter for closed fracture (principal); Z79.82 Long term (current) use of aspirin; Z79.4 Long term (current) use of insulin; Z79.84 Long term (current) use of oral hypoglycemic drugs; Z85.3 Personal history of malignant neoplasm of breast; J44.9 Chronic obstructive pulmonary disease, unspecified; E78.5 Hyperlipidemia, unspecified; I10 Essential (primary) hypertension; I25.2 Old myocardial infarction; E11.9 Type 2 diabetes mellitus without complications; X58.XXXA Exposure to other specified factors, initial encounter
CPT/HCPCS: 73630; 80053; 85025; 85651; 86140; 93926; 99284; E0114

== ENCOUNTER → 2022-12-11 10:12 | Outpatient (BNVA) | payer MEDICARE, SELFPAY | PROVIDERS: PCP Family Medicine; Visit Provider Podiatrist Foot & Ankle Surgery | DX: S92.514A Nondisplaced fracture of proximal phalanx of right lesser toe(s), initial encounter for closed fracture (principal); X58.XXXA Exposure to other specified factors, initial encounter; I73.9 Peripheral vascular disease, unspecified; B35.1 Tinea unguium; E11.21 Type 2 diabetes mellitus with diabetic nephropathy; G62.9 Polyneuropathy, unspecified; L84 Corns and callosities; M20.41 Other hammer toe(s) (acquired), right foot; M20.42 Other hammer toe(s) (acquired), left foot; Z79.4 Long term (current) use of insulin | CPT/HCPCS: 11055; 11721; 99213 ==

== ENCOUNTER → 2023-01-01 14:48 | Outpatient (BNVA) | payer MEDICARE, SELFPAY | PROVIDERS: PCP Family Medicine; Visit Provider Podiatrist Foot & Ankle Surgery | DX: S92.514A Nondisplaced fracture of proximal phalanx of right lesser toe(s), initial encounter for closed fracture (principal); X58.XXXA Exposure to other specified factors, initial encounter; B35.1 Tinea unguium; G62.9 Polyneuropathy, unspecified; I73.9 Peripheral vascular disease, unspecified; L84 Corns and callosities; M20.41 Other hammer toe(s) (acquired), right foot; M20.42 Other hammer toe(s) (acquired), left foot; E11.69 Type 2 diabetes mellitus with other specified complication; Z79.4 Long term (current) use of insulin; M19.071 Primary osteoarthritis, right ankle and foot | CPT/HCPCS: 73630; 99213 ==

== ENCOUNTER 2023-01-02 11:55 | Oncology outpatient (recurring) (ONCR) | payer MEDICARE, SELFPAY ==
[2023-01-02 12:34] LABS: Basophils # 0.1 10^3/uL (0.0-0.1); Basophils % 0.3 %; Eosinophils # 0.1 10^3/uL (0.0-0.8); Eosinophils % 0.6 %; Hematocrit 45.1 % (37.0-47.0); Lymphocytes # 4.5 10^3/uL (0.8-4.8); Lymphocytes % 25.9 %; Mean Corpuscular HGB Conc 33.3 g/dL (30.0-36.0); Mean Corpuscular Hemoglobin 29.8 pg (28.0-34.0); Mean Corpuscular Volume 89.5 fl (81-99); Mean Platelet Volume 9.2 fL (7.4-10.4); Monocytes # 1.5 10^3/uL (0.2-0.9); Monocytes % 8.4 %; Neutrophils # 11.19 10^3/uL (1.8-7.7); Neutrophils % 64.3 %; Nucleated Red Blood Cells % 0 %; Platelet Count 337 10^3/cmm (130-400); Red Blood Count 5.04 10^6/uL (4.1-5.3); Red Cell Distribution Width 12.8 % (12.1-15.1); White Blood Count 17.4 10^3/uL (4.0-10.0)
[2023-01-02 13:12] LABS: Alanine Aminotransferase 33 U/L (0-33); Albumin Level 3.9 g/dL (3.5-5.2); Alkaline Phosphatase 67 U/L (35-105); Blood Urea Nitrogen 9 mg/dL (6-20); Calcium 9.3 mg/dL (8.5-10.5); Carbon Dioxide 22 mmol/L (22-29); Chloride 97 mmol/L (98-107); Globulin 2.4 g/dL (1.3-4.6); Glomerular Filtration Rate 102.3 mL/min (90-130); Glucose 205 mg/dL (65-115); Osmolality Calculated 289 mOsm/kg (285-295); Sodium 137 mmol/L (136-145); Total Bilirubin 0.5 mg/dL (0.15-1.2); Total Protein 6.3 g/dL (6.6-8.7)
[2023-01-02 13:14] LABS: Aspartate Amino Transferase 28 U/L (0-32)
[2023-01-02 17:13] LABS: Urine Appearance SL Hazy (CLEAR); Urine Color Yellow (Yellow)
[2023-01-02 17:14] LABS: Add Urine Microscopic? YES; Bilirubin Urine Neg (Negative); Blood Urine Neg (Negative); Glucose Urine UA 4+ (Normal); Ketones Urine 1+ (Negative); Leukocyte Esterase Urine 2+ (Negative); Nitrate Urine Negative (Negative); Protein Urine Neg (Negative); Specific Gravity, Urine 1.015 (1.005-1.030); Urobilinogen Urine Neg (Negative); pH Urine 5 (5-7)
[2023-01-02 17:15] LABS: Add Urine Culture? Yes; Bacteria Urine TRACE /hpf; RBC Urine RARE /hpf (0-2); Squamous Epithelial Cell Urine 0-4 /hpf (0-5)
== END 2023-01-26 23:59 | disposition home or self-care (01) ==
PROVIDERS: Nurse Practitioner Family; PCP Family Medicine; Visit Provider Internal Medicine Medical Oncology
DX: Z08 Encounter for follow-up examination after completed treatment for malignant neoplasm (principal); Z85.3 Personal history of malignant neoplasm of breast; G62.0 Drug-induced polyneuropathy; T45.1X5D Adverse effect of antineoplastic and immunosuppressive drugs, subsequent encounter; G89.29 Other chronic pain; G31.89 Other specified degenerative diseases of nervous system; F17.210 Nicotine dependence, cigarettes, uncomplicated; Z85.828 Personal history of other malignant neoplasm of skin; Z92.21 Personal history of antineoplastic chemotherapy; Z92.3 Personal history of irradiation; R30.0 Dysuria; R10.32 Left lower quadrant pain
CPT/HCPCS: 36415; 80053; 81001; 85025; 87086; 99214

== ENCOUNTER 2023-01-15 14:45 | Outpatient (CLI) | payer MEDICARE, SELFPAY ==
--- NOTE | 2023-01-15 15:15 | US_ITS ---
WS: [id number] Ultrasound of the right shoulder and left groin subcutaneous tissue, 01/15/2023 Clinical Data: left groin pain Comparison: Ultrasound of the right shoulder, 11/06/2022 Findings: Right shoulder: There is a ill-defined soft tissue density measuring 1.24 x 3.13 x 3.76 cm in the sub cutaneous tissue. It shows mixed echotexture. No fluid fluid levels are seen. Is slightly smaller com pared to prior study. Left groin: No subcutaneous abnormalities are seen. Only normal tissue is seen. There are no left tg in cysts or masses. US/US soft tissue/extremity [id number] Impression: 1. Ill-defined soft tissue density in the subcutaneous tissue of the right shou lder unchanged. 2. Negative ultrasound of the left inguinal region.
== END 2023-01-15 14:46 | disposition home or self-care (01) ==
PROVIDERS: PCP Family Medicine; Visit Provider Nurse Practitioner Family
DX: R10.32 Left lower quadrant pain (principal); M85.811 Other specified disorders of bone density and structure, right shoulder
CPT/HCPCS: 76882

== ENCOUNTER 2023-01-29 12:57 | Outpatient (CLI) | payer MEDICARE, SELFPAY ==
--- NOTE | 2023-01-29 13:14 | MM_ITS ---
WS: [id number] BILATERAL 3D TOMOSYNTHESIS DIGITAL DIAGNOSTIC MAMMOGRAPHY WITH CAD CLINICAL INFORMATION: ANNUAL - HX OF BREAST CA HISTORY: LEFT breast lumpectomy. COMPARISON: November 21, 2021 TECHNIQUE: Bilateral CC, MLO, and ML views. FINDINGS: Scattered fibroglandular densities bilaterally. Postoperative changes LEFT breast lumpectomy with par enchymal scarring and treatment-related changes with skin thickening and volume loss.Parenchymal scar ring unchanged compared to previous. Punctate and lucent centered calcifications LEFT greater than RI GHT breast. LEFT breast skin thickening. No suspicious focal mass, asymmetry, calcifications, or architectural distortion. No evidence of geri gnancy. MM/[place] [id number] IMPRESSION: BI-RADS: 2-Benign FOLLOW UP: 1 Year Follow-up Recommend return to annual diagnostic mammography.
== END 2023-01-29 12:58 | disposition home or self-care (01) ==
PROVIDERS: PCP Family Medicine; Visit Provider Nurse Practitioner Family
DX: Z85.3 Personal history of malignant neoplasm of breast (principal)
CPT/HCPCS: 77062; G0279

== ENCOUNTER → 2023-02-05 14:46 | Outpatient (BNVA) | payer MEDICARE, SELFPAY | PROVIDERS: PCP Family Medicine; Visit Provider Family Medicine | DX: E11.69 Type 2 diabetes mellitus with other specified complication (principal); Z79.4 Long term (current) use of insulin | CPT/HCPCS: 80053; 80061; 83036 ==

== ENCOUNTER → 2023-02-19 13:25 | Outpatient (BNVA) | payer MEDICARE, SELFPAY | PROVIDERS: PCP Family Medicine; Visit Provider Internal Medicine Rheumatology | DX: M31.6 Other giant cell arteritis (principal); Z95.828 Presence of other vascular implants and grafts; Z79.899 Other long term (current) drug therapy; Z71.85 Encounter for immunization safety counseling; Z71.89 Other specified counseling | CPT/HCPCS: 11721; 99214 ==

== ENCOUNTER 2023-02-22 12:06 | Oncology outpatient (recurring) (ONCR) | payer MEDICARE, SELFPAY ==
--- NOTE | 2023-02-22 16:33 | PC.NURSE ---
Called Dr. Mccallum's office and spoke to his nurse Bridget. I let her know that this patient let me know that the patient had recent eye surgery to remove cataracts. The patient also let me know that she is having UTI symptoms, rash and itchiness to both upper arms, and is having a cough with yellow sputum. Bridget said that her treatment should be postpone until she sees her PCP to make sure she does not have any type of infections. Bridget will let Dr. Mccallum know about the patient being postponed.
== END 2023-02-25 23:59 | disposition home or self-care (01) ==
LOC: ONCMED 12:07
PROVIDERS: PCP Family Medicine; Visit Provider Internal Medicine Medical Oncology
DX: N39.0 Urinary tract infection, site not specified (principal)
CPT/HCPCS: 81000

== ENCOUNTER 2023-04-26 13:43 | Oncology outpatient (recurring) (ONCR) | payer MEDICARE, SELFPAY ==
[2023-04-26 14:55] VITALS: BP 115/70; PULSE 81; RESP 16; TEMP 36.3; O2SAT 95
[2023-04-26] MEDS: acetaminophen 325 mg Tablet 650 MG PO (16:04)
[2023-04-26] MEDS: diphenhydrAMINE 50 mg/mL SDV 1mL 25 MG IVP (16:04)
[2023-04-26] MEDS: sodium chloride 0.9% 250 ML 75 ML IV (16:05)
[2023-04-26] MEDS: dexamethasone 10 mg/mL INJ 6 MG IVP (16:07)
[2023-04-26] MEDS: [UNRECOGNIZED DRUG - OTHER] IV (16:10)
[2023-04-26] MEDS: TOCILIZUMAB IV (16:10)
[2023-04-26 17:30] VITALS: BP 123/85; PULSE 70; RESP 16; TEMP 37; O2SAT 98
== END 2023-04-27 23:59 | disposition home or self-care (01) ==
PROVIDERS: PCP Family Medicine; Visit Provider Internal Medicine Medical Oncology
DX: Z08 Encounter for follow-up examination after completed treatment for malignant neoplasm (principal); Z85.3 Personal history of malignant neoplasm of breast; G62.0 Drug-induced polyneuropathy; T45.1X5D Adverse effect of antineoplastic and immunosuppressive drugs, subsequent encounter; G89.29 Other chronic pain; G31.89 Other specified degenerative diseases of nervous system; F17.210 Nicotine dependence, cigarettes, uncomplicated; R10.32 Left lower quadrant pain; R30.0 Dysuria; Z85.828 Personal history of other malignant neoplasm of skin; Z92.21 Personal history of antineoplastic chemotherapy; Z92.3 Personal history of irradiation
CPT/HCPCS: 96365; 96375; J1100; J1200; J3262; J7050

== ENCOUNTER 2023-05-05 23:34 | Emergency (ER) | payer MEDICARE, SELFPAY ==
[2023-05-05 23:52] VITALS: BP 135/83; PULSE 97; RESP 18; TEMP 36.8; O2SAT 99; BMI 32.9
[2023-05-05 23:55] VITALS: BP 120/80; PULSE 88; PULSE 89; RESP 18; O2SAT 98
--- NOTE | 2023-05-05 23:55 | ED_ITS ---
HPI - Extremity Injury (Upper) General: Chief Complaint: Extremity Injury, Upper Stated Complaint: right arm injury Time Seen by Provider: 05/05/23 23:54 History of Present Illness: 58-year-old female comes in today for complaints of injury to the right arm. Patient reports that she had reached into a soda machine to get her soda when she lost her balance accidentally twisting her arm and the soda machine yesterday. Patient came in tonight due to increased pain and discomfort to the arm along with bruising. Patient appears nontoxic. Patient appears in mild to moderate pain. 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 HTN (hypertension) Immunization counseling Inflammatory arthritis Myocardial infarction Oropharyngeal candidiasis Type 2 diabetes mellitus, with long-term current use of insulin Surgical History H/O esophagogastroduodenoscopy (08/12/21) bile reflux H/O neck surgery Cervical laminectomy and placement of a spinal cord stimulator History of lumpectomy of left breast (2005) Left breast lumpectomy with axillary sentinel lymph node biopsy History of lymph node biopsy (08/19/15) Excisional biopsy of left inguinal lymph node Previous back surgery Lumbar laminectomy S/P cholecystectomy S/P hysterectomy S/P PTCA (percutaneous transluminal coronary angioplasty) Status post colonoscopy (08/12/21) polyps Status post colonoscopy with polypectomy (02/22/22) Family History Other CAD (coronary artery disease) Cancer Chronic kidney disease (CKD) Diabetes Family history of premature coronary artery disease Hyperlipidemia Hypertension Lung disease Lupus Rheumatoid arthritis Stroke Social History Smoking and tobacco status: current every day smoker cigarettes Packs smoked per day: 0.5 Years cigarettes smoked: 42 Alcohol intake: never Substance/Drug Use: current Substance/Drug use frequency: daily Physical Exam Const: COMMON NORMALS: alert HENMT: COMMON NORMALS: normocephalic HEAD & SCALP: normocephalic Neck/C-Spine: COMMON NORMALS: full ROM Resp: COMMON NORMALS: normal respiratory effort Cardio: COMMON NORMALS: regular rate RATE: regular rate Back/Pelvis: COMMON NORMALS: thoracic and lumbar spine normal to inspection Extremity: RIGHT UPPER EXTREMITY: Yes lower arm (Dorsal tenderness with mild swelling and bruising) Right lower arm: Yes inspection, Yes palpation and Yes neurovascular exam Neuro: SENSORIUM/ORIENTATION: Yes alert Skin: COMMON NORMALS: turgor normal GENERAL SKIN EXAM: turgor normal Course Vital Signs: Vital signs: Vital Signs Temperature 98.3 F 05/05/23 23:52 Pulse Rate 88 05/05/23 23:55 Respiratory Rate 18 05/05/23 23:55 Blood Pressure 120/80 05/05/23 23:55 Pulse Oximetry 98 05/05/23 23:55 Oxygen Delivery Me thod Room Air 05/05/23 23:55 MDM - Extremity Injury (Upper) Medical Decision Making 58-year-old female comes in today for complaints of injury to the right forearm. On exam patient has some mild swelling and bruising to the dorsal aspect of the right forearm. Distal pulses and sensation are intact. Differential diagnosis includes contusion, sprain, tendinitis, fracture. X-ray noted no fracture or other acute abnormality. Patient did have some significant arthritis noted in the joints of the hand wrist and elbow. Believe the patient probably has a strain versus contusion. We will give her some Celebrex to help with her pain since she has allergies to opioid analogs. Patient reported understanding of care plan and need for follow-up or return to the ER. Discharge Plan Discharge Patient Disposition: Home Clinical Impression: Contusion of arm, right Qualifiers: Encounter type: initial encounter Qualified Code(s): S40.021A - Contusion of right upper arm, initial encounter Condition: Stable Prescriptions: New celecoxib 200 mg capsule 200 mg PO BID PRN (Reason: pain) Qty: 14 0RF No Action docusate sodium [Colace] 100 mg capsule 100 mg PO DAILY meclizine 12.5 mg tablet 12.5 mg PO BID PRN (Reason: dizziness) nitroglycerin 400 mcg/spray spray,non-aerosol 1 spray SUBLINGUAL Q5M PRN (Reason: Chest Pain) dronabinol [Marinol] 5 mg capsule 5 mg PO BID Cholestyramine Light 4 gram powder 4 gm PO BID Rx Instructions: administer w/meal; avoid other meds within 1hr before or 4-6hr after dose clobetasol [Temovate] 0.05 % cream 1 applic TOPICAL BID cyclobenzaprine 10 mg tablet 10 mg PO TID PRN (Reason: Spasms) montelukast [Singulair] 10 mg tablet 10 mg PO DAILY (DME) blood-glucose meter [Accu-Chek Pretty Plus Meter] Misc See Rx Instructions .ROUTE .MEDSUPPLY Qty: 1 0RF Rx Instructions: once daily (DME) blood sugar diagnostic [Accu-Chek Pretty Plus test strp] Strip See Rx Instructions .ROUTE .MEDSUPPLY Qty: 100 0RF Rx Instructions: test once daily nystatin 100,000 unit/gram powder 1 applic TOPICAL TID Qty: 60 0RF albuterol sulfate [ProAir HFA] 90 mcg/actuation HFA aerosol inhaler 2 puff INHALATION Q6H PRN (Reason: shortness of breath or wheezing) Qty: 8.5 5RF budesonide-formoterol [Symbicort] 160-4.5 mcg/actuation HFA aerosol inhaler 2 puff INHALATION Q12H Qty: 10.2 5RF Mucinex 1,200 mg tablet extended release 12hr 1,200 mg PO BID Qty: 20 0RF (DME) FreeStyle Dawson 14 Day Sensor Kit See Rx Instructions .Route Qty: 2 11RF Rx Instructions: As directed (DME) FreeStyle Dawson 14 Day [place] Misc See Rx Instructions .Route Qty: 1 0RF Rx Instructions: As directed ([facility]) diabetic shoes with 3 inserts See Rx Instructions .Route .MEDSUPPLY Qty: 1 0RF Rx Instructions: As directed diclofenac sodium 3 % gel 1 applic topical BID Qty: 100 0RF nitrofurantoin monohyd/m-cryst [Macrobid] 100 mg capsule 100 mg PO BID 5 Days Qty: 10 0RF Rx Instructions: must administer with a meal/food ibuprofen 600 mg tablet 600 mg PO BID PRN (Reason: pain) Qty: 30 0RF Hold Instructions: Resume on 09/30/22. Rx Instructions: Take with food cetirizine 10 mg tablet 10 mg PO DAILY Qty: 30 0RF doxycycline hyclate 100 mg capsule 100 mg PO BID 10 Days Qty: 20 0RF pantoprazole [Protonix] 40 mg tablet,delayed release (DR/EC) 40 mg PO DAILY Qty: 30 1RF (DME) diabetic shoes See Rx Instructions .Route .MEDSUPPLY Qty: 1 0RF Rx Instructions: As directed pregabalin [Lyrica] 75 mg capsule 75 mg PO DAILY Qty: 60 3RF diclofenac sodium 1 % gel 2 g topical QID Qty: 100 2RF Rx Instructions: apply to affected area as needed prednisone 5 mg tablet 5 mg PO DAILY Qty: 90 1RF (DME) pen needle, diabetic [1st Tier Unifine Pentips] 32 gauge x 5/32 needle See Rx Instructions .ROUTE .MEDSUPPLY Qty: 100 2RF Rx Instructions: one daily fluticasone propionate [Allergy Relief (fluticasone)] 50 mcg/actuation spray,suspension 1 spray INTRANASAL BID Qty: 16 2RF clopidogrel 75 mg tablet 75 mg PO DAILY Qty: 90 1RF Hold Instructions: Resume on 09/29/22. duloxetine 60 mg capsule,delayed release(DR/EC) 60 mg PO DAILY Qty: 90 1RF ondansetron 4 mg tablet,disintegrating See Rx Instructions .ROUTE .COMPLEX Qty: 180 1RF Dose Instruction: DISSOLVE ONE TABLET in MOUTH EVERY 4 HOURS NEEDED Rx Instructions: DISSOLVE ONE TABLET in MOUTH EVERY 4 HOURS NEEDED atorvastatin 40 mg tablet See Rx Instructions .ROUTE .COMPLEX Qty: 90 1RF Dose Instruction: TAKE ONE TABLET BY MOUTH EVERY DAY Rx Instructions: TAKE ONE TABLET BY MOUTH EVERY DAY Jardiance 25 mg tablet 25 mg PO DAILY Qty: 90 0RF Januvia 100 mg tablet 100 mg PO DAILY Qty: 90 0RF Lantus Solostar U-100 Insulin 100 unit/mL (3 mL) insulin pen See Rx Instructions .ROUTE .COMPLEX Qty: 15 1RF Dose Instruction: inject 15 units SUBCUTANEOUSLY DAILY Rx Instructions: inject 15 units SUBCUTANEOUSLY DAILY glimepiride 2 mg tablet 2 mg PO DAILY Qty: 90 0RF duloxetine 30 mg capsule,delayed release(DR/EC) See Rx Instructions .ROUTE .COMPLEX Qty: 90 1RF Dose Instruction: take 1 capsule BY MOUTH TWICE DAILY Rx Instructions: take 1 capsule BY MOUTH TWICE DAILY folic acid 1 mg tablet See Rx Instructions .ROUTE .COMPLEX Qty: 90 3RF Dose Instruction: TAKE ONE TABLET BY MOUTH DAILY Rx Instructions: TAKE ONE TABLET BY MOUTH DAILY oxycodone 30 mg tablet 30 mg PO Q4H PRN (Reason: Pain) 30 Days Qty: 150 0RF Discharge Orders: Discharge ED (Routine); Ordered 05/06/23 Ordered By: Fernie Pfeiffer Referrals: Violet Falcon DO [Primary Care Provider] - Discharge Diet: Usual diet Discharge Activity: Increase activity as tolerated Patient Instructions: Contusion in Adults (ED) Activity Restrictions/Additional Instructions: Use celecoxib as needed for pain. Use acetaminophen for further pain relief. Use ice or heat to the area for further comfort. Follow-up with primary care for further instructions. Return to ED for new concerns. Coding Level of Care Code ED Press Hand Supervisor for Jackie Mera
--- NOTE | 2023-05-06 00:29 | XRR_ITS ---
PROCEDURE INFORMATION: Exam: XR Right Forearm Exam date and time: 05/06/2023 12:37 AM Age: 58 years old Clinical indication: Injury or trauma; Blunt trauma (contusions or hematomas); Arm, lower; Right; Patient HX: Patient got arm caught in the dispenser of a soda machine. Contusion to posterior aspect of midforearm. TECHNIQUE: Imaging protocol: Radiologic exam of the right forearm. Views: 2 views. COMPARISON: No relevant prior studies available. 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 No evidence of acute fracture. Soft tissues: Normal soft tissue planes. No radiopaque foreign body. XR/XR forearm RT 2V [id number] IMPRESSION: 1. No acute fracture. No soft tissue radiopaque foreign body. 2. 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 Dedicated wrist series may be helpful if clinical scenario is unresolved.
[2023-05-06] MEDS: CELEcoxib 200 mg Capsule PO (00:57)
[2023-05-06 00:59] VITALS: BP 135/90; PULSE 84; RESP 18; O2SAT 96
== END 2023-05-06 01:05 | disposition home or self-care (01) ==
PROVIDERS: Emergency Provider Nurse Practitioner Family; PCP Family Medicine
DX: S40.021A Contusion of right upper arm, initial encounter (principal); I25.10 Atherosclerotic heart disease of native coronary artery without angina pectoris; I25.2 Old myocardial infarction; E11.43 Type 2 diabetes mellitus with diabetic autonomic (poly)neuropathy; K31.84 Gastroparesis; J44.9 Chronic obstructive pulmonary disease, unspecified; E78.5 Hyperlipidemia, unspecified; I10 Essential (primary) hypertension; F17.210 Nicotine dependence, cigarettes, uncomplicated; Z79.4 Long term (current) use of insulin; Z79.84 Long term (current) use of oral hypoglycemic drugs; X50.0XXA Overexertion from strenuous movement or load, initial encounter
CPT/HCPCS: 73090; 99283

== ENCOUNTER 2023-05-16 13:04 | Oncology outpatient (recurring) (ONCR) | payer MEDICARE, SELFPAY ==
[2023-05-16 13:05] VITALS: BP 135/78; PULSE 94; RESP 18; TEMP 36.6; O2SAT 96
[2023-05-16 13:22] LABS: Basophils # 0.1 10^3/uL (0.0-0.1); Basophils % 0.4 %; Eosinophils # 0.1 10^3/uL (0.0-0.8); Eosinophils % 0.7 %; Hematocrit 45.8 % (37.0-47.0); Hemoglobin 14.9 g/dL (11.5-15.3); Lymphocytes # 3.1 10^3/uL (0.8-4.8); Lymphocytes % 23.1 %; Mean Corpuscular HGB Conc 32.5 g/dL (30.0-36.0); Mean Corpuscular Hemoglobin 29.4 pg (28.0-34.0); Mean Corpuscular Volume 90.5 fl (81-99); Mean Platelet Volume 9.6 fL (7.4-10.4); Monocytes # 0.9 10^3/uL (0.2-0.9); Monocytes % 6.5 %; Neutrophils # 9.35 10^3/uL (1.8-7.7); Neutrophils % 68.9 %; Nucleated Red Blood Cells % 0 %; Platelet Count 241 10^3/cmm (130-400); Red Blood Count 5.06 10^6/uL (4.1-5.3); Red Cell Distribution Width 13.3 % (12.1-15.1); White Blood Count 13.6 10^3/uL (4.0-10.0)
[2023-05-16 14:11] LABS: Alanine Aminotransferase 40 U/L (0-33); Alkaline Phosphatase 55 U/L (35-105); Blood Urea Nitrogen 14 mg/dL (8-23); Calcium 9.1 mg/dL (8.5-10.5); Carbon Dioxide 24 mmol/L (22-29); Chloride 102 mmol/L (98-107); Globulin 2.4 g/dL (1.3-4.6); Glucose 225 mg/dL (65-115); Osmolality Calculated 296 mOsm/kg (285-295); Sodium 139 mmol/L (136-145); Total Bilirubin 1.1 mg/dL (0.15-1.2); Total Protein 6.4 g/dL (6.6-8.7)
[2023-05-16 14:16] LABS: Anion Gap 16.7 (5-19)
[2023-05-16 14:18] LABS: Aspartate Amino Transferase 33 U/L (0-32); Potassium 3.7 mmol/L (3.5-5.1)
== END 2023-05-28 23:59 | disposition home or self-care (01) ==
PROVIDERS: PCP Family Medicine; Visit Provider Internal Medicine Medical Oncology
DX: Z08 Encounter for follow-up examination after completed treatment for malignant neoplasm (principal); Z85.3 Personal history of malignant neoplasm of breast; G62.9 Polyneuropathy, unspecified; G89.29 Other chronic pain; R74.01 Elevation of levels of liver transaminase levels; F17.210 Nicotine dependence, cigarettes, uncomplicated; E80.7 Disorder of bilirubin metabolism, unspecified; Z85.828 Personal history of other malignant neoplasm of skin; Z92.21 Personal history of antineoplastic chemotherapy; Z92.3 Personal history of irradiation
CPT/HCPCS: 36415; 80053; 85025; 99214; J1642

== ENCOUNTER 2023-05-31 14:47 | Oncology outpatient (recurring) (ONCR) | payer MEDICARE, SELFPAY ==
[2023-05-31 15:06] VITALS: BP 113/71; PULSE 91; RESP 18; TEMP 36.4; O2SAT 94
[2023-05-31] MEDS: sodium chloride 0.9% 250 ML 75 ML IV (15:16)
[2023-05-31] MEDS: acetaminophen 325 mg Tablet 650 MG PO (15:17)
[2023-05-31] MEDS: methylPREDNISolone sod succ 40 mg SDV IVP (15:17)
[2023-05-31] MEDS: diphenhydrAMINE 50 mg/mL SDV 1mL 25 MG IVP (15:17)
[2023-05-31 17:09] VITALS: BP 118/74; PULSE 80; TEMP 36.4; O2SAT 94
== END 2023-06-28 23:59 | disposition home or self-care (01) ==
PROVIDERS: PCP Family Medicine; Visit Provider Internal Medicine Medical Oncology
DX: M31.6 Other giant cell arteritis (principal)
CPT/HCPCS: 96375; 96413; J1200; J1642; J2920; J3262; J7050

== ENCOUNTER → 2023-06-11 07:46 | Outpatient (BNVA) | payer MEDICARE, SELFPAY | PROVIDERS: PCP Family Medicine; Visit Provider Podiatrist Foot & Ankle Surgery | DX: B35.1 Tinea unguium (principal); G62.9 Polyneuropathy, unspecified; I73.9 Peripheral vascular disease, unspecified; L84 Corns and callosities; E11.69 Type 2 diabetes mellitus with other specified complication; Z79.4 Long term (current) use of insulin; M72.2 Plantar fascial fibromatosis; M24.571 Contracture, right ankle; E11.42 Type 2 diabetes mellitus with diabetic polyneuropathy | CPT/HCPCS: 11056; 11721; 99213 ==

== ENCOUNTER 2023-06-18 11:36 | Outpatient (CLI) | payer MEDICARE, SELFPAY ==
--- NOTE | 2023-06-18 13:00 | CTR_ITS ---
PROCEDURE INFORMATION: Exam: CT Abdomen And Pelvis Without Contrast Exam date and time: 06/18/2023 1:45 PM Age: 58 years old Clinical indication: Abnormal findings; Abnormal lab test; Elevated liver enzymes; Prior surgery; Surgery date: 6+ months; Surgery type: Nec , lt breast, back , hyster, ptca; Patient HX: Abd pain x2 weeks, ; additional info: Elevated liver enzymes, verbal to change order to w/o per nelly Narayanan. TECHNIQUE: Imaging protocol: Computed tomography of the abdomen and pelvis without contrast. Radiation optimization: All CT scans at this facility use at least one of these dose optimization techniques: automated exposure control; mA and/or kV adjustment per patient size (includes targeted exams where dose is matched to clinical indication); or iterative reconstruction. REPORTING DATA: Count of CT and Cardiac NM exams in prior 12 months: This patient has received 0 known CTs and 0 known cardiac nuclear medicine studies in the 12 months prior to the current study. COM[place]ISON: [place] [id number] 02/25/2021 2:42 PM RADIATION DOSE METRICS: Total DLP (mGy-cm): 514.35 FINDINGS: Tubes, catheters and devices: Lower thoracic intraspinal neural stimulator leads. Coronary arteries: Atherosclerotic calcifications are present involving the RCA coronary artery. Liver: Right lobe hepatic segment 8 hypodensity probably representing a cyst, measuring 15 mm, stable. Mild geographic hypoattenuation of the liver is present consistent with hepatic steatosis. Gallbladder and bile ducts: Normal. No calcified stones. No ductal dilation. Pancreas: Normal. No ductal dilation. Spleen: Normal. No splenomegaly. Adrenal glands: Normal. No mass. Kidneys and ureters: Normal. No hydronephrosis. Stomach and bowel: Sigmoid and descending colonic diverticula are present without evidence of diverticulitis. Appendix: The vermiform appendix is normal. Intraperitoneal space: No free air. No significant fluid collection. Vasculature: Moderate aortic atherosclerotic calcification without aneurysm. The iliac arteries show moderate bilateral atherosclerotic calcifications without evidence of aneurysm. Lymph nodes: No enlarged lymph nodes. Urinary bladder: Distended urinary bladder (12.3 x 9.5 x 10.7 cm). Reproductive: The uterus is status post hysterectomy. The ovaries are not identified. Bones/joints: Diffuse osteopenia. L5-S1 spondylosis with right neural foraminal stenosis. Upper lumbar and lower thoracic spine vertebral body marginal osteophytes. Chronic superior L4 vertebral body endplate herniation. Soft tissues: Pelvic floor relaxation with small peritoneocele (series 6, image 37). CT/CT abdomen pelvis wo con [id number] IMPRESSION: 1. Hepatic probable benign cyst, stable. No follow-up imaging is recommended. 2. Fatty infiltration of the liver. 3. Prior hysterectomy. 4. Diverticulosis. 5. Distended urinary bladder (625 mL). 6. Pelvic floor relaxation with small peritoneocele. 7. Coronary atherosclerosis.
[2023-06-18] MEDS: iohexol 350 mg/mL 500 mL Btl (per mL) PO (13:59)
== END 2023-06-18 11:37 | disposition home or self-care (01) ==
PROVIDERS: PCP Family Medicine; Visit Provider Internal Medicine Medical Oncology
DX: R74.8 Abnormal levels of other serum enzymes (principal); K76.0 Fatty (change of) liver, not elsewhere classified; Z90.710 Acquired absence of both cervix and uterus; K57.30 Diverticulosis of large intestine without perforation or abscess without bleeding; N32.89 Other specified disorders of bladder; N81.89 Other female genital prolapse; I25.10 Atherosclerotic heart disease of native coronary artery without angina pectoris
CPT/HCPCS: 74176; 99214; Q9967

== ENCOUNTER → 2023-06-28 14:56 | Outpatient (BNVA) | payer MEDICARE, SELFPAY | PROVIDERS: PCP Family Medicine; Visit Provider Family Medicine | DX: E11.69 Type 2 diabetes mellitus with other specified complication (principal); Z79.4 Long term (current) use of insulin | CPT/HCPCS: 83036 ==

== ENCOUNTER 2023-07-23 10:49 | Oncology outpatient (recurring) (ONCR) | payer MEDICARE, SELFPAY ==
[2023-07-23] MEDS: alteplase 1 mg/mL SDV 2 mL 2 MG INTRACATH (11:34)
[2023-07-23 12:36] LABS: Basophils # 0.1 10^3/uL (0.0-0.1); Basophils % 0.7 %; Eosinophils # 0.1 10^3/uL (0.0-0.8); Eosinophils % 0.8 %; Hematocrit 42.9 % (36-47); Lymphocytes # 2.3 10^3/uL (0.8-4.8); Lymphocytes % 14.4 %; Mean Corpuscular HGB Conc 33.8 g/dL (30-55); Mean Corpuscular Hemoglobin 30.3 pg (27-33); Mean Corpuscular Volume 89.6 fl (85-98); Mean Platelet Volume 9.3 fL (7.4-10.4); Monocytes # 1.1 10^3/uL (0.2-0.9); Monocytes % 6.6 %; Neutrophils # 12.29 10^3/uL (1.8-7.7); Neutrophils % 77.1 %; Nucleated Red Blood Cells % 0 %; Platelet Count 302 10^3/cmm (157-399); Red Blood Count 4.79 10^6/uL (3.85-5.65); Red Cell Distribution Width 13.4 % (12.1-15.1); White Blood Count 15.96 10^3/uL (3.29-11.43)
[2023-07-23] MEDS: sodium chloride 0.9% 250 ML 75 ML IV (12:44)
[2023-07-23] MEDS: acetaminophen 325 mg Tablet 650 MG PO (12:44)
[2023-07-23] MEDS: diphenhydrAMINE 50 mg/mL SDV 1mL 25 MG IVP (12:45)
[2023-07-23] MEDS: methylPREDNISolone sod succ 40 mg SDV IVP (12:51)
[2023-07-23] MEDS: tocilizumab 400 MG, tocilizumab 200 MG, tocilizumab 20 MG in sodium chloride 0.9% (100 ... 131 MG IV (12:58)
[2023-07-23 13:05] LABS: Alanine Aminotransferase 35 U/L (0-33); Albumin Level 3.8 g/dL (3.5-5.2); Alkaline Phosphatase 71 U/L (35-105); Aspartate Amino Transferase 24 U/L (0-32); Globulin 2.6 g/dL (1.3-4.6); Glomerular Filtration Rate 125.9 mL/min (90-130); Total Bilirubin 0.6 mg/dL (0.15-1.2); Total Protein 6.4 g/dL (6.6-8.7)
[2023-07-23 14:25] VITALS: BP 142/71; PULSE 93; RESP 18; TEMP 36.4; O2SAT 96
== END 2023-07-28 23:59 | disposition home or self-care (01) ==
PROVIDERS: Internal Medicine Rheumatology; PCP Family Medicine; Visit Provider Internal Medicine Medical Oncology
DX: M31.6 Other giant cell arteritis (principal); Z08 Encounter for follow-up examination after completed treatment for malignant neoplasm; Z85.3 Personal history of malignant neoplasm of breast; G62.0 Drug-induced polyneuropathy; T45.1X5D Adverse effect of antineoplastic and immunosuppressive drugs, subsequent encounter; G89.29 Other chronic pain; G31.89 Other specified degenerative diseases of nervous system; F17.210 Nicotine dependence, cigarettes, uncomplicated; R10.32 Left lower quadrant pain; R30.0 Dysuria; Z85.828 Personal history of other malignant neoplasm of skin; Z92.21 Personal history of antineoplastic chemotherapy; Z92.3 Personal history of irradiation; C50.919 Malignant neoplasm of unspecified site of unspecified female breast
CPT/HCPCS: 36593; 80076; 82565; 85025; 86140; 96374; 96375; 96413; J1200; J1642; J2920; J2997; J3262; J7050

== ENCOUNTER 2023-08-22 10:00 | Oncology outpatient (recurring) (ONCR) | payer MEDICARE, SELFPAY ==
[2023-08-15 13:48] VITALS: BP 164/91; PULSE 113; RESP 16; O2SAT 93
[2023-08-15 14:27] LABS: Basophils # 0.1 10^3/uL (0.0-0.1); Basophils % 0.7 %; Eosinophils # 0.1 10^3/uL (0.0-0.8); Eosinophils % 0.5 %; Hematocrit 49.5 % (36-47); Lymphocytes # 2.4 10^3/uL (0.8-4.8); Lymphocytes % 18.2 %; Mean Corpuscular HGB Conc 33.5 g/dL (30-55); Mean Corpuscular Hemoglobin 30.2 pg (27-33); Mean Corpuscular Volume 90.2 fl (85-98); Mean Platelet Volume 10.2 fL (7.4-10.4); Monocytes # 0.9 10^3/uL (0.2-0.9); Neutrophils # 9.64 10^3/uL (1.8-7.7); Neutrophils % 73.1 %; Nucleated Red Blood Cells % 0 %; Platelet Count 234 10^3/cmm (157-399); Red Blood Count 5.49 10^6/uL (3.85-5.65); Red Cell Distribution Width 13.1 % (12.1-15.1); White Blood Count 13.17 10^3/uL (3.29-11.43)
[2023-08-15 14:47] LABS: Alanine Aminotransferase 52 U/L (0-33); Albumin Level 4.7 g/dL (3.5-5.2); Alkaline Phosphatase 76 U/L (35-105); Anion Gap 16.4 (5-19); Aspartate Amino Transferase 39 U/L (0-32); Blood Urea Nitrogen 12 mg/dL (8-23); Calcium 9.6 mg/dL (8.5-10.5); Carbon Dioxide 29 mmol/L (22-29); Chloride 99 mmol/L (98-107); Globulin 2.9 g/dL (1.3-4.6); Glomerular Filtration Rate 85.4 mL/min (90-130); Glucose 190 mg/dL (65-115); Osmolality Calculated 297 mOsm/kg (285-295); Potassium 3.4 mmol/L (3.5-5.1); Sodium 141 mmol/L (136-145); Total Bilirubin 1.5 mg/dL (0.15-1.2); Total Protein 7.6 g/dL (6.6-8.7)
[2023-08-22 11:30] VITALS: BP 126/79; PULSE 93; RESP 18; TEMP 36.4; O2SAT 96
[2023-08-22] MEDS: acetaminophen 325 mg Tablet 650 MG PO (12:26)
[2023-08-22] MEDS: sodium chloride 0.9% 250 ML 75 ML IV (12:28)
[2023-08-22] MEDS: methylPREDNISolone sod succ 40 mg SDV IVP (12:31)
[2023-08-22] MEDS: diphenhydrAMINE 50 mg/mL SDV 1mL 25 MG IVP (12:37)
[2023-08-22 14:15] VITALS: BP 128/78; PULSE 93; RESP 17; TEMP 36.6; O2SAT 96
== END 2023-08-28 23:59 | disposition home or self-care (01) ==
PROVIDERS: Nurse Practitioner Family; PCP Family Medicine; Visit Provider Internal Medicine Medical Oncology
DX: M31.6 Other giant cell arteritis (principal)
CPT/HCPCS: 36415; 80053; 85025; 96375; 96413; 99214; J1200; J1642; J2920; J3262; J7050

== ENCOUNTER 2023-09-27 13:05 | Oncology outpatient (recurring) (ONCR) | payer MEDICARE, SELFPAY | END 2023-09-27 23:59 | disposition home or self-care (01) | PROVIDERS: PCP Family Medicine; Visit Provider Internal Medicine Medical Oncology | DX: Z53.9 Procedure and treatment not carried out, unspecified reason (principal); N39.3 Stress incontinence (female) (male); R10.32 Left lower quadrant pain | CPT/HCPCS: 81000; 87077; 87086; 87184 ==

== ENCOUNTER 2023-10-24 11:00 | Oncology outpatient (recurring) (ONCR) | payer MEDICARE, SELFPAY ==
[2023-10-17 10:06] VITALS: BP 143/78; PULSE 106; RESP 17; TEMP 36.4; O2SAT 96
== END 2023-10-28 23:59 | disposition home or self-care (01) ==
PROVIDERS: PCP Family Medicine; Visit Provider Internal Medicine Medical Oncology
DX: Z53.9 Procedure and treatment not carried out, unspecified reason (principal)

== ENCOUNTER → 2023-10-25 11:09 | Outpatient (BNVA) | payer MEDICARE, SELFPAY | PROVIDERS: PCP Family Medicine; Visit Provider Podiatrist Foot & Ankle Surgery | DX: L84 Corns and callosities (principal); B35.1 Tinea unguium; G62.9 Polyneuropathy, unspecified; I73.9 Peripheral vascular disease, unspecified; E11.69 Type 2 diabetes mellitus with other specified complication; Z79.4 Long term (current) use of insulin; M72.2 Plantar fascial fibromatosis; M24.571 Contracture, right ankle; E11.42 Type 2 diabetes mellitus with diabetic polyneuropathy | CPT/HCPCS: 11056; 11721 ==

== ENCOUNTER → 2023-10-26 08:06 | Outpatient (BNVA) | payer MEDICARE, SELFPAY | PROVIDERS: PCP Family Medicine; Visit Provider Family Medicine | DX: R05.1 Acute cough (principal) | CPT/HCPCS: 87400 ==

== ENCOUNTER 2023-11-22 10:10 | Oncology outpatient (recurring) (ONCR) | payer MEDICARE, SELFPAY ==
[2023-11-20] MEDS: alteplase 1 mg/mL SDV 2 mL 2 MG INTRACATH ×2 (14:36→16:03)
[2023-11-20 15:01] LABS: Basophils # 0.1 10^3/uL (0.0-0.1); Basophils % 0.3 %; Eosinophils # 0.1 10^3/uL (0.0-0.8); Eosinophils % 0.5 %; Lymphocytes # 3.9 10^3/uL (0.8-4.8); Lymphocytes % 22.1 %; Mean Corpuscular HGB Conc 33.6 g/dL (30-55); Mean Corpuscular Volume 89.3 fl (85-98); Mean Platelet Volume 9.8 fL (7.4-10.4); Monocytes # 1.1 10^3/uL (0.2-0.9); Neutrophils # 12.58 10^3/uL (1.8-7.7); Neutrophils % 70.7 %; Nucleated Red Blood Cells % 0 %; Platelet Count 327 10^3/cmm (157-399); Red Blood Count 5.04 10^6/uL (3.85-5.65); Red Cell Distribution Width 13.2 % (12.1-15.1); White Blood Count 17.77 10^3/uL (3.29-11.43)
[2023-11-20 15:20] LABS: Alanine Aminotransferase 30 U/L (0-33); Albumin Level 3.7 g/dL (3.5-5.2); Alkaline Phosphatase 76 U/L (35-105); Anion Gap 14.7 (5-19); Aspartate Amino Transferase 27 U/L (0-32); Blood Urea Nitrogen 9 mg/dL (8-23); Calcium 9.3 mg/dL (8.5-10.5); Carbon Dioxide 28 mmol/L (22-29); Chloride 103 mmol/L (98-107); Creatinine Clr Calc Pharmacy 114.3564; Globulin 3.2 g/dL (1.3-4.6); Glomerular Filtration Rate 125.9 mL/min (90-130); Glucose 182 mg/dL (65-115); Osmolality Calculated 297 mOsm/kg (285-295); Potassium 3.7 mmol/L (3.5-5.1); Sodium 142 mmol/L (136-145); Total Bilirubin 0.8 mg/dL (0.15-1.2); Total Protein 6.9 g/dL (6.6-8.7)
[2023-11-22 11:00] VITALS: BP 178/90; PULSE 109; RESP 18; TEMP 36.6; O2SAT 92
[2023-11-22] MEDS: sodium chloride 0.9% 250 ML 75 ML IV (12:13)
[2023-11-22] MEDS: acetaminophen 325 mg Tablet 650 MG PO (12:14)
[2023-11-22] MEDS: methylPREDNISolone sod succ 40 mg/mL INJ IVP (12:14)
[2023-11-22] MEDS: diphenhydrAMINE 50 mg/mL SDV 1mL 25 MG IVP (12:14)
== END 2023-11-28 23:59 | disposition home or self-care (01) ==
PROVIDERS: PCP Family Medicine; Visit Provider Internal Medicine Medical Oncology
DX: Z53.9 Procedure and treatment not carried out, unspecified reason (principal); M31.6 Other giant cell arteritis
CPT/HCPCS: 36593; 80053; 85025; 96365; 96374; 96375; 99214; J1200; J2920; J2997; J3262; J7050

== ENCOUNTER → 2023-12-10 13:34 | Outpatient (BNVA) | payer MEDICARE, SELFPAY | PROVIDERS: PCP Family Medicine; Visit Provider Internal Medicine Rheumatology | DX: M31.6 Other giant cell arteritis; Z79.899 Other long term (current) drug therapy; Z71.85 Encounter for immunization safety counseling; Z71.89 Other specified counseling; M79.672 Pain in left foot; M79.671 Pain in right foot | CPT/HCPCS: 73630; 99214 ==

== ENCOUNTER → 2023-12-12 08:23 | Outpatient (BNVA) | payer MEDICARE, SELFPAY | PROVIDERS: PCP Family Medicine; Visit Provider Surgery | DX: Z95.828 Presence of other vascular implants and grafts (principal) | CPT/HCPCS: 99214 ==

== ENCOUNTER 2023-12-17 10:37 | Day surgery (SDC) | payer MEDICARE, SELFPAY ==
[2023-12-17] VITALS (7 sets, daily range): BP systolic 104–156; BP diastolic 61–82; PULSE 87–105; RESP 16–18; TEMP 35.7–36.2; O2SAT 94–100
[2023-12-17 11:09] LABS: Glucose Point of Care 168 mg/dL (70-110)
[2023-12-17] MEDS: sodium chloride 0.9% 1,000 ML 30 ML IV (11:23)
--- NOTE | 2023-12-17 11:40 | W.PM.OPSUD ---
Surgery/Procedure H&P Update DATE OF PROCEDURE: December 17, 2023 DATE H&P PERFORMED: 12/12/23 H&P UPDATE INFORMATION: I have reviewed H&P completed within last 30 days, I have examined patient prior to procedure, No changes to prior documentation and H&P is in [facility] EMR on date indicated PLANNED PROCEDURE: Operation Date: 12/17/23 12:25 [place] p [id number] port removal Z95.828(Not Applicable) - Sergey Meadows MD
--- NOTE | 2023-12-17 11:52 | ANES.PREANE2 ---
Pre-Anesthetic Assessment Height/Weight: Height 1.57 m Weight 77.111 kg Temp Pulse Resp BP Pulse Ox O2 Del Method 96.3 F L 105 H 18 156/82 94 Room Air 12/17/23 10:57 12/17/23 10:57 12/17/23 10:57 12/17/23 10:57 12/17/23 10:57 12/17/23 10:57 Operation Date: 12/17/23 12:25 [place] [id number] port removal Z95.828(Not Applicable) - Sergey Meadows MD Familial anesthetic complications: None Was Beta Duncan taken within 24 hours: N/A Was Clonidine taken within 24 hours: N/A Last intake: Intake Last Liquid Date 12/16/23 Last Liquid Time 22:00 Last Solid Date 12/16/23 Last Solid Time 21:30 Social Tobacco and No alcohol Exam alert, oriented x 3, clear to auscultation bilaterally and regular rate & rhythm Airway Mallampati: Class III Dentition: partials Pulmonary Sleep Apnea CV/HEM Hypertension Anesthetic Plan ASA status: 3 Anesthesia: MAC Risk of > 500 ml blood loss (7ml/kg in children): No Medications/Allergies Home Medications Medication Instructions Recorded Confirmed Last Taken Type docusate sodium 100 mg capsule 100 mg PO DAILY 12/29/19 12/17/23 12/16/23 History (Colace) dronabinol 5 mg capsule (Marinol) 5 mg PO BID 12/29/19 12/17/23 12/16/23 History meclizine 12.5 mg tablet 12.5 mg PO BID PRN dizziness 12/29/19 12/17/23 12/16/23 History blood sugar diagnostic (Accu-Chek #100 ea 03/19/20 12/12/23 02/21/22 Rx Pretty Plus test strips) blood-glucose meter (Accu-Chek #1 ea 03/19/20 12/12/23 02/21/22 Rx Pretty Plus Meter) cholestyramine-aspartame 4 gram 4 gm PO BID 03/19/20 12/17/23 12/16/23 History oral powder (Cholestyramine Light) clobetasol 0.05 % topical cream 1 applic topical BID 03/19/20 12/17/23 12/16/23 History (Temovate) cyclobenzaprine 10 mg tablet 10 mg PO TID PRN Spasms 03/19/20 12/17/23 12/16/23 History montelukast 10 mg tablet 10 mg PO DAILY 03/19/20 12/17/23 12/16/23 History (Singulair) pen needle, diabetic 32 gauge x #100 ea 08/19/20 12/12/23 Unknown Rx (1st Tier Unifine Pentips) nystatin 100,000 unit/gram topical 1 applic topical TID #60 grams 08/24/20 12/17/23 12/16/23 Rx powder fluticasone propionate 50 1 spray intranasal BID #16 grams 05/09/21 12/17/23 12/16/23 Rx mcg/actuation nasal spray,suspension (Allergy Relief (fluticasone)) guaifenesin 1,200 mg tablet, 1,200 mg PO BID #20 tabs 09/19/21 12/17/23 12/16/23 Rx extended release 12 hr (Mucinex) flash glucose scanning reader #1 ea 02/06/22 12/12/23 02/21/22 Rx (FreeStyle Dawson 14 Day [place]) flash glucose sensor (FreeStyle #2 ea 02/06/22 12/12/23 Unknown Rx Dawson 14 Day Sensor kit) cetirizine 10 mg tablet 10 mg PO DAILY #30 tabs 04/14/22 12/17/23 12/16/23 Rx ibuprofen 600 mg tablet 600 mg PO BID PRN pain #30 tabs 04/14/22 12/17/23 12/16/23 Rx albuterol sulfate 90 mcg/actuation 2 puff inhalation Q6H PRN 08/07/22 12/17/23 12/16/23 Rx aerosol inhaler (ProAir HFA) shortness of breath or wheezing #8.5 grams budesonide-formoterol HFA 160 2 puff inhalation Q12H #10.2 grams 08/07/22 12/17/23 12/16/23 Rx mcg-4.5 mcg/actuation aerosol inhaler (Symbicort) diabetic shoes #1 ea 08/09/22 12/12/23 Unknown Rx clopidogrel 75 mg tablet 75 mg PO DAILY #90 tabs 09/05/22 12/14/23 12/11/23 Rx diabetic shoes with 3 inserts #1 ea 12/11/22 12/12/23 Unknown Rx diclofenac sodium 3 % topical gel 1 applic topical BID #100 grams 01/01/23 12/17/23 12/16/23 Rx insulin glargine 100 unit/mL (3 See Rx Instructions .Route 03/15/23 12/17/23 12/16/23 Rx mL) subcutaneous pen (Lantus .COMPLEX #15 mL Solostar U-100 Insulin) celecoxib 200 mg capsule 200 mg PO BID PRN pain #14 caps 05/06/23 12/17/23 12/16/23 Rx naloxone 4 mg/actuation nasal spray 1 spray intranasal Q2M #2 ea 05/08/23 12/17/23 Unknown Rx duloxetine 30 mg capsule,delayed See Rx Instructions .Route 07/23/23 12/17/23 12/16/23 Rx release .COMPLEX #90 caps atorvastatin 40 mg tablet See Rx Instructions .Route 07/25/23 12/17/23 12/16/23 Rx .COMPLEX #90 tabs famotidine 20 mg tablet 20 mg PO BID #60 tabs 08/15/23 12/17/23 12/16/23 Rx nitroglycerin 0.4 mg sublingual 0.4 mg sublingual Q5M PRN chest 08/15/23 12/17/23 Unknown Rx tablet pain #100 tabs ondansetron 8 mg disintegrating 8 mg PO Q8H PRN nausea and 08/15/23 12/17/23 12/16/23 Rx tablet vomiting #30 tabs blood sugar diagnostic (Blood #50 ea 09/27/23 12/12/23 Unknown Rx Glucose Test strips) blood-glucose meter #1 ea 09/27/23 12/12/23 Unknown Rx levofloxacin 750 mg tablet 750 mg PO DAILY 10 days #10 tabs 09/27/23 12/17/23 12/16/23 Rx duloxetine 60 mg capsule,delayed 60 mg PO DAILY #90 caps 10/05/23 12/17/23 12/16/23 Rx release doxycycline hyclate 100 mg capsule 100 mg PO BID 10 days #20 caps 10/25/23 12/17/23 12/16/23 Rx erythromycin ethylsuccinate 200 200 mg (5 mL) PO TID #100 mL 11/05/23 12/17/23 12/16/23 Rx mg/5 mL oral powder for suspension (E.E.S. Granules) oxycodone 30 mg tablet 30 mg PO Q4H PRN Pain 30 days #150 11/05/23 12/17/23 12/16/23 Rx tabs diclofenac sodium 1 % topical gel 2 g topical QID #100 grams 12/10/23 12/17/23 12/16/23 Rx leflunomide 20 mg tablet 20 mg PO DAILY #90 tabs 12/10/23 12/17/23 12/16/23 Rx prednisone 5 mg tablet 5 mg PO DAILY #90 tabs 12/10/23 12/14/23 12/14/23 Rx pregabalin 75 mg capsule (Lyrica) 75 mg PO BID #60 caps 12/10/23 12/17/23 12/16/23 Rx empagliflozin 25 mg tablet 25 mg PO DAILY #90 tabs 12/11/23 12/17/23 12/15/23 Rx (Jardiance) glimepiride 2 mg tablet 2 mg PO DAILY 12/14/23 12/17/23 12/15/23 History pantoprazole 40 mg tablet,delayed 40 mg PO DAILY 12/14/23 12/17/23 12/16/23 History release sitagliptin phosphate 100 mg 100 mg PO DAILY 12/14/23 12/17/23 12/15/23 History tablet (Januvia) prednisone 5 mg tablet 5 mg PO DAILY 12/17/23 12/17/23 12/16/23 History Allergies Allergy/AdvReac Type Severity Reaction Status Date / Time adhesive tape Allergy Intermediate ALGY-Hives Verified 12/12/23 08:28 morphine Allergy Intermediate unknown Verified 12/12/23 08:28 aspirin Allergy Mild ALGY-Hives Verified 12/12/23 08:28 ciprofloxacin [From Cipro] Allergy Unknown Verified 12/12/23 08:28 dapagliflozin [From Farxiga] Allergy unk Verified 12/12/23 08:28 iodine Allergy unknown Verified 12/12/23 08:28 metformin Allergy Unknown Verified 12/12/23 08:28 prochlorperazine Allergy unknown Verified 12/12/23 08:28 [From Compazine] codeine AdvReac Mild UNKNOWN Verified 12/12/23 08:28 Opioids - Morphine Analogues AdvReac Mild UNKNOWN Verified 12/12/23 08:28 Penicillins AdvReac Mild UNKNOWN Verified 12/12/23 08:28 Phenothiazines AdvReac Mild UNKNOWN Verified 12/12/23 08:28 salicylates AdvReac Mild UNKNOWN Verified 12/12/23 08:28 Sulfa (Sulfonamide AdvReac Mild UNKNOWN Verified 12/12/23 08:28 Antibiotics) Current Medications Generic Name Dose Route Start Last Admin Trade Name Freq PRN Reason Stop Dose Admin Sodium Chloride 1,000 mls @ 30 mls/hr 12/17/23 11:00 12/17/23 11:23 Sodium Chloride 0.9% IV 12/18/23 10:59 30 mls/hr .Q24H EVY Administration PFSH Anesthesia Medical History (Updated 12/12/23 @ 08:36 by DYANA Choe) Acute bacterial sinusitis Immunization counseling GERD (gastroesophageal reflux disease) History of nonmelanoma skin cancer 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 Giant cell arteritis Oropharyngeal candidiasis Inflammatory arthritis Type 2 diabetes mellitus, with long-term current use of insulin Glaucoma Diabetic gastroparesis ASHD (arteriosclerotic heart disease) Breast cancer Dyslipidemia COPD (chronic obstructive pulmonary disease) Myocardial infarction HTN (hypertension) Surgical History Hx of cataract surgery bilaterally 1 week ago History of lymph node biopsy (08/19/15) Excisional biopsy of left inguinal lymph node History of lumpectomy of left breast (2005) Left breast lumpectomy with axillary sentinel lymph node biopsy Status post colonoscopy with polypectomy (02/22/22) H/O esophagogastroduodenoscopy (08/12/21) bile reflux Status post colonoscopy (08/12/21) polyps S/P hysterectomy S/P cholecystectomy H/O neck surgery Cervical laminectomy and placement of a spinal cord stimulator Previous back surgery Lumbar laminectomy S/P PTCA (percutaneous transluminal coronary angioplasty) Family History Other CAD (coronary artery disease) Cancer Chronic kidney disease (CKD) Diabetes Family history of premature coronary artery disease Hyperlipidemia Hypertension Lung disease Lupus Rheumatoid arthritis Stroke Social History Smoking and tobacco/nicotine status: current every day tobacco/nicotine user cigarettes Packs smoked per day: 0.5 Years cigarettes smoked: 42 Alcohol intake: never Substance/Drug Use: current Substance/Drug use frequency: daily Data Anesthesia Cardiac Studies: Sestamibi Stress Test (Cardiology) 11/01/21
[2023-12-17] MEDS: clindamycin 600 MG/50 ML PREMIX 100 MG IV (12:12)
[2023-12-17] MEDS: lidocaine-epi 1% 20 mL INJ INJECTION (12:17)
[2023-12-17] MEDS: BUPivacaine 0.25% INJ 10 mL INJECTION (12:17)
--- NOTE | 2023-12-17 12:37 | P.OP_ITS ---
Operative Report Date of procedure: December 17, 2023 Pre-op diagnosis: History of breast cancer Post-op diagnosis: Same Post-op findings: Reported noted in place, no significant bleeding after removal. Procedure done: Excision of Port-A-Cath Specimens removed/disposition: Bard Port-A-Cath Surgeon: Sergey Meadows MD Plant Engineering Manager: SUSAN OR Staff Complications: none Brief History: 58-year-old female who had a particular place to receive chemotherapy, patient has finished therapy and desires Port-A-Cath to be removed. After discussion of all risk benefits as documented in my preop note we decided to proceed with removal. Procedure: Patient was brought into the OR, she was placed in a supine position. Mother anesthesia sedation was given. The upper chest was prepped and draped in the usual sterile fashion. Timeout was conducted. I then proceeded to make 3 cm incision overlying the previous incision site, this incision was elliptical and encircled the previous incision, the incision was deepened to subcutaneous tissue and the previous incision was excised with electrocautery. I then proceeded to deepen the incision until the cough of the Port-A-Cath was identified, the capsule was then opened with electrocautery and the Port-A-Cath was delivered to the wound. While holding pressure at the level of the insertion site in the subclavian I proceeded to remove the Port-A-Cath. After removal I used a 3-0 Vicryl [id number] suture over the catheter tract to prevent bleeding. Hemostasis was verified, the capsule was then excised with electrocautery to prevent seroma formation. I then proceeded to close the wound in layers using #3-0 Vicryl for the subcutaneous tissue and #4 Monocryl for the skin. Dermabond was applied. At the end of the procedure all counts were correct, the patient tolerated well the procedure and was transferred to the PACU in stable condition.
--- NOTE | 2023-12-17 13:30 | ANE.PACU2 ---
Inpatient post-anesthesia follow up: Airway intact: Yes Vital signs: Temperature 97.2 F Pulse Rate 87 Respiratory Rate 16 Blood Pressure 124/72 Pulse Oximetry 94 Oxygen Delivery Me thod Room Air Oxygen Flow Rate 6 Fraction of Inspir ed Oxygen Hydration adequate: Yes Nausea and vomiting: No Pain level: 1 Mental status: Baseline
== END 2023-12-17 13:30 | disposition home or self-care (01) ==
PROVIDERS: PCP Family Medicine; Visit Provider Surgery
PROC: (CPT 36589; principal; 2023-12-17 12:15)
DX: Z85.3 Personal history of malignant neoplasm of breast (principal); G47.30 Sleep apnea, unspecified; I10 Essential (primary) hypertension; Z79.4 Long term (current) use of insulin; K21.9 Gastro-esophageal reflux disease without esophagitis; E11.9 Type 2 diabetes mellitus without complications; E78.5 Hyperlipidemia, unspecified; J44.9 Chronic obstructive pulmonary disease, unspecified; I25.2 Old myocardial infarction; F17.210 Nicotine dependence, cigarettes, uncomplicated
CPT/HCPCS: 36590; 36416; 76937; 82962; J2704; J3010; J3490; J7030

== ENCOUNTER 2023-12-18 11:39 | Emergency (ER) | payer MEDICARE, SELFPAY ==
[2023-12-18 12:08] VITALS: BP 151/86; PULSE 93; RESP 16; TEMP 36.7; O2SAT 96; BMI 30.7
--- NOTE | 2023-12-18 12:20 | ED_ITS ---
Documented by User: CANDACE Burgos 12/18/23 12:44 HPI - Wound/Laceration 2 General: Chief Complaint: Recheck/Abnormal Lab/Rx Stated Complaint: 1 day post surgery, incison red, warm Time Seen by Provider: 12/18/23 12:17 Source: patient Mode of arrival: ambulatory Limitations: no limitations History of Present Illness: Patient is a 58-year-old male who presents to the ED today for evaluation of redness to her recent port removal site. She states port was removed by Dr. Meadows yesterday. She states she was discharged home from the hospital around 2:00pm. States today she began noticing redness around the site and is concerned for infection. She has no fevers. Onset (ago): hour(s) Location: chest Patient tetanus UTD: Yes Associated symptoms: Denies chills, fever(s), nausea, syncope or vomiting Review of Systems 2 Const: Denies: fever(s), chills, body aches, fatigue or malaise Card: Reports: other (soreness at site of port removal); Denies: palpitations, irregular heart rhythm, edema, lightheadedness, syncope or pre-syncope Resp: Denies: dyspnea GI: Denies: nausea or vomiting Skin/Breast: Reports: other (concerned about redness to previous port site) PFSH ED 2 PFSH: Medical History Acute bacterial sinusitis Immunization counseling GERD (gastroesophageal reflux disease) History of nonmelanoma skin cancer 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 Giant cell arteritis Oropharyngeal candidiasis Inflammatory arthritis Type 2 diabetes mellitus, with long-term current use of insulin Glaucoma Diabetic gastroparesis ASHD (arteriosclerotic heart disease) Breast cancer Dyslipidemia COPD (chronic obstructive pulmonary disease) Myocardial infarction HTN (hypertension) Surgical History Hx of cataract surgery bilaterally 1 week ago History of lymph node biopsy (08/19/15) Excisional biopsy of left inguinal lymph node History of lumpectomy of left breast (2005) Left breast lumpectomy with axillary sentinel lymph node biopsy Status post colonoscopy with polypectomy (02/22/22) H/O esophagogastroduodenoscopy (08/12/21) bile reflux Status post colonoscopy (08/12/21) polyps S/P hysterectomy S/P cholecystectomy H/O neck surgery Cervical laminectomy and placement of a spinal cord stimulator Previous back surgery Lumbar laminectomy S/P PTCA (percutaneous transluminal coronary angioplasty) Family History Other CAD (coronary artery disease) Cancer Chronic kidney disease (CKD) Diabetes Family history of premature coronary artery disease Hyperlipidemia Hypertension Lung disease Lupus Rheumatoid arthritis Stroke Social History Smoking and tobacco/nicotine status: current every day tobacco/nicotine user cigarettes Packs smoked per day: 0.5 Years cigarettes smoked: 42 Alcohol intake: never Substance/Drug Use: current Substance/Drug use frequency: daily Physical Exam 2 Const: COMMON NORMALS: no acute distress, patient oriented x3, no limitations, alert and well nourished Chest: Chest images (female): 1. port removal site/intact with overlying adhesive 2. mild erythema Resp: COMMON NORMALS: normal respiratory effort and clear to auscultation bilaterally AUSCULTATION: clear to auscultation bilaterally Cardio: COMMON NORMALS: regular rate and regular rhythm RATE: regular rate RHYTHM: regular rhythm Neuro: COMMON NORMALS: patient oriented x3 SENSORIUM/ORIENTATION: Yes alert Course 2 Vital Signs: Vital signs: Vital Signs Temperature 98.0 F 12/18/23 12:46 Pulse Rate 93 12/18/23 12:46 Respiratory Rate 16 12/18/23 12:46 Blood Pressure 151/86 12/18/23 12:46 Pulse Oximetry 96 12/18/23 12:46 Oxygen Delivery Me thod Room Air 12/18/23 12:08 MDM - Wound/Laceration Medical Decision Making Patient was just released from the hospital less than 24 hours ago. Unlikely this is enough time to develop an infection. Most likely erythema secondary to reaction. Did discuss case with Dr. De La Cruz who agreed. Patient seems very concerned and reportedly has had significant infections in the past therefore we will go ahead and cover with antibiotics. Shortly after she was flagged for discharge, Dr. Meadows's office called and they are going to see her in office at 1:00pm today. Patient made aware and she will head straight over there from here. Recommended she told off on antibiotics until she sees surgeon and gets his recommendations. Medical Records I reviewed the patient's medical records. No radiology studies performed this visit Discharge Plan Discharge Patient Disposition: Home Clinical Impression: History of removal of Port-a-Cath Surgical site reaction Qualifiers: Encounter type: initial encounter Qualified Code(s): T81.9XXA - Unspecified complication of procedure, initial encounter Condition: Stable Prescriptions: New cephalexin 500 mg capsule 500 mg PO Q6H 7 Days Qty: 28 0RF No Action docusate sodium [Colace] 100 mg capsule 100 mg PO DAILY meclizine 12.5 mg tablet 12.5 mg PO BID PRN (Reason: dizziness) dronabinol [Marinol] 5 mg capsule 5 mg PO BID Cholestyramine Light 4 gram powder 4 gm PO BID Rx Instructions: administer w/meal; avoid other meds within 1hr before or 4-6hr after dose clobetasol [Temovate] 0.05 % cream 1 applic TOPICAL BID cyclobenzaprine 10 mg tablet 10 mg PO TID PRN (Reason: Spasms) montelukast [Singulair] 10 mg tablet 10 mg PO DAILY (DME) blood-glucose meter [Accu-Chek Pretty Plus Meter] Misc See Rx Instructions .ROUTE .MEDSUPPLY Qty: 1 0RF Rx Instructions: once daily (DME) blood sugar diagnostic [Accu-Chek Pretty Plus test strp] Strip See Rx Instructions .ROUTE .MEDSUPPLY Qty: 100 0RF Rx Instructions: test once daily nystatin 100,000 unit/gram powder 1 applic TOPICAL TID Qty: 60 0RF albuterol sulfate [ProAir HFA] 90 mcg/actuation HFA aerosol inhaler 2 puff INHALATION Q6H PRN (Reason: shortness of breath or wheezing) Qty: 8.5 5RF budesonide-formoterol [Symbicort] 160-4.5 mcg/actuation HFA aerosol inhaler 2 puff INHALATION Q12H Qty: 10.2 5RF Mucinex 1,200 mg tablet extended release 12hr 1,200 mg PO BID Qty: 20 0RF (DME) FreeStyle [place] 14 Day Sensor Kit See Rx Instructions .Route Qty: 2 11RF Rx Instructions: As directed (DME) FreeStyle Dawson 14 Day [place] Misc See Rx Instructions .Route Qty: 1 0RF Rx Instructions: As directed (DME) diabetic shoes with 3 inserts See Rx Instructions .Route .MEDSUPPLY Qty: 1 0RF Rx Instructions: As directed diclofenac sodium 3 % gel 1 applic topical BID Qty: 100 0RF ibuprofen 600 mg tablet 600 mg PO BID PRN (Reason: pain) Qty: 30 0RF Hold Instructions: Resume on 09/30/22. Rx Instructions: Take with food cetirizine 10 mg tablet 10 mg PO DAILY Qty: 30 0RF (DME) diabetic shoes See Rx Instructions .Route .MEDSUPPLY Qty: 1 0RF Rx Instructions: As directed nitroglycerin 0.4 mg tablet, sublingual 0.4 mg sublingual Q5M PRN (Reason: chest pain) Qty: 100 0RF Rx Instructions: do not exceed 3 doses per episode ondansetron 8 mg tablet,disintegrating 8 mg PO Q8H PRN (Reason: nausea and vomiting) Qty: 30 2RF famotidine 20 mg tablet 20 mg PO BID Qty: 60 2RF diclofenac sodium 1 % gel 2 g topical QID Qty: 100 2RF Rx Instructions: apply to affected area as needed leflunomide 20 mg tablet 20 mg PO DAILY Qty: 90 1RF prednisone 5 mg tablet 5 mg PO DAILY Qty: 90 1RF pregabalin [Lyrica] 75 mg capsule 75 mg PO BID Qty: 60 3RF levofloxacin 750 mg tablet 750 mg PO DAILY 10 Days Qty: 10 0RF ([facility]) blood-glucose meter Misc See Rx Instructions .MEDSUPPLY Qty: 1 0RF Rx Instructions: As directed ([facility]) Blood Glucose Test Strip See Rx Instructions .MEDSUPPLY Qty: 50 5RF Rx Instructions: As directed doxycycline hyclate 100 mg capsule 100 mg PO BID 10 Days Qty: 20 0RF ([facility]) pen needle, diabetic [1st Tier Unifine Pentips] 32 gauge x 5/32 needle See Rx Instructions .ROUTE .MEDSUPPLY Qty: 100 2RF Rx Instructions: one daily fluticasone propionate [Allergy Relief (fluticasone)] 50 mcg/actuation spray,suspension 1 spray INTRANASAL BID Qty: 16 2RF clopidogrel 75 mg tablet 75 mg PO DAILY Qty: 90 1RF Hold Instructions: Resume on 09/29/22. Lantus Solostar U-100 Insulin 100 unit/mL (3 mL) insulin pen See Rx Instructions .ROUTE .COMPLEX Qty: 15 1RF Dose Instruction: inject 15 units SUBCUTANEOUSLY DAILY Rx Instructions: inject 15 units SUBCUTANEOUSLY DAILY naloxone 4 mg/actuation spray,non-aerosol 1 spray intranasal Q2M Qty: 2 2RF Rx Instructions: spray 1 dose into ONE nostril; alternate nostrils w each dose until help arrives duloxetine 30 mg capsule,delayed release(DR/EC) See Rx Instructions .ROUTE .COMPLEX Qty: 90 1RF Dose Instruction: take 1 capsule BY MOUTH TWICE DAILY Rx Instructions: take 1 capsule BY MOUTH TWICE DAILY atorvastatin 40 mg tablet See Rx Instructions .ROUTE .COMPLEX Qty: 90 1RF Dose Instruction: TAKE ONE TABLET BY MOUTH EVERY DAY Rx Instructions: TAKE ONE TABLET BY MOUTH EVERY DAY duloxetine 60 mg capsule,delayed release(DR/EC) 60 mg PO DAILY Qty: 90 1RF erythromycin ethylsuccinate [E.E.S. Granules] 200 mg/5 mL suspension for reconstitution 200 mg PO TID Qty: 100 2RF oxycodone 30 mg tablet 30 mg PO Q4H PRN (Reason: Pain) 30 Days Qty: 150 0RF Jardiance 25 mg tablet 25 mg PO DAILY Qty: 90 0RF glimepiride 2 mg tablet 2 mg PO DAILY Rx Instructions: TAKE ONE TABLET BY MOUTH EVERY DAY pantoprazole 40 mg tablet,delayed release (DR/EC) 40 mg PO DAILY Rx Instructions: TAKE 1 TABLET BY MOUTH EVERY DAY Januvia 100 mg tablet 100 mg PO DAILY Rx Instructions: TAKE ONE TABLET BY MOUTH EVERY DAY prednisone 5 mg tablet 5 mg PO DAILY meloxicam 7.5 mg tablet 7.5 mg PO DAILY Qty: 7 0RF Discharge Orders: Discharge ED (Routine); Ordered 12/18/23 Ordered By: Adriana Wadsworth Referrals: Violet Falcon DO [Primary Care Provider] - Activity Restrictions/Additional Instructions: As we discussed go straight to Dr. Meadows's office as he is planning on seeing you at 1:00. 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 Giant cell arteritis Oropharyngeal candidiasis Inflammatory arthritis Type 2 diabetes mellitus, with long-term current use of insulin Glaucoma Diabetic gastroparesis ASHD (arteriosclerotic heart disease) Breast cancer Dyslipidemia COPD (chronic obstructive pulmonary disease) Myocardial infarction HTN (hypertension) Surgical History Hx of cataract surgery bilaterally 1 week ago History of lymph node biopsy (08/19/15) Excisional biopsy of left inguinal lymph node History of lumpectomy of left breast (2005) Left breast lumpectomy with axillary sentinel lymph node biopsy Status post colonoscopy with polypectomy (02/22/22) H/O esophagogastroduodenoscopy (08/12/21) bile reflux Status post colonoscopy (08/12/21) polyps S/P hysterectomy S/P cholecystectomy H/O neck surgery Cervical laminectomy and placement of a spinal cord stimulator Previous back surgery Lumbar laminectomy S/P PTCA (percutaneous transluminal coronary angioplasty) Family History Other CAD (coronary artery disease) Cancer Chronic kidney disease (CKD) Diabetes Family history of premature coronary artery disease Hyperlipidemia Hypertension Lung disease Lupus Rheumatoid arthritis Stroke Social History Smoking and tobacco/nicotine status: current every day tobacco/nicotine user cigarettes Packs smoked per day: 0.5 Years cigarettes smoked: 42 Alcohol intake: never Substance/Drug Use: current Substance/Drug use frequency: daily Physical Exam 2 Chest: Chest images (female): 1. port removal site/intact with overlying adhesive 2. mild erythema Course 2 Vital Signs: Vital signs: Vital Signs Temperature 98.0 F 12/18/23 12:46 Pulse Rate 93 12/18/23 12:46 Respiratory Rate 16 12/18/23 12:46 Blood Pressure 151/86 12/18/23 12:46 Pulse Oximetry 96 12/18/23 12:46 Oxygen Delivery Me thod Room Air 12/18/23 12:08 MDM - Wound/Laceration Medical Decision Making Patient was just released from the hospital less than 24 hours ago. Unlikely this is enough time to develop an infection. Most likely erythema secondary to reaction. Did discuss case with Dr. De La Cruz who agreed. Patient seems very concerned and reportedly has had significant infections in the past therefore we will go ahead and cover with antibiotics. Shortly after she was flagged for discharge, Dr. Meadows's office called and they are going to see her in office at 1:00pm today. Patient made aware and she will head straight over there from here. Recommended she told off on antibiotics until she sees surgeon and gets his recommendations. Chart reviewed and patient discussed with midlevel. Agree with assessment and plan. Discharge Plan Discharge Patient Disposition: Home Clinical Impression: History of removal of Port-a-Cath Surgical site reaction Qualifiers: Encounter type: initial encounter Qualified Code(s): T81.9XXA - Unspecified complication of procedure, initial encounter Condition: Stable Prescriptions: New cephalexin 500 mg capsule 500 mg PO Q6H 7 Days Qty: 28 0RF No Action docusate sodium [Colace] 100 mg capsule 100 mg PO DAILY meclizine 12.5 mg tablet 12.5 mg PO BID PRN (Reason: dizziness) dronabinol [Marinol] 5 mg capsule 5 mg PO BID Cholestyramine Light 4 gram powder 4 gm PO BID Rx Instructions: administer w/meal; avoid other meds within 1hr before or 4-6hr after dose clobetasol [Temovate] 0.05 % cream 1 applic TOPICAL BID cyclobenzaprine 10 mg tablet 10 mg PO TID PRN (Reason: Spasms) montelukast [Singulair] 10 mg tablet 10 mg PO DAILY (DME) blood-glucose meter [Accu-Chek Pretty Plus Meter] Misc See Rx Instructions .ROUTE .MEDSUPPLY Qty: 1 0RF Rx Instructions: once daily (DME) blood sugar diagnostic [Accu-Chek Pretty Plus test strp] Strip See Rx Instructions .ROUTE .MEDSUPPLY Qty: 100 0RF Rx Instructions: test once daily nystatin 100,000 unit/gram powder 1 applic TOPICAL TID Qty: 60 0RF albuterol sulfate [ProAir HFA] 90 mcg/actuation HFA aerosol inhaler 2 puff INHALATION Q6H PRN (Reason: shortness of breath or wheezing) Qty: 8.5 5RF budesonide-formoterol [Symbicort] 160-4.5 mcg/actuation HFA aerosol inhaler 2 puff INHALATION Q12H Qty: 10.2 5RF Mucinex 1,200 mg tablet extended release 12hr 1,200 mg PO BID Qty: 20 0RF ([facility]) FreeStyle [place] 14 Day Sensor Kit See Rx Instructions .Route Qty: 2 11RF Rx Instructions: As directed ([facility]) FreeStyle Dawson 14 Day [place] Misc See Rx Instructions .Route Qty: 1 0RF Rx Instructions: As directed ([facility]) diabetic shoes with 3 inserts See Rx Instructions .Route .MEDSUPPLY Qty: 1 0RF Rx Instructions: As directed diclofenac sodium 3 % gel 1 applic topical BID Qty: 100 0RF ibuprofen 600 mg tablet 600 mg PO BID PRN (Reason: pain) Qty: 30 0RF Hold Instructions: Resume on 09/30/22. Rx Instructions: Take with food cetirizine 10 mg tablet 10 mg PO DAILY Qty: 30 0RF ([facility]) diabetic shoes See Rx Instructions .Route .MEDSUPPLY Qty: 1 0RF Rx Instructions: As directed nitroglycerin 0.4 mg tablet, sublingual 0.4 mg sublingual Q5M PRN (Reason: chest pain) Qty: 100 0RF Rx Instructions: do not exceed 3 doses per episode ondansetron 8 mg tablet,disintegrating 8 mg PO Q8H PRN (Reason: nausea and vomiting) Qty: 30 2RF famotidine 20 mg tablet 20 mg PO BID Qty: 60 2RF diclofenac sodium 1 % gel 2 g topical QID Qty: 100 2RF Rx Instructions: apply to affected area as needed leflunomide 20 mg tablet 20 mg PO DAILY Qty: 90 1RF prednisone 5 mg tablet 5 mg PO DAILY Qty: 90 1RF pregabalin [Lyrica] 75 mg capsule 75 mg PO BID Qty: 60 3RF levofloxacin 750 mg tablet 750 mg PO DAILY 10 Days Qty: 10 0RF (DME) blood-glucose meter Misc See Rx Instructions .MEDSUPPLY Qty: 1 0RF Rx Instructions: As directed (DME) Blood Glucose Test Strip See Rx Instructions .MEDSUPPLY Qty: 50 5RF Rx Instructions: As directed doxycycline hyclate 100 mg capsule 100 mg PO BID 10 Days Qty: 20 0RF (DME) pen needle, diabetic [1st Tier Unifine Pentips] 32 gauge x / needle See Rx Instructions .ROUTE .MEDSUPPLY Qty: 100 2RF Rx Instructions: one daily fluticasone propionate [Allergy Relief (fluticasone)] 50 mcg/actuation spray,suspension 1 spray INTRANASAL BID Qty: 16 2RF clopidogrel 75 mg tablet 75 mg PO DAILY Qty: 90 1RF Hold Instructions: Resume on 09/29/22. Lantus Solostar U-100 Insulin 100 unit/mL (3 mL) insulin pen See Rx Instructions .ROUTE .COMPLEX Qty: 15 1RF Dose Instruction: inject 15 units SUBCUTANEOUSLY DAILY Rx Instructions: inject 15 units SUBCUTANEOUSLY DAILY naloxone 4 mg/actuation spray,non-aerosol 1 spray intranasal Q2M Qty: 2 2RF Rx Instructions: spray 1 dose into ONE nostril; alternate nostrils w each dose until help arrives duloxetine 30 mg capsule,delayed release(DR/EC) See Rx Instructions .ROUTE .COMPLEX Qty: 90 1RF Dose Instruction: take 1 capsule BY MOUTH TWICE DAILY Rx Instructions: take 1 capsule BY MOUTH TWICE DAILY atorvastatin 40 mg tablet See Rx Instructions .ROUTE .COMPLEX Qty: 90 1RF Dose Instruction: TAKE ONE TABLET BY MOUTH EVERY DAY Rx Instructions: TAKE ONE TABLET BY MOUTH EVERY DAY duloxetine 60 mg capsule,delayed release(DR/EC) 60 mg PO DAILY Qty: 90 1RF erythromycin ethylsuccinate [E.E.S. Granules] 200 mg/5 mL suspension for reconstitution 200 mg PO TID Qty: 100 2RF oxycodone 30 mg tablet 30 mg PO Q4H PRN (Reason: Pain) 30 Days Qty: 150 0RF Jardiance 25 mg tablet 25 mg PO DAILY Qty: 90 0RF glimepiride 2 mg tablet 2 mg PO DAILY Rx Instructions: TAKE ONE TABLET BY MOUTH EVERY DAY pantoprazole 40 mg tablet,delayed release (DR/EC) 40 mg PO DAILY Rx Instructions: TAKE 1 TABLET BY MOUTH EVERY DAY Januvia 100 mg tablet 100 mg PO DAILY Rx Instructions: TAKE ONE TABLET BY MOUTH EVERY DAY prednisone 5 mg tablet 5 mg PO DAILY meloxicam 7.5 mg tablet 7.5 mg PO DAILY Qty: 7 0RF Discharge Orders: Discharge ED (Routine); Ordered 12/18/23 Ordered By: Adriana Wadsworth Referrals: Violet Falcon DO [Primary Care Provider] - Activity Restrictions/Additional Instructions: As we discussed go straight to Dr. Meadows's office as he is planning on seeing you at 1:00. Coding Level of Care Code ED Pest Control Worker for Jackie Mera
[2023-12-18 12:46] VITALS: BP 151/86; PULSE 93; RESP 16; TEMP 36.7; O2SAT 96
== END 2023-12-18 12:48 | disposition home or self-care (01) ==
PROVIDERS: Emergency Provider Physician Assistant; PCP Family Medicine
DX: L76.82 Other postprocedural complications of skin and subcutaneous tissue (principal); Z79.4 Long term (current) use of insulin; Z79.02 Long term (current) use of antithrombotics/antiplatelets; Z79.84 Long term (current) use of oral hypoglycemic drugs; F17.210 Nicotine dependence, cigarettes, uncomplicated; E11.9 Type 2 diabetes mellitus without complications; E78.5 Hyperlipidemia, unspecified; J44.9 Chronic obstructive pulmonary disease, unspecified; I25.2 Old myocardial infarction; I10 Essential (primary) hypertension; Z85.3 Personal history of malignant neoplasm of breast; Z95.828 Presence of other vascular implants and grafts; Y83.8 Other surgical procedures as the cause of abnormal reaction of the patient, or of later complication, without mention of misadventure at the time of the procedure
CPT/HCPCS: 99213; 99281

== ENCOUNTER → 2023-12-28 10:38 | Outpatient (BNVA) | payer MEDICARE, SELFPAY | PROVIDERS: PCP Family Medicine; Visit Provider Family Medicine | DX: E11.69 Type 2 diabetes mellitus with other specified complication (principal); Z79.4 Long term (current) use of insulin; Z13.6 Encounter for screening for cardiovascular disorders | CPT/HCPCS: 80053; 80061; 83036 ==

== ENCOUNTER → 2024-01-07 09:17 | Outpatient (BNVA) | payer MEDICARE, SELFPAY | PROVIDERS: PCP Family Medicine; Visit Provider Podiatrist Foot & Ankle Surgery | DX: B35.1 Tinea unguium (principal); G62.9 Polyneuropathy, unspecified; I73.9 Peripheral vascular disease, unspecified; L84 Corns and callosities; E11.69 Type 2 diabetes mellitus with other specified complication; Z79.4 Long term (current) use of insulin | CPT/HCPCS: 11056; 11721 ==

== ENCOUNTER 2024-02-20 14:24 | Oncology outpatient (recurring) (ONCR) | payer MEDICARE, SELFPAY ==
--- NOTE | 2024-02-20 14:30 | MM_ITS ---
WS: [id number] BILATERAL 3D TOMOSYNTHESIS DIGITAL DIAGNOSTIC MAMMOGRAPHY WITH CAD CLINICAL INFORMATION: history of breast cancer HISTORY: Prior lumpectomy LEFT breast. COMPARISON: 2022 TECHNIQUE: Bilateral CC, MLO, and ML views. FINDINGS: Scattered fibroglandular densities bilaterally. Postoperative changes LEFT breast lumpectomy with vol ume loss. Associated parenchymal scarring and treatment-related changes similar in appearance with sk in thickening. Punctate and lucent centered calcifications. Surgical clips LEFT axilla. RIGHT breast is unchanged. No suspicious focal mass, asymmetry, calcifications, or architectural distortion. No evidence of geri gnancy. IMPRESSION: MM/[place] [id number] BI-RADS: 2-Benign FOLLOW UP: 1 Year Follow-up Recommend return to annual diagnostic mammography.
== END 2024-02-26 23:59 | disposition home or self-care (01) ==
LOC: RAD 14:25 → ONCMED 02-22 08:03
PROVIDERS: PCP Family Medicine; Visit Provider Internal Medicine Medical Oncology
DX: Z85.3 Personal history of malignant neoplasm of breast (principal); Z12.31 Encounter for screening mammogram for malignant neoplasm of breast
CPT/HCPCS: 77062; G0279

== ENCOUNTER → 2024-03-07 13:03 | Outpatient (BNVA) | payer MEDICARE, SELFPAY | PROVIDERS: PCP Family Medicine; Visit Provider Family Medicine | DX: J01.90 Acute sinusitis, unspecified (principal); B96.89 Other specified bacterial agents as the cause of diseases classified elsewhere; K92.1 Melena | CPT/HCPCS: 82270; 85025 ==

== ENCOUNTER → 2024-03-25 12:38 | Outpatient (BNVA) | payer MEDICARE, SELFPAY | PROVIDERS: PCP Family Medicine; Visit Provider Internal Medicine Cardiovascular Disease | DX: I10 Essential (primary) hypertension (principal); E78.5 Hyperlipidemia, unspecified; Z98.61 Coronary angioplasty status; I25.10 Atherosclerotic heart disease of native coronary artery without angina pectoris; F17.219 Nicotine dependence, cigarettes, with unspecified nicotine-induced disorders; I73.9 Peripheral vascular disease, unspecified; Z79.899 Other long term (current) drug therapy; E11.69 Type 2 diabetes mellitus with other specified complication; Z79.4 Long term (current) use of insulin; E66.9 Obesity, unspecified; C50.812 Malignant neoplasm of overlapping sites of left female breast; C44.92 Squamous cell carcinoma of skin, unspecified; I25.2 Old myocardial infarction; Z68.29 Body mass index [BMI] 29.0-29.9, adult | CPT/HCPCS: 99214 ==

== ENCOUNTER 2024-04-02 13:16 | Oncology outpatient (recurring) (ONCR) | payer MEDICARE, SELFPAY ==
[2024-04-02 14:31] LABS: Alanine Aminotransferase 22 U/L (0-33); Albumin Level 4.1 g/dL (3.5-5.2); Alkaline Phosphatase 82 U/L (35-105); Anion Gap 15.3 (5-19); Aspartate Amino Transferase 24 U/L (0-32); Blood Urea Nitrogen 10 mg/dL (8-23); Calcium 8.5 mg/dL (8.5-10.5); Carbon Dioxide 29 mmol/L (22-29); Chloride 99 mmol/L (98-107); Globulin 3.3 g/dL (1.3-4.6); Glomerular Filtration Rate 101.6 mL/min (90-130); Glucose 146 mg/dL (65-115); Osmolality Calculated 292 mOsm/kg (285-295); Potassium 3.3 mmol/L (3.5-5.1); Sodium 140 mmol/L (136-145); Total Bilirubin 0.8 mg/dL (0.15-1.2); Total Protein 7.4 g/dL (6.6-8.7)
== END 2024-04-27 23:59 | disposition home or self-care (01) ==
PROVIDERS: Nurse Practitioner Family; PCP Family Medicine; Visit Provider Internal Medicine Medical Oncology
DX: F17.210 Nicotine dependence, cigarettes, uncomplicated; Z17.0 Estrogen receptor positive status [ER+]; Z85.828 Personal history of other malignant neoplasm of skin; Z08 Encounter for follow-up examination after completed treatment for malignant neoplasm; Z85.3 Personal history of malignant neoplasm of breast; Z92.3 Personal history of irradiation; Z92.21 Personal history of antineoplastic chemotherapy
CPT/HCPCS: 36415; 80053; 85025; 99213

== ENCOUNTER 2024-05-14 15:19 | Oncology outpatient (recurring) (ONCR) | payer MEDICARE, SELFPAY ==
[2024-05-14 16:03] LABS: Alanine Aminotransferase 26 U/L (0-33); Albumin Level 4.1 g/dL (3.5-5.2); Alkaline Phosphatase 82 U/L (35-105); Aspartate Amino Transferase 29 U/L (0-32); Blood Urea Nitrogen 7 mg/dL (8-23); Calcium 8.9 mg/dL (8.5-10.5); Carbon Dioxide 24 mmol/L (22-29); Chloride 98 mmol/L (98-107); Globulin 3.1 g/dL (1.3-4.6); Glomerular Filtration Rate 101.6 mL/min (90-130); Glucose 265 mg/dL (65-115); Osmolality Calculated 293 mOsm/kg (285-295); Sodium 138 mmol/L (136-145); Total Bilirubin 0.9 mg/dL (0.15-1.2); Total Protein 7.2 g/dL (6.6-8.7)
[2024-05-14 16:06] LABS: Anion Gap 19.6 (5-19); Potassium 3.6 mmol/L (3.5-5.1)
[2024-05-14 16:33] LABS: Estmated Average Glucose 177; Hemoglobin A1C 7.8 % (4.0-6.0)
== END 2024-05-28 23:59 | disposition home or self-care (01) ==
LOC: ONCMED 15:20
PROVIDERS: PCP Family Medicine; Visit Provider Internal Medicine Medical Oncology
DX: Z08 Encounter for follow-up examination after completed treatment for malignant neoplasm (principal); F17.210 Nicotine dependence, cigarettes, uncomplicated; Z17.0 Estrogen receptor positive status [ER+]; Z85.828 Personal history of other malignant neoplasm of skin; Z85.3 Personal history of malignant neoplasm of breast; Z92.3 Personal history of irradiation; Z92.21 Personal history of antineoplastic chemotherapy; M31.6 Other giant cell arteritis; Z45.2 Encounter for adjustment and management of vascular access device; C50.812 Malignant neoplasm of overlapping sites of left female breast; C44.92 Squamous cell carcinoma of skin, unspecified; Z79.899 Other long term (current) drug therapy; C50.919 Malignant neoplasm of unspecified site of unspecified female breast; G62.0 Drug-induced polyneuropathy; T45.1X5D Adverse effect of antineoplastic and immunosuppressive drugs, subsequent encounter; G89.29 Other chronic pain; G31.89 Other specified degenerative diseases of nervous system; R10.32 Left lower quadrant pain; R30.0 Dysuria; E11.69 Type 2 diabetes mellitus with other specified complication; Z79.4 Long term (current) use of insulin
CPT/HCPCS: 36415; 80053; 83036

== ENCOUNTER → 2024-06-02 13:50 | Outpatient (BNVA) | payer MEDICARE, SELFPAY | PROVIDERS: PCP Family Medicine; Visit Provider Podiatrist Foot & Ankle Surgery | DX: B35.1 Tinea unguium (principal); G62.9 Polyneuropathy, unspecified; I73.9 Peripheral vascular disease, unspecified; L84 Corns and callosities; E11.69 Type 2 diabetes mellitus with other specified complication; Z79.4 Long term (current) use of insulin; E11.42 Type 2 diabetes mellitus with diabetic polyneuropathy | CPT/HCPCS: 11055; 11721 ==

== ENCOUNTER 2024-07-15 16:12 | Emergency (ER) | payer MEDICARE, SELFPAY ==
[2024-07-15 16:16] VITALS: BP 140/77; PULSE 108; RESP 16; TEMP 36.6; O2SAT 97; BMI 30.6
--- NOTE | 2024-07-15 16:18 | XRR_ITS ---
PROCEDURE INFORMATION: Exam: XR Chest Exam date and time: 07/15/2024 4:31 PM Age: 59 years old Clinical indication: Pain; Chest pressure; Prior surgery; Surgery date: 6+ months; Surgery type: Lt breast; Additional info: Chest pain TECHNIQUE: Imaging protocol: Radiologic exam of the chest. Views: 1 view. COMPARISON: CR XR chest 1V portable [id number] 09/27/2022 1:56 PM FINDINGS: Tubes, catheters and devices: There is an epidural neurostimulator in the thoracic spine. Lungs: Both lungs demonstrate diffuse interstitial coarsening which is felt to be chronic. No lung mass or infiltrate. Pleural spaces: Unremarkable. No pleural effusion. No pneumothorax. Heart/Mediastinum: Unremarkable. No cardiomegaly. Bones/joints: Unremarkable. XR/XR chest 1V portable [id number] IMPRESSION: No acute findings.
--- NOTE | 2024-07-15 16:20 | ECG_ITS ---
[facility] Test Date: 2024-07-15 Pat Name: Olya Mccormick Department: Room: Gender: Female Insulation Professional: : [id number] Requested By: Sylvia Perez Order Number: [id number] Jelly MD: Shaquille Dunn M.D. Measurements Intervals [place] Rate: 109 P: 79 NE: 137 QRS: 82 QRSD: 94 T: 76 QT: 338 QTc: 457 Interpretive Statements SINUS TACHYCARDIA SEPTAL MYOCARDIAL INFARCTION , OF INDETERMINATE AGE [40+ ms Q WAVE IN V1/V2] Compared to ECG 07/12/2021 00:53:28 Sinus rhythm no longer present Myocardial infarct finding still present Electronically Signed On 07-16-2024 8:21:58 CDT by Shaquille Dunn M.D. [id number]
[2024-07-15 16:38] VITALS: BP 121/88; PULSE 107; RESP 16; O2SAT 97
--- NOTE | 2024-07-15 16:41 | CTR_ITS ---
PROCEDURE INFORMATION: Exam: CT Head Without Contrast Exam date and time: 07/15/2024 4:53 PM Age: 59 years old Clinical indication: Numbness / parasthesia; Left; Additional info: Possible stroke TECHNIQUE: Imaging protocol: Computed tomography of the head without contrast. Radiation optimization: All CT scans at this facility use at least one of these dose optimization techniques: automated exposure control; mA and/or kV adjustment per patient size (includes targeted exams where dose is matched to clinical indication); or iterative reconstruction. COMPARISON: CT head wo con* [id number] 02/25/2021 2:40 PM RADIATION DOSE METRICS: Total DLP (mGy-cm): 983 FINDINGS: Brain: There is prominent chronic periventricular white matter ischemic change. There is no evidence of mass effect, hemorrhage or infarct. Cerebral ventricles: No ventriculomegaly. No midline shift. Paranasal sinuses: Visualized sinuses are unremarkable. No fluid levels. Mastoid air cells: Visualized mastoid air cells are well aerated. Bones: Unremarkable. No acute fracture. Soft tissues: Unremarkable. CT/CT head wo con* [id number] IMPRESSION: 1. No acute findings. 2. Chronic ischemic changes noted
--- NOTE | 2024-07-15 16:44 | W.ED.CHESTPA ---
Documented by User: Sylvia Mensah MD 07/15/24 17:32 HPI - Chest Pain General: Chief Complaint: Chest Pain Stated Complaint: cp Time Seen by Provider: 07/15/24 16:16 History of Present Illness: 59-year-old female with a history of tobacco dependence, hypertension, coronary artery disease on Plavix and diabetes who presents emergency room with an acute onset of left shoulder pain and distal arm and hand weakness and numbness. She says she was at [place] about an hour ago and this came on suddenly. She was holding a drink and dropped it because she could not feel or move her hand any longer. She has no slurred speech. No neck pain. She does have some pain in her left shoulder with movement. No chest pain. No other focal motor deficits. No gait problems. No nausea or vomiting. Blood pressure is fairly normal on presentation. Related Data Home Medications Medication Instructions Recorded Confirmed docusate sodium 100 mg capsule 100 mg PO DAILY 12/29/19 06/23/24 (Colace) dronabinol 5 mg capsule (Marinol) 5 mg PO BID 12/29/19 06/23/24 meclizine 12.5 mg tablet 12.5 mg PO BID PRN dizziness 12/29/19 06/23/24 cholestyramine-aspartame 4 gram 4 gm PO BID 03/19/20 06/23/24 oral powder (Cholestyramine Light) clobetasol 0.05 % topical cream 1 applic topical BID 03/19/20 06/23/24 (Temovate) cyclobenzaprine 10 mg tablet 10 mg PO TID PRN Spasms 03/19/20 06/23/24 montelukast 10 mg tablet 10 mg PO DAILY 03/19/20 06/23/24 (Singulair) pantoprazole 40 mg tablet,delayed 40 mg PO DAILY 12/14/23 06/23/24 release Previous Rx's Medication Instructions Recorded blood sugar diagnostic (Accu-Chek #100 ea 03/19/20 Pretty Plus test strips) blood-glucose meter (Accu-Chek #1 ea 03/19/20 Pretty Plus Meter) pen needle, diabetic 32 gauge x #100 ea 08/19/20 (1st Tier Unifine Pentips) nystatin 100,000 unit/gram topical 1 applic topical TID #60 grams 08/24/20 powder flash glucose scanning reader #1 ea 02/06/22 (FreeStyle Dawson 14 Day [place]) flash glucose sensor (FreeStyle #2 ea 02/06/22 Dawson 14 Day Sensor kit) cetirizine 10 mg tablet 10 mg PO DAILY #30 tabs 04/14/22 ibuprofen 600 mg tablet 600 mg PO BID PRN pain #30 tabs 04/14/22 albuterol sulfate 90 mcg/actuation 2 puff inhalation Q6H PRN 08/07/22 aerosol inhaler (ProAir HFA) shortness of breath or wheezing #8.5 grams budesonide-formoterol HFA 160 2 puff inhalation Q12H #10.2 grams 08/07/22 mcg-4.5 mcg/actuation aerosol inhaler (Symbicort) diabetic shoes #1 ea 08/09/22 clopidogrel 75 mg tablet 75 mg PO DAILY #90 tabs 09/05/22 diabetic shoes with 3 inserts #1 ea 12/11/22 naloxone 4 mg/actuation nasal spray 1 spray intranasal Q2M #2 ea 05/08/23 nitroglycerin 0.4 mg sublingual 0.4 mg sublingual Q5M PRN chest 08/15/23 tablet pain #100 tabs blood sugar diagnostic (Blood #50 ea 09/27/23 Glucose Test strips) blood-glucose meter #1 ea 09/27/23 diclofenac sodium 1 % topical gel 2 g topical QID #100 grams 12/10/23 meloxicam 7.5 mg tablet 7.5 mg PO DAILY #7 tabs 12/17/23 famotidine 20 mg tablet See Rx Instructions .Route 12/20/23 .COMPLEX #60 tabs fluticasone fur. 200 mcg-umeclid 1 inh inhalation Q24H #60 ea 12/28/23 62.5 mcg-vilant 25 mcg inhalat.powder (Trelegy Ellipta) atorvastatin 40 mg tablet See Rx Instructions .Route 02/07/24 .COMPLEX #90 tabs duloxetine 30 mg capsule,delayed See Rx Instructions .Route 03/10/24 release .COMPLEX #90 caps duloxetine 60 mg capsule,delayed See Rx Instructions .Route 03/13/24 release .COMPLEX #90 caps pregabalin 75 mg capsule (Lyrica) 75 mg PO BID #60 caps 05/12/24 sitagliptin phosphate 100 mg See Rx Instructions .Route 05/19/24 tablet (Januvia) .COMPLEX #90 tabs insulin glargine 100 unit/mL (3 See Rx Instructions .Route 05/26/24 mL) subcutaneous pen (Lantus .COMPLEX #15 mL Solostar U-100 Insulin) glimepiride 2 mg tablet See Rx Instructions .Route 06/11/24 .COMPLEX #90 tabs oxycodone 30 mg tablet 30 mg PO Q4H PRN Pain 30 days #150 06/16/24 tabs empagliflozin 25 mg tablet See Rx Instructions .Route 06/17/24 (Jardiance) .COMPLEX #60 tabs fluticasone propionate 50 1 spray intranasal BID #16 grams 06/23/24 mcg/actuation nasal spray,suspension (Allergy Relief (fluticasone)) metoclopramide HCl 5 mg tablet 5 mg PO DAILY #30 tabs 06/23/24 ondansetron 8 mg disintegrating 8 mg PO Q8H PRN nausea and 06/23/24 tablet vomiting #30 tabs leflunomide 20 mg tablet 20 mg PO DAILY #90 tabs 07/01/24 prednisone 5 mg tablet 5 mg PO DAILY #90 tabs 07/01/24 prednisone 20 mg tablet 60 mg (3 x 20 mg) PO DAILY #20 tabs 07/15/24 Allergies Allergy/AdvReac Type Severity Reaction Status Date / Time adhesive tape Allergy Intermediate ALGY-Hives Verified 06/23/24 14:49 morphine Allergy Intermediate unknown Verified 06/23/24 14:49 aspirin Allergy Mild ALGY-Hives Verified 06/23/24 14:49 ciprofloxacin [From Cipro] Allergy Unknown Verified 06/23/24 14:49 dapagliflozin [From Farxiga] Allergy unk Verified 06/23/24 14:49 iodine Allergy unknown Verified 06/23/24 14:49 metformin Allergy Unknown Verified 06/23/24 14:49 prochlorperazine Allergy unknown Verified 06/23/24 14:49 [From Compazine] codeine AdvReac Mild UNKNOWN Verified 06/23/24 14:49 Opioids - Morphine Analogues AdvReac Mild UNKNOWN Verified 06/23/24 14:49 Penicillins AdvReac Mild UNKNOWN Verified 06/23/24 14:49 Phenothiazines AdvReac Mild UNKNOWN Verified 06/23/24 14:49 salicylates AdvReac Mild UNKNOWN Verified 06/23/24 14:49 Sulfa (Sulfonamide AdvReac Mild UNKNOWN Verified 06/23/24 14:49 Antibiotics) Review of Systems Narrative: Constitutional symptoms: Negative except as documented in HPI. Skin symptoms: Negative except as documented in HPI. Eye symptoms: Negative except as documented in HPI. ENMT symptoms: Negative except as documented in HPI. Respiratory symptoms: Negative except as documented in HPI. Cardiovascular symptoms: Negative except as documented in HPI. Gastrointestinal symptoms: Negative except as documented in HPI. Genitourinary symptoms: Negative except as documented in HPI. Musculoskeletal symptoms: Negative except as documented in HPI. Neurologic symptoms: Negative except as documented in HPI. Psychiatric symptoms: Negative except as documented in HPI. Endocrine symptoms: Negative except as documented in HPI. 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 Giant cell arteritis Oropharyngeal candidiasis Inflammatory arthritis Type 2 diabetes mellitus, with long-term current use of insulin Glaucoma Diabetic gastroparesis ASHD (arteriosclerotic heart disease) Breast cancer Dyslipidemia COPD (chronic obstructive pulmonary disease) Myocardial infarction HTN (hypertension) Surgical History Hx of cataract surgery bilaterally 1 week ago History of lymph node biopsy (08/19/15) Excisional biopsy of left inguinal lymph node History of lumpectomy of left breast (2005) Left breast lumpectomy with axillary sentinel lymph node biopsy Status post colonoscopy with polypectomy (02/22/22) H/O esophagogastroduodenoscopy (08/12/21) bile reflux Status post colonoscopy (08/12/21) polyps S/P hysterectomy S/P cholecystectomy H/O neck surgery Cervical laminectomy and placement of a spinal cord stimulator Previous back surgery Lumbar laminectomy S/P PTCA (percutaneous transluminal coronary angioplasty) Family History Other CAD (coronary artery disease) Cancer Chronic kidney disease (CKD) Diabetes Family history of premature coronary artery disease Hyperlipidemia Hypertension Lung disease Lupus Rheumatoid arthritis Stroke Social History Smoking and tobacco/nicotine status: never used tobacco/nicotine Alcohol intake: never Substance/Drug Use: current Substance/Drug use frequency: daily Physical Exam Narrative: EXAM NARRATIVE: General: Alert, no acute distress. Skin: Warm, dry. Head: Normocephalic, atraumatic. Neck: Supple, trachea midline. Eye: Extraocular movements are intact. Ears, nose, mouth and throat: mucosa moist. Cardiovascular: Regular, Normal peripheral perfusion. Respiratory: Lungs are clear to auscultation, respirations are non-labored, breath sounds are equal, Symmetrical chest wall expansion. Gastrointestinal: Soft, Nontender, Non distended Musculoskeletal: No obvious deformities. Limited range of motion of her hand and elbow. She has some pain in her shoulder and deltoid region with movement. Neurological: Alert and oriented, numbness and sensory deficit of the left distal hand. She can minimally move her left fourth and fifth digits with no movement of the other digits. Some limitation range of motion at her elbow. Psychiatric: Cooperative, appropriate mood & affect. Course Vital Signs: Vital signs: Vital Signs Temperature 97.8 F 07/15/24 16:16 Pulse Rate 96 07/15/24 19:40 Respiratory Rate 16 07/15/24 19:40 Blood Pressure 151/79 07/15/24 19:40 Pulse Oximetry 100 07/15/24 19:40 Oxygen Delivery Me thod Room Air 07/15/24 18:35 MDM - Chest Pain Medical Decision Making Medical decision making: Differential diagnosis for patient with focal neurologic deficit(s) includes but not limited to and based on the above HPI, review of systems and physical exam: ischemic stroke, hemorrhagic stroke and embolic stroke secondary to atrial fibrillation), TIA, Ebll's palsey, metabolic encephalopathy with previous stroke. Consultation: I consulted Dr. Javed immediately after I examined the patient. This seems to be more of a radiculopathy but could be related to her neck pain could also be a stroke. He recommended a CT of the head without contrast, ultrasound carotid. Ultrasound of the left arterial system the upper extremity. If all this workup is negative Dr. Tegan wants to see the patient in clinic within the next several days. Also agrees that if workup is negative to continue steroids. I have given some IV Solu-Medrol here Also ordering cardiac workup with her cardiac history. Basic lab work. EKG. EKG: Time 1620. Rate 109. Sinus tachycardia, No ST-T changes, no ectopy, normal NH & QRS intervals, This was reviewed and interpreted by myself the ER physician at 1622 Ultrasound carotids and arterial ultrasound of the left upper extremity: No significant occlusions. This was preliminary report from the coil builder. CT head: No acute intracranial process. no intracranial hemorrhage, no evidence of infarct. no evidence of acute fracture.This was reviewed and interpreted by myself the ER physician. Chest x-ray: No acute process. No infiltrate. No pneumothorax. This was reviewed and interpreted by myself the ER physician. Patient care transitioned to Dr. Armando at shift change. Lab Data 07/15/24 16:52 07/15/24 16:52 Radiology Impressions Chest X-Ray 07/15/24 16:18 IMPRESSION: No acute findings. Head CT 07/15/24 16:41 IMPRESSION: 1. No acute findings. 2. Chronic ischemic changes noted Duplex Scan Upper Extremity Artery 07/15/24 16:49 IMPRESSION: No acute findings. Cervical Spine CT 07/15/24 16:59 IMPRESSION: No acute findings. Shoulder CT 07/15/24 17:07 IMPRESSION: 1. No evidence of acute fracture or subluxation. 2. Suspected chronic cuff pathology. If there is concern for labral, muscle or tendon pathology, follow-up outpatient MRI may be helpful. 3. Emphysematous changes. The presence of pulmonary emphysema on CT is an independent risk factor for lung cancer. In the absence of a history or active diagnosis of lung cancer, it is recommended that this patient with emphysema be evaluated for enrollment in a low dose CT lung cancer screening program. Carotid Doppler Study 07/15/24 17:08 IMPRESSION: No carotid arterial stenosis. Heavy calcified plaque is noted bilaterally. REFERENCES: SRU CRITERIA. The degree of internal carotid artery stenosis is based on criteria defined by the Society of Radiologists in Ultrasound (SRU). Normal is no stenosis. Mild is less than 50% stenosis. Moderate is 50-69% stenosis. Severe is greater than 69% stenosis to near occlusion. Near occlusion is a markedly narrowed lumen. Total occlusion is no detectable patent lumen. Laboratory Results WBC 12.90 10^3/uL (3.29-11.43) H 07/15/24 16:52 RBC 5.46 10^6/uL (3.85-5.65) 07/15/24 16:52 Hgb 15.90 g/dL (11.27-16.99) 07/15/24 16:52 Hct 49.6 % (36-47) H 07/15/24 16:52 MCV 90.8 fl (85-98) 07/15/24 16:52 MCH 29.1 pg (27-33) 07/15/24 16:52 MCHC 32.1 g/dL (30-55) 07/15/24 16:52 RDW 14.2 % (12.1-15.1) 07/15/24 16:52 Plt Count 276 10^3/cmm (157-399) 07/15/24 16:52 MPV 10.3 fL (7.4-10.4) 07/15/24 16:52 Neut % (Auto) 79.1 % 07/15/24 16:52 Lymph % (Auto) 13.3 % 07/15/24 16:52 [place] % (Auto) 6.2 % 07/15/24 16:52 Eos % (Auto) 0.2 % 07/15/24 16:52 Baso % (Auto) 0.7 % 07/15/24 16:52 Neut # (Auto) 10.19 10^3/uL (1.8-7.7) H 07/15/24 16:52 Lymph # (Auto) 1.7 10^3/uL (0.8-4.8) 07/15/24 16:52 [place] # (Auto) 0.8 10^3/uL (0.2-0.9) 07/15/24 16:52 Eos # (Auto) 0.0 10^3/uL (0.0-0.8) 07/15/24 16:52 Baso # (Auto) 0.1 10^3/uL (0.0-0.1) 07/15/24 16:52 Nucleated RBC % (auto) 0 % 07/15/24 16:52 Nucleated RBCs # 0.0 /100WBC 07/15/24 16:52 Sodium 140 mmol/L (136-145) 07/15/24 16:52 Potassium 3.9 mmol/L (3.5-5.1) 07/15/24 16:52 Chloride 98 mmol/L (98-107) 07/15/24 16:52 Carbon Dioxide 24 mmol/L (22-29) 07/15/24 16:52 Anion Gap 21.9 (5-19) H 07/15/24 16:52 BUN 11 mg/dL (8-23) 07/15/24 16:52 Creatinine 0.6 mg/dL (0.5-0.9) 07/15/24 16:52 GFR Calculation 101.6 mL/min (90-130) 07/15/24 16:52 Glucose 246 mg/dL (65-115) H 07/15/24 16:52 Calculated Osmolality 298 mOsm/kg (285-295) H 07/15/24 16:52 Lactic Acid 4.0 mmol/L (0.5-2.2) H 07/15/24 16:52 Lactic Acid (Sepsis) 2.8 mmol/L (0.5-2.2) H 07/15/24 18:46 Calcium 9.8 mg/dL (8.5-10.5) 07/15/24 16:52 Total Bilirubin 0.8 mg/dL (0.15-1.2) 07/15/24 16:52 AST 28 U/L (0-32) 07/15/24 16:52 ALT 28 U/L (0-33) 07/15/24 16:52 Alkaline Phosphatase 90 U/L (35-105) 07/15/24 16:52 Troponin T Baseline 17 ng/L (0-10) H 07/15/24 16:52 Troponin T 120 Minute 15.83 ng/L (0-10) H 07/15/24 18:46 Delta Troponin T -1.17 ABS# (0-10) L 07/15/24 18:46 C-Reactive Protein 3.8 mg/L (0.0-4.9) 07/15/24 16:52 NT-Pro-B Natriuret Pep 138 pg/mL (0-125) H 07/15/24 16:52 Total Protein 7.0 g/dL (6.6-8.7) 07/15/24 16:52 Albumin 4.3 g/dL (3.5-5.2) 07/15/24 16:52 Globulin 2.7 g/dL (1.3-4.6) 07/15/24 16:52 Discharge Plan Discharge Patient Disposition: Home Clinical Impression: Radiculopathy affecting upper extremity Condition: Stable Prescriptions: New prednisone 20 mg tablet 60 mg PO DAILY Qty: 20 0RF Rx Instructions: 3 tabs (60 mg) x 3 days. 2 tabs (40 mg) x 3 days. 1 tab (20 mg) x 3 days. 1/2 tab (10 mg) x 4 days No Action docusate sodium [Colace] 100 mg capsule 100 mg PO DAILY meclizine 12.5 mg tablet 12.5 mg PO BID PRN (Reason: dizziness) dronabinol [Marinol] 5 mg capsule 5 mg PO BID Cholestyramine Light 4 gram powder 4 gm PO BID Rx Instructions: administer w/meal; avoid other meds within 1hr before or 4-6hr after dose clobetasol [Temovate] 0.05 % cream 1 applic TOPICAL BID cyclobenzaprine 10 mg tablet 10 mg PO TID PRN (Reason: Spasms) montelukast [Singulair] 10 mg tablet 10 mg PO DAILY (DME) blood-glucose meter [Accu-Chek Pretty Plus Meter] Misc See Rx Instructions .ROUTE .MEDSUPPLY Qty: 1 0RF Rx Instructions: once daily (DME) blood sugar diagnostic [Accu-Chek Pretty Plus test strp] Strip See Rx Instructions .ROUTE .MEDSUPPLY Qty: 100 0RF Rx Instructions: test once daily nystatin 100,000 unit/gram powder 1 applic TOPICAL TID Qty: 60 0RF albuterol sulfate [ProAir HFA] 90 mcg/actuation HFA aerosol inhaler 2 puff INHALATION Q6H PRN (Reason: shortness of breath or wheezing) Qty: 8.5 5RF budesonide-formoterol [Symbicort] 160-4.5 mcg/actuation HFA aerosol inhaler 2 puff INHALATION Q12H Qty: 10.2 5RF (DME) FreeStyle Dawson 14 Day Sensor Kit See Rx Instructions .Route Qty: 2 11RF Rx Instructions: As directed (DME) FreeStyle Dawson 14 Day [place] Misc See Rx Instructions .Route Qty: 1 0RF Rx Instructions: As directed (DME) diabetic shoes with 3 inserts See Rx Instructions .Route .MEDSUPPLY Qty: 1 0RF Rx Instructions: As directed Natalie Ellipta 200-62.5-25 mcg blister with device 1 inh inhalation Q24H Qty: 60 5RF ibuprofen 600 mg tablet 600 mg PO BID PRN (Reason: pain) Qty: 30 0RF Hold Instructions: Resume on 09/30/22. Rx Instructions: Take with food cetirizine 10 mg tablet 10 mg PO DAILY Qty: 30 0RF (DME) diabetic shoes See Rx Instructions .Route .MEDSUPPLY Qty: 1 0RF Rx Instructions: As directed nitroglycerin 0.4 mg tablet, sublingual 0.4 mg sublingual Q5M PRN (Reason: chest pain) Qty: 100 0RF Rx Instructions: do not exceed 3 doses per episode diclofenac sodium 1 % gel 2 g topical QID Qty: 100 2RF Rx Instructions: apply to affected area as needed (DME) blood-glucose meter Misc See Rx Instructions .MEDSUPPLY Qty: 1 0RF Rx Instructions: [place] [place] Glucose Test Strip See Rx Instructions .MEDSUPPLY Qty: 50 5RF Rx Instructions: As directed ondansetron 8 mg tablet,disintegrating 8 mg PO Q8H PRN (Reason: nausea and vomiting) Qty: 30 2RF metoclopramide HCl 5 mg tablet 5 mg PO DAILY Qty: 30 0RF (DME) pen needle, diabetic [1st Tier Unifine Pentips] 32 gauge x 5/32 needle See Rx Instructions .ROUTE .MEDSUPPLY Qty: 100 2RF Rx Instructions: one daily clopidogrel 75 mg tablet 75 mg PO DAILY Qty: 90 1RF Hold Instructions: Resume on 09/29/22. naloxone 4 mg/actuation spray,non-aerosol 1 spray intranasal Q2M Qty: 2 2RF Rx Instructions: spray 1 dose into ONE nostril; alternate nostrils w each dose until help arrives famotidine 20 mg tablet See Rx Instructions .ROUTE .COMPLEX Qty: 60 2RF Dose Instruction: TAKE 1 TABLET BY MOUTH TWICE DAILY Rx Instructions: TAKE 1 TABLET BY MOUTH TWICE DAILY atorvastatin 40 mg tablet See Rx Instructions .ROUTE .COMPLEX Qty: 90 1RF Dose Instruction: TAKE ONE TABLET BY MOUTH EVERY DAY Rx Instructions: TAKE ONE TABLET BY MOUTH EVERY DAY duloxetine 30 mg capsule,delayed release(DR/EC) See Rx Instructions .ROUTE .COMPLEX Qty: 90 1RF Dose Instruction: take 1 capsule BY MOUTH TWICE DAILY Rx Instructions: take 1 capsule BY MOUTH TWICE DAILY duloxetine 60 mg capsule,delayed release(DR/EC) See Rx Instructions .ROUTE .COMPLEX Qty: 90 1RF Dose Instruction: TAKE ONE CAPSULE BY MOUTH DAILY Rx Instructions: TAKE ONE CAPSULE BY MOUTH DAILY pregabalin [Lyrica] 75 mg capsule 75 mg PO BID Qty: 60 3RF Januvia 100 mg tablet See Rx Instructions .ROUTE .COMPLEX Qty: 90 1RF Dose Instruction: TAKE 1 TABLET BY MOUTH EVERY DAY Rx Instructions: TAKE 1 TABLET BY MOUTH EVERY DAY Lantus Solostar U-100 Insulin 100 unit/mL (3 mL) insulin pen See Rx Instructions .ROUTE .COMPLEX Qty: 15 1RF Dose Instruction: inject 15 units SUBCUTANEOUSLY DAILY Rx Instructions: inject 20 units SUBCUTANEOUSLY DAILY glimepiride 2 mg tablet See Rx Instructions .ROUTE .COMPLEX Qty: 90 0RF Dose Instruction: TAKE ONE TABLET BY MOUTH EVERY DAY Rx Instructions: TAKE ONE TABLET BY MOUTH EVERY DAY oxycodone 30 mg tablet 30 mg PO Q4H PRN (Reason: Pain) 30 Days Qty: 150 0RF Jardiance 25 mg tablet See Rx Instructions .ROUTE .COMPLEX Qty: 60 0RF Dose Instruction: TAKE ONE TABLET BY MOUTH EVERY DAY Rx Instructions: TAKE ONE TABLET BY MOUTH EVERY DAY fluticasone propionate [Allergy Relief (fluticasone)] 50 mcg/actuation spray,suspension 1 spray INTRANASAL BID Qty: 16 2RF prednisone 5 mg tablet 5 mg PO DAILY Qty: 90 1RF leflunomide 20 mg tablet 20 mg PO DAILY Qty: 90 1RF pantoprazole 40 mg tablet,delayed release (DR/EC) 40 mg PO DAILY Rx Instructions: TAKE 1 TABLET BY MOUTH EVERY DAY meloxicam 7.5 mg tablet 7.5 mg PO DAILY Qty: 7 0RF Discharge Orders: Discharge ED (Routine); Ordered 07/15/24 Ordered By: Mateo Armando Referrals: Arjun Javed MD [Physician] - 4-7 days (Call tomorrow morning for follow-up appointment.) Vniayak Sharma MD [Primary Care Provider] - Discharge Diet: Usual diet Discharge Activity: Increase activity as tolerated Patient Instructions: Cervical Radiculopathy (ED) Activity Restrictions/Additional Instructions: Thank you for choosing [facility] for your healthcare needs today. Please realize this is an emergency room and that we are providing you with a medical screening exam and this may not be complete and all inclusive of all the testing and or work up that you may need to determine your ailment or severity of your illness. You have been screened and evaluated and felt safe for discharge. Health conditions do change or evolve sometimes and as such it is important that you follow up with your Primary Doctor to be re checked, 3-5 days is a general good time frame for follow up. You are always welcome to return to the ED for re assessment if your symptoms are worsening or you have new concerns Coding Level of Care Code ED Ethnographer for Chg Fwd Documented by User: Mateo Armando DO 07/15/24 21:19 HPI - Chest Pain General: Chief Complaint: Chest Pain Stated Complaint: cp Time Seen by Provider: 07/15/24 16:16 Related Data Home Medications Medication Instructions Recorded Confirmed docusate sodium 100 mg capsule 100 mg PO DAILY 12/29/19 06/23/24 (Colace) dronabinol 5 mg capsule (Marinol) 5 mg PO BID 12/29/19 06/23/24 meclizine 12.5 mg tablet 12.5 mg PO BID PRN dizziness 12/29/19 06/23/24 cholestyramine-aspartame 4 gram 4 gm PO BID 03/19/20 06/23/24 oral powder (Cholestyramine Light) clobetasol 0.05 % topical cream 1 applic topical BID 03/19/20 06/23/24 (Temovate) cyclobenzaprine 10 mg tablet 10 mg PO TID PRN Spasms 03/19/20 06/23/24 montelukast 10 mg tablet 10 mg PO DAILY 03/19/20 06/23/24 (Singulair) pantoprazole 40 mg tablet,delayed 40 mg PO DAILY 12/14/23 06/23/24 release Previous Rx's Medication Instructions Recorded blood sugar diagnostic (Accu-Chek #100 ea 03/19/20 Pretty Plus test strips) blood-glucose meter (Accu-Chek #1 ea 03/19/20 Pretty Plus Meter) pen needle, diabetic 32 gauge x #100 ea 08/19/20 (1st Tier Unifine Pentips) nystatin 100,000 unit/gram topical 1 applic topical TID #60 grams 08/24/20 powder flash glucose scanning reader #1 ea 02/06/22 ([employer] Dawson 14 Day [place]) flash glucose sensor (FreeStyle #2 ea 02/06/22 Dawson 14 Day Sensor kit) cetirizine 10 mg tablet 10 mg PO DAILY #30 tabs 04/14/22 ibuprofen 600 mg tablet 600 mg PO BID PRN pain #30 tabs 04/14/22 albuterol sulfate 90 mcg/actuation 2 puff inhalation Q6H PRN 08/07/22 aerosol inhaler (ProAir HFA) shortness of breath or wheezing #8.5 grams budesonide-formoterol HFA 160 2 puff inhalation Q12H #10.2 grams 08/07/22 mcg-4.5 mcg/actuation aerosol inhaler (Symbicort) diabetic shoes #1 ea 08/09/22 clopidogrel 75 mg tablet 75 mg PO DAILY #90 tabs 09/05/22 diabetic shoes with 3 inserts #1 ea 12/11/22 naloxone 4 mg/actuation nasal spray 1 spray intranasal Q2M #2 ea 05/08/23 nitroglycerin 0.4 mg sublingual 0.4 mg sublingual Q5M PRN chest 08/15/23 tablet pain #100 tabs blood sugar diagnostic (Blood #50 ea 09/27/23 Glucose Test strips) blood-glucose meter #1 ea 09/27/23 diclofenac sodium 1 % topical gel 2 g topical QID #100 grams 12/10/23 meloxicam 7.5 mg tablet 7.5 mg PO DAILY #7 tabs 12/17/23 famotidine 20 mg tablet See Rx Instructions .Route 12/20/23 .COMPLEX #60 tabs fluticasone fur. 200 mcg-umeclid 1 inh inhalation Q24H #60 ea 12/28/23 62.5 mcg-vilant 25 mcg inhalat.powder (Trelegy Ellipta) atorvastatin 40 mg tablet See Rx Instructions .Route 02/07/24 .COMPLEX #90 tabs duloxetine 30 mg capsule,delayed See Rx Instructions .Route 03/10/24 release .COMPLEX #90 caps duloxetine 60 mg capsule,delayed See Rx Instructions .Route 03/13/24 release .COMPLEX #90 caps pregabalin 75 mg capsule (Lyrica) 75 mg PO BID #60 caps 05/12/24 sitagliptin phosphate 100 mg See Rx Instructions .Route 05/19/24 tablet (Januvia) .COMPLEX #90 tabs insulin glargine 100 unit/mL (3 See Rx Instructions .Route 05/26/24 mL) subcutaneous pen (Lantus .COMPLEX #15 mL Solostar U-100 Insulin) glimepiride 2 mg tablet See Rx Instructions .Route 06/11/24 .COMPLEX #90 tabs oxycodone 30 mg tablet 30 mg PO Q4H PRN Pain 30 days #150 06/16/24 tabs empagliflozin 25 mg tablet See Rx Instructions .Route 06/17/24 (Jardiance) .COMPLEX #60 tabs fluticasone propionate 50 1 spray intranasal BID #16 grams 06/23/24 mcg/actuation nasal spray,suspension (Allergy Relief (fluticasone)) metoclopramide HCl 5 mg tablet 5 mg PO DAILY #30 tabs 06/23/24 ondansetron 8 mg disintegrating 8 mg PO Q8H PRN nausea and 06/23/24 tablet vomiting #30 tabs leflunomide 20 mg tablet 20 mg PO DAILY #90 tabs 07/01/24 prednisone 5 mg tablet 5 mg PO DAILY #90 tabs 07/01/24 prednisone 20 mg tablet 60 mg (3 x 20 mg) PO DAILY #20 tabs 07/15/24 Allergies Allergy/AdvReac Type Severity Reaction Status Date / Time adhesive tape Allergy Intermediate ALGY-Hives Verified 06/23/24 14:49 morphine Allergy Intermediate unknown Verified 06/23/24 14:49 aspirin Allergy Mild ALGY-Hives Verified 06/23/24 14:49 ciprofloxacin [From Cipro] Allergy Unknown Verified 06/23/24 14:49 dapagliflozin [From Farxiga] Allergy unk Verified 06/23/24 14:49 iodine Allergy unknown Verified 06/23/24 14:49 metformin Allergy Unknown Verified 06/23/24 14:49 prochlorperazine Allergy unknown Verified 06/23/24 14:49 [From Compazine] codeine AdvReac Mild UNKNOWN Verified 06/23/24 14:49 Opioids - Morphine Analogues AdvReac Mild UNKNOWN Verified 06/23/24 14:49 Penicillins AdvReac Mild UNKNOWN Verified 06/23/24 14:49 Phenothiazines AdvReac Mild UNKNOWN Verified 06/23/24 14:49 salicylates AdvReac Mild UNKNOWN Verified 06/23/24 14:49 Sulfa (Sulfonamide AdvReac Mild UNKNOWN Verified 06/23/24 14:49 Antibiotics) 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 Giant cell arteritis Oropharyngeal candidiasis Inflammatory arthritis Type 2 diabetes mellitus, with long-term current use of insulin Glaucoma Diabetic gastroparesis ASHD (arteriosclerotic heart disease) Breast cancer Dyslipidemia COPD (chronic obstructive pulmonary disease) Myocardial infarction HTN (hypertension) Surgical History Hx of cataract surgery bilaterally 1 week ago History of lymph node biopsy (08/19/15) Excisional biopsy of left inguinal lymph node History of lumpectomy of left breast (2005) Left breast lumpectomy with axillary sentinel lymph node biopsy Status post colonoscopy with polypectomy (02/22/22) H/O esophagogastroduodenoscopy (08/12/21) bile reflux Status post colonoscopy (08/12/21) polyps S/P hysterectomy S/P cholecystectomy H/O neck surgery Cervical laminectomy and placement of a spinal cord stimulator Previous back surgery Lumbar laminectomy S/P PTCA (percutaneous transluminal coronary angioplasty) Family History Other CAD (coronary artery disease) Cancer Chronic kidney disease (CKD) Diabetes Family history of premature coronary artery disease Hyperlipidemia Hypertension Lung disease Lupus Rheumatoid arthritis Stroke Social History Smoking and tobacco/nicotine status: never used tobacco/nicotine Alcohol intake: never Substance/Drug Use: current Substance/Drug use frequency: daily Course Vital Signs: Vital signs: Vital Signs Temperature 97.8 F 07/15/24 16:16 Pulse Rate 96 07/15/24 19:40 Respiratory Rate 16 07/15/24 19:40 Blood Pressure 151/79 07/15/24 19:40 Pulse Oximetry 100 07/15/24 19:40 Oxygen Delivery Me thod Room Air 07/15/24 18:35 MDM - Chest Pain Medical Decision Making Medical decision making: Differential diagnosis for patient with focal neurologic deficit(s) includes but not limited to and based on the above HPI, review of systems and physical exam: ischemic stroke, hemorrhagic stroke and embolic stroke secondary to atrial fibrillation), TIA, 's palsey, metabolic encephalopathy with previous stroke. Consultation: I consulted Dr. Javed immediately after I examined the patient. This seems to be more of a radiculopathy but could be related to her neck pain could also be a stroke. He recommended a CT of the head without contrast, ultrasound carotid. Ultrasound of the left arterial system the upper extremity. If all this workup is negative Dr. Javed wants to see the patient in clinic within the next several days. Also agrees that if workup is negative to continue steroids. I have given some IV Solu-Medrol here Also ordering cardiac workup with her cardiac history. Basic lab work. EKG. EKG: Time 1620. Rate 109. Sinus tachycardia, No ST-T changes, no ectopy, normal NH & QRS intervals, This was reviewed and interpreted by myself the ER physician at 1622 Ultrasound carotids and arterial ultrasound of the left upper extremity: No significant occlusions. This was preliminary report from the coil builder. CT head: No acute intracranial process. no intracranial hemorrhage, no evidence of infarct. no evidence of acute fracture.This was reviewed and interpreted by myself the ER physician. Chest x-ray: No acute process. No infiltrate. No pneumothorax. This was reviewed and interpreted by myself the ER physician. Patient care transitioned to Dr. Armando at shift change. Care turned over to me at shift change, discussed all lab work and x-rays and CTs with the patient. Patient says she is ready to go. Patient be discharged home. Lab Data 07/15/24 16:52 07/15/24 16:52 Radiology Impressions Chest X-Ray 07/15/24 16:18 IMPRESSION: No acute findings. Head CT 07/15/24 16:41 IMPRESSION: 1. No acute findings. 2. Chronic ischemic changes noted Duplex Scan Upper Extremity Artery 07/15/24 16:49 IMPRESSION: No acute findings. Cervical Spine CT 07/15/24 16:59 IMPRESSION: No acute findings. Shoulder CT 07/15/24 17:07 IMPRESSION: 1. No evidence of acute fracture or subluxation. 2. Suspected chronic cuff pathology. If there is concern for labral, muscle or tendon pathology, follow-up outpatient MRI may be helpful. 3. Emphysematous changes. The presence of pulmonary emphysema on CT is an independent risk factor for lung cancer. In the absence of a history or active diagnosis of lung cancer, it is recommended that this patient with emphysema be evaluated for enrollment in a low dose CT lung cancer screening program. Carotid Doppler Study 07/15/24 17:08 IMPRESSION: No carotid arterial stenosis. Heavy calcified plaque is noted bilaterally. REFERENCES: SRU CRITERIA. The degree of internal carotid artery stenosis is based on criteria defined by the Society of Radiologists in Ultrasound (SRU). Normal is no stenosis. Mild is less than 50% stenosis. Moderate is 50-69% stenosis. Severe is greater than 69% stenosis to near occlusion. Near occlusion is a markedly narrowed lumen. Total occlusion is no detectable patent lumen. Laboratory Results WBC 12.90 10^3/uL (3.29-11.43) H 07/15/24 16:52 RBC 5.46 10^6/uL (3.85-5.65) 07/15/24 16:52 Hgb 15.90 g/dL (11.27-16.99) 07/15/24 16:52 Hct 49.6 % (36-47) H 07/15/24 16:52 MCV 90.8 fl (85-98) 07/15/24 16:52 MCH 29.1 pg (27-33) 07/15/24 16:52 MCHC 32.1 g/dL (30-55) 07/15/24 16:52 RDW 14.2 % (12.1-15.1) 07/15/24 16:52 Plt Count 276 10^3/cmm (157-399) 07/15/24 16:52 MPV 10.3 fL (7.4-10.4) 07/15/24 16:52 Neut % (Auto) 79.1 % 07/15/24 16:52 Lymph % (Auto) 13.3 % 07/15/24 16:52 [place] % (Auto) 6.2 % 07/15/24 16:52 Eos % (Auto) 0.2 % 07/15/24 16:52 Baso % (Auto) 0.7 % 07/15/24 16:52 Neut # (Auto) 10.19 10^3/uL (1.8-7.7) H 07/15/24 16:52 Lymph # (Auto) 1.7 10^3/uL (0.8-4.8) 07/15/24 16:52 [place] # (Auto) 0.8 10^3/uL (0.2-0.9) 07/15/24 16:52 Eos # (Auto) 0.0 10^3/uL (0.0-0.8) 07/15/24 16:52 Baso # (Auto) 0.1 10^3/uL (0.0-0.1) 07/15/24 16:52 Nucleated RBC % (auto) 0 % 07/15/24 16:52 Nucleated RBCs # 0.0 /100WBC 07/15/24 16:52 Sodium 140 mmol/L (136-145) 07/15/24 16:52 Potassium 3.9 mmol/L (3.5-5.1) 07/15/24 16:52 Chloride 98 mmol/L (98-107) 07/15/24 16:52 Carbon Dioxide 24 mmol/L (22-29) 07/15/24 16:52 Anion Gap 21.9 (5-19) H 07/15/24 16:52 BUN 11 mg/dL (8-23) 07/15/24 16:52 Creatinine 0.6 mg/dL (0.5-0.9) 07/15/24 16:52 GFR Calculation 101.6 mL/min (90-130) 07/15/24 16:52 Glucose 246 mg/dL (65-115) H 07/15/24 16:52 Calculated Osmolality 298 mOsm/kg (285-295) H 07/15/24 16:52 Lactic Acid 4.0 mmol/L (0.5-2.2) H 07/15/24 16:52 Lactic Acid (Sepsis) 2.8 mmol/L (0.5-2.2) H 07/15/24 18:46 Calcium 9.8 mg/dL (8.5-10.5) 07/15/24 16:52 Total Bilirubin 0.8 mg/dL (0.15-1.2) 07/15/24 16:52 AST 28 U/L (0-32) 07/15/24 16:52 ALT 28 U/L (0-33) 07/15/24 16:52 Alkaline Phosphatase 90 U/L (35-105) 07/15/24 16:52 Troponin T Baseline 17 ng/L (0-10) H 07/15/24 16:52 Troponin T 120 Minute 15.83 ng/L (0-10) H 07/15/24 18:46 Delta Troponin T -1.17 ABS# (0-10) L 07/15/24 18:46 C-Reactive Protein 3.8 mg/L (0.0-4.9) 07/15/24 16:52 NT-Pro-B Natriuret Pep 138 pg/mL (0-125) H 07/15/24 16:52 Total Protein 7.0 g/dL (6.6-8.7) 07/15/24 16:52 Albumin 4.3 g/dL (3.5-5.2) 07/15/24 16:52 Globulin 2.7 g/dL (1.3-4.6) 07/15/24 16:52 All radiology interpretation(s) finalized by discharge Discharge Plan Discharge Patient Disposition: Home Clinical Impression: Radiculopathy affecting upper extremity Condition: Stable Prescriptions: New prednisone 20 mg tablet 60 mg PO DAILY Qty: 20 0RF Rx Instructions: 3 tabs (60 mg) x 3 days. 2 tabs (40 mg) x 3 days. 1 tab (20 mg) x 3 days. 1/2 tab (10 mg) x 4 days No Action docusate sodium [Colace] 100 mg capsule 100 mg PO DAILY meclizine 12.5 mg tablet 12.5 mg PO BID PRN (Reason: dizziness) dronabinol [Marinol] 5 mg capsule 5 mg PO BID Cholestyramine Light 4 gram powder 4 gm PO BID Rx Instructions: administer w/meal; avoid other meds within 1hr before or 4-6hr after dose clobetasol [Temovate] 0.05 % cream 1 applic TOPICAL BID cyclobenzaprine 10 mg tablet 10 mg PO TID PRN (Reason: Spasms) montelukast [Singulair] 10 mg tablet 10 mg PO DAILY (DME) blood-glucose meter [Accu-Chek Pretty Plus Meter] Misc See Rx Instructions .ROUTE .MEDSUPPLY Qty: 1 0RF Rx Instructions: once daily (DME) blood sugar diagnostic [Accu-Chek Pretty Plus test strp] Strip See Rx Instructions .ROUTE .MEDSUPPLY Qty: 100 0RF Rx Instructions: test once daily nystatin 100,000 unit/gram powder 1 applic TOPICAL TID Qty: 60 0RF albuterol sulfate [ProAir HFA] 90 mcg/actuation HFA aerosol inhaler 2 puff INHALATION Q6H PRN (Reason: shortness of breath or wheezing) Qty: 8.5 5RF budesonide-formoterol [Symbicort] 160-4.5 mcg/actuation HFA aerosol inhaler 2 puff INHALATION Q12H Qty: 10.2 5RF (DME) FreeStyle [place] 14 Day Sensor Kit See Rx Instructions .Route Qty: 2 11RF Rx Instructions: As directed (DME) FreeStyle [place] 14 Day [place] Misc See Rx Instructions .Route Qty: 1 0RF Rx Instructions: As directed (DME) diabetic shoes with 3 inserts See Rx Instructions .Route .MEDSUPPLY Qty: 1 0RF Rx Instructions: As directed Trelegy Ellipta 200-62.5-25 mcg blister with device 1 inh inhalation Q24H Qty: 60 5RF ibuprofen 600 mg tablet 600 mg PO BID PRN (Reason: pain) Qty: 30 0RF Hold Instructions: Resume on 09/30/22. Rx Instructions: Take with food cetirizine 10 mg tablet 10 mg PO DAILY Qty: 30 0RF (DME) diabetic shoes See Rx Instructions .Route .MEDSUPPLY Qty: 1 0RF Rx Instructions: As directed nitroglycerin 0.4 mg tablet, sublingual 0.4 mg sublingual Q5M PRN (Reason: chest pain) Qty: 100 0RF Rx Instructions: do not exceed 3 doses per episode diclofenac sodium 1 % gel 2 g topical QID Qty: 100 2RF Rx Instructions: apply to affected area as needed (DME) blood-glucose meter Misc See Rx Instructions .MEDSUPPLY Qty: 1 0RF Rx Instructions: As directed (DME) Blood Glucose Test Strip See Rx Instructions .MEDSUPPLY Qty: 50 5RF Rx Instructions: As directed ondansetron 8 mg tablet,disintegrating 8 mg PO Q8H PRN (Reason: nausea and vomiting) Qty: 30 2RF metoclopramide HCl 5 mg tablet 5 mg PO DAILY Qty: 30 0RF (DME) pen needle, diabetic [1st Tier Unifine Pentips] 32 gauge x 5/32 needle See Rx Instructions .ROUTE .MEDSUPPLY Qty: 100 2RF Rx Instructions: one daily clopidogrel 75 mg tablet 75 mg PO DAILY Qty: 90 1RF Hold Instructions: Resume on 09/29/22. naloxone 4 mg/actuation spray,non-aerosol 1 spray intranasal Q2M Qty: 2 2RF Rx Instructions: spray 1 dose into ONE nostril; alternate nostrils w each dose until help arrives famotidine 20 mg tablet See Rx Instructions .ROUTE .COMPLEX Qty: 60 2RF Dose Instruction: TAKE 1 TABLET BY MOUTH TWICE DAILY Rx Instructions: TAKE 1 TABLET BY MOUTH TWICE DAILY atorvastatin 40 mg tablet See Rx Instructions .ROUTE .COMPLEX Qty: 90 1RF Dose Instruction: TAKE ONE TABLET BY MOUTH EVERY DAY Rx Instructions: TAKE ONE TABLET BY MOUTH EVERY DAY duloxetine 30 mg capsule,delayed release(DR/EC) See Rx Instructions .ROUTE .COMPLEX Qty: 90 1RF Dose Instruction: take 1 capsule BY MOUTH TWICE DAILY Rx Instructions: take 1 capsule BY MOUTH TWICE DAILY duloxetine 60 mg capsule,delayed release(DR/EC) See Rx Instructions .ROUTE .COMPLEX Qty: 90 1RF Dose Instruction: TAKE ONE CAPSULE BY MOUTH DAILY Rx Instructions: TAKE ONE CAPSULE BY MOUTH DAILY pregabalin [Lyrica] 75 mg capsule 75 mg PO BID Qty: 60 3RF Januvia 100 mg tablet See Rx Instructions .ROUTE .COMPLEX Qty: 90 1RF Dose Instruction: TAKE 1 TABLET BY MOUTH EVERY DAY Rx Instructions: TAKE 1 TABLET BY MOUTH EVERY DAY Lantus Solostar U-100 Insulin 100 unit/mL (3 mL) insulin pen See Rx Instructions .ROUTE .COMPLEX Qty: 15 1RF Dose Instruction: inject 15 units SUBCUTANEOUSLY DAILY Rx Instructions: inject 20 units SUBCUTANEOUSLY DAILY glimepiride 2 mg tablet See Rx Instructions .ROUTE .COMPLEX Qty: 90 0RF Dose Instruction: TAKE ONE TABLET BY MOUTH EVERY DAY Rx Instructions: TAKE ONE TABLET BY MOUTH EVERY DAY oxycodone 30 mg tablet 30 mg PO Q4H PRN (Reason: Pain) 30 Days Qty: 150 0RF Jardiance 25 mg tablet See Rx Instructions .ROUTE .COMPLEX Qty: 60 0RF Dose Instruction: TAKE ONE TABLET BY MOUTH EVERY DAY Rx Instructions: TAKE ONE TABLET BY MOUTH EVERY DAY fluticasone propionate [Allergy Relief (fluticasone)] 50 mcg/actuation spray,suspension 1 spray INTRANASAL BID Qty: 16 2RF prednisone 5 mg tablet 5 mg PO DAILY Qty: 90 1RF leflunomide 20 mg tablet 20 mg PO DAILY Qty: 90 1RF pantoprazole 40 mg tablet,delayed release (DR/EC) 40 mg PO DAILY Rx Instructions: TAKE 1 TABLET BY MOUTH EVERY DAY meloxicam 7.5 mg tablet 7.5 mg PO DAILY Qty: 7 0RF Discharge Orders: Discharge ED (Routine); Ordered 07/15/24 Ordered By: Mateo Armando Referrals: Arjun Javed MD [Physician] - 4-7 days (Call tomorrow morning for follow-up appointment.) Vinayak Sharma MD [Primary Care Provider] - Discharge Diet: Usual diet Discharge Activity: Increase activity as tolerated Patient Instructions: Cervical Radiculopathy (ED) Activity Restrictions/Additional Instructions: Thank you for choosing [facility] for your healthcare needs today. Please realize this is an emergency room and that we are providing you with a medical screening exam and this may not be complete and all inclusive of all the testing and or work up that you may need to determine your ailment or severity of your illness. You have been screened and evaluated and felt safe for discharge. Health conditions do change or evolve sometimes and as such it is important that you follow up with your Primary Doctor to be re checked, 3-5 days is a general good time frame for follow up. You are always welcome to return to the ED for re assessment if your symptoms are worsening or you have new concerns Coding Level of Care Code ED Ethnographer for Jackie Mera
--- NOTE | 2024-07-15 16:49 | USR_ITS ---
PROCEDURE INFORMATION: Exam: US Duplex Left Upper Extremity Arteries Exam date and time: 07/15/2024 5:09 PM Age: 59 years old Clinical indication: Condition or disease; Other: Lue weaknss; Additional info: Lue weakness, numbness TECHNIQUE: Imaging protocol: Left Real-time ultrasound scan of the arteries of the left upper extremity with 2-D kowalski scale, color Doppler flow and spectral waveform analysis. COMPARISON: US soft tissue/extremity [id number] 01/15/2023 3:27 PM FINDINGS: Left subclavian artery: No occlusion or significant stenosis. Normal waveform. Left axillary artery: No occlusion or significant stenosis. Normal waveform. Left brachial artery: No occlusion or significant stenosis. Normal waveform. Left radial artery: No occlusion or significant stenosis. Normal waveform. Left ulnar artery: No occlusion or significant stenosis. Normal waveform. Soft tissues: Unremarkable. US/[place] [id number] IMPRESSION: No acute findings.
--- NOTE | 2024-07-15 16:59 | CTR_ITS ---
PROCEDURE INFORMATION: Exam: CT Cervical Spine Without Contrast Exam date and time: 07/15/2024 6:12 PM Age: 59 years old Clinical indication: Numbness; Additional info: Left arm numbness TECHNIQUE: Imaging protocol: Computed tomography of the cervical spine without contrast. Radiation optimization: All CT scans at this facility use at least one of these dose optimization techniques: automated exposure control; mA and/or kV adjustment per patient size (includes targeted exams where dose is matched to clinical indication); or iterative reconstruction. COMPARISON: CT cervical spine w con [id number] 07/09/2018 12:00 PM RADIATION DOSE METRICS: Total DLP (mGy-cm): 149 FINDINGS: Bones: There has been surgical fusion at the C6-C7 level(s). Bony alignment is normal and the hardware is in good position. I see no evidence of hardware loosening.There is no acute fracture. The spinal canal is normally maintained. Lungs: Lung apices are normal. Soft tissues: Unremarkable. CT/CT cervical spin wo con* [id number] IMPRESSION: No acute findings.
--- NOTE | 2024-07-15 17:07 | CTR_ITS ---
PROCEDURE INFORMATION: Exam: CT Left Upper Extremity Without Contrast, Shoulder Exam date and time: 07/15/2024 6:15 PM Age: 59 years old Clinical indication: Numbness; Upper limb; Left; Additional info: Left arm weakness TECHNIQUE: Imaging protocol: Computed tomography of the left upper extremity without contrast. Exam focused on the shoulder. Radiation optimization: All CT scans at this facility use at least one of these dose optimization techniques: automated exposure control; mA and/or kV adjustment per patient size (includes targeted exams where dose is matched to clinical indication); or iterative reconstruction. COMPARISON: [place] [id number] 07/15/2024 5:09 PM RADIATION DOSE METRICS: Total DLP (mGy-cm): 232 FINDINGS: Bones/joints: No evidence of fracture or subluxation. Glenohumeral articulation is intact with mild osteoarthritis. There is cortical irregularity of the greater tuberosity compatible with sequela of chronic cuff pathology. Acromioclavicular articulation is intact with moderate osteoarthritis. No gross evidence of joint effusion. Soft tissues: Suspected subacromial-subdeltoid bursitis. Shoulder girdle musculature is grossly intact. No evidence of fluid collection or hematoma. Emphysematous changes in the left lung. Metallic density noted in the left axilla/ventral chest wall. CT/CT shoulder LT wo con* [id number] IMPRESSION: 1. No evidence of acute fracture or subluxation. 2. Suspected chronic cuff pathology. If there is concern for labral, muscle or tendon pathology, follow-up outpatient MRI may be helpful. 3. Emphysematous changes. The presence of pulmonary emphysema on CT is an independent risk factor for lung cancer. In the absence of a history or active diagnosis of lung cancer, it is recommended that this patient with emphysema be evaluated for enrollment in a low dose CT lung cancer screening program.
--- NOTE | 2024-07-15 17:08 | USR_ITS ---
PROCEDURE INFORMATION: Exam: US Duplex Bilateral Extracranial Arteries; Complete; Carotid Arteries Exam date and time: 07/15/2024 5:18 PM Age: 59 years old Clinical indication: Condition or disease; Other: Left arm weakness TECHNIQUE: Imaging protocol: Real-time duplex ultrasound scan of the bilateral extracranial arteries combining kowalski scale, color Doppler and spectral waveform analysis with image documentation. Complete exam. Exam focused on the carotid arteries. COMPARISON: [place] [id number] 07/15/2024 5:09 PM FINDINGS: Right common carotid artery: Unremarkable. No occlusion or stenosis. Waveforms are normal. Calcified plaque noted. Right internal carotid artery: Unremarkable. No occlusion or stenosis. Waveforms are normal. Calcified plaque noted. Right ICA/CCA ratio: Within normal limits. Right external carotid artery: No stenosis in the origin. Right vertebral artery: Unremarkable. Antegrade flow. Left common carotid artery: Unremarkable. No occlusion or stenosis. Waveforms are normal. Calcified plaque noted. Left internal carotid artery: Unremarkable. No occlusion or stenosis. Waveforms are normal. Calcified plaque noted. Left ICA/CCA ratio: Within normal limits. Left external carotid artery: No stenosis in the origin. Left vertebral artery: Unremarkable. Antegrade flow. US/CV carotid duplex BI* [id number] IMPRESSION: No carotid arterial stenosis. Heavy calcified plaque is noted bilaterally. REFERENCES: SRU CRITERIA. The degree of internal carotid artery stenosis is based on criteria defined by the Society of Radiologists in Ultrasound (SRU). Normal is no stenosis. Mild is less than 50% stenosis. Moderate is 50-69% stenosis. Severe is greater than 69% stenosis to near occlusion. Near occlusion is a markedly narrowed lumen. Total occlusion is no detectable patent lumen.
--- NOTE | 2024-07-15 17:11 | PM.CONSULT ---
Providers/Reason For Consult Consulting Physician/Specialty*: Arjun Javed MD neurology and epilepsy Reason for Consult*: Acute onset of left sided neck pain, left shoulder and left arm pain with left hand weakness 07/15/2024 Primary Care Provider: Vinayak Sharma MD History of Present Illness History of Present Illness Olya Mccormick is a 59 year old female with a history of 3 separate myocardial infarctions approximately 2 years ago. Patient also has a history of nicotine dependence and has smoked 1 pack/day for greater than 40 years and recently decreased to 1/2 pack/day 3 weeks prior to this emergency room visit. According to the patient she was at [employer] and had just ordered her food and was back in her car. Patient stated the mother was driving and the patient stated that she suddenly experienced acute onset of left-sided neck pain associated with left shoulder pain left forearm and left hand pain with weakness in the left hand. Patient denied any headaches, visual difficulty or speech difficulty or any proximal arm weakness. The patient presented to the [facility] emergency room. Neurology consult was obtained. I recommend the patient undergo arterial and venous Dopplers on the left upper extremity to rule out vascular etiology. Also recommend the patient undergo CT scan of the cervical spine, left shoulder as well as carotid duplex study. I agree with the patient undergoing noncontrast head CT although the patient's clinical symptoms are not consistent with right subcortical or right cerebral stroke. Drug allergies: Adhesive tape which resulted in hives Morphine type reaction unknown Aspirin which resulted in hives Cipro type reaction unknown Farxiga type reaction unknown Metformin type reaction unknown Compazine type reaction unknown Codeine type reaction unknown Opioids/morphine analogs type reaction unknown Penicillins type reaction unknown Salicylates type reaction unknown Sulfonamide antibiotics type reaction unknown Current medications: Albuterol sulfate 90 mcg per accusation 2 puffs every 6 hours as needed Lipitor 40 mg p.o. q. evening Budesonide/formoterol 160 mcg / 4.5 mcg accusation 2 puffs every 12 hours Zyrtec 10 mg p.o. daily Cholestyramine aspartame 4 g oral powder 4 g p.o. twice daily Plavix 75 mg p.o. daily Flexeril 10 mg p.o. 3 times daily, as needed spasm Diclofenac 1% topical gel 2 g to be applied topically 4 times a day Colace 100 mg p.o. daily Dronabinol 5 mg p.o. twice daily Cymbalta 30 mg p.o. daily Cymbalta 60 mg p.o. daily Empagliflozin 25 mg p.o. to take as directed Pepcid 20 mg p.o. to take as directed Fluticasone 200 mcg/6.25 mcg / 25 mcg inhalation every 24 hours Glimepiride 2 mg to take as directed Ibuprofen 600 mg p.o. twice daily, as needed Insulin to use as directed Leflunomide 20 mg p.o. daily Meclizine 12.5 mg p.o. twice daily, as needed Mobic 7.5 mg p.o. daily Reglan 5 mg p.o. daily Singulair 10 mg p.o. daily Naloxone 4 mg per accusation nasal spray as needed Sublingual nitroglycerin 0.4 mg as needed Zofran 8 mg disintegrating tablets p.o. every 8 hours as needed Oxycodone 30 mg tab 1 p.o. every 4 hours as needed Protonix 40 mg p.o. daily Prednisone 5 mg p.o. q. Lyrica 75 mg p.o. twice daily Sitagliptin 100 mg tablet to use as directed Past medical history: Myocardial infarctions on 3 occasions 2 years ago Type 2 diabetes mellitus Lower extremity ulcers Melena Epistaxis Gastroparesis Chronic obstructive pulmonary disease Obesity Dyslipidemia Breast cancer Percutaneous transluminal coronary angioplasty Coronary atherosclerotic heart disease Is nicotine dependent Herpes simplex Giant cell arteritis syndrome , Inflammatory arthritis COVID-19 infection Adenomatous colon polyps Right upper lobe pulmonary nodule Cervical disc disorder with myelopathy Squamous cell skin cancer Peripheral artery disease Peripheral neuropathy Fracture of the phalanx of the right foot Left groin pain Habits: The patient smoked 1 pack/day for approximately 40 years but started smoking 1/2 pack/day 3 weeks prior to this ER evaluation Family history: Remarkable for mother and sister who experienced myocardial infarction Review of Systems General: Reports: 10 or more systems reviewed and unremarkable except in HPI and below Medications/Allergies Home Medications Medication Instructions Recorded Confirmed Last Taken Type docusate sodium 100 mg capsule 100 mg PO DAILY 12/29/19 06/23/24 12/16/23 History (Colace) dronabinol 5 mg capsule (Marinol) 5 mg PO BID 12/29/19 06/23/24 12/16/23 History meclizine 12.5 mg tablet 12.5 mg PO BID PRN dizziness 12/29/19 06/23/24 12/16/23 History blood sugar diagnostic (Accu-Chek #100 ea 03/19/20 06/23/24 02/21/22 Rx Pretty Plus test strips) blood-glucose meter (Accu-Chek #1 ea 03/19/20 06/23/24 02/21/22 Rx Pretty Plus Meter) cholestyramine-aspartame 4 gram 4 gm PO BID 03/19/20 06/23/24 12/16/23 History oral powder (Cholestyramine Light) clobetasol 0.05 % topical cream 1 applic topical BID 03/19/20 06/23/24 12/16/23 History (Temovate) cyclobenzaprine 10 mg tablet 10 mg PO TID PRN Spasms 03/19/20 06/23/24 12/16/23 History montelukast 10 mg tablet 10 mg PO DAILY 03/19/20 06/23/24 12/16/23 History (Singulair) pen needle, diabetic 32 gauge x #100 ea 08/19/20 06/23/24 Unknown Rx (1st Tier Unifine Pentips) nystatin 100,000 unit/gram topical 1 applic topical TID #60 grams 08/24/20 06/23/24 12/16/23 Rx powder flash glucose scanning reader #1 ea 02/06/22 06/23/24 02/21/22 Rx (FreeStyle Dawson 14 Day [place]) flash glucose sensor (FreeStyle #2 ea 02/06/22 06/23/24 Unknown Rx Dawson 14 Day Sensor kit) cetirizine 10 mg tablet 10 mg PO DAILY #30 tabs 04/14/22 06/23/24 12/16/23 Rx ibuprofen 600 mg tablet 600 mg PO BID PRN pain #30 tabs 04/14/22 06/23/24 12/16/23 Rx albuterol sulfate 90 mcg/actuation 2 puff inhalation Q6H PRN 08/07/22 06/23/24 12/16/23 Rx aerosol inhaler (ProAir HFA) shortness of breath or wheezing #8.5 grams budesonide-formoterol HFA 160 2 puff inhalation Q12H #10.2 grams 08/07/22 06/23/24 12/16/23 Rx mcg-4.5 mcg/actuation aerosol inhaler (Symbicort) diabetic shoes #1 ea 08/09/22 06/23/24 Unknown Rx clopidogrel 75 mg tablet 75 mg PO DAILY #90 tabs 09/05/22 06/23/24 12/11/23 Rx diabetic shoes with 3 inserts #1 ea 12/11/22 06/23/24 Unknown Rx naloxone 4 mg/actuation nasal spray 1 spray intranasal Q2M #2 ea 05/08/23 06/23/24 Unknown Rx nitroglycerin 0.4 mg sublingual 0.4 mg sublingual Q5M PRN chest 08/15/23 06/23/24 Unknown Rx tablet pain #100 tabs blood sugar diagnostic (Blood #50 ea 09/27/23 06/23/24 Unknown Rx Glucose Test strips) blood-glucose meter #1 ea 09/27/23 06/23/24 Unknown Rx diclofenac sodium 1 % topical gel 2 g topical QID #100 grams 12/10/23 06/23/24 12/16/23 Rx pantoprazole 40 mg tablet,delayed 40 mg PO DAILY 12/14/23 06/23/24 12/16/23 History release meloxicam 7.5 mg tablet 7.5 mg PO DAILY #7 tabs 12/17/23 06/23/24 Unknown Rx famotidine 20 mg tablet See Rx Instructions .Route 12/20/23 06/23/24 Unknown Rx .COMPLEX #60 tabs fluticasone fur. 200 mcg-umeclid 1 inh inhalation Q24H #60 ea 12/28/23 06/23/24 Unknown Rx 62.5 mcg-vilant 25 mcg inhalat.powder (Trelegy Ellipta) atorvastatin 40 mg tablet See Rx Instructions .Route 02/07/24 06/23/24 Unknown Rx .COMPLEX #90 tabs duloxetine 30 mg capsule,delayed See Rx Instructions .Route 03/10/24 06/23/24 Unknown Rx release .COMPLEX #90 caps duloxetine 60 mg capsule,delayed See Rx Instructions .Route 03/13/24 06/23/24 Unknown Rx release .COMPLEX #90 caps pregabalin 75 mg capsule (Lyrica) 75 mg PO BID #60 caps 05/12/24 06/23/24 Unknown Rx sitagliptin phosphate 100 mg See Rx Instructions .Route 05/19/24 06/23/24 Unknown Rx tablet (Januvia) .COMPLEX #90 tabs insulin glargine 100 unit/mL (3 See Rx Instructions .Route 05/26/24 06/23/24 Unknown Rx mL) subcutaneous pen (Lantus .COMPLEX #15 mL Solostar U-100 Insulin) glimepiride 2 mg tablet See Rx Instructions .Route 06/11/24 06/23/24 Unknown Rx .COMPLEX #90 tabs oxycodone 30 mg tablet 30 mg PO Q4H PRN Pain 30 days #150 06/16/24 06/23/24 Unknown Rx tabs empagliflozin 25 mg tablet See Rx Instructions .Route 06/17/24 06/23/24 Unknown Rx (Jardiance) .COMPLEX #60 tabs fluticasone propionate 50 1 spray intranasal BID #16 grams 06/23/24 06/23/24 Unknown Rx mcg/actuation nasal spray,suspension (Allergy Relief (fluticasone)) metoclopramide HCl 5 mg tablet 5 mg PO DAILY #30 tabs 06/23/24 06/23/24 Unknown Rx ondansetron 8 mg disintegrating 8 mg PO Q8H PRN nausea and 06/23/24 06/23/24 Unknown Rx tablet vomiting #30 tabs leflunomide 20 mg tablet 20 mg PO DAILY #90 tabs 07/01/24 Unknown Rx prednisone 5 mg tablet 5 mg PO DAILY #90 tabs 07/01/24 Unknown Rx Allergies Allergy/AdvReac Type Severity Reaction Status Date / Time adhesive tape Allergy Intermediate ALGY-Hives Verified 06/23/24 14:49 morphine Allergy Intermediate unknown Verified 06/23/24 14:49 aspirin Allergy Mild ALGY-Hives Verified 06/23/24 14:49 ciprofloxacin [From Cipro] Allergy Unknown Verified 06/23/24 14:49 dapagliflozin [From Farxiga] Allergy unk Verified 06/23/24 14:49 iodine Allergy unknown Verified 06/23/24 14:49 metformin Allergy Unknown Verified 06/23/24 14:49 prochlorperazine Allergy unknown Verified 06/23/24 14:49 [From Compazine] codeine AdvReac Mild UNKNOWN Verified 06/23/24 14:49 Opioids - Morphine Analogues AdvReac Mild UNKNOWN Verified 06/23/24 14:49 Penicillins AdvReac Mild UNKNOWN Verified 06/23/24 14:49 Phenothiazines AdvReac Mild UNKNOWN Verified 06/23/24 14:49 salicylates AdvReac Mild UNKNOWN Verified 06/23/24 14:49 Sulfa (Sulfonamide AdvReac Mild UNKNOWN Verified 06/23/24 14:49 Antibiotics) PFSH Acute PFSH: Medical History De Quervain's tenosynovitis, bilateral Port-A-Cath in place Acute bacterial sinusitis Immunization counseling GERD (gastroesophageal reflux disease) History of nonmelanoma skin cancer 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 Giant cell arteritis Oropharyngeal candidiasis Inflammatory arthritis Type 2 diabetes mellitus, with long-term current use of insulin Glaucoma Diabetic gastroparesis ASHD (arteriosclerotic heart disease) Breast cancer Dyslipidemia COPD (chronic obstructive pulmonary disease) Myocardial infarction HTN (hypertension) Surgical History Hx of cataract surgery bilaterally 1 week ago History of lymph node biopsy (08/19/15) Excisional biopsy of left inguinal lymph node History of lumpectomy of left breast (2005) Left breast lumpectomy with axillary sentinel lymph node biopsy Status post colonoscopy with polypectomy (02/22/22) H/O esophagogastroduodenoscopy (08/12/21) bile reflux Status post colonoscopy (08/12/21) polyps S/P hysterectomy S/P cholecystectomy H/O neck surgery Cervical laminectomy and placement of a spinal cord stimulator Previous back surgery Lumbar laminectomy S/P PTCA (percutaneous transluminal coronary angioplasty) Family History Other CAD (coronary artery disease) Cancer Chronic kidney disease (CKD) Diabetes Family history of premature coronary artery disease Hyperlipidemia Hypertension Lung disease Lupus Rheumatoid arthritis Stroke Social History Smoking and tobacco/nicotine status: never used tobacco/nicotine Alcohol intake: never Substance/Drug Use: current Substance/Drug use frequency: daily Vitals/I&O/Wt Last Vital Signs Temp 97.8 F 07/15/24 16:16 Pulse 107 H 07/15/24 16:38 Resp 16 07/15/24 16:38 BP 121/88 07/15/24 16:38 Pulse Ox 97 07/15/24 16:38 O2 Del Method Room Air 07/15/24 16:38 Weight last 48 hrs Weight 162 lb Physical Exam Narrative: The patient is alert and oriented x 3. Speech fluent. Head normocephalic. Neck revealed tenderness to palpation over the left cervical paraspinous muscles from approximately C1 to the T1. Patient reported pain during palpation of the left shoulder exacerbated with mild passive range of motion to approximately 20 degrees on abduction and external rotation and approximately 30 degrees flexion and 20 degrees extension. Patient also reported pain in the left elbow on attempted rotation to approximately 15 degrees. Cranial nerves II through XII intact. There was no obvious facial weakness. Pupils 3 to 4 mm round reactive to light and accommodation. Extraocular movements intact. There were no nystagmus. Visual moreno appear to be full via confrontation. Motor testing revealed patient complaining of pain in the left shoulder with passive range of motion and patient reported weakness in the fingers 4 through the fifth digits. Patient has strong extensor power in the first digit of the left hand. Other motor testing was 5/5 in the right upper extremity and right lower extremity. Deep tendon reflexes 2+ bilaterally. Plantar responses flexor bilaterally. There was no clonus. Patient reported decreased sensation to touch in the fingers of the left hand (first through the fifth digits, palmar and dorsal aspect). Pulses were 3+ bilaterally. There was no cyanosis. Data 07/15/24 16:52 07/15/24 16:52 A&P Assessment and plan (1) Cervical spondylosis with radiculopathy: Impression: 1. Acute onset of left-sided neck pain associated with left shoulder pain, left arm and forearm pain and left hand weakness 07/15/2024 after the patient stated she ordered food at [employer] and return to her car with her mother driving 2. History of myocardial infarctions on 3 separate occasions approxi-2 years ago 3. History of nicotine dependence 4. Type 2 diabetes mellitus 5. History of peripheral artery disease Plan: 1. Agree with obtaining noncontrast head CT although patient's symptoms are suggestive of peripheral origin 2. Agree with obtaining carotid duplex study to assess for carotid or vertebral artery stenosis since patient has history of peripheral artery disease and myocardial infarctions and smokes 3. Recommend obtaining CT of the cervical spine to assess for left-sided cervical disc herniation 4. Recommend obtaining CT of the left shoulder to assess for left frozen shoulder versus rotator cuff tear 5. Agree with obtaining arterial and venous Dopplers on the left lower extremity to assess for acute vascular occlusion 6. Recommend orthopedic evaluation for left shoulder pain 7. Agree with cardiac assessment in the emergency room to assess for progression in heart disease since patient has history of myocardial infarctions on 3 occasions 2 years ago and history of coronary atherosclerotic heart disease and peripheral artery disease and history of smoking and type 2 diabetes mellitus 7. Please schedule patient for follow-up in [facility] neurology clinic in 2 weeks (2) Neck pain: (3) Left upper limb pain: (4) Paresthesia of left upper extremity: (5) Left hand weakness: (6) Pain of left shoulder joint on movement: Consult Attestations Medical Necessity Statement: The patient was evaluated by neurology for acute onset of left-sided neck pain and left arm pain with hand weakness Coding Level of Care Code 54833 Diagnoses Cervical spondylosis with radiculopathy M47.22 Neck pain M54.2 Left upper limb pain M79.602 Paresthesia of left upper extremity R20.2 Left hand weakness R29.898 Pain of left shoulder joint on movement M25.512
[2024-07-15 17:21] LABS: Basophils # 0.1 10^3/uL (0.0-0.1); Basophils % 0.7 %; Eosinophils % 0.2 %; Hematocrit 49.6 % (36-47); Lymphocytes # 1.7 10^3/uL (0.8-4.8); Lymphocytes % 13.3 %; Mean Corpuscular HGB Conc 32.1 g/dL (30-55); Mean Corpuscular Hemoglobin 29.1 pg (27-33); Mean Corpuscular Volume 90.8 fl (85-98); Mean Platelet Volume 10.3 fL (7.4-10.4); Monocytes # 0.8 10^3/uL (0.2-0.9); Monocytes % 6.2 %; Neutrophils # 10.19 10^3/uL (1.8-7.7); Neutrophils % 79.1 %; Nucleated Red Blood Cells % 0 %; Platelet Count 276 10^3/cmm (157-399); Red Blood Count 5.46 10^6/uL (3.85-5.65); Red Cell Distribution Width 14.2 % (12.1-15.1)
[2024-07-15 17:37] LABS: Troponin(5th) Baseline 17 ng/L (0-10)
[2024-07-15 17:48] LABS: Alanine Aminotransferase 28 U/L (0-33); Albumin Level 4.3 g/dL (3.5-5.2); Alkaline Phosphatase 90 U/L (35-105); Anion Gap 21.9 (5-19); Aspartate Amino Transferase 28 U/L (0-32); Blood Urea Nitrogen 11 mg/dL (8-23); C Reactive Protein 3.8 mg/L (0.0-4.9); Calcium 9.8 mg/dL (8.5-10.5); Carbon Dioxide 24 mmol/L (22-29); Chloride 98 mmol/L (98-107); Creatinine Clr Calc Pharmacy 90.2683; Globulin 2.7 g/dL (1.3-4.6); Glomerular Filtration Rate 101.6 mL/min (90-130); Glucose 246 mg/dL (65-115); NT Pro B Type Natriuretic Pept 138 pg/mL (0-125); Osmolality Calculated 298 mOsm/kg (285-295); Potassium 3.9 mmol/L (3.5-5.1); Sodium 140 mmol/L (136-145); Total Bilirubin 0.8 mg/dL (0.15-1.2)
--- NOTE | 2024-07-15 18:00 | PC.NURSE ---
Solumedrol given via IM, dr changed order and pharmacy called to confirm route was ok to use.
[2024-07-15] MEDS: methylPREDNISolone sod succ 125 mg/2 mL INJ IM (18:03)
[2024-07-15 18:05] VITALS: BP 140/75; PULSE 100; RESP 18; O2SAT 96
[2024-07-15 18:35] VITALS: BP 161/85; PULSE 95; RESP 18; O2SAT 99
[2024-07-15 18:54] LABS: Reflex Lactate Order REFLEX LACTIC ORDERD
[2024-07-15 19:09] LABS: Troponin 5 2HR 15.83 ng/L (0-10)
[2024-07-15 19:10] LABS: Lactic Acid level (Lactate) 2.8 mmol/L (0.5-2.2)
[2024-07-15 19:13] LABS: Troponin 5 2HR Delta -1.17 ABS# (0-10)
[2024-07-15 19:40] VITALS: BP 151/79; PULSE 96; RESP 16; O2SAT 100
== END 2024-07-15 19:41 | disposition home or self-care (01) ==
PROVIDERS: Emergency Provider Emergency Medicine; PCP Family Medicine
DX: M54.10 Radiculopathy, site unspecified (principal); Z79.02 Long term (current) use of antithrombotics/antiplatelets; Z79.4 Long term (current) use of insulin; Z79.84 Long term (current) use of oral hypoglycemic drugs; E11.9 Type 2 diabetes mellitus without complications; Z85.3 Personal history of malignant neoplasm of breast; E78.5 Hyperlipidemia, unspecified; J44.9 Chronic obstructive pulmonary disease, unspecified; I10 Essential (primary) hypertension; I25.2 Old myocardial infarction
CPT/HCPCS: 36415; 70450; 71045; 72125; 73200; 80053; 83605; 83880; 84484; 85025; 86140; 93005; 93880; 93931; 96372; 99285; J2919

== ENCOUNTER → 2024-07-30 08:38 | Outpatient (BNVA) | payer MEDICARE, SELFPAY | PROVIDERS: PCP Family Medicine; Visit Provider Internal Medicine Rheumatology | DX: M31.6 Other giant cell arteritis (principal); Z79.899 Other long term (current) drug therapy; Z71.85 Encounter for immunization safety counseling | CPT/HCPCS: 99214 ==

== ENCOUNTER → 2024-09-10 14:10 | Outpatient (BNVA) | payer MEDICARE, SELFPAY | PROVIDERS: PCP Family Medicine; Visit Provider Podiatrist Foot & Ankle Surgery | DX: B35.1 Tinea unguium (principal); E11.8 Type 2 diabetes mellitus with unspecified complications; L84 Corns and callosities | CPT/HCPCS: 87070; 87075; 87205 ==

== ENCOUNTER → 2024-09-17 09:35 | Outpatient (BNVA) | payer MEDICARE, SELFPAY | PROVIDERS: PCP Family Medicine; Visit Provider Family Medicine | DX: E11.69 Type 2 diabetes mellitus with other specified complication (principal); Z79.4 Long term (current) use of insulin | CPT/HCPCS: 80053; 80061; 83036; 83721 ==

== ENCOUNTER → 2024-10-08 14:20 | Outpatient (BNVA) | payer MEDICARE, SELFPAY | PROVIDERS: PCP Family Medicine; Visit Provider Internal Medicine Cardiovascular Disease | DX: I25.10 Atherosclerotic heart disease of native coronary artery without angina pectoris (principal); R00.0 Tachycardia, unspecified; E78.5 Hyperlipidemia, unspecified; I10 Essential (primary) hypertension; F17.210 Nicotine dependence, cigarettes, uncomplicated | CPT/HCPCS: 99213 ==

== ENCOUNTER 2024-10-09 12:49 | Oncology outpatient (recurring) (ONCR) | payer MEDICARE, SELFPAY ==
[2024-10-09 13:41] LABS: Basophils # 0.1 10^3/uL (0.0-0.1); Basophils % 0.5 %; Eosinophils # 0.1 10^3/uL (0.0-0.8); Eosinophils % 0.9 %; Hematocrit 46.6 % (36-47); Lymphocytes # 3.5 10^3/uL (0.8-4.8); Mean Corpuscular Volume 90.7 fl (85-98); Mean Platelet Volume 10.2 fL (7.4-10.4); Monocytes # 1.7 10^3/uL (0.2-0.9); Monocytes % 11.5 %; Neutrophils # 9.17 10^3/uL (1.8-7.7); Neutrophils % 62.6 %; Nucleated Red Blood Cells % 0 %; Platelet Count 295 10^3/cmm (157-399); Red Blood Count 5.14 10^6/uL (3.85-5.65); Red Cell Distribution Width 14.3 % (12.1-15.1); White Blood Count 14.64 10^3/uL (3.29-11.43)
[2024-10-09 13:59] LABS: Alanine Aminotransferase 25 U/L (0-33); Albumin Level 3.9 g/dL (3.5-5.2); Alkaline Phosphatase 75 U/L (35-105); Aspartate Amino Transferase 18 U/L (0-32); Blood Urea Nitrogen 13 mg/dL (8-23); Calcium 9.6 mg/dL (8.5-10.5); Carbon Dioxide 28 mmol/L (22-29); Chloride 101 mmol/L (98-107); Creatinine Clr Calc Pharmacy 89.7043; Globulin 2.8 g/dL (1.3-4.6); Glomerular Filtration Rate 101.6 mL/min (90-130); Glucose 171 mg/dL (65-115); Osmolality Calculated 294 mOsm/kg (285-295); Sodium 140 mmol/L (136-145); Total Bilirubin 0.5 mg/dL (0.15-1.2); Total Protein 6.7 g/dL (6.6-8.7)
[2024-10-09 14:07] LABS: Anion Gap 14.5 (5-19); Potassium 3.5 mmol/L (3.5-5.1)
== END 2024-10-28 23:59 | disposition home or self-care (01) ==
PROVIDERS: Nurse Practitioner Family; PCP Family Medicine; Visit Provider Internal Medicine Medical Oncology
DX: Z08 Encounter for follow-up examination after completed treatment for malignant neoplasm (principal); F17.210 Nicotine dependence, cigarettes, uncomplicated; Z85.828 Personal history of other malignant neoplasm of skin; Z85.3 Personal history of malignant neoplasm of breast; Z92.3 Personal history of irradiation; Z92.21 Personal history of antineoplastic chemotherapy; M31.6 Other giant cell arteritis; Z79.899 Other long term (current) drug therapy; G62.0 Drug-induced polyneuropathy; T45.1X5D Adverse effect of antineoplastic and immunosuppressive drugs, subsequent encounter; K76.0 Fatty (change of) liver, not elsewhere classified
CPT/HCPCS: 36415; 80053; 85025; 99214

== ENCOUNTER → 2024-10-10 14:49 | Outpatient (BNVA) | payer MEDICARE, SELFPAY | PROVIDERS: PCP Family Medicine; Visit Provider Podiatrist Foot & Ankle Surgery | DX: B35.1 Tinea unguium; G62.9 Polyneuropathy, unspecified; I73.9 Peripheral vascular disease, unspecified; L84 Corns and callosities; E11.69 Type 2 diabetes mellitus with other specified complication; Z79.4 Long term (current) use of insulin; L02.611 Cutaneous abscess of right foot; E11.42 Type 2 diabetes mellitus with diabetic polyneuropathy | CPT/HCPCS: 99213 ==

== ENCOUNTER → 2024-10-18 14:16 | Outpatient (BNVA) | payer MEDICARE, SELFPAY | PROVIDERS: PCP Family Medicine | DX: S49.90XA Unspecified injury of shoulder and upper arm, unspecified arm, initial encounter (principal); X58.XXXA Exposure to other specified factors, initial encounter; M19.012 Primary osteoarthritis, left shoulder | CPT/HCPCS: 73030 ==

== ENCOUNTER → 2024-11-10 14:10 | Outpatient (BNVA) | payer MEDICARE, SELFPAY | PROVIDERS: PCP Family Medicine; Visit Provider Podiatrist Foot & Ankle Surgery | DX: B35.1 Tinea unguium (principal); G62.9 Polyneuropathy, unspecified; I73.9 Peripheral vascular disease, unspecified; L84 Corns and callosities; E11.69 Type 2 diabetes mellitus with other specified complication; Z79.4 Long term (current) use of insulin; E11.42 Type 2 diabetes mellitus with diabetic polyneuropathy | CPT/HCPCS: 11057; 11721 ==

== ENCOUNTER → 2024-11-24 15:26 | Outpatient (BNVA) | payer MEDICARE, SELFPAY | PROVIDERS: PCP Family Medicine; Visit Provider Specialist | DX: M75.102 Unspecified rotator cuff tear or rupture of left shoulder, not specified as traumatic (principal); S46.212A Strain of muscle, fascia and tendon of other parts of biceps, left arm, initial encounter; S43.102A Unspecified dislocation of left acromioclavicular joint, initial encounter; M50.020 Cervical disc disorder with myelopathy, mid-cervical region, unspecified level; M25.511 Pain in right shoulder; M12.812 Other specific arthropathies, not elsewhere classified, left shoulder; X58.XXXA Exposure to other specified factors, initial encounter | CPT/HCPCS: 73030; 99204 ==

== ENCOUNTER → 2024-12-03 10:58 | Outpatient (BNVA) | payer MEDICARE, SELFPAY | PROVIDERS: PCP Family Medicine; Visit Provider Nurse Practitioner Family | DX: I10 Essential (primary) hypertension (principal); I25.10 Atherosclerotic heart disease of native coronary artery without angina pectoris; F17.200 Nicotine dependence, unspecified, uncomplicated; E78.5 Hyperlipidemia, unspecified; F17.210 Nicotine dependence, cigarettes, uncomplicated | CPT/HCPCS: 99214 ==

== ENCOUNTER → 2024-12-19 11:20 | Outpatient (BNVA) | payer MEDICARE, SELFPAY | PROVIDERS: PCP Family Medicine; Visit Provider Family Medicine | DX: E11.69 Type 2 diabetes mellitus with other specified complication (principal); Z79.4 Long term (current) use of insulin | CPT/HCPCS: 80048; 83036 ==

== ENCOUNTER 2025-01-01 09:05 | Oncology outpatient (recurring) (ONCR) | payer MEDICARE, SELFPAY ==
--- NOTE | 2025-01-01 09:00 | IR_ITS ---
WS: [id number] SHOULDER ARTHROGRAM LEFT Fluoroscopic guided right shoulder arthrogram CLINICAL INFORMATION: rotator cuff tear PROCEDURE: The procedure including risks, benefits and complications were discussed with the patient, who agreed to proceed. Using sterile technique, the patient was prepped and draped in the usual sterile fashion. After 1% lidocaine injection using fluoroscopic guidance, a 22-gauge spinal needle was advanced into the glenohumeral joint. Approximately 13 ml of a solution containing 10 ml normal saline and 10 ml Omnipaque 240 was administered. No immediate complications. FLUOROSCOPY TIME: 2min [id number] # of spot films: 1 IR/IR arthrogram shoulderLT [id number] IMPRESSION: Uncomplicated fluoroscopic-guided LEFT shoulder arthrogram. CT to follow.
--- NOTE | 2025-01-01 09:10 | CT_ITS ---
WS: [id number] CT LEFT shoulder arthrogram INDICATION: LEFT shoulder injury fall TECHNIQUE: CT LEFT shoulder arthrogram with coronal and sagittal reformatted images. FINDINGS: Comparison 07/15/2024 Moderate to advanced arthritis AC joint with marked narrowing of the subacromial space. Small amount of fluid in the subacromial/subdeltoid space. Moderate to advanced degenerative narrowing of the glenohumeral articulation. Advanced subchondral cystic changes involving the humeral head greater tuberosity at the rotator cuff insertion High-grade complete tear of the supraspinatus tendon with retraction to the level of the glenohumeral joint. In addition high-grade complete tear of the infraspinatus with retraction to the glenohumeral joint. Small amount of residual infraspinatus tendon. Teres minor appears intact. Subscapularis tendon appears intact. Biceps tendon not well visualized in the bicipital groove and may be chronically torn. Glenoid labrum appears grossly intact. Intra-articular biceps tendon is not well-visualized and may be chronically torn. Emphysematous changes in the partially visualized RIGHT lung. [id number] CT/CT shoulder LT w con [id number] IMPRESSION: 1. Advanced arthritis AC joint with marked narrowing of the subacromial space. 2. High-grade complete tear of the supraspinatus and high-grade complete or ne ar complete tear of the infraspinatus with both retracted to the level of the g lenohumeral joint. 3. Subscapularis tendon appears intact. 4. Biceps tendon is not visualized in the bicipital groove and may be chronica lly torn. Intra-articular biceps tendon is not visualized. 5. Moderate to advanced degenerative narrowing of the glenohumeral articulatio n. 6. Labrum appears grossly intact.
[2025-01-01] MEDS: iohexol 240 mg/mL 50 mL Btl 20 ML INTRA-ARTI (11:30)
== END 2025-01-26 23:59 | disposition home or self-care (01) ==
LOC: RAD 09:09 → ONCMED 10:02
PROVIDERS: PCP Family Medicine; Visit Provider Family Medicine
DX: Z08 Encounter for follow-up examination after completed treatment for malignant neoplasm (principal); F17.210 Nicotine dependence, cigarettes, uncomplicated; Z85.828 Personal history of other malignant neoplasm of skin; Z85.3 Personal history of malignant neoplasm of breast; Z92.3 Personal history of irradiation; Z92.21 Personal history of antineoplastic chemotherapy; M31.6 Other giant cell arteritis; Z79.899 Other long term (current) drug therapy; G62.0 Drug-induced polyneuropathy; T45.1X5D Adverse effect of antineoplastic and immunosuppressive drugs, subsequent encounter; K76.0 Fatty (change of) liver, not elsewhere classified; M75.102 Unspecified rotator cuff tear or rupture of left shoulder, not specified as traumatic
CPT/HCPCS: 23350; 73201; 77002; Q9966

== ENCOUNTER → 2025-01-13 14:17 | Outpatient (BNVA) | payer MEDICARE, SELFPAY | PROVIDERS: PCP Family Medicine; Visit Provider Podiatrist Foot & Ankle Surgery | DX: E11.69 Type 2 diabetes mellitus with other specified complication (principal); B35.1 Tinea unguium; L84 Corns and callosities; G62.9 Polyneuropathy, unspecified; I73.9 Peripheral vascular disease, unspecified; Z79.4 Long term (current) use of insulin | CPT/HCPCS: 11057; 11721 ==

== ENCOUNTER → 2025-02-12 12:53 | Outpatient (BNVA) | payer MEDICARE, SELFPAY | PROVIDERS: PCP Family Medicine; Visit Provider Nurse Practitioner Family | DX: I10 Essential (primary) hypertension (principal); E78.5 Hyperlipidemia, unspecified; I25.10 Atherosclerotic heart disease of native coronary artery without angina pectoris; I73.9 Peripheral vascular disease, unspecified; F17.219 Nicotine dependence, cigarettes, with unspecified nicotine-induced disorders; R00.0 Tachycardia, unspecified; R20.9 Unspecified disturbances of skin sensation | CPT/HCPCS: 99214 ==

== ENCOUNTER 2025-02-20 12:52 | Outpatient (CLI) | payer MEDICARE, SELFPAY ==
--- NOTE | 2025-02-20 | MM_ITS ---
WS: [id number] VIEWS: MLO, CC, and ML views both breasts. 3D digital tomosynthesis is also included in this exam. Comparisons: 04/08/2008, 01/28/2009, 04/25/2010, 03/03/2013, 06/22/2016, 07/07/2019, 11/04/2020, 05/11/2011, 03/09/2014, 03/15/2015, 04/11/2017, 06/26/2017, 07/02/2018, 11/21/2021, 01/29/2023, 02/20/2024. Findings: There are scattered areas of fibroglandular density. No suspicious mass or tumor calcification noted. Areas of architectural distortion in the LEFT breast secondary to prior surgery. These areas are stable. MM/MM diag BI tomosynthesis [id number] Impression: BI-RADS: 2 - Benign. FOLLOW-UP: 1 Year Follow-up This mammogram was also analyzed by the Computer Aided Detection System R2 Imag e [employer].
== END 2025-02-20 12:53 | disposition home or self-care (01) ==
PROVIDERS: PCP Family Medicine; Visit Provider Nurse Practitioner Family
DX: R92.323 Mammographic fibroglandular density, bilateral breasts (principal); N64.89 Other specified disorders of breast
CPT/HCPCS: 77062; G0279

== ENCOUNTER → 2025-03-17 14:57 | Outpatient (BNVA) | payer MEDICARE, SELFPAY | PROVIDERS: PCP Family Medicine; Visit Provider Podiatrist Foot & Ankle Surgery | DX: E11.69 Type 2 diabetes mellitus with other specified complication (principal); B35.1 Tinea unguium; L84 Corns and callosities; G62.9 Polyneuropathy, unspecified; I73.9 Peripheral vascular disease, unspecified; Z79.4 Long term (current) use of insulin | CPT/HCPCS: 11056; 11721 ==

== ENCOUNTER 2025-04-20 11:00 | Oncology outpatient (recurring) (ONCR) | payer MEDICARE, SELFPAY ==
[2025-04-09 13:15] LABS: Basophils # 0.1 10^3/uL (0.0-0.1); Basophils % 0.4 %; Eosinophils # 0.1 10^3/uL (0.0-0.8); Eosinophils % 0.8 %; Hematocrit 42.4 % (36-47); Lymphocytes # 2.8 10^3/uL (0.8-4.8); Lymphocytes % 21.2 %; Mean Corpuscular HGB Conc 32.1 g/dL (30-55); Mean Corpuscular Hemoglobin 28.5 pg (27-33); Mean Corpuscular Volume 88.9 fl (85-98); Mean Platelet Volume 10.2 fL (7.4-10.4); Monocytes # 1.5 10^3/uL (0.2-0.9); Monocytes % 11.6 %; Neutrophils # 8.76 10^3/uL (1.8-7.7); Neutrophils % 65.6 %; Nucleated Red Blood Cells % 0 %; Platelet Count 272 10^3/cmm (157-399); Red Blood Count 4.77 10^6/uL (3.85-5.65); Red Cell Distribution Width 13.7 % (12.1-15.1); White Blood Count 13.33 10^3/uL (3.29-11.43)
[2025-04-09 13:34] LABS: Alanine Aminotransferase 10 U/L (0-33); Albumin Level 3.8 g/dL (3.5-5.2); Alkaline Phosphatase 100 U/L (35-105); Anion Gap 16.8 (5-19); Aspartate Amino Transferase 15 U/L (0-32); Blood Urea Nitrogen 11 mg/dL (8-23); Carbon Dioxide 26 mmol/L (22-29); Chloride 100 mmol/L (98-107); Globulin 2.9 g/dL (1.3-4.6); Glomerular Filtration Rate 101.3 mL/min (90-130); Glucose 132 mg/dL (65-115); Osmolality Calculated 289 mOsm/kg (285-295); Potassium 3.8 mmol/L (3.5-5.1); Sodium 139 mmol/L (136-145); Total Bilirubin 0.8 mg/dL (0.15-1.2); Total Protein 6.7 g/dL (6.6-8.7)
== END 2025-04-27 23:59 | disposition home or self-care (01) ==
LOC: RAD 04-21 00:01 → ONCMED 04-21 09:58
PROVIDERS: Nurse Practitioner Family; PCP Family Medicine; Visit Provider Family Medicine
DX: Z53.9 Procedure and treatment not carried out, unspecified reason (principal)
CPT/HCPCS: 36415; 80053; 85025; 99214

== ENCOUNTER → 2025-04-20 12:06 | Outpatient (BNVA) | payer MEDICARE, SELFPAY | PROVIDERS: PCP Family Medicine; Visit Provider Specialist | DX: S43.102A Unspecified dislocation of left acromioclavicular joint, initial encounter (principal); M12.812 Other specific arthropathies, not elsewhere classified, left shoulder; X58.XXXA Exposure to other specified factors, initial encounter | CPT/HCPCS: 20610; 99214; J1100; J2795; J3301; J9999 ==

== ENCOUNTER → 2025-05-18 14:08 | Outpatient (BNVA) | payer MEDICARE, SELFPAY | PROVIDERS: PCP Family Medicine; Visit Provider Internal Medicine Rheumatology | DX: M31.6 Other giant cell arteritis (principal); Z79.899 Other long term (current) drug therapy; Z71.85 Encounter for immunization safety counseling | CPT/HCPCS: 99214 ==

== ENCOUNTER → 2025-05-19 14:00 | Outpatient (BNVA) | payer MEDICARE, SELFPAY | PROVIDERS: PCP Family Medicine; Visit Provider Podiatrist Foot & Ankle Surgery | DX: E11.69 Type 2 diabetes mellitus with other specified complication (principal); B35.1 Tinea unguium; L84 Corns and callosities; G62.9 Polyneuropathy, unspecified; I73.9 Peripheral vascular disease, unspecified; Z79.4 Long term (current) use of insulin | CPT/HCPCS: 11056; 11721 ==

== ENCOUNTER → 2025-06-11 15:14 | Outpatient (BNVA) | payer MEDICARE, SELFPAY | PROVIDERS: PCP Family Medicine; Visit Provider Family Medicine | DX: E11.69 Type 2 diabetes mellitus with other specified complication (principal); Z79.4 Long term (current) use of insulin | CPT/HCPCS: 80053; 83036; 85025 ==

== ENCOUNTER → 2025-06-25 15:41 | Outpatient (BNVA) | payer MEDICARE, SELFPAY | PROVIDERS: PCP Family Medicine; Visit Provider Internal Medicine Cardiovascular Disease | DX: I25.10 Atherosclerotic heart disease of native coronary artery without angina pectoris (principal); I10 Essential (primary) hypertension; E78.5 Hyperlipidemia, unspecified; R00.0 Tachycardia, unspecified; M19.90 Unspecified osteoarthritis, unspecified site; M75.102 Unspecified rotator cuff tear or rupture of left shoulder, not specified as traumatic; Z79.02 Long term (current) use of antithrombotics/antiplatelets; F17.210 Nicotine dependence, cigarettes, uncomplicated; I25.2 Old myocardial infarction | CPT/HCPCS: 99214 ==

== ENCOUNTER → 2025-10-05 15:19 | Outpatient (BNVA) | payer MEDICARE, SELFPAY | PROVIDERS: PCP Family Medicine; Visit Provider Registered Nurse Neonatal Intensive Care | DX: R07.89 Other chest pain (principal); M19.012 Primary osteoarthritis, left shoulder; M75.112 Incomplete rotator cuff tear or rupture of left shoulder, not specified as traumatic; J98.4 Other disorders of lung | CPT/HCPCS: 71046; 73030 ==

== ENCOUNTER 2025-10-07 13:56 | Oncology outpatient (recurring) (ONCR) | payer MEDICARE, SELFPAY ==
[2025-10-07 14:17] LABS: Hematocrit 45.3 % (36-47); Hemoglobin 14.80 g/dL (11.27-16.99); Mean Corpuscular HGB Conc 32.7 g/dL (30-55); Mean Corpuscular Hemoglobin 28.3 pg (27-33); Mean Corpuscular Volume 86.6 fl (85-98); Nucleated Red Blood Cells % 0 %; Platelet Count 312 10^3/cmm (157-399); Red Blood Count 5.23 10^6/uL (3.85-5.65); White Blood Count 11.20 10^3/uL (3.29-11.43)
[2025-10-07 14:48] LABS: Alanine Aminotransferase 12 U/L (0-33); Albumin Level 3.8 g/dL (3.5-5.2); Alkaline Phosphatase 103 U/L (35-105); Anion Gap 18.7 (5-19); Aspartate Amino Transferase 16 U/L (0-32); Blood Urea Nitrogen 13 mg/dL (8-23); Calcium 9.3 mg/dL (8.5-10.5); Carbon Dioxide 21 mmol/L (22-29); Chloride 104 mmol/L (98-107); Globulin 3.4 g/dL (1.3-4.6); Glucose 188 mg/dL (65-115); Osmolality Calculated 295 mOsm/kg (285-295); Potassium 3.7 mmol/L (3.5-5.1); Sodium 140 mmol/L (136-145); Total Protein 7.2 g/dL (6.6-8.7)
== END 2025-10-28 23:59 | disposition home or self-care (01) ==
PROVIDERS: Nurse Practitioner Family; PCP Family Medicine; Visit Provider Family Medicine
DX: Z08 Encounter for follow-up examination after completed treatment for malignant neoplasm (principal); Z85.3 Personal history of malignant neoplasm of breast; Z85.828 Personal history of other malignant neoplasm of skin; F17.210 Nicotine dependence, cigarettes, uncomplicated; E11.9 Type 2 diabetes mellitus without complications; Z92.21 Personal history of antineoplastic chemotherapy; Z92.3 Personal history of irradiation; Z92.23 Personal history of estrogen therapy; T14.8XXA Other injury of unspecified body region, initial encounter; X58.XXXA Exposure to other specified factors, initial encounter
CPT/HCPCS: 36415; 80053; 85025; 99213